=== PATIENT | male | born 1965 | race Caucasian/White ===

== ENCOUNTER 2023-08-07 09:37 | Outpatient (OUT) | payer OTHER, SELFPAY ==
--- NOTE | 2023-08-07 09:59 | MR_ITS ---
The [address] [address] Patient Name: KARI CAMACHO MRN: [facility]:[id number] date: 1965 Sex: M Assigned Patient Location: MRI Current Patient Location: MRI Accession/Order Number: [id number] Exam Date: 08/07/2023 10:10 Report Date: 08/07/2023 18:13 At the request of: JOHN CARRERA Procedure: MR IAC wo/w con EXAM: MR IAC wo/w con HISTORY: H43.19 tinnitus COMPARISON: None. TECHNIQUE: MRI of the internal auditory canals was performed without and with contrast. FINDINGS: The internal auditory canals and cerebellopontine angles are unremarkable, without masses or abnormal enhancement. The bilateral cranial nerves VII and VIII are unremarkable. No abnormality is seen involving the membranous labyrinth. The cortical sulci and ventricular system are within normal limits. There are a few nonspecific scattered foci of T2/FLAIR signal abnormality in the subcortical and periventricular white matter, likely reflect chronic microvascular ischemic changes. No mass or abnormal enhancement is seen elsewhere intracranially.No extraaxial fluid collection, mass effect, or midline shift. Diffusion-weighted images demonstrate no evidence of recent infarct. No evidence for chronic intracranial blood products. The major intracranial flow voids are visualized. The cerebellar tonsils are normal in position. The orbits are unremarkable. The paranasal sinuses show no air-fluid level. The mastoid air cells are clear. MR/MR IAC wo/w con IMPRESSION: Clear internal auditory canals and cerebellopontine angles. Mild chronic microvascular ischemic changes. Electronically authenticated by: HEATHER ZULETA Date: 08/07/2023 18:13
[2023-08-07 10:04] LABS: Basophils Percent Auto 0.3 % (0.2-2.0); Eosinophils Absolute Auto 0.1 10^3/uL (0.0-0.7); Eosinophils Percent Auto 1.2 % (0.9-7.0); Hematocrit 41.3 % (42.0-54.0); Hemoglobin 12.9 g/dL (14.0-18.0); Immature Granulocytes Abs Auto 0.02 10^3/uL (0.00-0.03); Immature Granulocytes Pct Auto 0.2 % (0.0-0.5); Lymphocytes Absolute Auto 3.3 10^3/uL (1.2-3.8); Lymphocytes Percent Auto 31.5 % (20.5-60.0); Mean Corpuscular HGB Conc 31.2 g/dL (29.9-35.2); Mean Corpuscular Volume 89.8 fL (80.0-94.0); Mean Platelet Volume 9.5 fL (9.5-13.5); Monocytes Absolute Auto 0.9 10^3/uL (0.3-0.8); Monocytes Percent Auto 8.5 % (1.7-12.0); Neutrophils Percent Auto 58.3 % (43.0-75.0); Platelet Count 281 10^3/uL (150-450); Red Cell Distribution Width 13.6 % (11.0-15.0); White Blood Count 10.3 10^3/uL (4.0-11.0)
[2023-08-07 10:19] LABS: Alanine Aminotransferase 34 U/L (16-63); Albumin Globulin Ratio 1.1; Albumin Level 3.7 g/dL (3.4-5.0); Alkaline Phosphatase 61 U/L (46-116); Anion Gap 12.1; Aspartate Amino Transferase 14 U/L (15-37); BUN Creatinine Ratio 24.8; Bilirubin Total 0.5 mg/dL (0.2-1.0); Calcium 8.9 mg/dL (8.5-10.1); Carbon Dioxide 30.8 mmol/L (21.0-32.0); Chloride 102 mmol/L (98-107); Estimated GFR (African America >60 (>=60); Estimated GFR (Non-African Ame >60 (>=60); Globulin 3.4 g/dL; Glucose 98 mg/dL (74-106); Potassium 3.9 mmol/L (3.5-5.1); Sodium 141 mmol/L (136-145); Total Protein 7.1 g/dL (6.4-8.2)
== END 2023-08-07 09:38 | disposition home or self-care (01) ==
LOC: MRI 09:37
PROVIDERS: PCP Nurse Practitioner Family; Visit Provider Nurse Practitioner Family
DX: H93.19 Tinnitus, unspecified ear (principal); G70.00 Myasthenia gravis without (acute) exacerbation
CPT/HCPCS: 36415; 70553; 80053; 85025; A9575

== ENCOUNTER 2024-01-30 11:43 | Outpatient (REF) | payer OTHER, SELFPAY ==
[2024-01-30 12:26] LABS: Bilirubin Urine NEGATIVE (NEGATIVE); Blood Urine LARGE (NEGATIVE); Clarity Urine CLEAR (CLEAR); Color Urine LT. YELLOW (YELLOW); Glucose Urine UA NEGATIVE (NEGATIVE); Ketones Urine NEGATIVE (NEGATIVE); Leukocyte Esterase Urine NEGATIVE (NEGATIVE); Nitrite Urine NEGATIVE (NEGATIVE); Protein Urine NEGATIVE (NEG/TRACE); Urobilinogen Urine 0.2 EU/dL (0.2-1.0)
[2024-01-30 12:44] LABS: WBC Urine 0-2 #/HPF (NONE SEEN)
[2024-01-30 12:45] LABS: Bacteria Urine NONE SEEN #/HPF (NONE SEEN); Cast Seen? NONE SEEN #/LPF (NONE SEEN); Crystals Seen? None Seen #/HPF (None Seen); Mucus Urine NONE SEEN (NONE SEEN); Squamous Epithelial Cell Urine RARE #/LPF (NONE/RARE)
== END 2024-01-30 11:44 | disposition home or self-care (01) ==
LOC: LAB 11:43
PROVIDERS: PCP Nurse Practitioner Family; Visit Provider Nurse Practitioner Family
DX: R31.9 Hematuria, unspecified (principal)
CPT/HCPCS: 81001; 87086

== ENCOUNTER 2024-01-31 10:54 | Outpatient (OUT) | payer OTHER, SELFPAY ==
--- OUTSIDE RECORDS SUMMARY | 2024-01-31 11:01 | XMS_ITS | CCD ---
Author Organization [facility] Care Team Providers Care Financial Systems Director Name Role Phone Krystin Loja Unavailable KERRY MONTES Admitting Unavailable SIMON, KERRY Attending Unavailable RANDA, DR EASON Primary Care Unavailable KERRY MONTES Consulting Unavailable OSCARS, DR EASON Admitting Unavailable YUHAS, DR EASON Attending Unavailable YUHAS, DR EASON Primary Care Unavailable YUHAS, DR EASON Consulting Unavailable REQUEST, DR CHESTER LISTED Admitting Unavaila ble REQUEST, DR CHESTER LISTED Attending Unavaila ble REQUEST, DR CHESTER LISTED Consulting Unavaila ble Medications Current Medications Medication Drug Class(es) Dates Sig (Normalized) Sig (Original) atorvastatin (1 source) HMG-CoA Reductase Inhibitor Atorvastatin Calcium Active azithromycin 250 mg oral tablet (1 source) Macrolide Antimicrobial Start: 06-28-20 Azithromycin 250 MG 2 tablet on the first day, then 1 tablet daily for 4 days Orally Once a day for 5 day(s) Jun, Active benzonatate 100 mg oral capsule (1 source) Non-narcotic Antitussive Start: 06-28-20 take 1 capsule by mouth every eight hours Tessalon Perles 100 MG 1 capsule as needed Orally Three times a day for 7 days Jun, Active hydroCHLOROthiazide (1 source) Thiazide Diuretic hydroCHLOROthi azide Active Losartan (1 source) Angiotensin 2 Receptor Rob Losartan Potassium Active methylPREDNISolone 4 mg oral tablet (1 source) Corticosteroid Start: 06-28-20 methylPREDNISolone 4 MG as directed Orally for daily dose take half with breakfast, half with dinner for 6 days Jun, Active Pyridostigmine (2 sources) Pyridostigmine B romide ER Active Pyridostigmine B romide Active Problems Problem Classification Problem Date Documented Da te Episodic/Chronic Other circulatory disease (1 source) Elevated blood-pressure reading, without diagnosis of hypertension Episodic Other lower respiratory disease (1 source) Unspecified acute lower respiratory infection Episodic Other nervous system disorders (4 sources) Myasthenia gravis without (acute) exacerbation; Translations: [MYASTHENIA GRAVIS W/O AC EXACERBAT] Onset: 08-17-2022 Chronic Results Test Name Value Interpretation Reference Range Facility CBC AUTO DIFFon 01-13-2023 BASO # 0.0 103/ul Normal 0.0-0.1 [facility] Comment on above: Performed By: #### C BC #### [facility] [address] [address] [address] Danielle Harden Basophils/100 WBC (Bld) 0.2 % Normal 0.2-2.0 [facility] Comment on above: Performed By: #### C BC #### [facility] [address] [address] [address] Danielle Harden EO # 0.2 103/ul Normal 0.0-0.7 [facility] Comment on above: Performed By: #### C BC #### [facility] [address] [address] [address] Danielle Harden Eosinophils/100 WBC (Bld) 2.7 % Normal 0.9-7.0 [facility] Comment on above: Performed By: #### C BC #### [facility] [address] [place] [address] Dr. Danielle Harden Erythrocyte distribution width (RBC) [Ratio] 14.1 % Normal 11.0-15.0 [facility] Comment on above: Performed By: #### C BC #### [facility] [address] [address] [address] Danielle Harden Hematocrit (Bld) [Volume fraction] 39.1 % Critically low 42.0-54.0 [facility] Comment on above: Performed By: #### C BC #### [facility] [address] [place] [address] Dr. Danielle Harden Hemoglobin (Bld) [Mass/Vol] 13.0 g/dL Critically low 14.0-18.0 [facility] Comment on above: Performed By: #### C BC #### [facility] [address] [place] [address] Dr. Danielle Harden IG # 0.02 10e3/ul Normal 0.00-0.03 [facility] Comment on above: Performed By: #### C BC #### [facility] [address] [place] [address] Dr. Danielle Harden IG % 0.2 % Normal 0.0-0.5 [facility] Comment on above: Performed By: #### C BC #### [facility] [address] [place] [address] Dr. Danielle Harden LYMPH # 2.6 103/ul Normal 1.2-3.8 [facility] Comment on above: Performed By: #### C BC #### [facility] [address] [place] [address] Dr. Danielle Harden Lymphocytes/100 WBC (Bld) 31.3 % Normal 20.5-60.0 [facility] Comment on above: Performed By: #### C BC #### [facility] [address] [place] [address] Dr. Danielle Harden MANUAL DIFF REQ NO Normal [facility] Comment on above: Performed By: #### C BC #### [facility] [address] [place] [address] Dr. Danielle Harden MCH (RBC) [Entitic mass] 28.6 pg Normal 25.9-34.0 [facility] Comment on above: Performed By: #### C BC #### [facility] [address] [place] [address] Dr. Danielle Harden MCHC (RBC) [Mass/Vol] 33.2 g/dL Normal 29.9-35.2 [facility] Comment on above: Performed By: #### C BC #### [facility] [address] [place] [address] Dr. Danielle Harden MCV (RBC) [Entitic vol] 86.1 fL Normal 80.0-94.0 [facility] Comment on above: Performed By: #### C BC #### [facility] [address] [place] [address] Dr. Danielle Harden MONO # 0.8 103/ul Normal 0.3-0.8 [facility] Comment on above: Performed By: #### C BC #### [facility] [address] [place] [address] Dr. Danielle Harden Monocytes/100 WBC (Bld) 9.4 % Normal 1.7-12.0 [facility] Comment on above: Performed By: #### C BC #### [facility] [address] [place] [address] Dr. Danielle Harden NEUT # 4.6 103/ul Normal 1.4-6.5 [facility] Comment on above: Performed By: #### C BC #### [facility] [address] [place] [address] Dr. Danielle aHrden Neutrophils/100 WBC (Bld) 56.2 % Normal 43.0-75.0 [facility] Comment on above: Performed By: #### C BC #### [facility] [address] [place] [address] Dr. Danielle Harden Platelet mean volume (Bld) [Entitic vol] 9.7 fL Normal 9.5-13.5 [facility] Comment on above: Performed By: #### C BC #### [facility] [address] [place] [address] Dr. Danielle Harden PLT 269 103/ul Normal 150-450 [facility] Comment on above: Performed By: #### C BC #### [facility] [address] [place] [address] Dr. Danielle Harden RBC 4.54 106/ul Critically low 4.70-6.10 [facility] Comment on above: Performed By: #### C BC #### [facility] [address] [place] [address] Dr. Danielle Harden WBC 8.2 103/ul Normal 4.0-11.0 [facility] Comment on above: Performed By: #### C BC #### [facility] [address] [place] [address] Dr. Danielle Harden LIPID PROFILEon 01-13-2023 CHOL-HDL RATIO NORM SEE BELOW Normal [facility] Comment on above: Result Comment: 3.3 - 4.4 LOW RISK 4.4 - 7.1 AVERAGE RISK 7.1 - 11.0 MODERATE RISK >11.0 HIGH RISK Performed By: #### C MP, MG #### [facility] [address] [address] [address] Danielle Harden Cholesterol [Mass/Vol] 182 mg/dL Normal <=200 [facility] Comment on above: Performed By: #### C MP, MG #### [facility] [address] [address] [address] Danielle Harden Cholesterol in HDL [Mass/Vol] 76 mg/dL Critically high 40-60 [facility] Comment on above: Performed By: #### C MP, MG #### [facility] [address] [place] [address] Dr. Danielle Harden Cholesterol in LDL [Mass/Vol] 78.2 mg/dL Normal [facility] Comment on above: Performed By: #### C MP, MG #### [facility] [address] [place] [address] Dr. Danielle Harden Cholesterol.total/C holesterol in HDL [Mass ratio] 2.4 {ratio} Normal [facility] Comment on above: Performed By: #### C MP, MG #### [facility] [address] [place] [address] Dr. Danielle Harden HDL NORMAL > or = 60 mg/dl - LOW CARDIOVASCULAR RISK <40 mg/dl - HIGH CARDIOVASCULAR RISK Normal [facility] Comment on above: Performed By: #### C MP, MG #### [facility] [address] [place] [address] Dr. Danielle Harden LDL CALC NORMAL SEE BELOW Normal [facility] Comment on above: Result Comment: <100 mg/dl OPTIMAL 100 - 129 mg/dl NEAR OR ABOVE OPTIMAL 130 - 159 mg/dl BORDERLINE HIGH 160 - 189 mg/dl HIGH >190 mg/dl VERY HIGH Performed By: #### C MP, MG #### [facility] [address] [place] [address] Dr. Danielle Harden Triglyceride [Mass/Vol] 139 mg/dL Normal <=150 [facility] Comment on above: Performed By: #### C MP, MG #### [facility] [address] [address] [address] Danielle Harden VLDL CALC 27.8 mg/dL Normal [facility] Comment on above: Performed By: #### C MP, MG #### [facility] [address] [place] [address] Dr. Danielle Harden PROF 14(COMP METB)on 023 Albumin [Mass/Vol] 4.0 g/dL Normal 3.4-5.0 [facility] Comment on above: Performed By: #### C MP, T4, LIPID, TSH #### [facility] [address] [place] [address] Dr. Danielle Harden Albumin/Globulin [Mass ratio] 1.0 {ratio} Normal [facility] Comment on above: Performed By: #### C MP, T4, LIPID, TSH #### [facility] [address] [place] [address] Dr. Danielle Harden ALP [Catalytic activity/Vol] 58 U/L Normal 46-116 [facility] Comment on above: Performed By: #### C MP, T4, LIPID, TSH #### [facility] [address] [place] [address] Dr. Danielle Harden ALT [Catalytic activity/Vol] 33 U/L Normal 16-63 [facility] Comment on above: Performed By: #### C MP, T4, LIPID, TSH #### [facility] [address] [place] [address] Dr. Danielle Harden Anion gap [Moles/Vol] 11.1 mmol/L Normal [facility] Comment on above: Performed By: #### C MP, T4, LIPID, TSH #### [facility] [address] [place] [address] Dr. Danielle Harden AST [Catalytic activity/Vol] 14 U/L Critically low 15-37 [facility] Comment on above: Performed By: #### C MP, T4, LIPID, TSH #### [facility] [address] [place] [address] Dr. Danielle Harden Bilirubin [Mass/Vol] 0.5 mg/dL Normal 0.2-1.0 [facility] Comment on above: Performed By: #### C MP, T4, LIPID, TSH #### [facility] [address] [address] [address] Danielle Harden Calcium [Mass/Vol] 9.2 mg/dL Normal 8.5-10.1 [facility] Comment on above: Performed By: #### C MP, T4, LIPID, TSH #### [facility] [address] [place] [address] Dr. Danielle Harden Chloride [Moles/Vol] 102 mmol/L Normal 98-107 [facility] Comment on above: Performed By: #### C MP, T4, LIPID, TSH #### [facility] [address] [place] [address] Dr. Danielle Harden CO2 [Moles/Vol] 28.1 mmol/L Normal 21.0-32.0 [facility] Comment on above: Performed By: #### C MP, T4, LIPID, TSH #### [facility] [address] [place] [address] Dr. Danielle Harden Creatinine [Mass/Vol] 0.87 mg/dL Normal 0.70-1.30 [facility] Comment on above: Performed By: #### C MP, T4, LIPID, TSH #### [facility] [address] [place] [address] Dr. Danielle Harden EGFR-AF IRANIAN >60 Normal >=60 [facility] Comment on above: Performed By: #### C MP, T4, LIPID, TSH #### [facility] [address] [place] [address] Dr. Danielle Harden EGFR-NON AF IRANIAN >60 Normal >=60 [facility] Comment on above: Performed By: #### C MP, T4, LIPID, TSH #### [facility] [address] [place] [address] Dr. Danielle Harden Globulin (S) [Mass/Vol] 4.2 g/dL Normal [facility] Comment on above: Performed By: #### C MP, T4, LIPID, TSH #### [facility] [address] [address] [address] Danielle Harden Glucose [Mass/Vol] 95 mg/dL Normal 74-106 [facility] Comment on above: Performed By: #### C MP, T4, LIPID, TSH #### [facility] [address] [address] [address] Danielle Harden Potassium [Moles/Vol] 3.2 mmol/L Critically low 3.5-5.1 [facility] Comment on above: Performed By: #### C MP, T4, LIPID, TSH #### [facility] [address] [address] [address] Danielle Harden Protein [Mass/Vol] 8.2 g/dL Normal 6.4-8.2 [facility] Comment on above: Performed By: #### C MP, T4, LIPID, TSH #### [facility] [address] [place] [address] Dr. Danielle Harden Sodium [Moles/Vol] 138 mmol/L Normal 136-145 [facility] Comment on above: Performed By: #### C MP, T4, LIPID, TSH #### [facility] [address] [address] [address] Danielle Harden Urea nitrogen [Mass/Vol] 21.0 mg/dL Critically high 7.0-18.0 [facility] Comment on above: Performed By: #### C MP, T4, LIPID, TSH #### [facility] [address] [place] [address] Dr. Danielle Harden Urea nitrogen/Creatinine [Mass ratio] 24.1 mg/mg Normal [facility] Comment on above: Performed By: #### C MP, T4, LIPID, TSH #### [facility] [address] [place] [address] Dr. Danielle Harden T4on 01-13-2023 T4 [Mass/Vol] 9.50 ug/dL Normal 4.50-12.10 [facility] Comment on above: Performed By: #### C MP, MG #### [facility] [address] [place] [address] Dr. Danielle Harden TSHon 01-13-2023 TSH 2.226 uIU/mL Normal 0.358-3.740 [facility] Comment on above: Performed By: #### C MP, MG #### [facility] [address] [place] [address] Dr. Danielle Harden MAGNESIUMon 08-17-2022 Magnesium [Mass/Vol] 2.0 mg/dL Normal 1.8-2.4 [facility] Comment on above: Performed By: #### C MP, MG #### [facility] [address] [place] [address] Dr. Danielle Harden PROF 14(COMP METB)on 022 Albumin [Mass/Vol] 3.6 g/dL Normal 3.4-5.0 [facility] Comment on above: Performed By: #### C MP, MG #### [facility] [address] [place] [address] Dr. Danielle Harden Albumin/Globulin [Mass ratio] 1.1 {ratio} Normal [facility] Comment on above: Performed By: #### C MP, MG #### [facility] [address] [place] [address] Dr. Danielle Harden ALP [Catalytic activity/Vol] 61 U/L Normal 46-116 [facility] Comment on above: Performed By: #### C MP, MG #### [facility] [address] [place] [address] Dr. Danielle Harden ALT [Catalytic activity/Vol] 23 U/L Normal 16-63 [facility] Comment on above: Performed By: #### C MP, MG #### [facility] [address] [place] [address] Dr. Danielle Harden Anion gap [Moles/Vol] 10.4 mmol/L Normal [facility] Comment on above: Performed By: #### C MP, MG #### [facility] [address] [place] [address] Dr. Danielle Harden AST [Catalytic activity/Vol] 13 U/L Critically low 15-37 [facility] Comment on above: Performed By: #### C MP, MG #### [facility] [address] [address] [address] Danielle Harden Bilirubin [Mass/Vol] 0.2 mg/dL Normal 0.2-1.0 [facility] Comment on above: Performed By: #### C MP, MG #### [facility] [address] [place] [address] Dr. Danielle Harden Calcium [Mass/Vol] 8.8 mg/dL Normal 8.5-10.1 [facility] Comment on above: Performed By: #### C MP, MG #### [facility] [address] [place] [address] Dr. Danielle Harden Chloride [Moles/Vol] 102 mmol/L Normal 98-107 [facility] Comment on above: Performed By: #### C MP, MG #### [facility] [address] [place] [address] Dr. Danielle Harden CO2 [Moles/Vol] 28.1 mmol/L Normal 21.0-32.0 [facility] Comment on above: Performed By: #### C MP, MG #### [facility] [address] [place] [address] Dr. Danielle Hardne Creatinine [Mass/Vol] 1.06 mg/dL Normal 0.70-1.30 [facility] Comment on above: Performed By: #### C MP, MG #### [facility] [address] [place] [address] Dr. Danielle Harden EGFR-AF IRANIAN >60 Normal >=60 [facility] Comment on above: Performed By: #### C MP, MG #### [facility] [address] [place] [address] Dr. Danielle Harden EGFR-NON AF IRANIAN >60 Normal >=60 [facility] Comment on above: Performed By: #### C MP, MG #### [facility] [address] [place] [address] Dr. Danielle Harden Globulin (S) [Mass/Vol] 3.3 g/dL Normal [facility] Comment on above: Performed By: #### C MP, MG #### [facility] [address] [address] [address] Danielle Harden Glucose [Mass/Vol] 93 mg/dL Normal 74-106 [facility] Comment on above: Performed By: #### C MP, MG #### [facility] [address] [address] [address] Danielle Harden Potassium [Moles/Vol] 3.5 mmol/L Normal 3.5-5.1 [facility] Comment on above: Performed By: #### C MP, MG #### [facility] [address] [address] [address] Danielle Harden Protein [Mass/Vol] 6.9 g/dL Normal 6.4-8.2 [facility] Comment on above: Performed By: #### C MP, MG #### [facility] [address] [place] [address] Dr. Danielle Harden Sodium [Moles/Vol] 137 mmol/L Normal 136-145 [facility] Comment on above: Performed By: #### C MP, MG #### [facility] [address] [address] [address] Danielle Harden Urea nitrogen [Mass/Vol] 23.0 mg/dL Critically high 7.0-18.0 [facility] Comment on above: Performed By: #### C MP, MG #### [facility] [address] [place] [address] Dr. Danielle Harden Urea nitrogen/Creatinine [Mass ratio] 21.7 mg/mg Normal [facility] Comment on above: Performed By: #### C MP, MG #### [facility] [address] [address] [address] Danielle Harden [facility] Kendrick 04-07-2022 Albumin [Mass/Vol] 4.3 g/dL Normal 3.6-5.1 [facility] Comment on above: Performed By: #### 7 600, [id number] #### [facility] [address], [address] [place] [address] Metal Bumper: Darwin Ray MD Albumin/Globulin [Mass ratio] 1.9 {ratio} Normal 1.0-2.5 [facility] Comment on above: Performed By: #### 7 600, [id number] #### [facility] of [address] [place] [address] [employer] Bumper: Darwin Ray MD ALP [Catalytic activity/Vol] 62 U/L Normal 35-144 [facility] Comment on above: Performed By: #### 7 600, [id number] #### [facility] of [address], [address] [place] [address] [employer]: Darwin Ray MD ALT [Catalytic activity/Vol] 18 U/L Normal 9-46 [facility] Comment on above: Performed By: #### 7 600, [id number] #### [facility] of [address] [place] [address] [employer] Bumper: Darwin Ray MD AST [Catalytic activity/Vol] 16 U/L Normal 10-35 [facility] Comment on above: Performed By: #### 7 600, [id number] #### [facility] of [address], [address] [place] [address] [employer]: Darwin Ray MD Bilirubin [Mass/Vol] 0.3 mg/dL Normal 0.2-1.2 [facility] Comment on above: Performed By: #### 7 600, [id number] #### [facility] of [address], [address] [place] [address] [employer]: Darwin Ray MD BUN/CREATININE RATIO NOT APPLICABLE Normal 6-22 [facility] Comment on above: Performed By: #### 7 600, [id number] #### [facility] of [address], [address] [place] [address] [employer]: Darwin Ray MD Calcium [Mass/Vol] 9.3 mg/dL Normal 8.6-10.3 [facility] Comment on above: Performed By: #### 7 600, [id number] #### [facility] of [address] [place] [address] [employer]: Darwin Ray MD Chloride [Moles/Vol] 107 mmol/L Normal 98-110 [facility] Comment on above: Performed By: #### 7 600, [id number] #### [facility] [address] [place] [address] [employer]: Darwin Ray MD CO2 [Moles/Vol] 27 mmol/L Normal 20-32 [facility] Comment on above: Performed By: #### 7 600, [id number] #### [facility] [place] [address] [employer]: Darwin Ray MD Creatinine [Mass/Vol] 0.90 mg/dL Normal 0.70-1.30 [facility] Comment on above: Performed By: #### 7 600, [id number] #### [facility] [place] [address] [employer]: Darwin Ray MD GFR/1.73 sq M.predicted among non-blacks MDRD (S/P/Bld) [Vol rate/Area] 100 mL/min/{1.73_m2} Normal > OR = 60 [facility] Comment on above: Result Comment: The eGFR is based on the CKD-EPI 2020 equation. To calculate the new eGFR from a previous Creatinine or Cystatin C result, go to https://www.kidney.org/professionals/ kdoqi/gfr%5Fcalculator Performed By: #### 7 600, [id number] #### [facility] [place] [address] [employer]: Darwin Ray MD Globulin (S) [Mass/Vol] 2.3 g/dL Normal 1.9-3.7 [facility] Comment on above: Performed By: #### 7 600, [id number] #### [facility] [place] [address] [employer]: Darwin Ray MD Glucose [Mass/Vol] 102 mg/dL High 65-99 [facility] Comment on above: Result Comment: Fasting reference interval For someone without known diabetes, a glucose value between 100 and 125 mg/dL is consistent with prediabetes and should be confirmed with a follow-up test. Performed By: #### 7 600, [id number] #### [facility] of [address], [address] [place] [address] [employer]: Darwin Ray MD Potassium [Moles/Vol] 3.6 mmol/L Normal 3.5-5.3 [facility] Comment on above: Performed By: #### 7 600, [id number] #### [facility] of [address], [address] [place] [address] [employer]umper: Darwin Ray MD Protein [Mass/Vol] 6.6 g/dL Normal 6.1-8.1 [facility] Comment on above: Performed By: #### 7 600, 23249 #### [facility] [place] [address] [employer]umper: Darwin Ray MD Sodium [Moles/Vol] 141 mmol/L Normal 135-146 [facility] Comment on above: Performed By: #### 7 600, 81019 #### [facility] [place] [address] [employer]: Darwin Ray MD Urea nitrogen [Mass/Vol] 23 mg/dL Normal 7-25 [facility] Comment on above: Performed By: #### 7 600, [id number] #### [facility] [place] [address] Metal Bumper: Darwin Ray MD LIPID PANEL, [facility] 03-12 Cholesterol [Mass/Vol] 144 mg/dL Normal <200 [facility] Comment on above: Order Comment: FASTI NG:YES FASTING: YES Performed By: #### 7 600, 02387 #### [facility] of [place] [address] Metal Bumper: Darwin Ray MD Cholesterol in HDL [Mass/Vol] 43 mg/dL Normal > OR = 40 [facility] Comment on above: Order Comment: FASTI NG:YES FASTING: YES Performed By: #### 7 600, 07676 #### [facility] of [address], [address] [place] [address] Metal Bumper: Darwin Ray MD Cholesterol.total/C holesterol in HDL [Mass ratio] 3.3 {ratio} Normal <5.0 [facility] Comment on above: Order Comment: FASTI NG:YES FASTING: YES Performed By: #### 7 600, 97789 #### [facility] [address], [address] [place] [address] Metal Bumper: Darwin Ray MD LDL-CHOLESTEROL Normal [facility] Comment on above: Order Comment: FASTI NG:YES FASTING: YES Result Comment: LDL cholesterol not calculated. Triglyceride levels greater than 400 mg/dL invalidate calculated LDL results. Reference range: <100 Desirable range <100 mg/dL for primary prevention; <70 mg/dL for patients with CHD or diabetic patients with > or = 2 CHD risk factors. LDL-C is now calculated using the Vicente calculation, which is a validated novel method providing better accuracy than the Friedewald equation in the estimation of LDL-C. Jass MELGOZA et al. RNO. 2013;310(19): 8744-8348 (http://education.Devunity/faq/BIN622) Performed By: #### 7 600, 95316 #### [facility] [address], [address] [place] [address] Metal Bumper: Darwin Ray MD NON HDL CHOLESTEROL 101 mg/dL (calc) Normal <130 [facility] Comment on above: Order Comment: FASTI NG:YES FASTING: YES Result Comment: For patients with diabetes plus 1 major ASCVD risk factor, treating to a non-HDL-C goal of <100 mg/dL (LDL-C of <70 mg/dL) is considered a therapeutic option. Performed By: #### 7 600, 91849 #### [facility] [address], [address] [place] [address] Metal Bumper: Darwin Ray MD Triglyceride [Mass/Vol] 428 mg/dL High <150 [facility] Comment on above: Order Comment: FASTI NG:YES FASTING: YES Result Comment: If a non-fasting specimen was collected, consider repeat triglyceride testing on a fasting specimen if clinically indicated. Danica et al. J. of Clin. Lipidol. 2015;9:129-169. Performed By: #### 7 600, 87022 #### [facility] [address] [facility], [address] [place] [address] Metal Bumper: Darwin Ray MD CBC AUTO DIFFon 01-18-2022 BASO # 0.0 103/ul Normal 0.0-0.1 [facility] Comment on above: Performed By: #### C BC #### [facility] [address] [address] [address] Danielle Harden Basophils/100 WBC (Bld) 0.6 % Normal 0.2-2.0 [facility] Comment on above: Performed By: #### C BC #### [facility] [address] [place] [address] [address] Danielle Harden EO # 0.3 103/ul Normal 0.0-0.7 [facility] Comment on above: Performed By: #### C BC #### [facility] [address] [place] [address] [address] Danielle Harden Eosinophils/100 WBC (Bld) 3.8 % Normal 0.9-7.0 [facility] Comment on above: Performed By: #### C BC #### [facility] [address] [address] [address] Danielle Harden Erythrocyte distribution width (RBC) [Ratio] 13.6 % Normal 11.0-15.0 [facility] Comment on above: Performed By: #### C BC #### [facility] [address] [place] [address] [address] Danielle Harden Hematocrit (Bld) [Volume fraction] 39.3 % Critically low 42.0-54.0 [facility] Comment on above: Performed By: #### C BC #### [facility] [address] [place] [address] [address] Danielle Harden Hemoglobin (Bld) [Mass/Vol] 12.5 g/dL Critically low 14.0-18.0 [facility] Comment on above: Performed By: #### C BC #### [facility] [address] [place] [address] Dr. Danielle Harden IG # 0.02 10e3/ul Normal 0.00-0.03 [facility] Comment on above: Performed By: #### C BC #### [facility] [address] [place] [address] Dr. Danielle Harden IG % 0.3 % Normal 0.0-0.5 [facility] Comment on above: Performed By: #### C BC #### [facility] [address] [place] [address] Dr. Danielle Harden LYMPH # 2.1 103/ul Normal 1.2-3.8 [facility] Comment on above: Performed By: #### C BC #### [facility] [address] [place] [address] Dr. Danielle Harden Lymphocytes/100 WBC (Bld) 32.0 % Normal 20.5-60.0 [facility] Comment on above: Performed By: #### C BC #### [facility] [address] [place] [address] Dr. Danielle Harden MANUAL DIFF REQ NO Normal [facility] Comment on above: Performed By: #### C BC #### [facility] [address] [place] [address] Dr. Danielle Harden MCH (RBC) [Entitic mass] 27.8 pg Normal 25.9-34.0 [facility] Comment on above: Performed By: #### C BC #### [facility] [address] [place] [address] Dr. Danielle Harden MCHC (RBC) [Mass/Vol] 31.8 g/dL Normal 29.9-35.2 [facility] Comment on above: Performed By: #### C BC #### [facility] [address] [place] [address] Dr. Danielle Harden MCV (RBC) [Entitic vol] 87.3 fL Normal 80.0-94.0 [facility] Comment on above: Performed By: #### C BC #### [facility] [address] [place] [address] [address] Danielle Harden MONO # 0.5 103/ul Normal 0.3-0.8 [facility] Comment on above: Performed By: #### C BC #### [facility] [address] [place] [address] Dr. Danielle Harden Monocytes/100 WBC (Bld) 7.7 % Normal 1.7-12.0 [facility] Comment on above: Performed By: #### C BC #### [facility] [address] [place] [address] Dr. Danielle Harden NEUT # 3.7 103/ul Normal 1.4-6.5 [facility] Comment on above: Performed By: #### C BC #### [facility] [address] [place] [address] Dr. Danielle Harden Neutrophils/100 WBC (Bld) 55.6 % Normal 43.0-75.0 [facility] Comment on above: Performed By: #### C BC #### [facility] [address] [place] [address] Dr. Danielle Harden Platelet mean volume (Bld) [Entitic vol] 10.3 fL Normal 9.5-13.5 [facility] Comment on above: Performed By: #### C BC #### [facility] [address] [place] [address] Dr. Danielle Harden PLT 274 103/ul Normal 150-450 [facility] Comment on above: Performed By: #### C BC #### [facility] [address] [place] [address] Dr. Danielle Harden RBC 4.50 106/ul Critically low 4.70-6.10 [facility] Comment on above: Performed By: #### C BC #### [facility] [address] [place] [address] Dr. Danielle Harden WBC 6.6 103/ul Normal 4.0-11.0 [facility] Comment on above: Performed By: #### C BC #### [facility] [address] [place] [address] Dr. Danielle Harden LIPID PROFILEon 01-18-2022 CHOL-HDL RATIO NORM SEE BELOW Normal [facility] Comment on above: Result Comment: 3.3 - 4.4 LOW RISK 4.4 - 7.1 AVERAGE RISK 7.1 - 11.0 MODERATE RISK >11.0 HIGH RISK Performed By: #### L IPID, T4, TSH, CMP #### [facility] [address] [place] [address] Dr. Danielle Harden Cholesterol [Mass/Vol] 140 mg/dL Normal <=200 [facility] Comment on above: Performed By: #### L IPID, T4, TSH, CMP #### [facility] [address] [place] [address] Dr. Danielle Harden Cholesterol in HDL [Mass/Vol] 55 mg/dL Normal 40-60 [facility] Comment on above: Performed By: #### L IPID, T4, TSH, CMP #### [facility] [address] [place] [address] Dr. Danielle Harden Cholesterol in LDL [Mass/Vol] 60.2 mg/dL Normal [facility] Comment on above: Performed By: #### L IPID, T4, TSH, CMP #### [facility] [address] [place] [address] [address] Danielle Harden Cholesterol.total/C holesterol in HDL [Mass ratio] 2.5 {ratio} Normal [facility] Comment on above: Performed By: #### L IPID, T4, TSH, CMP #### [facility] [address] [place] [address] Dr. Danielle Harden HDL NORMAL > or = 60 mg/dl - LOW CARDIOVASCULAR RISK <40 mg/dl - HIGH CARDIOVASCULAR RISK Normal [facility] Comment on above: Performed By: #### L IPID, T4, TSH, CMP #### [facility] [address] [place] [address] Dr. Danielle Harden LDL CALC NORMAL SEE BELOW Normal [facility] Comment on above: Result Comment: <100 mg/dl OPTIMAL 100 - 129 mg/dl NEAR OR ABOVE OPTIMAL 130 - 159 mg/dl BORDERLINE HIGH 160 - 189 mg/dl HIGH >190 mg/dl VERY HIGH Performed By: #### L IPID, T4, TSH, CMP #### [facility] [address] [place] [address] Dr. Danielle Harden Triglyceride [Mass/Vol] 124 mg/dL Normal <=150 [facility] Comment on above: Performed By: #### L IPID, T4, TSH, CMP #### [facility] [address] [place] [address] Dr. Danielle Harden VLDL CALC 24.8 mg/dL Normal [facility] Comment on above: Performed By: #### L IPID, T4, TSH, CMP #### [facility] [address] [place] [address] Dr. Danielle Harden PROF 14(COMP METB)on 022 Albumin [Mass/Vol] 4.0 g/dL Normal 3.4-5.0 [facility] Comment on above: Performed By: #### L IPID, T4, TSH, CMP #### [facility] [address] [place] [address] Dr. Danielle Harden Albumin/Globulin [Mass ratio] 1.2 {ratio} Normal [facility] Comment on above: Performed By: #### L IPID, T4, TSH, CMP #### [facility] [address] [place] [address] Dr. Danielle Harden ALP [Catalytic activity/Vol] 58 U/L Normal 46-116 [facility] Comment on above: Performed By: #### L IPID, T4, TSH, CMP #### [facility] [address] [place] [address] Dr. Danielle Harden ALT [Catalytic activity/Vol] 29 U/L Normal 16-63 [facility] Comment on above: Performed By: #### L IPID, T4, TSH, CMP #### [facility] [address] [place] [address] Dr. Danielle Harden Anion gap [Moles/Vol] 11.6 mmol/L Normal [facility] Comment on above: Performed By: #### L IPID, T4, TSH, CMP #### [facility] [address] [place] [address] Dr. Danielle Harden AST [Catalytic activity/Vol] 16 U/L Normal 15-37 [facility] Comment on above: Performed By: #### L IPID, T4, TSH, CMP #### [facility] [address] [address] [address] Danielle Harden Bilirubin [Mass/Vol] 0.6 mg/dL Normal 0.2-1.0 [facility] Comment on above: Performed By: #### L IPID, T4, TSH, CMP #### [facility] [address] [place] [address] Dr. Danielle Harden Calcium [Mass/Vol] 9.1 mg/dL Normal 8.5-10.1 [facility] Comment on above: Performed By: #### L IPID, T4, TSH, CMP #### [facility] [address] [place] [address] Dr. Danielle Harden Chloride [Moles/Vol] 104 mmol/L Normal 98-107 [facility] Comment on above: Performed By: #### L IPID, T4, TSH, CMP #### [facility] [address] [place] [address] Dr. Danielle Harden CO2 [Moles/Vol] 27.3 mmol/L Normal 21.0-32.0 [facility] Comment on above: Performed By: #### L IPID, T4, TSH, CMP #### [facility] [address] [place] [address] Dr. Danielle Harden Creatinine [Mass/Vol] 0.78 mg/dL Normal 0.70-1.30 [facility] Comment on above: Performed By: #### L IPID, T4, TSH, CMP #### [facility] [address] [place] [address] Dr. Danielle Harden EGFR-AF IRANIAN >60 Normal >=60 [facility] Comment on above: Performed By: #### L IPID, T4, TSH, CMP #### [facility] [address] [place] [address] Dr. Danielle Harden EGFR-NON AF IRANIAN >60 Normal >=60 [facility] Comment on above: Performed By: #### L IPID, T4, TSH, CMP #### [facility] [address] [place] [address] [address] Danielle Harden Globulin (S) [Mass/Vol] 3.3 g/dL Normal [facility] Comment on above: Performed By: #### L IPID, T4, TSH, CMP #### [facility] [address] [place] [address] Dr. Danielle Harden Glucose [Mass/Vol] 86 mg/dL Normal 74-106 [facility] Comment on above: Performed By: #### L IPID, T4, TSH, CMP #### [facility] [address] [place] [address] Dr. Danielle Harden Potassium [Moles/Vol] 3.9 mmol/L Normal 3.5-5.1 [facility] Comment on above: Performed By: #### L IPID, T4, TSH, CMP #### [facility] [address] [place] [address] Dr. Danielle Harden Protein [Mass/Vol] 7.3 g/dL Normal 6.4-8.2 [facility] Comment on above: Performed By: #### L IPID, T4, TSH, CMP #### [facility] [address] [place] [address] Dr. Danielle Harden Sodium [Moles/Vol] 139 mmol/L Normal 136-145 [facility] Comment on above: Performed By: #### L IPID, T4, TSH, CMP #### [facility] [address] [place] [address] Dr. Danielle Harden Urea nitrogen [Mass/Vol] 19.0 mg/dL Critically high 7.0-18.0 [facility] Comment on above: Performed By: #### L IPID, T4, TSH, CMP #### [facility] [address] [place] [address] Dr. Danielle Harden Urea nitrogen/Creatinine [Mass ratio] 24.4 mg/mg Normal [facility] Comment on above: Performed By: #### L IPID, T4, TSH, CMP #### [facility] [address] [place], [place] [id number] Dr. Danielle Harden T4on 01-18-2022 T4 [Mass/Vol] 8.50 ug/dL Normal 4.50-12.10 [facility] Comment on above: Performed By: #### L IPID, T4, TSH, CMP #### [facility] [address] [place] [address] Dr. Danielle Harden TSHon 01-18-2022 TSH 1.855 uIU/mL Normal 0.358-3.740 [facility] Comment on above: Performed By: #### L IPID, T4, TSH, CMP #### [facility] [address] [place] [address] Dr. Danielle Harden TSH RANGE SEE BELOW Normal [facility] Comment on above: Result Comment: <0.3 4 UIU/ml HYPERTHYROID 0.34-5.60 UIU/ml EUTHYROID >5.60 UIU/ml HYPOTHYROID Performed By: #### L IPID, T4, TSH, CMP #### [facility] [address] [place] [address] Dr. Danielle Harden BASIC METABOLIC PANELon 09-12 BUN/CREATININE RATIO NOT APPLICABLE Normal 6- [facility] Comment on above: Order Comment: FASTI NG:YES FASTING: YES Performed By: #### 1 0165, 6399 #### [facility] [address] Metal Bumper: Darwin Ray MD Calcium [Mass/Vol] 9.3 mg/dL Normal 8.6-10.3 [facility] Comment on above: Order Comment: FASTI NG:YES FASTING: YES Performed By: #### 1 0165, 6399 #### [facility] [place] [address] Metal Bumper: Darwin Ray MD Chloride [Moles/Vol] 104 mmol/L Normal 98-110 [facility] Comment on above: Order Comment: FASTI NG:YES FASTING: YES Performed By: #### 1 0165, 6399 #### [facility] [address], [address] [place] [address] Metal Bumper: Darwin Ray MD CO2 [Moles/Vol] 29 mmol/L Normal 20-32 [facility] Comment on above: Order Comment: FASTI NG:YES FASTING: YES Performed By: #### 1 0165, 6399 #### [facility] [address], [address] [place] [address] Metal Bumper: Darwin Ray MD Creatinine [Mass/Vol] 0.86 mg/dL Normal 0.70-1.33 [facility] Comment on above: Order Comment: FASTI NG:YES FASTING: YES Result Comment: For patients >49 years of age, the reference limit for Creatinine is approximately 13% higher for people identified as -[place]. Performed By: #### 1 0165, 6399 #### [facility] [address], [address] [place] [address] Metal Bumper: Darwin Ray MD eGFR NON-AFR. IRANIAN 96 mL/min/1.73m2 Normal > OR = 60 [facility] Comment on above: Order Comment: FASTI NG:YES FASTING: YES Performed By: #### 1 0165, 6399 #### [facility] [address], [address] [place] [address] Metal Bumper: Darwin Ray MD GFR/1.73 sq M.predicted among blacks MDRD (S/P/Bld) [Vol rate/Area] 112 mL/min/{1.73_m2} Normal > OR = 60 [facility] Comment on above: Order Comment: FASTI NG:YES FASTING: YES Performed By: #### 1 0165, 6399 #### [facility] [address], [address] [place] [address] Metal Bumper: Darwin Ray MD Glucose [Mass/Vol] 89 mg/dL Normal 65-99 [facility] Comment on above: Order Comment: FASTI NG:YES FASTING: YES Result Comment: Fasting reference interval Performed By: #### 1 0165, 6399 #### [facility] [address], [address] [place] [address] Metal Bumper: Darwin Ray MD Potassium [Moles/Vol] 3.8 mmol/L Normal 3.5-5.3 [facility] Comment on above: Order Comment: FASTI NG:YES FASTING: YES Performed By: #### 1 0165, 6399 #### [facility] of [address], [address] [place] [address] Metal Bumper: Darwin Ray MD Sodium [Moles/Vol] 139 mmol/L Normal 135-146 [facility] Comment on above: Order Comment: FASTI NG:YES FASTING: YES Performed By: #### 1 0165, 6399 #### [facility] [place] [address] Metal Bumper: Darwin Ray MD Urea nitrogen [Mass/Vol] 23 mg/dL Normal 7-25 [facility] Comment on above: Order Comment: FASTI NG:YES FASTING: YES Performed By: #### 1 0165, 6399 #### [facility] of [address], [address] [place] [address] Metal Bumper: Darwin Ray MD CBC (INCLUDES DIFF/PLT)on Basophils (Bld) [#/Vol] 0.029 10*3/uL Normal 0-200 [facility] Comment on above: Performed By: #### 1 0165, 6399 #### [facility] of [address], [address] [place] [address] Metal Bumper: Darwin Ray MD Basophils/100 WBC (Bld) 0.4 % Normal [facility] Comment on above: Performed By: #### 1 0165, 6399 #### [facility] of [address], [address] [place] [address] Metal Bumper: Darwin Ray MD Eosinophils (Bld) [#/Vol] 0.212 10*3/uL Normal 15-500 [facility] Comment on above: Performed By: #### 1 0165, 6399 #### [facility] [place] [address] Metal Bumper: Darwin Ray MD Eosinophils/100 WBC (Bld) 2.9 % Normal [facility] Comment on above: Performed By: #### 1 0165, 6399 #### [facility] [place] [address] Metal Bumper: Darwin Ray MD Erythrocyte distribution width (RBC) [Ratio] 13.6 % Normal 11.0-15.0 [facility] Comment on above: Performed By: #### 1 0165, 6399 #### [facility] [place] [address] Metal Bumper: Darwin Ray MD Hematocrit (Bld) [Volume fraction] 40.4 % Normal 38.5-50.0 [facility] Comment on above: Performed By: #### 1 0165, 6399 #### [facility] [place] [address] Metal Bumper: Darwin Ray MD Hemoglobin (Bld) [Mass/Vol] 13.2 g/dL Normal 13.2-17.1 [facility] Comment on above: Performed By: #### 1 0165, 6399 #### [facility] [place] [address] Metal Bumper: Darwin Ray MD Lymphocytes (Bld) [#/Vol] 2.431 10*3/uL Normal 850-3900 [facility] Comment on above: Performed By: #### 1 0165, 6399 #### [facility] [place] [address] Metal Bumper: Darwin Ray MD Lymphocytes/100 WBC (Bld) 33.3 % Normal [facility] Comment on above: Performed By: #### 1 0165, 6399 #### [facility] [place] [address] Metal Bumper: Darwin Ray MD MCH (RBC) [Entitic mass] 27.4 pg Normal 27.0-33.0 [facility] Comment on above: Performed By: #### 1 0165, 6399 #### [facility] [address], [address] [place] [address] Metal Bumper: Darwin Ray MD MCHC (RBC) [Mass/Vol] 32.7 g/dL Normal 32.0-36.0 [facility] Comment on above: Performed By: #### 1 0165, 6399 #### [facility] of [address], [address] [place] [address] Metal Bumper: Darwin Ray MD MCV (RBC) [Entitic vol] 84.0 fL Normal 80.0-100.0 [facility] Comment on above: Performed By: #### 1 0165, 6399 #### [facility] of [address], [address] [place] [address] Metal Bumper: Darwin Ray MD Monocytes (Bld) [#/Vol] 0.54 10*3/uL Normal 200-950 [facility] Comment on above: Performed By: #### 1 0165, 6399 #### [facility] [address], [address] [place] [address] Metal Bumper: Darwin Ray MD Monocytes/100 WBC (Bld) 7.4 % Normal [facility] Comment on above: Performed By: #### 1 0165, 6399 #### [facility] [address], [address] [place] [address] Metal Bumper: Darwin Ray MD Neutrophils (Bld) [#/Vol] 4.088 10*3/uL Normal 7488-3660 [facility] Comment on above: Performed By: #### 1 0165, 6399 #### [facility] [address], [address] [place] [address] Metal Bumper: Darwin Ray MD Neutrophils/100 WBC (Bld) 56 % Normal [facility] Comment on above: Performed By: #### 1 0165, 6399 #### [facility] [address], [address] [place] [address] Metal Bumper: Darwin Ray MD Platelet mean volume (Bld) [Entitic vol] 10.6 fL Normal 7.5-12.5 [facility] Comment on above: Performed By: #### 1 0165, 6399 #### [facility] [place] [address] Metal Bumper: Darwin Ray MD Platelets (Bld) [#/Vol] 277 10*3/uL Normal 140-400 [facility] Comment on above: Performed By: #### 1 0165, 6399 #### [facility] [address], [address] [place] [address] Metal Bumper: Darwin Ray MD RBC (Bld) [#/Vol] 4.81 10*6/uL Normal 4.20-5.80 [facility] Comment on above: Performed By: #### 1 0165, 6399 #### [facility] [place] [address] Metal Bumper: Darwin Ray MD WBC (Bld) [#/Vol] 7.3 10*3/uL Normal 3.8-10.8 [facility] Comment on above: Performed By: #### 1 0165, 6399 #### [facility] [place] [address] Metal Bumper: Darwin Ray MD Coding Summary.on 04-16-2020 Coding Summary. CODING DATE: 04/16/2020 FINAL [facility] STATUS: Home (Routine DC) PAYOR: [facility] [place] ADMIT DX: REASON FOR VISIT DX: G70.00 Myasthenia gravis without (acute) exacerbation FINAL DX: PRINCIPAL: G70.00 Myasthenia gravis without (acute) exacerbation SECONDARY: H02.402 Unspecified ptosis of left eyelid PYMT PROC APC STAT DESCRIPTION DOCTOR NAME DATE NOTE: The code number assigned matches the documented diagnosis and / or procedure in the patient's chart. However, the narrative phrase printed from the coding software may appear abbreviated, or result in slightly different terminology. Coded By: Michelle Khan CphT Date Saved: 04/16/2020 10:20 am Normal [facility] [facility] 04-14-2020 Physician Order [id number]#[id number]:127 Normal [facility] Bind Abon 02-19-2020 Acetylcholine receptor binding Ab (S) [Moles/Vol] 3.61 nmol/L High 0.00-0.24 [facility] Comment on above: Result Comment: Nega tive: 0.00 - 0.24 Borderline: 0.25 - 0.40 Positive: >0.40 Performed at: [facility] [id number] MD Gabriel Martinez Performed By: #### 1 [id number] #### [facility] [address] [place] [address] Consent for Treatmenton Consent for Treatment [id number] #[id number]:127 Normal [facility] Vital Signs Date Time Vital Sign Value Performing Clinician Facility 06-28-2022 13:25-0400 Body height 177.8 cm Krystin Loja Other [facility] Other 06-28-2022 13:25-0400 Body mass index (BMI) [Ratio] 28.69 kg/m2 Krystin Loja Other [facility] Other 06-28-2022 13:25-0400 Body temperature 98.9 [degF] Krystin Loja Other [facility] Other 06-28-2022 13:25-0400 Body weight 90.72 kg Krystin Loja Other [facility] Other 06-28-2022 13:25-0400 Diastolic blood pressure 97 mm[Hg] Krystin Loja Other [facility] Other 06-28-2022 13:25-0400 Respiratory rate 18 /min Krystin Loja Other [facility] Other 06-28-2022 13:25-0400 SaO2% (BldA) [Mass fraction] 97 % Krystin Loja Other [facility] Other 06-28-2022 13:25-0400 Systolic blood pressure 130 mm[Hg] Krystin Loja Other [facility] Other Encounters Encounter Date Encounter Type Care Provider Facility Start: 01-13-2023 End: 01-14-[address] YUMI TOLENTINO Facility: Start: 08-17-2022 End: 08-18-2022 ambulatory KERRY MONTES Facility: Start: 06-28-2022 End: 06-28-2022 ambulatory Krystin Loja Other [facility] Other Start: 06-28-2022 Office outpatient ne w 30 minutes Krystin Loja [facility] Start: 01-18-2022 End: 01-19-[address] NONE LISTED REQUEST Facility: Procedures Date Procedure Procedure Detail Performing Clinician Start: 01-13-2023 PSA screening KERRY COLON Comment on above: Performed By: #### P SASC #### [facility] [address] [address] [address] Danielle Harden Start: 01-18-2022 PSA screening KERRY COLON Comment on above: Performed By: #### C MP, MG #### [facility] [address], [place] [address] Dr. Danielle Harden Payers Date Payer Category Payer Unknown [id number] 1960 Self-pay [id number] 1960 Unknown [id number] Unknown [id number] Unknown [id number] Social History Date Type Detail Facility Sex Assigned At [facility] Other Evaluation note 06-28-2022 Note Date & Type Note Facility 06-28-2022 Evaluation note Encounter Date Diagnosis Assessment Notes Jun, Lower respiratory infection (ICD-10 - J22) Discussed diagnosis with patient in detail. Advised patient that cough may linger for 3 weeks. Will treat today with antibiotic. Reviewed allergies and recent antibiotic use. Advised to take medications as prescribed, reviewed side effects of steroid, take with food and plenty of water, finish entire course. Encouraged supportive care as directed, push fluids and rest, may use Tylenol as needed for fever/discomfort , cool mist humidifier. May use Tessalon Perles as needed. Patient to follow up with PCP in 2-3 days. Immediate eval if SOB, difficulty breathing, chest pain, dizziness, or other concerning symptoms. Patient verbalizes understanding and is agreeable to treatment plan Jun, Elevated blood pressure reading (ICD-10 - R03.0) Advised patient to monitor BP at home and report to PCP at follow up. Immediate evaluation in ER for signs/symptoms as discussed. Patient verbalizes understanding and is agreeable with treatment plan [facility] Other History general Narrative - Reported Note Date & Type Note Facility History general Narrative - Reported Type Medical History htn [facility] Other Summary Purpose Family History No Family History Records FoundNo Family History Records FoundNo Family History Records Found Advance Directives No Advanced Directives Records FoundNo Advanced Directives Records FoundNo Advanced Directives Records Found Additional Source Comments (unrecognized sect ion and content) No Status Records FoundNo Status Records FoundNo Status Records Found INFORMATION SOURCE (unrecogn ized section and content) DATE CREATED AUTHOR 04/16/2020 [employer] [facility] DATE CREATED AUTHOR AUTHOR'S ORGANIZ ATION 04/10/2022 [facility] DATE CREATED AUTHOR AUTHOR'S ORGANIZ ATION 01/14/2023 [facility] REASON FOR VISIT (unrecogniz ed section and content) TRUCK BLACK, COUGH, RUNNY NO SE FOR RECORDS PERTAINING TO PATIENTS WHO ARE OR HAVE BEEN ENROLLED IN A CHEMICAL DEPENDENCY/SUBSTANCEABUSE PROGRAM, SOME INFORMATION MAY BE OMITTED. This clinical summary was aggregated from multiple sources. Caution should be exercised in using it in the provision of clinical care. This summary normalizes information from multiple sources, and as a consequence, information in this document may materially change the coding, format and clinical context of patient data. In addition, data may be omitted in some cases. CLINICAL DECISIONS SHOULD BE BASED ON THE PRIMARY CLINICAL RECORDS. [facility] [employer] [facility]. provides no warranty or guarantee of the accuracy or completeness of information in this document.
[2024-01-31 11:34] LABS: Basophils Percent Auto 0.4 % (0.2-2.0); Eosinophils Absolute Auto 0.1 10^3/uL (0.0-0.7); Immature Granulocytes Abs Auto 0.02 10^3/uL (0.00-0.03); Immature Granulocytes Pct Auto 0.2 % (0.0-0.5); Lymphocytes Absolute Auto 2.7 10^3/uL (1.2-3.8); Lymphocytes Percent Auto 26.3 % (20.5-60.0); Mean Corpuscular HGB Conc 32.4 g/dL (29.9-35.2); Mean Corpuscular Hemoglobin 28.5 pg (25.9-34.0); Mean Corpuscular Volume 87.9 fL (80.0-94.0); Mean Platelet Volume 9.7 fL (9.5-13.5); Monocytes Percent Auto 10.2 % (1.7-12.0); Neutrophils Absolute Auto 6.3 10^3/uL (1.4-6.5); Neutrophils Percent Auto 61.9 % (43.0-75.0); Platelet Count 257 10^3/uL (150-450); Red Blood Count 4.21 10^6/uL (4.70-6.10); Red Cell Distribution Width 13.2 % (11.0-15.0); White Blood Count 10.1 10^3/uL (4.0-11.0)
== END 2024-01-31 10:55 | disposition home or self-care (01) ==
LOC: LAB 10:55
PROVIDERS: PCP Nurse Practitioner Family; Visit Provider Nurse Practitioner Family
DX: R31.9 Hematuria, unspecified (principal)
CPT/HCPCS: 36415; 85025

== ENCOUNTER 2024-02-03 10:00 | Outpatient (OUT) | payer OTHER, SELFPAY ==
--- OUTSIDE RECORDS SUMMARY | 2024-02-03 10:02 | XMS_ITS | CCD ---
Author Organization [facility] Care Team Providers Care Quality Improvement Specialist Name Role Phone Krystin Loja Unavailable KERRY MONTES Admitting Unavailable SIMON, KERRY Attending Unavailable RANDA, DR EASON Primary Care Unavailable KERRY MONTES Consulting Unavailable RANDA, DR EASON Admitting Unavailable YUHAS, DR EASON Attending Unavailable YUHAS, DR EASON Primary Care Unavailable YUHAS, DR EASON Consulting Unavailable REQUEST, DR CHESTER LISTED Admitting Unavaila ble REQUEST, DR CHESTER LISTED Attending Unavaila ble REQUEST, DR CHESTER LISTED Consulting Unavaila ble Brodie LI Attending Unavailable WHITNEY LEWIS Referring Unavailable Medications Current Medications Medication Drug Class(es) Dates [...] 01-13-2023 BASO # 0.0 103/ul Normal 0.0-0.1 [facility] Comment on above: Performed By: #### C BC #### [facility] [address] [address] [address] Danielle Harden Basophils/100 WBC (Bld) 0.2 % Normal 0.2-2.0 [facility] Comment on above: Performed By: #### C BC #### [facility] [address] [address] [address] Danielle Harden EO # 0.2 103/ul Normal 0.0-0.7 [facility] Comment on above: Performed By: #### C BC #### [facility] [address] [address] [address] Danielle Harden Eosinophils/100 WBC (Bld) 2.7 % Normal 0.9-7.0 [facility] Comment on above: Performed By: #### C BC #### [facility] [address] [address] [address] Danielle Harden Erythrocyte distribution width (RBC) [Ratio] 14.1 % Normal 11.0-15.0 [facility] Comment on above: Performed By: #### C BC #### [facility] [address] [place] [address] Dr. Danielle Harden Hematocrit (Bld) [Volume fraction] 39.1 % Critically low 42.0-54.0 [facility] Comment on above: Performed By: #### C BC #### [facility] [address] [address] [address] Danielle Harden Hemoglobin (Bld) [Mass/Vol] 13.0 g/dL Critically low 14.0-18.0 [facility] Comment on above: Performed By: #### C BC #### [facility] [address] [place] [address] Dr. Danielle Harden IG # 0.02 10e3/ul Normal 0.00-0.03 [facility] Comment on above: Performed By: #### C BC #### [facility] [address] [place] [address] Dr. Danielle Harden IG % 0.2 % Normal 0.0-0.5 [facility] Comment on above: Performed By: #### C BC #### [facility] [address] [place] [address] Dr. Danielle Harden LYMPH # 2.6 103/ul Normal 1.2-3.8 [facility] Comment on above: Performed By: #### C BC #### [facility] [address] [place] [address] Dr. Danielle Harden Lymphocytes/100 WBC (Bld) 31.3 % Normal 20.5-60.0 [facility] Comment on above: Performed By: #### C BC #### [facility] [address] [place] [address] Dr. Danielle Harden MANUAL DIFF REQ NO Normal [facility] Comment on above: Performed By: #### C BC #### [facility] [address] [place] [address] Dr. Danielle Harden MCH (RBC) [Entitic mass] 28.6 pg Normal 25.9-34.0 [facility] Comment on above: Performed By: #### C BC #### [facility] [address] [place] [address] Dr. Danielle Harden MCHC (RBC) [Mass/Vol] 33.2 g/dL Normal 29.9-35.2 [facility] Comment on above: Performed By: #### C BC #### [facility] [address] [place] [address] Dr. Danielle Harden MCV (RBC) [Entitic vol] 86.1 fL Normal 80.0-94.0 [facility] Comment on above: Performed By: #### C BC #### [facility] [address] [place], [place] [id number] Dr. Danielle Harden MONO # 0.8 103/ul Normal 0.3-0.8 [facility] Comment on above: Performed By: #### C BC #### [facility] [address] [place] [address] Dr. Danielle Harden Monocytes/100 WBC (Bld) 9.4 % Normal 1.7-12.0 [facility] Comment on above: Performed By: #### C BC #### [facility] [address] [place] [address] Dr. Danielle Harden NEUT # 4.6 103/ul Normal 1.4-6.5 [facility] Comment on above: Performed By: #### C BC #### [facility] [address] [place] [address] Dr. Danielle Harden Neutrophils/100 WBC (Bld) 56.2 % Normal 43.0-75.0 [facility] Comment on above: Performed By: #### C BC #### [facility] [address] [place] [address] Dr. Danielle Harden Platelet mean volume (Bld) [Entitic vol] 9.7 fL Normal 9.5-13.5 [facility] Comment on above: Performed By: #### C BC #### [facility] [address] [place] [address] Dr. Danielle Harden PLT 269 103/ul Normal 150-450 [facility] Comment on above: Performed By: #### C BC #### [facility] [address] [place] [address] Dr. Danielle Harden RBC 4.54 106/ul Critically low 4.70-6.10 [facility] Comment on above: Performed By: #### C BC #### [facility] [address] [place] [address] Dr. Danielle Harden WBC 8.2 103/ul Normal 4.0-11.0 [facility] Comment on above: Performed By: #### C BC #### [facility] [address] [place] [address] Dr. Danielle Harden LIPID PROFILEon 01-13-2023 CHOL-HDL RATIO NORM SEE BELOW Normal [facility] Comment on above: Result Comment: 3.3 - 4.4 LOW RISK 4.4 - 7.1 AVERAGE RISK 7.1 - 11.0 MODERATE RISK >11.0 HIGH RISK Performed By: #### C MP, MG #### [facility] [address] [address] [address] Danielle Harden Cholesterol [Mass/Vol] 182 mg/dL Normal <=200 [facility] Comment on above: Performed By: #### C MP, MG #### [facility] [address] [address] [address] Danielle Harden Cholesterol in HDL [Mass/Vol] 76 mg/dL Critically high 40-60 [facility] Comment on above: Performed By: #### C MP, MG #### [facility] [address] [address] [address] Danielle Harden Cholesterol in LDL [Mass/Vol] 78.2 mg/dL Normal [facility] Comment on above: Performed By: #### C MP, MG #### [facility] [address] [address] [address] Danielle Hraden Cholesterol.total/C holesterol in HDL [Mass ratio] 2.4 {ratio} Normal [facility] Comment on above: Performed By: #### C MP, MG #### [facility] [address] [address] [address] Danielle Harden HDL NORMAL > or = 60 mg/dl - LOW CARDIOVASCULAR RISK <40 mg/dl - HIGH CARDIOVASCULAR RISK Normal [facility] Comment on above: Performed By: #### C MP, MG #### [facility] [address] [address] [address] Danielle Harden LDL CALC NORMAL SEE BELOW Normal [facility] Comment on above: Result Comment: <100 mg/dl OPTIMAL 100 - 129 mg/dl NEAR OR ABOVE OPTIMAL 130 - 159 mg/dl BORDERLINE HIGH 160 - 189 mg/dl HIGH >190 mg/dl VERY HIGH Performed By: #### C MP, MG #### [facility] [address] [address] [address] Danielle Harden Triglyceride [Mass/Vol] 139 mg/dL Normal <=150 [facility] Comment on above: Performed By: #### C MP, MG #### [facility] [address] [place] [address] Dr. Danielle Harden VLDL CALC 27.8 mg/dL Normal [facility] Comment on above: Performed By: #### C MP, MG #### [facility] [address] [place] [address] Dr. Danielle Harden PROF 14(COMP METB)on 023 Albumin [Mass/Vol] 4.0 g/dL Normal 3.4-5.0 [facility] Comment on above: Performed By: #### C MP, T4, LIPID, TSH #### [facility] [address] [place] [address] Dr. Danielle Harden Albumin/Globulin [Mass ratio] 1.0 {ratio} Normal [facility] Comment on above: Performed By: #### C MP, T4, LIPID, TSH #### [facility] [address] [place] [address] Dr. Danielle Harden ALP [Catalytic activity/Vol] 58 U/L Normal 46-116 [facility] Comment on above: Performed By: #### C MP, T4, LIPID, TSH #### [facility] [address] [place] [address] Dr. Danielle Harden ALT [Catalytic activity/Vol] 33 U/L Normal 16-63 [facility] Comment on above: Performed By: #### C MP, T4, LIPID, TSH #### [facility] [address] [place] [address] Dr. Danielle Harden Anion gap [Moles/Vol] 11.1 mmol/L Normal [facility] Comment on above: Performed By: #### C MP, T4, LIPID, TSH #### [facility] [address] [place] [address] Dr. Danielle Harden AST [Catalytic activity/Vol] 14 U/L Critically low 15-37 [facility] Comment on above: Performed By: #### C MP, T4, LIPID, TSH #### [facility] [address] [address] [address] Danielle Harden Bilirubin [Mass/Vol] 0.5 mg/dL Normal 0.2-1.0 [facility] Comment on above: Performed By: #### C MP, T4, LIPID, TSH #### [facility] [address] [address] [address] Danielle Harden Calcium [Mass/Vol] 9.2 mg/dL Normal 8.5-10.1 [facility] Comment on above: Performed By: #### C MP, T4, LIPID, TSH #### [facility] [address] [address] [address] Danielle Harden Chloride [Moles/Vol] 102 mmol/L Normal 98-107 [facility] Comment on above: Performed By: #### C MP, T4, LIPID, TSH #### [facility] [address] [place] [address] Dr. Danielle Harden CO2 [Moles/Vol] 28.1 mmol/L Normal 21.0-32.0 [facility] Comment on above: Performed By: #### C MP, T4, LIPID, TSH #### [facility] [address] [address] [address] Danielle Harden Creatinine [Mass/Vol] 0.87 mg/dL Normal 0.70-1.30 [facility] Comment on above: Performed By: #### C MP, T4, LIPID, TSH #### [facility] [address] [place] [address] Dr. Danielle Harden EGFR-AF MICRONESIAN >60 Normal >=60 [facility] Comment on above: Performed By: #### C MP, T4, LIPID, TSH #### [facility] [address] [place] [address] Dr. Danielle Harden EGFR-NON AF MICRONESIAN >60 Normal >=60 [facility] Comment on above: Performed By: #### C MP, T4, LIPID, TSH #### [facility] [address] [place] [address] Dr. Danielle Harden Globulin (S) [Mass/Vol] 4.2 g/dL Normal [facility] Comment on above: Performed By: #### C MP, T4, LIPID, TSH #### [facility] [address] [address] [address] Danielle Harden Glucose [Mass/Vol] 95 mg/dL Normal 74-106 [facility] Comment on above: Performed By: #### C MP, T4, LIPID, TSH #### [facility] [address] [address] [address] Danielle Harden Potassium [Moles/Vol] 3.2 mmol/L Critically low 3.5-5.1 [facility] Comment on above: Performed By: #### C MP, T4, LIPID, TSH #### [facility] [address] [address] [address] Danielle Harden Protein [Mass/Vol] 8.2 g/dL Normal 6.4-8.2 [facility] Comment on above: Performed By: #### C MP, T4, LIPID, TSH #### [facility] [address] [address] [address] Danielle Harden Sodium [Moles/Vol] 138 mmol/L Normal 136-145 [facility] Comment on above: Performed By: #### C MP, T4, LIPID, TSH #### [facility] [address] [address] [address] Danielle Harden Urea nitrogen [Mass/Vol] 21.0 mg/dL Critically high 7.0-18.0 [facility] Comment on above: Performed By: #### C MP, T4, LIPID, TSH #### [facility] [address] [place] [address] Dr. Danielle Harden Urea nitrogen/Creatinine [Mass ratio] 24.1 mg/mg Normal [facility] Comment on above: Performed By: #### C MP, T4, LIPID, TSH #### [facility] [address] [address] [address] Danielle Harden T4on 01-13-2023 T4 [Mass/Vol] 9.50 ug/dL Normal 4.50-12.10 [facility] Comment on above: Performed By: #### C MP, MG #### [facility] [address] [place] [address] Dr. Danielle Harden TSHon 01-13-2023 TSH 2.226 uIU/mL Normal 0.358-3.[address] [facility] Comment on above: Performed By: #### C MP, MG #### [facility] [address] [place] [address] Dr. Danielle Harden MAGNESIUMon 08-17-2022 Magnesium [Mass/Vol] 2.0 mg/dL Normal 1.8-2.4 [facility] Comment on above: Performed By: #### C MP, MG #### [facility] [address] [place] [address] Dr. Danielle Harden PROF 14(COMP METB)on 022 Albumin [Mass/Vol] 3.6 g/dL Normal 3.4-5.0 [facility] Comment on above: Performed By: #### C MP, MG #### [facility] [address] [place] [address] Dr. Danielle Harden Albumin/Globulin [Mass ratio] 1.1 {ratio} Normal [facility] Comment on above: Performed By: #### C MP, MG #### [facility] [address] [place] [address] Dr. Danielle Harden ALP [Catalytic activity/Vol] 61 U/L Normal 46-116 [facility] Comment on above: Performed By: #### C MP, MG #### [facility] [address] [place] [address] Dr. Danielle Harden ALT [Catalytic activity/Vol] 23 U/L Normal 16-63 [facility] Comment on above: Performed By: #### C MP, MG #### [facility] [address] [place] [address] Dr. Danielle Harden Anion gap [Moles/Vol] 10.4 mmol/L Normal [facility] Comment on above: Performed By: #### C MP, MG #### [facility] [address] [place] [address] Dr. Danielle Harden AST [Catalytic activity/Vol] 13 U/L Critically low 15-37 [facility] Comment on above: Performed By: #### C MP, MG #### [facility] [address] [address] [address] Danielle Harden Bilirubin [Mass/Vol] 0.2 mg/dL Normal 0.2-1.0 [facility] Comment on above: Performed By: #### C MP, MG #### [facility] [address] [place] [address] Dr. Danielle Harden Calcium [Mass/Vol] 8.8 mg/dL Normal 8.5-10.1 [facility] Comment on above: Performed By: #### C MP, MG #### [facility] [address] [place] [address] Dr. Danielle Harden Chloride [Moles/Vol] 102 mmol/L Normal 98-107 [facility] Comment on above: Performed By: #### C MP, MG #### [facility] [address] [place] [address] Dr. Danielle Harden CO2 [Moles/Vol] 28.1 mmol/L Normal 21.0-32.0 [facility] Comment on above: Performed By: #### C MP, MG #### [facility] [address] [place] [address] Dr. Danielle Harden Creatinine [Mass/Vol] 1.06 mg/dL Normal 0.70-1.30 [facility] Comment on above: Performed By: #### C MP, MG #### [facility] [address] [place] [address] Dr. Danielle Harden EGFR-AF MICRONESIAN >60 Normal >=60 [facility] Comment on above: Performed By: #### C MP, MG #### [facility] [address] [place] [address] Dr. Danielle Harden EGFR-NON AF MICRONESIAN >60 Normal >=60 [facility] Comment on above: Performed By: #### C MP, MG #### [facility] [address] [place] [address] Dr. Danielle Harden Globulin (S) [Mass/Vol] 3.3 g/dL Normal [facility] Comment on above: Performed By: #### C MP, MG #### [facility] [address] [address] [address] Danielle Harden Glucose [Mass/Vol] 93 mg/dL Normal 74-106 [facility] Comment on above: Performed By: #### C MP, MG #### [facility] [address] [address] [address] Danielle Harden Potassium [Moles/Vol] 3.5 mmol/L Normal 3.5-5.1 [facility] Comment on above: Performed By: #### C MP, MG #### [facility] [address] [address] [address] Danielle Harden Protein [Mass/Vol] 6.9 g/dL Normal 6.4-8.2 [facility] Comment on above: Performed By: #### C MP, MG #### [facility] [address] [address] [address] Danielle Harden Sodium [Moles/Vol] 137 mmol/L Normal 136-145 [facility] Comment on above: Performed By: #### C MP, MG #### [facility] [address] [address] [address] Danielle Harden Urea nitrogen [Mass/Vol] 23.0 mg/dL Critically high 7.0-18.0 [facility] Comment on above: Performed By: #### C MP, MG #### [facility] [address] [address] [address] Danielle Harden Urea nitrogen/Creatinine [Mass ratio] 21.7 mg/mg Normal [facility] Comment on above: Performed By: #### C MP, MG #### [facility] [address] [address] [address] Danielle Harden COMPREHENSIVE METABOLIC PANE Kendrick 04-07-2022 Albumin [Mass/Vol] 4.3 g/dL Normal 3.6-5.1 [facility] Comment on above: Performed By: #### 7 600, [id number] #### [facility] [address], [address] [place] [address] [employer]ist: Darwin Ray MD Albumin/Globulin [Mass ratio] 1.9 {ratio} Normal 1.0-2.5 [facility] Comment on above: Performed By: #### 7 600, [id number] #### [facility] of [address], [address] [place] [address] [employer]ist: Darwin Ray MD ALP [Catalytic activity/Vol] 62 U/L Normal 35-144 [facility] Comment on above: Performed By: #### 7 600, [id number] #### [facility] of [address], [address] [place] [address] [employer]ist: Darwin Ray MD ALT [Catalytic activity/Vol] 18 U/L Normal 9-46 [facility] Comment on above: Performed By: #### 7 600, [id number] #### [facility] of [address], [address] [place] [address] [employer]ist: Darwin Ray MD AST [Catalytic activity/Vol] 16 U/L Normal 10-35 [facility] Comment on above: Performed By: #### 7 600, [id number] #### [facility] of [address], [address] [place] [address] [employer]ist: Darwin Ray MD Bilirubin [Mass/Vol] 0.3 mg/dL Normal 0.2-1.2 [facility] Comment on above: Performed By: #### 7 600, [id number] #### [facility] of [address], [address] [place] [address] [employer]ist: Darwin Ray MD BUN/CREATININE RATIO NOT APPLICABLE Normal 6-22 [facility] Comment on above: Performed By: #### 7 600, [id number] #### [facility] of [address], [address] [place] [address] [employer]ist: Darwin Ray MD Calcium [Mass/Vol] 9.3 mg/dL Normal 8.6-10.3 [facility] Comment on above: Performed By: #### 7 600, [id number] #### [facility] of [address], [address] [place] [address] [employer]ist: Darwin Ray MD Chloride [Moles/Vol] 107 mmol/L Normal 98-110 [facility] Comment on above: Performed By: #### 7 600, 09393 #### [facility] [address] [address] [employer]ist: Darwin Ray MD CO2 [Moles/Vol] 27 mmol/L Normal 20-32 [facility] Comment on above: Performed By: #### 7 600, [id number] #### [facility] [address] [place] [address] [employer]ist: Darwin Ray MD Creatinine [Mass/Vol] 0.90 mg/dL Normal 0.70-1.30 [facility] Comment on above: Performed By: #### 7 600, 86429 #### [facility] [address] [place] [address] [employer]ist: Darwin Ray MD GFR/1.73 sq M.predicted among non-blacks MDRD (S/P/Bld) [Vol rate/Area] 100 mL/min/{1.73_m2} Normal > OR = 60 [facility] Comment on above: Result Comment: The eGFR is based on the CKD-EPI 2020 equation. To calculate the new eGFR from a previous Creatinine or Cystatin C result, go to https://www.kidney.org/professionals/ kdoqi/gfr%5Fcalculator Performed By: #### 7 600, [id number] #### [facility] [address] [place] [address] [employer]ist: Darwin Ray MD Globulin (S) [Mass/Vol] 2.3 g/dL Normal 1.9-3.7 [facility] Comment on above: Performed By: #### 7 600, 70569 #### [facility] [address] [place] [address] [employer]ist: Darwin Ray MD Glucose [Mass/Vol] 102 mg/dL High 65-99 [facility] Comment on above: Result Comment: Fasting reference interval For someone without known diabetes, a glucose value between 100 and 125 mg/dL is consistent with prediabetes and should be confirmed with a follow-up test. Performed By: #### 7 600, [id number] #### [facility] [address], [address] [place] [address] [employer]ist: Darwin Ray MD Potassium [Moles/Vol] 3.6 mmol/L Normal 3.5-5.3 [facility] Comment on above: Performed By: #### 7 600, 40586 #### [facility] [address], [address] [place] [address] [employer]ist: Darwin Ray MD Protein [Mass/Vol] 6.6 g/dL Normal 6.1-8.1 [facility] Comment on above: Performed By: #### 7 600, 69963 #### [facility] [address] [place] [address] [employer]ist: Darwin Ray MD Sodium [Moles/Vol] 141 mmol/L Normal 135-146 [facility] Comment on above: Performed By: #### 7 600, 65537 #### [facility] [address] [place] [address] [employer]ist: Darwin Ray MD Urea nitrogen [Mass/Vol] 23 mg/dL Normal 7-25 [facility] Comment on above: Performed By: #### 7 600, 97743 #### [facility] [address] [place] [address] [employer]ist: Darwin Ray MD LIPID PANEL, [facility] 03-12 Cholesterol [Mass/Vol] 144 mg/dL Normal <200 [facility] Comment on above: Order Comment: FASTI NG:YES FASTING: YES Performed By: #### 7 600, [id number] #### [facility] of [address] [place] [address] [employer]ist: Darwin Ray MD Cholesterol in HDL [Mass/Vol] 43 mg/dL Normal > OR = 40 [facility] Comment on above: Order Comment: FASTI NG:YES FASTING: YES Performed By: #### 7 600, 71665 #### [facility] [address], [address] [place] [address] [employer]ist: Darwin Ray MD Cholesterol.total/C holesterol in HDL [Mass ratio] 3.3 {ratio} Normal <5.0 [facility] Comment on above: Order Comment: FASTI NG:YES FASTING: YES Performed By: #### 7 600, [id number] #### [facility] [address], [address] [place] [address] [employer]ist: Darwin Ray MD LDL-CHOLESTEROL Normal [facility] [...] estimation of LDL-C. Jass MELGOZA et al. RON. 2013;310(19): 9404-8888 (http://education.[employer].CarFin/faq/UKP817) Performed By: #### 7 600, 05670 #### [facility] [address], [address] [place] [address] [employer]ist: Darwin Ray MD NON HDL CHOLESTEROL 101 mg/dL (calc) Normal <130 [facility] Comment on above: Order Comment: FASTI NG:YES FASTING: YES Result Comment: For patients with diabetes plus 1 major ASCVD risk factor, treating to a non-HDL-C goal of <100 mg/dL (LDL-C of <70 mg/dL) is considered a therapeutic option. Performed By: #### 7 600, [id number] #### [facility] [address], [address] [place] [address] [employer]ist: Darwin Ray MD Triglyceride [Mass/Vol] 428 mg/dL High <150 [facility] Comment on above: Order Comment: FASTI NG:YES FASTING: YES Result Comment: If a non-fasting specimen was collected, consider repeat triglyceride testing on a fasting specimen if clinically indicated. Danica et al. J. of Clin. Lipidol. 2015;9:129-169. Performed By: #### 7 600, 83248 #### [employer] [facility] [address], [address] [place] [address] [employer] Manufacturing Specialist: Darwin Ray MD CBC AUTO DIFFon 01-18-2022 BASO # 0.0 103/ul Normal 0.0-0.1 [facility] Comment on above: Performed By: #### C BC #### [facility] [address] [address] [address] Danielle Harden Basophils/100 WBC (Bld) 0.6 % Normal 0.2-2.0 [facility] Comment on above: Performed By: #### C BC #### [facility] [address] [address] [address] Danielle Harden EO # 0.3 103/ul Normal 0.0-0.7 [facility] Comment on above: Performed By: #### C BC #### [facility] [address] [address] [address] Danielle Harden Eosinophils/100 WBC (Bld) 3.8 % Normal 0.9-7.0 [facility] Comment on above: Performed By: #### C BC #### [facility] [address] [address] [address] Danielle Harden Erythrocyte distribution width (RBC) [Ratio] 13.6 % Normal 11.0-15.0 [facility] Comment on above: Performed By: #### C BC #### [facility] [address] [address] [address] Danielle Harden Hematocrit (Bld) [Volume fraction] 39.3 % Critically low 42.0-54.0 [facility] Comment on above: Performed By: #### C BC #### [facility] [address] [address] [address] Danielle Harden Hemoglobin (Bld) [Mass/Vol] 12.5 g/dL Critically low 14.0-18.0 [facility] Comment on above: Performed By: #### C BC #### [facility] [address] [place] [address] Dr. Danielle Harden IG # 0.02 10e3/ul Normal 0.00-0.03 [facility] Comment on above: Performed By: #### C BC #### [facility] [address] [place] [address] Dr. Danielle Harden IG % 0.3 % Normal 0.0-0.5 [facility] Comment on above: Performed By: #### C BC #### [facility] [address] [place] [address] Dr. Danielle Harden LYMPH # 2.1 103/ul Normal 1.2-3.8 [facility] Comment on above: Performed By: #### C BC #### [facility] [address] [place] [address] Dr. Danielle Harden Lymphocytes/100 WBC (Bld) 32.0 % Normal 20.5-60.0 [facility] Comment on above: Performed By: #### C BC #### [facility] [address] [place] [address] Dr. Danielle Harden MANUAL DIFF REQ NO Normal [facility] Comment on above: Performed By: #### C BC #### [facility] [address] [place] [address] Dr. Danielle Harden MCH (RBC) [Entitic mass] 27.8 pg Normal 25.9-34.0 [facility] Comment on above: Performed By: #### C BC #### [facility] [address] [place] [address] Dr. Danielle Harden MCHC (RBC) [Mass/Vol] 31.8 g/dL Normal 29.9-35.2 [facility] Comment on above: Performed By: #### C BC #### [facility] [address] [place] [address] Dr. Danielle Harden MCV (RBC) [Entitic vol] 87.3 fL Normal 80.0-94.0 [facility] Comment on above: Performed By: #### C BC #### [facility] [address] [place] [address] Dr. Danielle Harden MONO # 0.5 103/ul Normal 0.3-0.8 [facility] Comment on above: Performed By: #### C BC #### [facility] [address] [address] [address] Danielle Harden Monocytes/100 WBC (Bld) 7.7 % Normal 1.7-12.0 [facility] Comment on above: Performed By: #### C BC #### [facility] [address] [place] [address] Dr. Danielle Harden NEUT # 3.7 103/ul Normal 1.4-6.5 [facility] Comment on above: Performed By: #### C BC #### [facility] [address] [place] [address] Dr. Danielle Harden Neutrophils/100 WBC (Bld) 55.6 % Normal 43.0-75.0 [facility] Comment on above: Performed By: #### C BC #### [facility] [address] [place] [address] Dr. Danielle Harden Platelet mean volume (Bld) [Entitic vol] 10.3 fL Normal 9.5-13.5 [facility] Comment on above: Performed By: #### C BC #### [facility] [address] [place] [address] Dr. Danielle Harden PLT 274 103/ul Normal 150-450 [facility] Comment on above: Performed By: #### C BC #### [facility] [address] [place] [address] Dr. Danielle Harden RBC 4.50 106/ul Critically low 4.70-6.10 [facility] Comment on above: Performed By: #### C BC #### [facility] [address] [place] [address] Dr. Danielle Harden WBC 6.6 103/ul Normal 4.0-11.0 [facility] Comment on above: Performed By: #### C BC #### [facility] [address] [place], [place] [id number] Dr. Danielle Harden LIPID PROFILEon 01-18-2022 CHOL-HDL RATIO NORM SEE BELOW Normal [facility] Comment on above: Result Comment: 3.3 - 4.4 LOW RISK 4.4 - 7.1 AVERAGE RISK 7.1 - 11.0 MODERATE RISK >11.0 HIGH RISK Performed By: #### L IPID, T4, TSH, CMP #### [facility] [address] [place] [address] Dr. Danielle Harden Cholesterol [Mass/Vol] 140 mg/dL Normal <=200 [facility] Comment on above: Performed By: #### L IPID, T4, TSH, CMP #### [facility] [address] [place] [address] Dr. Danielle Harden Cholesterol in HDL [Mass/Vol] 55 mg/dL Normal 40-60 [facility] Comment on above: Performed By: #### L IPID, T4, TSH, CMP #### [facility] [address] [place] [address] Dr. Danielle Harden Cholesterol in LDL [Mass/Vol] 60.2 mg/dL Normal [facility] Comment on above: Performed By: #### L IPID, T4, TSH, CMP #### [facility] [address] [place] [address] Dr. Danielle Harden Cholesterol.total/C holesterol in HDL [Mass ratio] 2.5 {ratio} Normal [facility] Comment on above: Performed By: #### L IPID, T4, TSH, CMP #### [facility] [address] [place] [address] Dr. Danielle Harden HDL NORMAL > or = 60 mg/dl - LOW CARDIOVASCULAR RISK <40 mg/dl - HIGH CARDIOVASCULAR RISK Normal [facility] Comment on above: Performed By: #### L IPID, T4, TSH, CMP #### [facility] [address] [place] [address] Dr. Danielle Harden LDL CALC NORMAL SEE BELOW Normal [facility] Comment on above: Result Comment: <100 mg/dl OPTIMAL 100 - 129 mg/dl NEAR OR ABOVE OPTIMAL 130 - 159 mg/dl BORDERLINE HIGH 160 - 189 mg/dl HIGH >190 mg/dl VERY HIGH Performed By: #### L IPID, T4, TSH, CMP #### [facility] [address] [address] [address] Danielle Harden Triglyceride [Mass/Vol] 124 mg/dL Normal <=150 [facility] Comment on above: Performed By: #### L IPID, T4, TSH, CMP #### [facility] [address] [address] [address] Danielle Harden VLDL CALC 24.8 mg/dL Normal [facility] Comment on above: Performed By: #### L IPID, T4, TSH, CMP #### [facility] [address] [place] [address] Dr. Danielle Harden PROF 14(COMP METB)on 022 Albumin [Mass/Vol] 4.0 g/dL Normal 3.4-5.0 [facility] Comment on above: Performed By: #### L IPID, T4, TSH, CMP #### [facility] [address] [place] [address] Dr. Danielle Harden Albumin/Globulin [Mass ratio] 1.2 {ratio} Normal [facility] Comment on above: Performed By: #### L IPID, T4, TSH, CMP #### [facility] [address] [place] [address] Dr. Danielle Harden ALP [Catalytic activity/Vol] 58 U/L Normal 46-116 [facility] Comment on above: Performed By: #### L IPID, T4, TSH, CMP #### [facility] [address] [place] [address] Dr. Danielle Harden ALT [Catalytic activity/Vol] 29 U/L Normal 16-63 [facility] Comment on above: Performed By: #### L IPID, T4, TSH, CMP #### [facility] [address] [place] [address] Dr. Danielle Harden Anion gap [Moles/Vol] 11.6 mmol/L Normal [facility] Comment on above: Performed By: #### L IPID, T4, TSH, CMP #### [facility] [address] [address] [address] Danielle Harden AST [Catalytic activity/Vol] 16 U/L Normal 15-37 [facility] Comment on above: Performed By: #### L IPID, T4, TSH, CMP #### [facility] [address] [address] [address] Danielle Harden Bilirubin [Mass/Vol] 0.6 mg/dL Normal 0.2-1.0 [facility] Comment on above: Performed By: #### L IPID, T4, TSH, CMP #### [facility] [address] [address] [address] Danielle Harden Calcium [Mass/Vol] 9.1 mg/dL Normal 8.5-10.1 [facility] Comment on above: Performed By: #### L IPID, T4, TSH, CMP #### [facility] [address] [place] [address] Dr. Danielle Harden Chloride [Moles/Vol] 104 mmol/L Normal 98-107 [facility] Comment on above: Performed By: #### L IPID, T4, TSH, CMP #### [facility] [address] [address] [address] Danielle Harden CO2 [Moles/Vol] 27.3 mmol/L Normal 21.0-32.0 [facility] Comment on above: Performed By: #### L IPID, T4, TSH, CMP #### [facility] [address] [place] [address] Dr. Danielle Harden Creatinine [Mass/Vol] 0.78 mg/dL Normal 0.70-1.30 [facility] Comment on above: Performed By: #### L IPID, T4, TSH, CMP #### [facility] [address] [place] [address] Dr. Danielle Harden EGFR-AF MICRONESIAN >60 Normal >=60 [facility] Comment on above: Performed By: #### L IPID, T4, TSH, CMP #### [facility] [address] [place] [address] Dr. Danielle Harden EGFR-NON AF MICRONESIAN >60 Normal >=60 [facility] Comment on above: Performed By: #### L IPID, T4, TSH, CMP #### [facility] [address] [address] [address] Danielle Harden Globulin (S) [Mass/Vol] 3.3 g/dL Normal [facility] Comment on above: Performed By: #### L IPID, T4, TSH, CMP #### [facility] [address] [place] [address] Dr. Danielle Harden Glucose [Mass/Vol] 86 mg/dL Normal 74-106 [facility] Comment on above: Performed By: #### L IPID, T4, TSH, CMP #### [facility] [address] [place] [address] Dr. Danielle Harden Potassium [Moles/Vol] 3.9 mmol/L Normal 3.5-5.1 [facility] Comment on above: Performed By: #### L IPID, T4, TSH, CMP #### [facility] [address] [place] [address] Dr. Danielle Harden Protein [Mass/Vol] 7.3 g/dL Normal 6.4-8.2 [facility] Comment on above: Performed By: #### L IPID, T4, TSH, CMP #### [facility] [address] [place] [address] Dr. Danielle Harden Sodium [Moles/Vol] 139 mmol/L Normal 136-145 [facility] Comment on above: Performed By: #### L IPID, T4, TSH, CMP #### [facility] [address] [place] [address] Dr. Danielle Harden Urea nitrogen [Mass/Vol] 19.0 mg/dL Critically high 7.0-18.0 [facility] Comment on above: Performed By: #### L IPID, T4, TSH, CMP #### [facility] [address] [place] [address] Dr. Danielle Harden Urea nitrogen/Creatinine [Mass ratio] 24.4 mg/mg Normal [facility] Comment on above: Performed By: #### L IPID, T4, TSH, CMP #### [facility] [address] [address] [address] Danielle Harden T4on 01-18-2022 T4 [Mass/Vol] 8.50 ug/dL Normal 4.50-12.[address] [facility] Comment on above: Performed By: #### L IPID, T4, TSH, CMP #### [facility] [address] [address] [address] Danielle Harden TSHon 01-18-2022 TSH 1.855 uIU/mL Normal 0.358-3.740 [facility] Comment on above: Performed By: #### L IPID, T4, TSH, CMP #### [facility] [address] [address] [address] Danielle Harden TSH RANGE SEE BELOW Normal [facility] Comment on above: Result Comment: <0.3 4 UIU/ml HYPERTHYROID 0.34-5.60 UIU/ml EUTHYROID >5.60 UIU/ml HYPOTHYROID Performed By: #### L IPID, T4, TSH, CMP #### [facility] [address] [address] [address] Danielle Harden BASIC METABOLIC PANELon 09-12 BUN/CREATININE RATIO NOT APPLICABLE Normal 6-22 [facility] Comment on above: Order Comment: FASTI NG:YES FASTING: YES Performed By: #### 1 [id number], [id number] #### [facility] [address], [address] [place], [place] [id number] [employer] Specialist: Darwin Ray MD Calcium [Mass/Vol] 9.3 mg/dL Normal 8.6-10.3 [facility] Comment on above: Order Comment: FASTI NG:YES FASTING: YES Performed By: #### 1 [id number], 5229 #### [facility] [address], [address] [place], [place] [id number] [employer] Specialist: Darwin Ray MD Chloride [Moles/Vol] 104 mmol/L Normal 98-110 [facility] Comment on above: Order Comment: FASTI NG:YES FASTING: YES Performed By: #### 1 0165, 6399 #### [facility] [address], [address] [place] [address] [employer] Specialist: Darwin Ray MD CO2 [Moles/Vol] 29 mmol/L Normal 20-32 [facility] Comment on above: Order Comment: FASTI NG:YES FASTING: YES Performed By: #### 1 0165, 6399 #### [facility] [address], [address] [place] [address] [employer] Specialist: Darwin Ray MD Creatinine [Mass/Vol] 0.86 mg/dL Normal 0.70-1.33 [facility] Comment on above: Order Comment: FASTI NG:YES FASTING: YES Result Comment: For patients >49 years of age, the reference limit for Creatinine is approximately 13% higher for people identified as -Ugandan. Performed By: #### 1 0165, 6399 #### [facility] [address], [address] [place] [address] [employer] Specialist: Darwin Ray MD eGFR NON-AFR. MICRONESIAN 96 mL/min/1.73m2 Normal > OR = 60 [facility] Comment on above: Order Comment: FASTI NG:YES FASTING: YES Performed By: #### 1 0165, 6399 #### [facility] [address] [address] [employer] Specialist: Darwin Ray MD GFR/1.73 sq M.predicted among blacks MDRD (S/P/Bld) [Vol rate/Area] 112 mL/min/{1.73_m2} Normal > OR = 60 [facility] Comment on above: Order Comment: FASTI NG:YES FASTING: YES Performed By: #### 1 0165, 6399 #### [facility] [address], [address] [place] [address] [employer] Specialist: Darwin Ray MD Glucose [Mass/Vol] 89 mg/dL Normal 65-99 [facility] Comment on above: Order Comment: FASTI NG:YES FASTING: YES Result Comment: Fasting reference interval Performed By: #### 1 0165, 6399 #### [facility] [address], [address] [place] [address] [employer] Specialist: Darwin Ray MD Potassium [Moles/Vol] 3.8 mmol/L Normal 3.5-5.3 [facility] Comment on above: Order Comment: FASTI NG:YES FASTING: YES Performed By: #### 1 0165, 6399 #### [facility] of [address], [address] [place] [address] [employer] Specialist: Darwin Ray MD Sodium [Moles/Vol] 139 mmol/L Normal 135-146 [facility] Comment on above: Order Comment: FASTI NG:YES FASTING: YES Performed By: #### 1 0165, 6399 #### [facility] [address] [address] [employer] Specialist: Darwin Ray MD Urea nitrogen [Mass/Vol] 23 mg/dL Normal 7-25 [facility] Comment on above: Order Comment: FASTI NG:YES FASTING: YES Performed By: #### 1 0165, 6399 #### [facility] [address] [address] [employer] Specialist: Darwin Ray MD CBC (INCLUDES DIFF/PLT)on Basophils (Bld) [#/Vol] 0.029 10*3/uL Normal 0-200 [facility] Comment on above: Performed By: #### 1 0165, 6399 #### [facility] [address] [address] [employer] Specialist: Darwin Ray MD Basophils/100 WBC (Bld) 0.4 % Normal [facility] Comment on above: Performed By: #### 1 0165, 6399 #### [facility] [address] [address] [employer] Specialist: Darwin Ray MD Eosinophils (Bld) [#/Vol] 0.212 10*3/uL Normal 15-500 [facility] Comment on above: Performed By: #### 1 0165, 6399 #### [facility] [address] [place] [address] [employer]ist: Darwin Ray MD Eosinophils/100 WBC (Bld) 2.9 % Normal [facility] Comment on above: Performed By: #### 1 0165, 6399 #### [facility] of [address] [address] [employer] Specialist: Darwin Ray MD Erythrocyte distribution width (RBC) [Ratio] 13.6 % Normal 11.0-15.0 [facility] Comment on above: Performed By: #### 1 0165, 6399 #### [facility] [address] [address] [employer] Specialist: Darwin Ray MD Hematocrit (Bld) [Volume fraction] 40.4 % Normal 38.5-50.0 [facility] Comment on above: Performed By: #### 1 0165, 6399 #### [facility] [address] [address] [employer] Specialist: Darwin Ray MD Hemoglobin (Bld) [Mass/Vol] 13.2 g/dL Normal 13.2-17.1 [facility] Comment on above: Performed By: #### 1 0165, 6399 #### [facility] [address] [address] [employer] Specialist: Darwin Ray MD Lymphocytes (Bld) [#/Vol] 2.431 10*3/uL Normal 850-3900 [facility] Comment on above: Performed By: #### 1 0165, 6399 #### [facility] [address] [address] [employer] Specialist: Darwin Ray MD Lymphocytes/100 WBC (Bld) 33.3 % Normal [facility] Comment on above: Performed By: #### 1 0165, 6399 #### [facility] [address] [address] [employer] Specialist: Darwin Ray MD MCH (RBC) [Entitic mass] 27.4 pg Normal 27.0-33.0 [facility] Comment on above: Performed By: #### 1 0165, 6399 #### [facility] [address] [address] [employer] Specialist: Darwin Ray MD MCHC (RBC) [Mass/Vol] 32.7 g/dL Normal 32.0-36.0 [facility] Comment on above: Performed By: #### 1 0165, 6399 #### [facility] [address] [address] [employer] Specialist: Darwin Ray MD MCV (RBC) [Entitic vol] 84.0 fL Normal 80.0-100.0 [facility] Comment on above: Performed By: #### 1 0165, 6399 #### [facility] [address] [address] [employer] Specialist: Darwin Ray MD Monocytes (Bld) [#/Vol] 0.54 10*3/uL Normal 200-950 [facility] Comment on above: Performed By: #### 1 0165, 6399 #### [facility] [address] [address] [employer] Specialist: Darwin Ray MD Monocytes/100 WBC (Bld) 7.4 % Normal [facility] Comment on above: Performed By: #### 1 0165, 6399 #### [facility] [address] [address] [employer] Specialist: Darwin Ray MD Neutrophils (Bld) [#/Vol] 4.088 10*3/uL Normal 0990-3363 [facility] Comment on above: Performed By: #### 1 0165, 6399 #### [facility] [address] [address] [employer] Specialist: Darwin Ray MD Neutrophils/100 WBC (Bld) 56 % Normal [facility] Comment on above: Performed By: #### 1 0165, 6399 #### [facility] [address] [address] [employer] Specialist: Darwin Ray MD Platelet mean volume (Bld) [Entitic vol] 10.6 fL Normal 7.5-12.5 [facility] Comment on above: Performed By: #### 1 0165, 6399 #### [facility] of [address], [address] [place] [address] [employer] Specialist: Darwin Ray MD Platelets (Bld) [#/Vol] 277 10*3/uL Normal 140-400 [facility] Comment on above: Performed By: #### 1 0165, 6399 #### [facility] of [address], [address] [place] [address] [employer] Specialist: Darwin Ray MD RBC (Bld) [#/Vol] 4.81 10*6/uL Normal 4.20-5.80 [facility] Comment on above: Performed By: #### 1 0165, 6399 #### [facility] [address], [address] [place] [address] [employer] Specialist: Darwin Ray MD WBC (Bld) [#/Vol] 7.3 10*3/uL Normal 3.8-10.8 [facility] Comment on above: Performed By: #### 1 0165, 6399 #### [facility] [address] [address] [employer]ist: Darwin Ray MD Vital Signs Date Time Vital Sign Value Performing Clinician Facility 06-28-2022 13:25-0400 Body height 177.8 cm Krystin Loja Other [facility] Other 06-28-2022 13:25-0400 Body mass index (BMI) [Ratio] 28.69 kg/m2 Krystin Loja Other [facility] Other 06-28-2022 13:25-0400 Body temperature 98.9 [degF] Krystin Loja Other [facility] Other 06-28-2022 13:25-0400 Body weight 90.72 kg Krystin Loja Other [facility] Other 06-28-2022 13:25-0400 Diastolic blood pressure 97 mm[Hg] Krystin Loja Other [facility] Other 06-28-2022 13:25-0400 Respiratory rate 18 /min Krystin Loja Other [facility] Other 06-28-2022 13:25-0400 SaO2% (BldA) [Mass fraction] 97 % Krystin Loja Other [facility] Other 06-28-2022 13:25-0400 Systolic blood pressure 130 mm[Hg] Krystin Loja Other [facility] Other Encounters Encounter Date Encounter Type Care Provider Facility Start: 03-18-2024 ambulatory [facility]:ARTHUR Cartwright Start: 01-31-2024 ambulatory [facility] Facility :ARTHUR Daly Start: 01-13-2023 End: 01-14-[address] YUMI TOLENTINO Facility: Start: 08-17-2022 End: 08-18-2022 ambulatory KERRY MONTES Facility: Start: 06-28-2022 End: 06-28-2022 ambulatory Krystin Loja Other [facility] Other Start: 06-28-2022 Office outpatient ne w 30 minutes Krystin Loja [facility] Start: 01-18-2022 End: 01-19-[address] CHESTER LISTED REQUEST Facility:[facility] Procedures Date Procedure Procedure Detail Performing Clinician Start: 01-13-2023 PSA screening KERRY COLON Comment on above: Performed By: #### P [facility] #### [facility] [address] [place] [address] Dr. Danielle Harden Start: 01-18-2022 PSA screening KERRY COLON Comment on above: Performed By: #### C MP, MG #### [facility] [address] [address] [address] Danielle Harden Payers Date Payer Category Payer Unknown [id number] 2.16.84 [id number] 1965 Unknown [id number] 2.16.8 [id number] 1964 Unknown [id number] 2.16.8 [id number] 1960 Self-pay [id number] 1960 Unknown [id number] 2. [id number] Unknown [id number] 2.16.84 [id number] Unknown [id number] 2.16.84 [id number] Social History Date Type Detail Facility Sex Assigned At [facility] Other Evaluation note 06-28-2022 Note Date & [...] understanding and is agreeable with treatment plan [facility] Other History general Narrative - Reported Note Date & Type Note Facility History general Narrative - Reported Type Medical History htn [facility] Other Summary Purpose Family History No Family History Records FoundNo Family History Records FoundNo Family History Records Found Advance Directives No Advanced Directives Records FoundNo Advanced Directives Records FoundNo Advanced Directives Records Found Additional Source Comments (unrecognized sect ion and content) No Status Records FoundNo Status Records FoundNo Status Records Found INFORMATION SOURCE (unrecogn ized section and content) DATE CREATED AUTHOR 04/10/2022 [facility] DATE CREATED AUTHOR AUTHOR'S ORGANIZ ATION 01/14/2023 [facility] DATE CREATED AUTHOR AUTHOR'S ORGANIZ ATION 02/02/2024 [facility] REASON FOR VISIT (unrecogniz ed section and [...] BE BASED ON THE PRIMARY CLINICAL RECORDS. [facility] [employer] [facility] provides no warranty or guarantee of the accuracy or completeness of information in this document.
--- NOTE | 2024-02-03 10:03 | US_ITS ---
The [address] [address] Patient Name: KARI CAMACHO MRN: [id number] date: 1965 Sex: M Assigned Patient Location: Current Patient Location: Accession/Order Number: [id number] Exam Date: 02/03/2024 10:05 Report Date: 02/05/2024 19:31 At the request of: WHITNEY LEWIS Procedure: US renal bladder EXAM: US renal bladder HISTORY: Hematuria R31.9 COMPARISON: None. TECHNIQUE: Multiple sonographic images of the kidneys and urinary bladder were obtained. FINDINGS: The right kidney measures 11.8 x 5.1 x 4.5 cm with slight cortical thinning. In the inferior aspect there is a cyst measuring 2.1 x 1.8 x 1.4 cm. No other cystic or solid mass is identified. There is no evidence of hydronephrosis. The left kidney measures 11.2 x 6.1 x 6.0 cm with the cortical thickness of 11 mm. There is no evidence of an intrarenal mass or hydronephrosis. The urinary bladder is moderately well distended with a calculated volume of 138 mL. Bilateral ureteral jets are visualized. There is a slightly lobulated mass measuring 2.6 x 2.4 x 2.3 cm, with increased vascularity. There is no bladder wall thickening. The post void volume is 10 cc. US/US renal bladder IMPRESSION: A small cyst is seen in the right kidney. There is no other cystic or solid masses seen in the kidneys, and there is no evidence of hydronephrosis. There is a lobulated soft tissue mass seen along the wall of the urinary bladder. The appearance is suspicious for a malignancy, and further evaluation with endoscopy and biopsy is recommended. Electronically authenticated by: SHAHRAM STAPLES Date: 02/05/2024 19:31
== END 2024-02-03 10:01 | disposition home or self-care (01) ==
LOC: US 10:00
PROVIDERS: PCP Nurse Practitioner Family; Visit Provider Nurse Practitioner Family
DX: R31.9 Hematuria, unspecified (principal); N28.1 Cyst of kidney, acquired
CPT/HCPCS: 76770

== ENCOUNTER 2024-02-13 08:50 | Outpatient (OUT) | payer OTHER, SELFPAY ==
--- NOTE | 2024-02-13 08:55 | XR_ITS ---
The [address] [address] Patient Name: KARI CAMACHO MRN: [id number] date: 1965 Sex: M Assigned Patient Location: [facility] Current Patient Location: [facility] Accession/Order Number: [id number] Exam Date: 02/13/2024 09:35 Report Date: 02/13/2024 11:56 At the request of: DONATO LI Procedure: XR chest 2V PROCEDURE: XR chest 2V DATE: 02/13/2024 8:35 AM CDT COMPARISONS: None. CLINICAL INDICATION: 58 years Male Preop exam FINDINGS: The cardiomediastinal silhouette and pulmonary vasculature are within normal limits. The lungs are clear. There is no evidence of pleural effusion or pneumothorax. XR/XR chest 2V IMPRESSION: Chest radiograph is within normal limits. Electronically authenticated by: SINAI PERKINS Date: 02/13/2024 11:56
--- NOTE | 2024-02-13 08:55 | ECG_ITS ---
The [facility] Test Date: 2024-02-13 Pat Name: KARI CAMACHO Department: Room: - Gender: Male [employer]: : 1965 Requested By: WHITNEY LEWIS Order Number: [id number] Reading MD: DANNA QUINTEROS Measurements Intervals Horner Rate: 67 P: 47 OK: 194 QRS: 37 QRSD: 89 T: 55 QT: 386 QTc: 409 Interpretive Statements SINUS RHYTHM POSSIBLE LEFT ATRIAL ENLARGEMENT [-0.1mV P WAVE IN V1/V2] No previous ECG available for comparison Electronically Signed On 02-15-2024 21:20:01 EDT by DANNA QUINTEROS
--- OUTSIDE RECORDS SUMMARY | 2024-02-13 09:15 | XMS_ITS | CCD ---
Author Organization [facility] Care Team Providers Care Cardiac Cath Lab Radiology Technologist Name Role Phone Krystin Loja Unavailable SIMON, KERRY Admitting Unavailable SIMON, KERRY Attending Unavailable YUHAS, DR EASON Primary Care Unavailable SIMON, KERRY Consulting Unavailable YUHAS, DR EASON Admitting Unavailable YUHAS, DR EASON Attending Unavailable YUHAS, DR EASON Primary Care Unavailable YUHAS, DR EASON Consulting Unavailable REQUEST, NONE LISTED Admitting Unavaila ble REQUEST, DR CHESTER LISTED Attending Unavaila ble REQUEST, NONE LISTED Consulting Unavaila ble Brodie LI Attending Unavailable LI, Brodie Bar Attending Unavailable DAYAMI LEWIS Referring Unavailable LI, Brodie Bar Attending Unavailable DEBBIE, DAYAMI S Referring Unavailable LIBrodie Attending Unavailable LI, Brodie Bar Attending Unavailable RAJ GÓMEZ Primary Care Physician Allergies Allergy Classification Reported Allergen(s) Allergy Type Date of Onset Reaction(s) Facility (1 source) No Known Medication Allergies; Translations: [No Known Medication Allergies] Propensity to adverse reactions (disorder) [facility] Medications Current Medications Medication Drug Class(es) Dates Sig (Normalized) Sig (Original) azithromycin 250 mg oral tablet (1 source) Macrolide Antimicrobial Start: 06-28-2022 Azithromycin 250 MG 2 tablet on the first day, then 1 tablet daily for 4 days Orally Once a day for 5 day(s) Jun, Active benzonatate 100 mg oral capsule (1 source) Non-narcotic Antitussive Start: 06-28-2022 take 1 capsule by mouth every eight hours Tessalon Perles 100 MG 1 capsule as needed Orally Three times a day for 7 days Jun, Active Losartan (2 sources) Angiotensin 2 Receptor Rob Start: 02-12-2024 losartan 50 mg tablet losartan 50 mg tablet Start Date: 02/12/24 Status: Ordered Losartan Potassi um Active methylPREDNISolone 4 mg oral tablet (1 source) Corticosteroid Start: 06-28-2022 methylPREDNISo lone 4 MG as directed Orally for daily dose take half with breakfast, half with dinner for 6 days Jun, Active predniSONE (1 source) Start: 01-29-2023 pyridostigmine bromide 60 mg oral tablet (3 sources) Start: 01-29-2023 pyridostigmine 60 mg Tab TID, 0 Refill(s), Refills(s) 0 Start Date: 01/29/23 Status: Ordered Pyridostigmine B romide ER Active Pyridostigmine B romide Active Completed/Discontinued Medications Medication Drug Class(es) Dates Sig (Normalized) Sig (Original) atorvastatin 20 mg oral tablet (2 sources) HMG-CoA Reductase Inhibitor Start: 02-12-2024 atorvastatin 20 mg Tab 90 EA, 0 Refill(s), TAKE 1 TABLET BY MOUTH DAILY, Refills(s) 0 Start Date: 02/12/24 Status: Ordered Atorvastatin Bennett cium Active cyclobenzaprine hydrochloride 5 mg oral tablet (1 source) Muscle Relaxant Start: 02-12-2024 cyclobenzaprin e 5 mg Tab 30 EA, 0 Refill(s), TAKE 1 TABLET BY MOUTH ONCE DAILY AT BEDTIME NEEDED, Refills(s) 0 Start Date: 02/12/24 Status: Ordered hydroCHLOROthiazide 25 mg oral tablet (2 sources) Thiazide Diuretic Start: 02-12-2024 hydrochlorothiazide 25 mg Tab 90 EA, 0 Refill(s), TAKE 1 TABLET BY MOUTH DAILY, Refills(s) 0 Start Date: 02/12/24 Status: Ordered hydroCHLOROthiaz komal Active Problems Problem Classification Problem Date Documented Date Episodic/Chronic Disorders of lipid metabolism (1 source) Hyperlipidemia 02-12-2024 Chronic Essential hypertension (1 source) Hypertensive disorder 02-12-2024 Chronic Genitourinary symptoms and ill-defined conditions (2 sources) Blood in urine; Translations: [Gross hematuria] Onset: 02-12-2024 Episodic Hyperplasia of prostate (2 sources) Benign prostatic hypertrophy with outflow obstruction; Translations: [Benign prostatic hyperplasia with lower urinary tract symptoms] Onset: 02-12-2024 Chronic Other circulatory disease (1 source) Elevated blood-pressure reading, without diagnosis of hypertension Episodic Other diseases of bladder and urethra (1 source) Disorder of bladder; Translations: [Other specified disorders of bladder] Onset: 02-12-2024 Chronic Other diseases of bladder and urethra (1 source) 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 Chronic Other diseases of kidney and ureters (1 source) Acquired renal cyst 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; Translations: [Cyst of kidney, acquired] Onset: 02-12-2024 Episodic Other diseases of kidney and ureters (1 source) Cyst of kidney 02-12-2024 Episodic Other lower respiratory disease (1 source) Unspecified acute lower respiratory infection Episodic Other male genital disorders (2 sources) Male erectile dysfunction, unspecified; Translations: [Erectile dysfunction] Onset: 02-12-2024 Chronic Other nervous system disorders (4 sources) Myasthenia gravis without (acute) exacerbation; Translations: [MYASTHENIA GRAVIS W/O AC EXACERBAT] Onset: 08-17-2022 Chronic Other nervous system disorders (1 source) 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 Screening and history of mental health and substance abuse codes (2 sources) H/O: Disorder; Translations: [Personal history of nicotine dependence] Onset: 02-12-2024 Episodic Results Test Name Value Interpretation Reference Range Facility Ambulatory Visit Summaryon 0 02-12-2024 Ambulatory Visit Summary KARI CAMACHO :1965 Visit Date:02/12/2024 Ambulatory Visit Instructions Your Diagnosis Bladder mass Gross hematuria Erectile dysfunction BPH with urinary obstruction Renal cyst Former smoker Your Care Team Attending Physician - Brodie LI MD Primary Care Physician - RAJ GÓMEZ MD Referring Physician - DAYAMI LEWIS CNP This Is Your Medications List Contact prescribing physician if questions or concerns Misc Prescription (losartan 50 mg tablet) atorvastatin (atorvastatin 20 mg Tab) cyclobenzaprine (cyclobenzaprine 5 mg Tab) hydrochlorothiazide (hydrochlorothiazide 25 mg Tab) predniSONE (predniSONE 10 mg Tab) pyridostigmine (pyridostigmine 60 mg Tab) Procedures Performed Sinus node (2003). Discharge Vitals Blood Pressure 134/80 Height 178 cm Height 70 in Weight 93.5 kg Weight 205.7 lb BMI 29.51 What to do next Scheduled Follow-Up Appointments Monday 9:30 AM EDT Where[facility] Ambulatory Visit Summary KARI CAMACHO :1965 Visit Date:02/12/2024 Ambulatory Visit Instructions Your Diagnosis Bladder mass Gross hematuria Erectile dysfunction BPH with urinary obstruction Renal cyst Former smoker Your Care Team Attending Physician - GUILLERMO PATEL, Brodie Bar Primary Care Physician - RICO PATEL, RAJ Jones Referring Physician - DAYAMI LEWIS CNP This Is Your Medications List Contact prescribing physician if questions or concerns Misc Prescription (losartan 50 mg tablet) atorvastatin (atorvastatin 20 mg Tab) cyclobenzaprine (cyclobenzaprine 5 mg Tab) hydrochlorothiazide (hydrochlorothiazide 25 mg Tab) predniSONE (predniSONE 10 mg Tab) pyridostigmine (pyridostigmine 60 mg Tab) Procedures Performed Sinus node (2003). Discharge Vitals Blood Pressure 134/80 Height 178 cm Height 70 in Weight 93.5 kg Weight 205.7 lb BMI 29.51 What to do next You Need to Schedule the Following Appointments Follow Up with GUILLERMO PATEL, Brodie Bar, URL When: Comments: sched cysto/TURBT Where: [facility] [address], [place] [address] [phone] Medications What How Much When Instructions Unchanged atorvastatin (atorvastatin 20 mg Tab) 90 EA, 0 Refill(s), TAKE 1 TABLET BY MOUTH DAILY Contact prescribing physician if questions or concerns Unchanged cyclobenzaprine (cyclobenzaprine 5 mg Tab) 30 EA, 0 Refill(s), TAKE 1 TABLET BY MOUTH ONCE DAILY AT BEDTIME NEEDED Contact prescribing physician if questions or concerns Unchanged hydrochlorothiazide (hydrochlorothiazide 25 mg Tab) 90 EA, 0 Refill(s), TAKE 1 TABLET BY MOUTH DAILY Contact prescribing physician if questions or concerns Unchanged Misc Prescription (losartan 50 mg tablet) 0 Contact prescribing physician if questions or concerns Unchanged predniSONE (predniSONE 10 mg Tab) 1 Unknown, 0 Refill(s) Contact prescribing physician if questions or concerns Unchanged pyridostigmine (pyridostigmine 60 mg Tab) 3 times a day 0 Refill(s) Contact prescribing physician if questions or concerns Allergies No Known Medication Allergies Problems Ongoing - Any problem that you are currently receiving treatment for. Bladder mass BPH with urinary obstruction Erectile dysfunction Former smoker Gross hematuria Hyperlipidemia Hypertensive disorder Ocular myasthenia Renal cyst Patient Survey You may receive a survey via text or e-mail asking about your office visit. Please share your experience with us by completing your survey. We appreciate your feedback and thank you for choosing us for your care. Education Materials Transurethral Resection of Bladder Tumor, Care After The following information offers guidance on how to care for yourself after your procedure. Your health care provider may also give you more specific instructions. If you have problems or questions, contact your health care provider. What can I expect after the procedure? After the procedure, it is common to have: ? A small amount of blood or small blood clots in your urine for up to 2 weeks. ? Soreness or mild pain from your catheter. After your catheter is removed, you may have mild soreness, especially when urinating. ? A need to urinate often. ? Pain in your lower abdomen. Follow these instructions at home: Medicines ? Take ssbw-eqn-oyqjxsn and prescription medicines only as told by your health care provider. ? If you were prescribed an antibiotic medicine, take it as told by your health care provider. Do not stop taking the antibiotic even if you start to feel better. ? Ask your health care provider if the medicine prescribed to you: ? Requires you to avoid driving or using machinery. ? Can cause constipation. You may need to take these actions to prevent or treat constipation: ? Drink enough fluid to keep your urine pale yellow. ? Take iemy-iam-kcvxeie or prescription medicines. ? Eat foods that are high in fiber, such as beans, whole grains, and fresh fruits and vegetables. ? Limit foods that are high in fat and processed sugars, such as fried or sweet foods. Activity ? If you were given a sedative during the procedure, it can affect you for several hours. Do not drive or operate machinery until your health care provider says that it is safe. ? Rest as told by your health care provider. ? Avoid sitting for a long time without moving. Get up to take short walks every 1?2 hours. This is important to improve blood flow and breathing. Ask for help if you feel weak or unsteady. ? Do not lift anything that is heavier than 10 lb (4.5 kg), or the limit that you are told, until your health care provider says that it is safe. ? Avoid intense physical activity for as long as told by your health care provider. ? Do not have sex until your health care provider approves. ? Return to your normal activities as told by your (more content not included)... Normal Yu [facility] Patient Educationon 02-12-20 Patient Education Oncology Transurethral Resection of Bladder Tumor, Care After The following information offers guidance on how to care for yourself after your procedure. Your health care provider may also give you more specific instructions. If you have problems or questions, contact your health care provider. What can I expect after the procedure? After the procedure, it is common to have: ? A small amount of blood or small blood clots in your urine for up to 2 weeks. ? Soreness or mild pain from your catheter. After your catheter is removed, you may have mild soreness, especially when urinating. ? A need to urinate often. ? Pain in your lower abdomen. Follow these instructions at home: Medicines ? Take milg-inn-wcbseoe and prescription medicines only as told by your health care provider. ? If you were prescribed an antibiotic medicine, take it as told by your health care provider. Do not stop taking the antibiotic even if you start to feel better. ? Ask your health care provider if the medicine prescribed to you: ? Requires you to avoid driving or using machinery. ? Can cause constipation. You may need to take these actions to prevent or treat constipation: ? Drink enough fluid to keep your urine pale yellow. ? Take xhru-epl-sszbigd or prescription medicines. ? Eat foods that are high in fiber, such as beans, whole grains, and fresh fruits and vegetables. ? Limit foods that are high in fat and processed sugars, such as fried or sweet foods. Activity ? If you were given a sedative during the procedure, it can affect you for several hours. Do not drive or operate machinery until your health care provider says that it is safe. ? Rest as told by your health care provider. ? Avoid sitting for a long time without moving. Get up to take short walks every 1?2 hours. This is important to improve blood flow and breathing. Ask for help if you feel weak or unsteady. ? Do not lift anything that is heavier than 10 lb (4.5 kg), or the limit that you are told, until your health care provider says that it is safe. ? Avoid intense physical activity for as long as told by your health care provider. ? Do not have sex until your health care provider approves. ? Return to your normal activities as told by your health care provider. Ask your health care provider what activities are safe for you. General instructions ? If you have a catheter, follow instructions from your health care provider about caring for your catheter and your drainage bag. ? Do not drink alcohol for as long as told by your health care provider. This is especially important if you are taking prescription pain medicines. ? Do not use any products that contain nicotine or tobacco. These products include cigarettes, chewing tobacco, and vaping devices, such as e-cigarettes. If you need help quitting, ask your health care provider. ? Wear compression stockings as told by your health care provider. These stockings help to prevent blood clots and reduce swelling in your legs. ? Keep all follow-up visits. This is important. ? You will need to be followed closely with regular checks of your bladder and urethra (cystoscopies) to make sure that the cancer does not come back. Contact a health care provider if: ? You have blood in your urine for more than 2 weeks. ? You become constipated. Signs of constipation may include: ? Having fewer than three bowel movements in a week. ? Difficulty having a bowel movement. ? Stools that are dry, hard, or larger than normal. ? You have a urinary catheter in place, and you have: ? Spasms or pain. ? Problems with your catheter or your catheter is blocked. ? Your catheter has been taken out but you are unable to urinate. ? You have signs of infection, such as: ? Fever or chills. ? Cloudy or bad-smelling urine. Get help right away if: ? You have severe abdominal pain that gets worse or does not improve with medicine. ? You have a lot of large blood clots in your urine. ? You develop swelling or pain in your leg. ? You have difficulty breathing. These symptoms may be an emergency. Get help right away. Call 911. ? Do not wait to see if the symptoms will go away. ? Do not drive yourself to the hospital. Summary ? After your procedure, it is common to have a small amount of blood or small blood clots in your urine, soreness or mild pain from your catheter, and pain in your lower abdomen. ? Take snmc-aio-vwuozqs and prescription medicines only as told by your health care provider. ? Rest as told by your health care provider. Follow your health care provider's instructions about returning to normal activities. Ask what activities are safe for you. ? If you have a catheter, follow instructions from your health care provider about caring for your catheter and your drainage bag. This information is not intended to replace advice given to you by your health care pr (more content not included)... [facility] CBC AUTO DIFFon 01-13-2023 BASO # 0.0 103/ul Normal 0.0-0.1 [facility] Comment on above: Performed By: #### C BC #### [facility] [address] [address] [address] Danielle Harden Basophils/100 WBC (Bld) 0.2 % Normal 0.2-2.0 [facility] Comment on above: Performed By: #### C BC #### [facility] [address] [address] [address] Danielle Harden EO # 0.2 103/ul Normal 0.0-0.7 [facility] Comment on above: Performed By: #### C BC #### [facility] [address] [address] [address] Danielle Harden Eosinophils/100 WBC (Bld) 2.7 % Normal 0.9-7.0 [facility] Comment on above: Performed By: #### C BC #### [facility] [address] [address] [address] Danielle Harden Erythrocyte distribution width (RBC) [Ratio] 14.1 % Normal 11.0-15.0 [facility] Comment on above: Performed By: #### C BC #### [facility] [address] [address] [address] Danielle Harden Hematocrit (Bld) [Volume fraction] 39.1 % Critically low 42.0-54.0 [facility] Comment on above: Performed By: #### C BC #### [facility] [address] [address] [address] Danielle Harden Hemoglobin (Bld) [Mass/Vol] 13.0 g/dL Critically low 14.0-18.0 [facility] Comment on above: Performed By: #### C BC #### [facility] [address] [place] [address] Dr. Danielle Harden IG # 0.02 10e3/ul Normal 0.00-0.03 [facility] Comment on above: Performed By: #### C BC #### [facility] [address] [place] [address] Dr. Danielle Harden IG % 0.2 % Normal 0.0-0.5 [facility] Comment on above: Performed By: #### C BC #### [facility] [address] [place] [address] Dr. Danielle Harden LYMPH # 2.6 103/ul Normal 1.2-3.8 [facility] Comment on above: Performed By: #### C BC #### [facility] [address] [place] [address] Dr. Danielle Harden Lymphocytes/100 WBC (Bld) 31.3 % Normal 20.5-60.0 [facility] Comment on above: Performed By: #### C BC #### [facility] [address] [place] [address] Dr. Danielle Harden MANUAL DIFF REQ NO Normal [facility] Comment on above: Performed By: #### C BC #### [facility] [address] [place] [address] Dr. Danielle Harden MCH (RBC) [Entitic mass] 28.6 pg Normal 25.9-34.0 [facility] Comment on above: Performed By: #### C BC #### [facility] [address] [place] [address] Dr. Danielle Harden MCHC (RBC) [Mass/Vol] 33.2 g/dL Normal 29.9-35.2 [facility] Comment on above: Performed By: #### C BC #### [facility] [address] [place] [address] Dr. Danielle Harden MCV (RBC) [Entitic vol] 86.1 fL Normal 80.0-94.0 [facility] Comment on above: Performed By: #### C BC #### [facility] [address] [address] [address] Danielle Harden MONO # 0.8 103/ul Normal 0.3-0.8 [facility] Comment on above: Performed By: #### C BC #### [facility] [address] [address] [address] Danielle Harden Monocytes/100 WBC (Bld) 9.4 % Normal 1.7-12.0 [facility] Comment on above: Performed By: #### C BC #### [facility] [address] [place] [address] Dr. Danielle Harden NEUT # 4.6 103/ul Normal 1.4-6.5 [facility] Comment on above: Performed By: #### C BC #### [facility] [address] [place] [address] Dr. Danielle Harden Neutrophils/100 WBC (Bld) 56.2 % Normal 43.0-75.0 [facility] Comment on above: Performed By: #### C BC #### [facility] [address] [place] [address] Dr. Danielle Harden Platelet mean volume (Bld) [Entitic vol] 9.7 fL Normal 9.5-13.5 [facility] Comment on above: Performed By: #### C BC #### [facility] [address] [place] [address] Dr. Danielle Harden PLT 269 103/ul Normal 150-450 [facility] Comment on above: Performed By: #### C BC #### [facility] [address] [place] [address] Dr. Danielle Harden RBC 4.54 106/ul Critically low 4.70-6.10 [facility] Comment on above: Performed By: #### C BC #### [facility] [address] [place] [address] Dr. Danielle Harden WBC 8.2 103/ul Normal 4.0-11.0 [facility] Comment on above: Performed By: #### C BC #### [facility] [address] [place] [address] Dr. Danielle Harden LIPID PROFILEon 01-13-2023 CHOL-HDL RATIO NORM SEE BELOW Normal [facility] Comment on above: Result Comment: 3.3 - 4.4 LOW RISK 4.4 - 7.1 AVERAGE RISK 7.1 - 11.0 MODERATE RISK >11.0 HIGH RISK Performed By: #### C MP, MG #### [facility] [address] [address] [address] Danielle Harden Cholesterol [Mass/Vol] 182 mg/dL Normal <=200 [facility] Comment on above: Performed By: #### C MP, MG #### [facility] [address] [address] [address] Danielle Harden Cholesterol in HDL [Mass/Vol] 76 mg/dL Critically high 40-60 [facility] Comment on above: Performed By: #### C MP, MG #### [facility] [address] [address] [address] Danielle Harden Cholesterol in LDL [Mass/Vol] 78.2 mg/dL Normal [facility] Comment on above: Performed By: #### C MP, MG #### [facility] [address] [address] [address] Danielle Harden Cholesterol.total/ Cholesterol in HDL [Mass ratio] 2.4 {ratio} Normal [facility] Comment on above: Performed By: #### C MP, MG #### [facility] [address] [address] [address] Danielle Harden HDL NORMAL > or = 60 mg/dl - LO W CARDIOVASCULAR RISK <40 mg/dl - HIGH CARDIOVASCULAR RISK Normal [facility] Comment on above: Performed By: #### C MP, MG #### [facility] [id number] Danielle Harden LDL CALC NORMAL SEE BELOW Normal [facility] Comment on above: Result Comment: <100 mg/dl OPTIMAL 100 - 129 mg/dl NEAR OR ABOVE OPTIMAL 130 - 159 mg/dl BORDERLINE HIGH 160 - 189 mg/dl HIGH >190 mg/dl VERY HIGH Performed By: #### C MP, MG #### [facility] [address] [address] [address] Danielle Harden Triglyceride [Mass/Vol] 139 mg/dL Normal <=150 [facility] Comment on above: Performed By: #### C MP, MG #### [facility] [address] [place] [address] Dr. Danielle Harden VLDL CALC 27.8 mg/dL Normal [facility] Comment on above: Performed By: #### C MP, MG #### [facility] [address] [place] [address] Dr. Danielle Harden PROF 14(COMP METB)on 023 Albumin [Mass/Vol] 4.0 g/dL Normal 3.4-5.0 [facility] Comment on above: Performed By: #### C MP, T4, LIPID, TSH #### [facility] [address] [place] [address] Dr. Danielle Harden Albumin/Globulin [Mass ratio] 1.0 {ratio} Normal [facility] Comment on above: Performed By: #### C MP, T4, LIPID, TSH #### [facility] [address] [place] [address] Dr. Danielle Harden ALP [Catalytic activity/Vol] 58 U/L Normal 46-116 [facility] Comment on above: Performed By: #### C MP, T4, LIPID, TSH #### [facility] [address] [place] [address] Dr. Danielle Harden ALT [Catalytic activity/Vol] 33 U/L Normal 16-63 [facility] Comment on above: Performed By: #### C MP, T4, LIPID, TSH #### [facility] [address] [place] [address] Dr. Danielle Harden Anion gap [Moles/Vol] 11.1 mmol/L Normal [facility] Comment on above: Performed By: #### C MP, T4, LIPID, TSH #### [facility] [address] [place] [address] Dr. Danielle Harden AST [Catalytic activity/Vol] 14 U/L Critically low 15-37 [facility] Comment on above: Performed By: #### C MP, T4, LIPID, TSH #### [facility] [address] [address] [address] Danielle Harden Bilirubin [Mass/Vol] 0.5 mg/dL Normal 0.2-1.0 [facility] Comment on above: Performed By: #### C MP, T4, LIPID, TSH #### [facility] [address] [place] [address] Dr. Danielle Harden Calcium [Mass/Vol] 9.2 mg/dL Normal 8.5-10.1 [facility] Comment on above: Performed By: #### C MP, T4, LIPID, TSH #### [facility] [address] [address] [address] Danielle Harden Chloride [Moles/Vol] 102 mmol/L Normal 98-107 [facility] Comment on above: Performed By: #### C MP, T4, LIPID, TSH #### [facility] [address] [place] [address] Dr. Danielle Harden CO2 [Moles/Vol] 28.1 mmol/L Normal 21.0-32.0 [facility] Comment on above: Performed By: #### C MP, T4, LIPID, TSH #### [facility] [address] [place] [address] Dr. Danielle Harden Creatinine [Mass/Vol] 0.87 mg/dL Normal 0.70-1.30 [facility] Comment on above: Performed By: #### C MP, T4, LIPID, TSH #### [facility] [address] [place] [address] Dr. Danielle Harden EGFR-AF MOLDOVAN >60 Normal >=60 [facility] Comment on above: Performed By: #### C MP, T4, LIPID, TSH #### [facility] [address] [place] [address] Dr. Danielle Harden EGFR-NON AF MOLDOVAN >60 Normal >=60 [facility] Comment on above: Performed By: #### C MP, T4, LIPID, TSH #### [facility] [address] [place] [address] Dr. Danielle Harden Globulin (S) [Mass/Vol] 4.2 g/dL Normal [facility] Comment on above: Performed By: #### C MP, T4, LIPID, TSH #### [facility] [address] [address] [address] Danielle Harden Glucose [Mass/Vol] 95 mg/dL Normal 74-106 [facility] Comment on above: Performed By: #### C MP, T4, LIPID, TSH #### [facility] [address] [address] [address] Danielle Harden Potassium [Moles/Vol] 3.2 mmol/L Critically low 3.5-5.1 [facility] Comment on above: Performed By: #### C MP, T4, LIPID, TSH #### [facility] [address] [place] [address] Dr. Danielle Harden Protein [Mass/Vol] 8.2 g/dL Normal 6.4-8.2 [facility] Comment on above: Performed By: #### C MP, T4, LIPID, TSH #### [facility] [address] [place] [address] Dr. Danielle Harden Sodium [Moles/Vol] 138 mmol/L Normal 136-145 [facility] Comment on above: Performed By: #### C MP, T4, LIPID, TSH #### [facility] [address] [place] [address] Dr. Danielle Harden Urea nitrogen [Mass/Vol] 21.0 mg/dL Critically high 7.0-18.0 [facility] Comment on above: Performed By: #### C MP, T4, LIPID, TSH #### [facility] [address] [place] [address] Dr. Danielle Harden Urea nitrogen/Creatinin e [Mass ratio] 24.1 mg/mg Normal [facility] Comment on above: Performed By: #### C MP, T4, LIPID, TSH #### [facility] [address] [place] [address] Dr. Danielle Harden T4on 01-13-2023 T4 [Mass/Vol] 9.50 ug/dL Normal 4.50-12.10 [facility] Comment on above: Performed By: #### C MP, MG #### [facility] [address] [place] [address] Dr. Danielle Harden TSHon 01-13-2023 TSH 2.226 uIU/mL Normal 0.358-3.740 [facility] Comment on above: Performed By: #### C MP, MG #### [facility] [address] [place] [address] Dr. Danielle Harden MAGNESIUMon 08-17-2022 Magnesium [Mass/Vol] 2.0 mg/dL Normal 1.8-2.4 [facility] Comment on above: Performed By: #### C MP, MG #### [facility] [address] [place] [address] Dr. Danielle Harden PROF 14(COMP METB)on 022 Albumin [Mass/Vol] 3.6 g/dL Normal 3.4-5.0 [facility] Comment on above: Performed By: #### C MP, MG #### [facility] [address] [place] [address] Dr. Danielle Harden Albumin/Globulin [Mass ratio] 1.1 {ratio} Normal [facility] Comment on above: Performed By: #### C MP, MG #### [facility] [address] [place] [address] Dr. Danielle Harden ALP [Catalytic activity/Vol] 61 U/L Normal 46-116 [facility] Comment on above: Performed By: #### C MP, MG #### [facility] [address] [place] [address] Dr. Danielle Harden ALT [Catalytic activity/Vol] 23 U/L Normal 16-63 [facility] Comment on above: Performed By: #### C MP, MG #### [facility] [address] [place] [address] Dr. Danielle Harden Anion gap [Moles/Vol] 10.4 mmol/L Normal [facility] Comment on above: Performed By: #### C MP, MG #### [facility] [address] [place] [address] Dr. Danielle Harden AST [Catalytic activity/Vol] 13 U/L Critically low 15-37 [facility] Comment on above: Performed By: #### C MP, MG #### [facility] [address] [place] [address] Dr. Danielle Harden Bilirubin [Mass/Vol] 0.2 mg/dL Normal 0.2-1.0 [facility] Comment on above: Performed By: #### C MP, MG #### [facility] [address] [place] [address] Dr. Danielle Harden Calcium [Mass/Vol] 8.8 mg/dL Normal 8.5-10.1 [facility] Comment on above: Performed By: #### C MP, MG #### [facility] [address] [place] [address] Dr. Danielle Harden Chloride [Moles/Vol] 102 mmol/L Normal 98-107 [facility] Comment on above: Performed By: #### C MP, MG #### [facility] [address] [place] [address] Dr. Danielle Harden CO2 [Moles/Vol] 28.1 mmol/L Normal 21.0-32.0 [facility] Comment on above: Performed By: #### C MP, MG #### [facility] [address] [place] [address] Dr. Danielle Harden Creatinine [Mass/Vol] 1.06 mg/dL Normal 0.70-1.30 [facility] Comment on above: Performed By: #### C MP, MG #### [facility] [address] [place] [address] Dr. Danielle Harden EGFR-AF MOLDOVAN >60 Normal >=60 [facility] Comment on above: Performed By: #### C MP, MG #### [facility] [address] [place] [address] Dr. Danielle Harden EGFR-NON AF MOLDOVAN >60 Normal >=60 [facility] Comment on above: Performed By: #### C MP, MG #### [facility] [address] [place] [address] Dr. Danielle Harden Globulin (S) [Mass/Vol] 3.3 g/dL Normal [facility] Comment on above: Performed By: #### C MP, MG #### [facility] [address] [place] [address] Dr. Danielle Harden Glucose [Mass/Vol] 93 mg/dL Normal 74-106 [facility] Comment on above: Performed By: #### C MP, MG #### [facility] [address] [place] [address] Dr. Danielle Harden Potassium [Moles/Vol] 3.5 mmol/L Normal 3.5-5.1 [facility] Comment on above: Performed By: #### C MP, MG #### [facility] [address] [place] [address] Dr. Danielle Harden Protein [Mass/Vol] 6.9 g/dL Normal 6.4-8.2 [facility] Comment on above: Performed By: #### C MP, MG #### [facility] [address] [place] [address] Dr. Danielle Harden Sodium [Moles/Vol] 137 mmol/L Normal 136-145 [facility] Comment on above: Performed By: #### C MP, MG #### [facility] [address] [place] [address] Dr. Danielle Harden Urea nitrogen [Mass/Vol] 23.0 mg/dL Critically high 7.0-18.0 [facility] Comment on above: Performed By: #### C MP, MG #### [facility] [address] [place] [address] Dr. Danielle Harden Urea nitrogen/Creatinin e [Mass ratio] 21.7 mg/mg Normal [facility] Comment on above: Performed By: #### C MP, MG #### [facility] [address] [place] [address] Dr. Danielle Harden COMPREHENSIVE METABOLIC PANE Kendrick 04-07-2022 Albumin [Mass/Vol] 4.3 g/dL Normal 3.6-5.1 [facility] Comment on above: Performed By: #### 7 600, 60131 #### [facility] [address], [address] [place] [address] Video Network Engineer: Darwin Ray MD Albumin/Globulin [Mass ratio] 1.9 {ratio} Normal 1.0-2.5 [facility] Comment on above: Performed By: #### 7 600, [id number] #### [facility] [address] [address] Video Network Engineer: Darwin Ray MD ALP [Catalytic activity/Vol] 62 U/L Normal 35-144 [facility] Comment on above: Performed By: #### 7 600, 30705 #### [facility] of [address], [address] [place] [address] Video Network Engineer: Darwin Ray MD ALT [Catalytic activity/Vol] 18 U/L Normal 9-46 [facility] Comment on above: Performed By: #### 7 600, 94230 #### [facility] [address] [address] Video Network Engineer: Darwin Ray MD AST [Catalytic activity/Vol] 16 U/L Normal 10-35 [facility] Comment on above: Performed By: #### 7 600, 79627 #### [facility] [address] [address] Video Network Engineer: Darwin Ray MD Bilirubin [Mass/Vol] 0.3 mg/dL Normal 0.2-1.2 [facility] Comment on above: Performed By: #### 7 600, 06174 #### [facility] [address] [address] Video Network Engineer: Darwin Ray MD BUN/CREATININE RATIO NOT APPLICABLE Normal 6-22 [facility] Comment on above: Performed By: #### 7 600, 88535 #### [facility] [address] [address] Video Network Engineer: Darwin Ray MD Calcium [Mass/Vol] 9.3 mg/dL Normal 8.6-10.3 [facility] Comment on above: Performed By: #### 7 600, 64064 #### [facility] [address] [address] Video Network Engineer: Darwin Ray MD Chloride [Moles/Vol] 107 mmol/L Normal 98-110 [facility] Comment on above: Performed By: #### 7 600, 74577 #### [facility] [address] [address] Video Network Engineer: Darwin Ray MD CO2 [Moles/Vol] 27 mmol/L Normal 20-32 [facility] Comment on above: Performed By: #### 7 600, 84742 #### [facility] [address] [address] Video Network Engineer: Darwin Ray MD Creatinine [Mass/Vol] 0.90 mg/dL Normal 0.70-1.30 [facility] Comment on above: Performed By: #### 7 600, 57272 #### [facility] [address] [address] Video Network Engineer: Darwin Ray MD GFR/1.73 sq M.predicted among non-blacks MDRD (S/P/Bld) [Vol rate/Area] 100 mL/min/{1.73_m2} Normal > OR = 60 [facility] Comment on above: Result Comment: The eGFR is based on the CKD-EPI 2020 equation. To calculate the new eGFR from a previous Creatinine or Cystatin C result, go to https://www.kidney.org/professionals/ kdoqi/gfr%5Fcalculator Performed By: #### 7 600, 27182 #### [facility] [address] [address] Video Network Engineer: Darwin Ray MD Globulin (S) [Mass/Vol] 2.3 g/dL Normal 1.9-3.7 [facility] Comment on above: Performed By: #### 7 600, 45768 #### [facility] [address] [address] Video Network Engineer: Darwin Ray MD Glucose [Mass/Vol] 102 mg/dL High 65-99 [facility] Comment on above: Result Comment: Fasting reference interval For someone without known diabetes, a glucose value between 100 and 125 mg/dL is consistent with prediabetes and should be confirmed with a follow-up test. Performed By: #### 7 600, 34647 #### [facility] [address], [address] [place] [address] Video Network Engineer: Darwin Ray MD Potassium [Moles/Vol] 3.6 mmol/L Normal 3.5-5.3 [facility] Comment on above: Performed By: #### 7 600, 97475 #### [facility] [address], [address] [place] [address] Video Network Engineer: Darwin Ray MD Protein [Mass/Vol] 6.6 g/dL Normal 6.1-8.1 [facility] Comment on above: Performed By: #### 7 600, 37516 #### [facility] [address] [address] Video Network Engineer: Darwin Ray MD Sodium [Moles/Vol] 141 mmol/L Normal 135-146 [facility] Comment on above: Performed By: #### 7 600, 72279 #### [facility] [address] [address] Video Network Engineer: Darwin Ray MD Urea nitrogen [Mass/Vol] 23 mg/dL Normal 7-25 [facility] Comment on above: Performed By: #### 7 600, 93071 #### [facility] [address] [address] Video Network Engineer: Darwin Ray MD LIPID PANEL, [facility] 03-12 Cholesterol [Mass/Vol] 144 mg/dL Normal <200 [facility] Comment on above: Order Comment: FASTI NG:YES FASTING: YES Performed By: #### 7 600, 68639 #### [facility] [address] [address] Video Network Engineer: Darwin Ray MD Cholesterol in HDL [Mass/Vol] 43 mg/dL Normal > OR = 40 [facility] Comment on above: Order Comment: FASTI NG:YES FASTING: YES Performed By: #### 7 600, 11000 #### [facility] [address], [address] [place] [address] Video Network Engineer: Darwin Ray MD Cholesterol.total/ Cholesterol in HDL [Mass ratio] 3.3 {ratio} Normal <5.0 [facility] Comment on above: Order Comment: FASTI NG:YES FASTING: YES Performed By: #### 7 600, 76712 #### [facility] [address], [address] [place] [address] Video Network Engineer: Darwin Ray MD LDL-CHOLESTEROL Normal [facility] [...] factors. LDL-C is now calculated using the Jass-Corky calculation, which is a validated novel method providing better accuracy than the Friedewald equation in the estimation of LDL-C. Jass SS et al. RON. 2013;310(19): 3582-9360 (http://education.[employer].MailMeNetwork/faq/FXI228) Performed By: #### 7 600, 53347 #### [facility] [address], [address] [place] [address] Video Network Engineer: Darwin Ray MD NON HDL CHOLESTEROL 101 mg/dL (calc) Normal <130 [facility] Comment on above: Order Comment: FASTI NG:YES FASTING: YES Result Comment: For patients with diabetes plus 1 major ASCVD risk factor, treating to a non-HDL-C goal of <100 mg/dL (LDL-C of <70 mg/dL) is considered a therapeutic option. Performed By: #### 7 600, 31891 #### [facility] [address], [address] [place] [address] Video Network Engineer: Darwin Ray MD Triglyceride [Mass/Vol] 428 mg/dL High <150 [facility] Comment on above: Order Comment: FASTI NG:YES FASTING: YES Result Comment: If a non-fasting specimen was collected, consider repeat triglyceride testing on a fasting specimen if clinically indicated. Danica et al. J. of Clin. Lipidol. 2015;9:129-169. Performed By: #### 7 600, 26766 #### [facility] [address] [facility], [address] [place] [address] Video Network Engineer: Darwin Ray MD CBC AUTO DIFFon 01-18-2022 BASO # 0.0 103/ul Normal 0.0-0.1 [facility] Comment on above: Performed By: #### C BC #### [facility] [address] [place] [address] Dr. Danielle Harden Basophils/100 WBC (Bld) 0.6 % Normal 0.2-2.0 [facility] Comment on above: Performed By: #### C BC #### [facility] [address] [place] [address] Dr. Danielle Harden EO # 0.3 103/ul Normal 0.0-0.7 [facility] Comment on above: Performed By: #### C BC #### [facility] [address] [place] [address] Dr. Danielle Harden Eosinophils/100 WBC (Bld) 3.8 % Normal 0.9-7.0 [facility] Comment on above: Performed By: #### C BC #### [facility] [address] [place] [address] Dr. Danielle Harden Erythrocyte distribution width (RBC) [Ratio] 13.6 % Normal 11.0-15.0 [facility] Comment on above: Performed By: #### C BC #### [facility] [address] [place] [address] Dr. Danielle Harden Hematocrit (Bld) [Volume fraction] 39.3 % Critically low 42.0-54.0 [facility] Comment on above: Performed By: #### C BC #### [facility] [address] [place] [address] Dr. Danielle Harden Hemoglobin (Bld) [Mass/Vol] 12.5 g/dL Critically low 14.0-18.0 [facility] Comment on above: Performed By: #### C BC #### [facility] [address] [place] [address] Dr. Danielle Harden IG # 0.02 10e3/ul Normal 0.00-0.03 [facility] Comment on above: Performed By: #### C BC #### [facility] [address] [place] [address] Dr. Danielle Harden IG % 0.3 % Normal 0.0-0.5 [facility] Comment on above: Performed By: #### C BC #### [facility] [address] [place] [address] Dr. Danielle Harden LYMPH # 2.1 103/ul Normal 1.2-3.8 [facility] Comment on above: Performed By: #### C BC #### [facility] [address] [place] [address] Dr. Danielle Harden Lymphocytes/100 WBC (Bld) 32.0 % Normal 20.5-60.0 [facility] Comment on above: Performed By: #### C BC #### [facility] [address] [place] [address] Dr. Danielle Harden MANUAL DIFF REQ NO Normal [facility] Comment on above: Performed By: #### C BC #### [facility] [address] [place] [address] Dr. Danielle Harden MCH (RBC) [Entitic mass] 27.8 pg Normal 25.9-34.0 [facility] Comment on above: Performed By: #### C BC #### [facility] [address] [place] [address] Dr. Danielle Harden MCHC (RBC) [Mass/Vol] 31.8 g/dL Normal 29.9-35.2 [facility] Comment on above: Performed By: #### C BC #### [facility] [address] [place] [address] Dr. Danielle Harden MCV (RBC) [Entitic vol] 87.3 fL Normal 80.0-94.0 [facility] Comment on above: Performed By: #### C BC #### [facility] [address] [address] [address] Danielle Harden MONO # 0.5 103/ul Normal 0.3-0.8 [facility] Comment on above: Performed By: #### C BC #### [facility] [address] [address] [address] Danielle Harden Monocytes/100 WBC (Bld) 7.7 % Normal 1.7-12.0 [facility] Comment on above: Performed By: #### C BC #### [facility] [address] [address] [address] Danielle Harden NEUT # 3.7 103/ul Normal 1.4-6.5 [facility] Comment on above: Performed By: #### C BC #### [facility] [address] [place] [address] Dr. Danielle Harden Neutrophils/100 WBC (Bld) 55.6 % Normal 43.0-75.0 [facility] Comment on above: Performed By: #### C BC #### [facility] [address] [place] [address] Dr. Danielle Harden Platelet mean volume (Bld) [Entitic vol] 10.3 fL Normal 9.5-13.5 [facility] Comment on above: Performed By: #### C BC #### [facility] [address] [place] [address] Dr. Danielle Harden PLT 274 103/ul Normal 150-450 [facility] Comment on above: Performed By: #### C BC #### [facility] [address] [place] [address] Dr. Danielle Harden RBC 4.50 106/ul Critically low 4.70-6.10 [facility] Comment on above: Performed By: #### C BC #### [facility] [address] [address] [address] Danielle Harden WBC 6.6 103/ul Normal 4.0-11.0 [facility] Comment on above: Performed By: #### C BC #### [facility] [address] [address] [address] Dainelle Harden LIPID PROFILEon 01-18-2022 CHOL-HDL RATIO NORM SEE BELOW Normal [facility] Comment on above: Result Comment: 3.3 - 4.4 LOW RISK 4.4 - 7.1 AVERAGE RISK 7.1 - 11.0 MODERATE RISK >11.0 HIGH RISK Performed By: #### L IPID, T4, TSH, CMP #### [facility] [address] [address] [address] Danielle Harden Cholesterol [Mass/Vol] 140 mg/dL Normal <=200 [facility] Comment on above: Performed By: #### L IPID, T4, TSH, CMP #### [facility] [address] [address] [address] Danielle Harden Cholesterol in HDL [Mass/Vol] 55 mg/dL Normal 40-60 [facility] Comment on above: Performed By: #### L IPID, T4, TSH, CMP #### [facility] [address] [place] [address] Dr. Danielle Harden Cholesterol in LDL [Mass/Vol] 60.2 mg/dL Normal [facility] Comment on above: Performed By: #### L IPID, T4, TSH, CMP #### [facility] [address] [place] [address] Dr. Danielle Harden Cholesterol.total/ Cholesterol in HDL [Mass ratio] 2.5 {ratio} Normal [facility] Comment on above: Performed By: #### L IPID, T4, TSH, CMP #### [facility] [address] [place] [address] Dr. Danielle Harden HDL NORMAL > or = 60 mg/dl - LO W CARDIOVASCULAR RISK <40 mg/dl - HIGH CARDIOVASCULAR RISK Normal [facility] Comment on above: Performed By: #### L IPID, T4, TSH, CMP #### [facility] [address] [place] [address] Dr. Danielle Harden LDL CALC NORMAL SEE BELOW Normal [facility] Comment on above: Result Comment: <100 mg/dl OPTIMAL 100 - 129 mg/dl NEAR OR ABOVE OPTIMAL 130 - 159 mg/dl BORDERLINE HIGH 160 - 189 mg/dl HIGH >190 mg/dl VERY HIGH Performed By: #### L IPID, T4, TSH, CMP #### [facility] [address] [address] [address] Danielle Harden Triglyceride [Mass/Vol] 124 mg/dL Normal <=150 [facility] Comment on above: Performed By: #### L IPID, T4, TSH, CMP #### [facility] [address] [address] [address] Danielle Harden VLDL CALC 24.8 mg/dL Normal [facility] Comment on above: Performed By: #### L IPID, T4, TSH, CMP #### [facility] [address] [address] [address] Danielle Harden PROF 14(COMP METB)on 022 Albumin [Mass/Vol] 4.0 g/dL Normal 3.4-5.0 [facility] Comment on above: Performed By: #### L IPID, T4, TSH, CMP #### [facility] [address] [address] [address] Danielle Harden Albumin/Globulin [Mass ratio] 1.2 {ratio} Normal [facility] Comment on above: Performed By: #### L IPID, T4, TSH, CMP #### [facility] [address] [place] [address] Dr. Danielle Harden ALP [Catalytic activity/Vol] 58 U/L Normal 46-116 [facility] Comment on above: Performed By: #### L IPID, T4, TSH, CMP #### [facility] [address] [address] [address] Danielle Harden ALT [Catalytic activity/Vol] 29 U/L Normal 16-63 [facility] Comment on above: Performed By: #### L IPID, T4, TSH, CMP #### [facility] [address] [address] [address] Danielle Harden Anion gap [Moles/Vol] 11.6 mmol/L Normal [facility] Comment on above: Performed By: #### L IPID, T4, TSH, CMP #### [facility] [address] [place] [address] Dr. Danielle Harden AST [Catalytic activity/Vol] 16 U/L Normal 15-37 [facility] Comment on above: Performed By: #### L IPID, T4, TSH, CMP #### [facility] [address] [place] [address] Dr. Danielle Harden Bilirubin [Mass/Vol] 0.6 mg/dL Normal 0.2-1.0 [facility] Comment on above: Performed By: #### L IPID, T4, TSH, CMP #### [facility] [address] [place] [address] Dr. Danielle Harden Calcium [Mass/Vol] 9.1 mg/dL Normal 8.5-10.1 [facility] Comment on above: Performed By: #### L IPID, T4, TSH, CMP #### [facility] [address] [place] [address] Dr. Danielle Harden Chloride [Moles/Vol] 104 mmol/L Normal 98-107 [facility] Comment on above: Performed By: #### L IPID, T4, TSH, CMP #### [facility] [address] [place] [address] Dr. Danielle Harden CO2 [Moles/Vol] 27.3 mmol/L Normal 21.0-32.0 [facility] [place] Comment on above: Performed By: #### L IPID, T4, TSH, CMP #### [facility] [address] [place] [address] Dr. Danielle Harden Creatinine [Mass/Vol] 0.78 mg/dL Normal 0.70-1.30 [facility] Comment on above: Performed By: #### L IPID, T4, TSH, CMP #### [facility] [address] [place] [address] Dr. Danielle Harden EGFR-AF MOLDOVAN >60 Normal >=60 [facility] Comment on above: Performed By: #### L IPID, T4, TSH, CMP #### [facility] [address] [place] [address] Dr. Danielle Harden EGFR-NON AF MOLDOVAN >60 Normal >=60 [facility] Comment on above: Performed By: #### L IPID, T4, TSH, CMP #### [facility] [address] [address] [address] Danielle Harden Globulin (S) [Mass/Vol] 3.3 g/dL Normal [facility] Comment on above: Performed By: #### L IPID, T4, TSH, CMP #### [facility] [address] [address] [address] Danielle Harden Glucose [Mass/Vol] 86 mg/dL Normal 74-106 [facility] Comment on above: Performed By: #### L IPID, T4, TSH, CMP #### [facility] [address] [place] [address] Dr. Danielle Harden Potassium [Moles/Vol] 3.9 mmol/L Normal 3.5-5.1 [facility] Comment on above: Performed By: #### L IPID, T4, TSH, CMP #### [facility] [address] [place] [address] Dr. Danielle Harden Protein [Mass/Vol] 7.3 g/dL Normal 6.4-8.2 [facility] Comment on above: Performed By: #### L IPID, T4, TSH, CMP #### [facility] [address] [place] [address] Dr. Danielle Harden Sodium [Moles/Vol] 139 mmol/L Normal 136-145 [facility] Comment on above: Performed By: #### L IPID, T4, TSH, CMP #### [facility] [address] [place] [address] Dr. Danielle Harden Urea nitrogen [Mass/Vol] 19.0 mg/dL Critically high 7.0-18.0 [facility] Comment on above: Performed By: #### L IPID, T4, TSH, CMP #### [facility] [address] [place] [address] Dr. Danielle Harden Urea nitrogen/Creatinin e [Mass ratio] 24.4 mg/mg Normal [facility] Comment on above: Performed By: #### L IPID, T4, TSH, CMP #### [facility] [address] [address] [address] Danielle Harden T4on 01-18-2022 T4 [Mass/Vol] 8.50 ug/dL Normal 4.50-12.10 [facility] Comment on above: Performed By: #### L IPID, T4, TSH, CMP #### [facility] [address] [address] [address] Danielle Harden TSHon 01-18-2022 TSH 1.855 uIU/mL Normal 0.358-3.740 [facility] Comment on above: Performed By: #### L IPID, T4, TSH, CMP #### [facility] [address] [place] [address] Dr. Danielle Harden TSH RANGE SEE BELOW Normal [facility] Comment on above: Result Comment: <0.3 4 UIU/ml HYPERTHYROID 0.34-5.60 UIU/ml EUTHYROID >5.60 UIU/ml HYPOTHYROID Performed By: #### L IPID, T4, TSH, CMP #### [facility] [address] [place] [address] Dr. Danielle Harden BASIC METABOLIC PANELon 09-12 BUN/CREATININE RATIO NOT APPLICABLE Normal 6-22 [facility] Comment on above: Order Comment: FASTI NG:YES FASTING: YES Performed By: #### 1 [id number], 4126 #### [facility] [address], [address] [place] [address] Video Network Engineer: Darwin Ray MD Calcium [Mass/Vol] 9.3 mg/dL Normal 8.6-10.3 [facility] Comment on above: Order Comment: FASTI NG:YES FASTING: YES Performed By: #### 1 0707, 2980 #### [facility] [address], [address] [place], [place] [id number] Video Network Engineer: Darwin Ray MD Chloride [Moles/Vol] 104 mmol/L Normal 98-110 [facility] Comment on above: Order Comment: FASTI NG:YES FASTING: YES Performed By: #### 1 0165, 6399 #### [facility] [address], [address] [place] [address] Video Network Engineer: Darwin Ray MD CO2 [Moles/Vol] 29 mmol/L Normal 20-32 [facility] Comment on above: Order Comment: FASTI NG:YES FASTING: YES Performed By: #### 1 0165, 6399 #### [facility] [address], [address] [place] [address] Video Network Engineer: Darwin Ray MD Creatinine [Mass/Vol] 0.86 mg/dL Normal 0.70-1.33 [facility] Comment on above: Order Comment: FASTI NG:YES FASTING: YES Result Comment: For patients >49 years of age, the reference limit for Creatinine is approximately 13% higher for people identified as -Maur[place]. Performed By: #### 1 0165, 6399 #### [facility] [address], [address] [place] [address] Video Network Engineer: Darwin Ray MD eGFR NON-AFR. MOLDOVAN 96 mL/min/1.73m2 Normal > OR = 60 [facility] Comment on above: Order Comment: FASTI NG:YES FASTING: YES Performed By: #### 1 0165, 6399 #### [facility] [address], [address] [place] [address] Video Network Engineer: Darwin Ray MD GFR/1.73 sq M.predicted among blacks MDRD (S/P/Bld) [Vol rate/Area] 112 mL/min/{1.73_m2} Normal > OR = 60 [facility] Comment on above: Order Comment: FASTI NG:YES FASTING: YES Performed By: #### 1 0165, 6399 #### [facility] [address], [address] [place] [address] Video Network Engineer: Darwin Ray MD Glucose [Mass/Vol] 89 mg/dL Normal 65-99 [facility] Comment on above: Order Comment: FASTI NG:YES FASTING: YES Result Comment: Fasting reference interval Performed By: #### 1 0165, 6399 #### [facility] [address], [address] [place] [address] Video Network Engineer: Darwin Ray MD Potassium [Moles/Vol] 3.8 mmol/L Normal 3.5-5.3 [facility] Comment on above: Order Comment: FASTI NG:YES FASTING: YES Performed By: #### 1 0165, 6399 #### [facility] [address], [address] [place] [address] Video Network Engineer: Darwin Ray MD Sodium [Moles/Vol] 139 mmol/L Normal 135-146 [facility] Comment on above: Order Comment: FASTI NG:YES FASTING: YES Performed By: #### 1 0165, 6399 #### [facility] [place] [address] Video Network Engineer: Darwin Ray MD Urea nitrogen [Mass/Vol] 23 mg/dL Normal 7-25 [facility] Comment on above: Order Comment: FASTI NG:YES FASTING: YES Performed By: #### 1 0165, 6399 #### [facility] [address] [place] [address] Video Network Engineer: Darwin Ray MD CBC (INCLUDES DIFF/PLT)on Basophils (Bld) [#/Vol] 0.029 10*3/uL Normal 0-200 [facility] Comment on above: Performed By: #### 1 016, 6399 #### [facility] [address] [place] [address] Video Network Engineer: Darwin Ray MD Basophils/100 WBC (Bld) 0.4 % Normal [facility] Comment on above: Performed By: #### 1 0165, 6399 #### [facility] [address] [place] [address] Video Network Engineer: Darwin Ray MD Eosinophils (Bld) [#/Vol] 0.212 10*3/uL Normal 15-500 [facility] Comment on above: Performed By: #### 1 0165, 6399 #### [facility] of [address], [address] [place] [address] Video Network Engineer: Darwin Ray MD Eosinophils/100 WBC (Bld) 2.9 % Normal [facility] Comment on above: Performed By: #### 1 0165, 6399 #### [facility] of [address], [address] [place] [address] Video Network Engineer: Darwin Ray MD Erythrocyte distribution width (RBC) [Ratio] 13.6 % Normal 11.0-15.0 [facility] Comment on above: Performed By: #### 1 0165, 6399 #### [facility] of [address] [place] [address] Video Network Engineer: Darwin Ray MD Hematocrit (Bld) [Volume fraction] 40.4 % Normal 38.5-50.0 [facility] Comment on above: Performed By: #### 1 0165, 6399 #### [facility] of [address] [place] [address] Video Network Engineer: Darwin Ray MD Hemoglobin (Bld) [Mass/Vol] 13.2 g/dL Normal 13.2-17.1 [facility] Comment on above: Performed By: #### 1 0165, 6399 #### [facility] of [address] [place] [address] Video Network Engineer: Darwin Ray MD Lymphocytes (Bld) [#/Vol] 2.431 10*3/uL Normal 850-3900 [facility] Comment on above: Performed By: #### 1 0165, 6399 #### [facility] of [address], [address] [place] [address] Video Network Engineer: Darwin Ray MD Lymphocytes/100 WBC (Bld) 33.3 % Normal [facility] Comment on above: Performed By: #### 1 0165, 6399 #### [facility] of [address] [place] [address] Video Network Engineer: Darwin Ray MD MCH (RBC) [Entitic mass] 27.4 pg Normal 27.0-33.0 [facility] Comment on above: Performed By: #### 1 0165, 6399 #### [facility] of [address] [place] [address] Video Network Engineer: Darwin Ray MD MCHC (RBC) [Mass/Vol] 32.7 g/dL Normal 32.0-36.0 [facility] Comment on above: Performed By: #### 1 0165, 6399 #### [facility] of [address] [place] [address] Video Network Engineer: Darwin Ray MD MCV (RBC) [Entitic vol] 84.0 fL Normal 80.0-100.0 [facility] Comment on above: Performed By: #### 1 0165, 6399 #### [facility] [place] [address] Video Network Engineer: Darwin Ray MD Monocytes (Bld) [#/Vol] 0.54 10*3/uL Normal 200-950 [facility] Comment on above: Performed By: #### 1 0165, 6399 #### [facility] [address] [place] [address] Video Network Engineer: Darwin Ray MD Monocytes/100 WBC (Bld) 7.4 % Normal [facility] Comment on above: Performed By: #### 1 0165, 6399 #### [facility] of [address] [place] [address] Video Network Engineer: Darwin Ray MD Neutrophils (Bld) [#/Vol] 4.088 10*3/uL Normal 2271-6718 [facility] Comment on above: Performed By: #### 1 0165, 6399 #### [facility] [address] [place] [address] Video Network Engineer: Darwin Ray MD Neutrophils/100 WBC (Bld) 56 % Normal [facility] Comment on above: Performed By: #### 1 0165, 6399 #### [facility] of [address], [address] [place] [address] Video Network Engineer: Darwin Ray MD Platelet mean volume (Bld) [Entitic vol] 10.6 fL Normal 7.5-12.5 [facility] Comment on above: Performed By: #### 1 0165, 6399 #### [facility] of [address], [address] [place] [address] Video Network Engineer: Darwin Ray MD Platelets (Bld) [#/Vol] 277 10*3/uL Normal 140-400 [facility] Comment on above: Performed By: #### 1 0165, 6399 #### [facility] of [address], [address] [place] [address] Video Network Engineer: Darwin Ray MD RBC (Bld) [#/Vol] 4.81 10*6/uL Normal 4.20-5.80 [facility] Comment on above: Performed By: #### 1 0165, 6399 #### [facility] of [address], [address] [place] [address] Video Network Engineer: Darwin Ray MD WBC (Bld) [#/Vol] 7.3 10*3/uL Normal 3.8-10.8 [facility] Comment on above: Performed By: #### 1 0165, 6399 #### [facility] of [address], [address] [place] [address] Video Network Engineer: Darwin Ray MD Vital Signs Date Time Vital Sign Value Performing Clinician Facility 02-12-2024 11:08-0400 Blood Pressure Location [facility] 02-12-2024 11:08-0400 Diastolic blood pressure 80 mm[Hg] Brodie [facility] 02-12-2024 11:08-0400 Systolic blood pressure 134 mm[Hg] [facility] 06-28-2022 13:25-0400 Body height 177.8 cm Krystin Ljoa Other [facility] 06-28-2022 13:25-0400 Body mass index (BMI) [Ratio] 28.69 kg/m2 Krystin Loja Other [facility] Other 06-28-2022 13:25-0400 Body temperature 98.9 [degF] Krystin Loja Other [facility] Other 06-28-2022 13:25-0400 Body weight 90.72 kg Krystin Loja Other [facility] Other 06-28-2022 13:25-0400 Diastolic blood pressure 97 mm[Hg] Krystin Loja Other [facility] Other 06-28-2022 13:25-0400 Respiratory rate 18 /min Krystin Loja Other [facility] Other 06-28-2022 13:25-0400 SaO2% (BldA) [Mass fraction] 97 % Krystin Loja Other [facility] Other 06-28-2022 13:25-0400 Systolic blood pressure 130 mm[Hg] Krystin Loja Other [facility] Other Encounters Encounter Date Encounter Type Care Provider Facility Start: 03-18-2024 ambulatory Brodie Moe ty:[facility] Start: 02-26-2024 ambulatory Brodie Moe ty:[facility] Start: 02-21-2024 ambulatory Brodie Dinhi ty:[facility] Start: 02-15-2024 ambulatory Brodie Moe ty:CD:[id number] Start: 02-12-2024 ambulatory DAYAMI Melo y:[facility] Start: 02-12-2024 End: 02-12-2024 Patient encounter procedure [facility] Start: 01-31-2024 ambulatory Brodie LI Facility :[facility] Daly Start: 01-13-2023 End: 01-14-[address] YUMI TOLENTINO Facility:[facility] Start: 08-17-2022 End: 08-18-2022 ambulatory KERRY SIMON Facility:[facility] Start: 06-28-2022 End: 06-28-2022 ambulatory Krystin Loja Other [facility] Other Start: 06-28-2022 Office outpatient ne w 30 minutes Krystin Loja [facility] Start: 01-18-2022 End: 01-19-[address] CHESTER LISTED REQUEST Facility:[facility] Procedures Date Procedure Procedure Detail Performing Clinician Start: 01-13-2023 PSA screening KERRY COLON Comment on above: Performed By: #### P SASC #### [facility] [address] [address] [address] Danielle Harden Start: 01-18-2022 PSA screening KERRY COLON Comment on above: Performed By: #### C MP, MG #### [facility] [address] [address] [address] Danielle Harden Start: 09-11-2003 Structure of sinoatr ial node (body structure) [facility] Immunizations Immunization Date Immunization Notes Care Provider Fa [facility] 07-01-2023 influenza virus vaccine, unspecified formulation Brodie [facility] 07-17-2022 influenza virus vaccine, unspecified formulation [facility] 08-21-2021 SARS-CoV-2 (COVID-19 ) mRNA-1273 vaccine Brodie [facility] 08-01-2021 influenza virus vaccine, unspecified formulation Brodiearaceli LI [facility] 06-11-2021 influenza virus vaccine, unspecified formulation Brodie [facility] 06-11-2021 SARS-CoV-2 (COVID-19 ) mRNA-1273 vaccine Brodie [facility] 12-23-2020 SARS-CoV-2 (COVID-19 ) mRNA-1273 vaccine Brodie [facility] Comment on above: Result Comment: 2023: TPV50 11-25-2020 SARS-CoV-2 (COVID-19 ) mRNA-1273 vaccine Brodie [facility] Comment on above: Result Comment: 2023: TPV50 05-29-2020 influenza virus vaccine, unspecified formulation Brodiearaceli LI [facility] 06-11-2018 tetanus toxoid, redu tara diphtheria toxoid, and acellular pertussis vaccine, adsorbed Brodiearaceli LI [facility] Payers Date Payer Category Payer Unknown [id number] 2.16.84 [id number] 1965 Unknown [id number] 2.16.8 [id number] 1964 Unknown [id number] 2.16.8 [id number] 1964 Unknown [id number] 2.16.8 [id number] 1964 Unknown [id number] 2.16.8 [id number] 1964 Unknown [id number] 2.16.8 [id number] 1959 Self-pay [id number] 1960 Unknown [id number] 2. [id number] Unknown [id number] 2.16.84 [id number] Unknown [id number] 2.16.84 [id number] Social History Date Type Detail Facility Sex Assigned At [facility] Start: 02-12-2024 Tobacco smoking status Ex-smoker (fi nding) [facility] Tobacco smoking status Never [facility] Functional Status Date Assessment Result Facility 02-12-2024 Functional Status N/A [facility] Hospital Discharge instructions 02-12-2024 Note Date & Type Note Facility 02-12-2024 Hospital Discharg e instructions Patient Education 02/12/2024 12:02:54 Transurethral Resection of Bladder Tumor, Care After Transurethral Resection of Bladder Tumor, Care After The following information offers guidance on how to care for yourself after your procedure. Your health care provider may also give you more specific instructions. If you have problems or questions, contact your health care provider. What can I expect after the procedure? After the procedure, it is common to have: A small amount of blood or small blood clots in your urine for up to 2 weeks. Soreness or mild pain from your catheter. After your catheter is removed, you may have mild soreness, especially when urinating. A need to urinate often. Pain in your lower abdomen. Follow these instructions at home: Medicines Take gszj-slj-ecrbihe and prescription medicines only as told by your health care provider. If you were prescribed an antibiotic medicine, take it as told by your health care provider. Do not stop taking the antibiotic even if you start to feel better. Ask your health care provider if the medicine prescribed to you: ?Requires you to avoid driving or using machinery. ?Can cause constipation. You may need to take these actions to prevent or treat constipation: ?Drink enough fluid to keep your urine pale yellow. ?Take kqmb-gyi-hvlsjfe or prescription medicines. ?Eat foods that are high in fiber, such as beans, whole grains, and fresh fruits and vegetables. ?Limit foods that are high in fat and processed sugars, such as fried or sweet foods. Activity If you were given a sedative during the procedure, it can affect you for several hours. Do not drive or operate machinery until your health care provider says that it is safe. Rest as told by your health care provider. Avoid sitting for a long time without moving. Get up to take short walks every 1 2 hours. This is important to improve blood flow and breathing. Ask for help if you feel weak or unsteady. Do not lift anything that is heavier than 10 lb (4.5 kg), or the limit that you are told, until your health care provider says that it is safe. Avoid intense physical activity for as long as told by your health care provider. Do not have sex until your health care provider approves. Return to your normal activities as told by your health care provider. Ask your health care provider what activities are safe for you. General instructions If you have a catheter, follow instructions from your health care provider about caring for your catheter and your drainage bag. Do not drink alcohol for as long as told by your health care provider. This is especially important if you are taking prescription pain medicines. Do not use any products that contain nicotine or tobacco. These products include cigarettes, chewing tobacco, and vaping devices, such as e-cigarettes. If you need help quitting, ask your health care provider. Wear compression stockings as told by your health care provider. These stockings help to prevent blood clots and reduce swelling in your legs. Keep all follow-up visits. This is important. ?You will need to be followed closely with regular checks of your bladder and urethra (cystoscopies) to make sure that the cancer does not come back. Contact a health care provider if: You have blood in your urine for more than 2 weeks. You become constipated. Signs of constipation may include: ?Having fewer than three bowel movements in a week. ?Difficulty having a bowel movement. ?Stools that are dry, hard, or larger than normal. You have a urinary catheter in place, and you have: ?Spasms or pain. ?Problems with your catheter or your catheter is blocked. Your catheter has been taken out but you are unable to urinate. You have signs of infection, such as: ?Fever or chills. ?Cloudy or bad-smelling urine. Get help right away if: You have severe abdominal pain that gets worse or does not improve with medicine. You have a lot of large blood clots in your urine. You develop swelling or pain in your leg. You have difficulty breathing. These symptoms may be an emergency. Get help right away. Call 911. Do not wait to see if the symptoms will go away. Do not drive yourself to the hospital. Summary After your procedure, it is common to have a small amount of blood or small blood clots in your urine, soreness or mild pain from your catheter, and pain in your lower abdomen. Take giby-kep-ojucrwp and prescription medicines only as told by your health care provider. Rest as told by your health care provider. Follow your health care provider's instructions about returning to normal activities. Ask what activities are safe for you. If you have a catheter, follow instructions from your health care provider about caring for your catheter and your drainage bag. This information is not intended to replace advice given to you by your health care provider. Make sure you discuss any questions you have with your health care provider. Document Revised: 09/02/2022 Document Reviewed: 09/02/2022 [employer] Patient Education 2022 [employer]. 02/12/2024 12:02:39 Transurethral Resection of Bladder Tumor Transurethral Resection of Bladder Tumor Transurethral resection of a bladder tumor is the removal (resection) of cancerous tissue (tumor) from the inside wall of the bladder. The bladder is the organ that holds urine. The tumor is removed through the tube that carries urine out of the body (urethra). In a transurethral resection, a thin telescope with a light, a tiny camera, and an electric cutting edge (resectoscope) is passed through the urethra. In men, the opening of the urethra is at the end of the penis. In women, it is just above the opening of the vagina. Tell a health care provider about: Any allergies you have. All medicines you are taking, including vitamins, herbs, eye drops, creams, and cegg-rvg-kqvcquw medicines. Any problems you or family members have had with anesthetic medicines. Any bleeding problems you have. Any surgeries you have had. Any medical conditions you have, including recent urinary tract infections. Whether you are or may be . What are the risks? Generally, this is a safe procedure. However, problems may occur, including: Infection. Bleeding. Allergic reactions to medicines. Damage to nearby structures or organs. Difficulty urinating from blockage of the urethra or not being able to urinate (urinary retention). Deep vein thrombosis. This is a blood clot that can develop in your leg. Recurring cancer. What happens before the procedure? When to stop eating and drinking Follow instructions from your health care provider about what you may eat and drink before your procedure. These may include: 8 hours before your procedure ?Stop eating most foods. Do not eat meat, fried foods, or fatty foods. ?Eat only light foods, such as toast or crackers. ?All liquids are okay except energy drinks and alcohol. 6 hours before your procedure ?Stop eating. ?Drink only clear liquids, such as water, clear fruit juice, black coffee, plain tea, and sports drinks. ?Do not drink energy drinks or alcohol. 2 hours before your procedure ?Stop drinking all liquids. ?You may be allowed to take medicines with small sips of water. Medicines Ask your health care provider about: Changing or stopping your regular medicines. This is especially important if you are taking diabetes medicines or blood thinners. Taking medicines such as aspirin and ibuprofen. These medicines can thin your blood. Do not take these medicines unless your health care provider tells you to take them. Taking uheu-bri-igfbeko medicines, vitamins, herbs, and supplements. General instructions If you will be going home right after the procedure, plan to have a responsible adult: ?Take you home from the hospital or clinic. You will not be allowed to drive. ?Care for you for the time you are told. Ask your health care provider what steps will be taken to help prevent infection. These steps may include: ? Washing skin with a germ-killing soap. ? Taking antibiotic medicine. Do not use any products that contain nicotine or tobacco for at least 4 weeks before the procedure. These products include cigarettes, chewing tobacco, and vaping devices, such as e-cigarettes. If you need help quitting, ask your health care provider. What happens during the procedure? An IV will be inserted into one of your veins. You will be given one or more of the following: ?A medicine to help you relax (sedative). ?A medicine that is injected into your spine to numb the area below and slightly above the injection site (spinal anesthetic). ?A medicine that is injected into an area of your body to numb everything below the injection site (regional anesthetic). ?A medicine to make you fall asleep (general anesthetic). Your legs will be placed in foot rests (stirrups) to open your legs and bend your knees. The resectoscope will be passed through your urethra and into your bladder. The part of your bladder with the tumor will be resected by the cutting edge of the resectoscope. Fluid will be passed to rinse out the cut tissues (irrigation). The resectoscope will then be taken out. A small, thin tube (catheter) will be passed through your urethra and into your bladder. The catheter will drain urine into a bag outside of your body. The procedure may vary among health care providers and hospitals. What happens after the procedure? Your blood pressure, heart rate, breathing rate, and blood oxygen level will be monitored until you leave the hospital or clinic. You may continue to receive fluids and medicines through an IV. You will be given pain medicine to relieve pain. You will have a catheter to drain your urine. ?The amount of urine will be measured. If you have blood in your urine, your bladder may be rinsed out by passing fluid through your catheter. You will be encouraged to walk as soon as you can. You may have to wear compression stockings. These stockings help to prevent blood clots and reduce swelling in your legs. If you were given a sedative during the procedure, it can affect you for several hours. Do not drive or operate machinery until your health care provider says that it is safe. Summary Transurethral resection of a bladder tumor is the removal (resection) of a cancerous growth (tumor) on the inside wall of the bladder. To do this procedure, your health care provider uses a thin telescope with a light, a tiny camera, and an electric cutting edge (resectoscope) that is guided to your bladder through your urethra. The part of your bladder that is affected by the tumor will be resected by the cutting edge of the resectoscope. A catheter will be passed through your urethra and into your bladder. The catheter will drain urine into a bag outside of your body. If you will be going home right after the procedure, plan to have a responsible adult take you home from the hospital or clinic. You will not be allowed to drive. This information is not intended to replace advice given to you by your health care provider. Make sure you discuss any questions you have with your health care provider. Document Revised: 09/02/2022 Document Reviewed: 09/02/2022 [employer]k Patient Education 2022 [employer]. 02/12/2024 12:01:57 Cystoscopy Cystoscopy Cystoscopy is a procedure that is used to help diagnose and sometimes treat conditions that affect the lower urinary tract. The lower urinary tract includes the bladder and the urethra. The urethra is the tube that drains urine from the bladder. Cystoscopy is done using a thin, tube-shaped instrument with a light and camera at the end (cystoscope). The cystoscope may be hard or flexible, depending on the goal of the procedure. The cystoscope is inserted through the urethra, into the bladder. Cystoscopy may be recommended if you have: Urinary tract infections that keep coming back. Blood in the urine (hematuria). An inability to control when you urinate (urinary incontinence) or an overactive bladder. Unusual cells found in a urine sample. A blockage in the urethra, such as a urinary stone. Painful urination. An abnormality in the bladder found during an intravenous pyelogram (IVP) or CT scan. Cystoscopy may also be done to remove a sample of tissue to be examined under a microscope (biopsy). Tell a health care provider about: Any allergies you have. All medicines you are taking, including vitamins, herbs, eye drops, creams, and bxbf-aus-oiwnjqh medicines. Any problems you or family members have had with anesthetic medicines. Any blood disorders you have. Any surgeries you have had. Any medical conditions you have. Whether you are or may be . What are the risks? Generally, this is a safe procedure. However, problems may occur, including: Infection. Bleeding. Allergic reactions to medicines. Damage to other structures or organs. What happens before the procedure? Medicines Ask your health care provider about: Changing or stopping your regular medicines. This is especially important if you are taking diabetes medicines or blood thinners. Taking medicines such as aspirin and ibuprofen. These medicines can thin your blood. Do not take these medicines unless your health care provider tells you to take them. Taking nvyc-gru-kwzkvtz medicines, vitamins, herbs, and supplements. Tests You may have an exam or testing, such as: X-rays of the bladder, urethra, or kidneys. CT scan of the abdomen or pelvis. Urine tests to check for signs of infection. General instructions Follow instructions from your health care provider about eating or drinking restrictions. Ask your health care provider what steps will be taken to help prevent infection. These steps may include: ?Washing skin with a germ-killing soap. ?Taking antibiotic medicine. Plan to have a responsible adult take you home from the hospital or clinic. What happens during the procedure? You will be given one or more of the following: ?A medicine to help you relax (sedative). ?A medicine to numb the area (local anesthetic). The area around the opening of your urethra will be cleaned. The cystoscope will be passed through your urethra into your bladder. Germ-free (sterile) fluid will flow through the cystoscope to fill your bladder. The fluid will stretch your bladder so that your health care provider can clearly examine your bladder to. Your doctor will look at the urethra and bladder. Your doctor may take a biopsy or remove stones. The cystoscope will be removed, and your bladder will be emptied. The procedure may vary among health care providers and hospitals. What can I expect after the procedure? After the procedure, it is common to have: Some soreness or pain in your abdomen and urethra. Urinary symptoms. These include: ?Mild pain or burning when you urinate. Pain should stop within a few minutes after you urinate. This may last for up to 1 week. ?A small amount of blood in your urine for several days. ?Feeling like you need to urinate but producing only a small amount of urine. Follow these instructions at home: Medicines Take dwig-gne-gtbfhzg and prescription medicines only as told by your health care provider. If you were prescribed an antibiotic medicine, take it as told by your health care provider. Do not stop taking the antibiotic even if you start to feel better. General instructions Return to your normal activities as told by your health care provider. Ask your health care provider what activities are safe for you. If you were given a sedative during the procedure, it can affect you for several hours. Do not drive or operate machinery until your health care provider says that it is safe. Watch for any blood in your urine. If the amount of blood in your urine increases, call your health care provider. Follow instructions from your health care provider about eating or drinking restrictions. If a tissue sample was removed for testing (biopsy) during your procedure, it is up to you to get your test results. Ask your health care provider, or the department that is doing the test, when your results will be ready. Drink enough fluid to keep your urine pale yellow. Keep all follow-up visits. This is important. Contact a health care provider if: You have pain that gets worse or does not get better with medicine, especially pain when you urinate. You have trouble urinating. You have more blood in your urine. Get help right away if: You have blood clots in your urine. You have abdominal pain. You have a fever or chills. You are unable to urinate. Summary Cystoscopy is a procedure that is used to help diagnose and sometimes treat conditions that affect the lower urinary tract. Cystoscopy is done using a thin, tube-shaped instrument with a light and camera at the end. After the procedure, it is common to have some soreness or pain in your abdomen and urethra. Watch for any blood in your urine. If the amount of blood in your urine increases, call your health care provider. If you were prescribed an antibiotic medicine, take it as told by your health care provider. Do not stop taking the antibiotic even if you start to feel better. This information is not intended to replace advice given to you by your health care provider. Make sure you discuss any questions you have with your health care provider. Document Revised: 05/11/2022 Document Reviewed: 04/09/2021 IVDesk Patient Education 2022 [employer]. 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 Pt is a new pt. Never before seen in our office. (Verified on DA). CMP 12/13/23 *BUN 17.0 Crea 0.80 eGFR >60 A1C 12/13/23- 5.7 PSA 12/13/23- 1.95 UA 01/30/24 LARGE Blood. NEG Nitrates & Leuks Micro UA 01/30/24 10-20 RBC's NEG C&S 01/30/24 BRIAN 02/03/24 *Small Cyst in Rt Kidney. No evidence of hydro. Lobulated soft tissue mass seen along wall of urinary bladder. Suspicious for malignancy. Visible blood in urine 2m ago. Intermittent since then. Former smoker. (Smoked for 2yrs, quit in 1982.) Neg Family Hx of Bladder Cancer. Father has Prostate Cancer (Tx unknown. Possible Prostatectomy at age 55) Denies pain/burning with urination. Occasional hesitancy. Some pressure at tip of penis (with and without voiding). Does have Hx of ED. Has taken Viagra & Cialis in past. Neither one completely helped. Would like to discuss other options. History of Present Illness Tests reviewed: reviewed UA, referral records, BRIAN, PSAs I have reviewed the previous health record information and history for this patient from external providers. I have reviewed and verified the staff HPI to be accurate for this encounter. Review of Systems PHQ Score Initial Depression Screen Score: 0 SCORE ROS - Provider Constitutional: denies weight loss, denies hot flashes. Eyes: denies eye problems. Gastrointestinal: denies nausea, denies vomiting. Cardiovascular: denies chest pain or angina. Integumentary: no dryness Musculoskeletal: denies musculoskeletal symptoms. ENMT: denies otolaryngeal symptoms. Respiratory: no shortness of breath. Heme/Lymph: denies easy bleeding tendency, denies easy bruising tendency. Psychiatric: no confusion, no anxiety. Genitourinary: See HPI. Physical Exam Vitals & Measurements BP: 134/80 HT: 70 in HT: 178 cm WT: 93.5 kg WT: 205.7 lb BMI: 29.51 General Appearance: alert, no distress, well nourished, well developed male. Assessment/Plan Kari is a 58 yo male new pt referred by Dayami Lewis CNP for bladder mass and hematuria. 1. Bladder mass (N32.89: Other specified disorders of bladder) Micro UA 01/30/24 - 10-20 RBC. UCx neg. Bladder/renal US 02/03/24 [facility] - Slightly lobulated mass measuring 2.6 x 2.4 x 2.3 cm with increased vascularity. No bladder wall thickening. Saw blood in his urine 2 mos. Occurs intermittently. Denies passing clots. UA today shows moderate blood. Discussed next step would be a cysto/TURBT and possible scope into ureters. Pt is agreeable. Recommended pt to get this done this if available. States he was planning to go on a trip to [place] but would be willing to cancel trip and proceed with the procedure. Risks of bleeding and complications discussed. Pt states he will proceed with procedure this week. -Will schedule Cysto with TURBT/possible bilateral ureteroscopy/bx. The procedure risks, benefits, details, and treatment alternatives have been discussed with the patient. These include bleeding -- sometimes to the point of hemorrhaging, infection, risk of bladder perforation, recurrence of bladder tumor in 60-70% of patients, need for indwelling catheter for a variable amount of time, as well as the rare risk of needing an open operation to repair the bladder, among others. Additional therapy as well as follow-up bladder evaluation will most likely be required. Full informed consent has been obtained. Will order General anesthesia. 2. Gross hematuria (R31.0: Gross hematuria) See #1. 3. Erectile dysfunction (N52.9: Male erectile dysfunction, unspecified) Per pt, ongoing for years. Tried Viagra which was effective at first but stopped working after a while. Also tried Cialis which did not work at all. Able to achieve 80% erection but has early softness. Discussed penile ring. States he tried this wo any effect. Educated pt on appropriate sizing. Also discussed ICI as a possible option. Pt states he has a fear of needles but his partner may be willing to do this. -Discuss options with partner and call if wishes to proceed with treatment 4. BPH with urinary obstruction (N40.1: Benign prostatic hyperplasia with lower urinary tract symptoms) PSA 01/26/21 - 1.02 01/18/22 - 0.84 01/13/23 - 1.29 12/13/23 - 1.95 Not currently taking any BPH meds. Mild hesitancy with urination, not bothersome. -Cont PSA checks w/ PCP 5. Renal cyst (N28.1: Cyst of kidney, acquired) Bladder/renal US 02/03/24 [facility] - 2.1 x 1.8 x 1.4 cm R renal cyst in interior aspect. -Simple cysts do not require monitoring 6. Former smoker (Z87.891: Personal history of nicotine dependence) Smoker x2 yrs. Quit 1982. Risk factor for urothelial ca. Follow-up With When Contact Information GUILLERMO PATEL, Brodie Bar, URL [facility] [address], [place] [phone] Additional Instructions: sched cysto/TURBT Patient Education Transurethral Resection of Bladder Tumor, Care (more content not included)... [facility] Comment on above: Result Comment: Elec tronically Signed By: Brodie LI MD\.br\Date and Time Signed: 02/12/24 12:12 EDT\.br\Electronically Co-Signed By: Dannielle Melgar\.br\Date and Time Co-Signed: 02/12/24 12:10 EDT Evaluation note 06-28-2022 Note Date & Type [...] understanding and is agreeable with treatment plan [facility] Other Evaluation + Plan note Note Date & Type Note Facility Evaluation + Plan note Future Appointments Appointment Date:02/21/2024 09:30:00 AM Scheduled Provider: Location:[facility] Appointment Type:URO Nurse Visit Appointment Date:02/26/2024 12:15:00 PM Scheduled Provider:Brodie LI MD Location:[facility] Appointment Type:URO Office Visit [facility] History general Narrative - Reported Note Date & Type Note Facility History general Narrative - Reported Type Medical History htn [facility] Other Hospital course Narrative Note Date & Type Note Facility Hospital course Narrative No data available for this section [facility] Progress note Note Date & Type Note Facility Progress note No data available for this section [facility] Summary Purpose Family History No Family History Records FoundNo Family History Records FoundNo Family History Records Found No data available for this section Advance Directives No Advanced Directives Records FoundNo Advanced Directives Records FoundNo Advanced Directives Records Found Additional Source Comments (unrecognized sect ion and content) No Status Records FoundNo Status Records FoundNo Status Records Found INFORMATION SOURCE (unrecogn ized section and content) DATE CREATED AUTHOR 04/10/2022 [facility] DATE CREATED AUTHOR AUTHOR'S ORGANIZ ATION 01/14/2023 [facility] DATE CREATED AUTHOR AUTHOR'S ORGANIZ ATION 02/12/2024 [facility] REASON FOR VISIT (unrecogniz ed section and content) TRUCK BLACK, COUGH, RUNNY NO SE Patient Care team informatio n (unrecognized section and content) Personnel Name: RICO PATEL, RAJ Jones Address: Address: [address] [place] [address] [place], [place] [address] FOR RECORDS PERTAINING TO PATIENTS WHO ARE [...] BE BASED ON THE PRIMARY CLINICAL RECORDS. [facility] The [address] [facility]. provides no warranty or guarantee of the accuracy or completeness of information in this document.
[2024-02-13 09:40] LABS: Basophils Percent Auto 0.3 % (0.2-2.0); Eosinophils Absolute Auto 0.1 10^3/uL (0.0-0.7); Eosinophils Percent Auto 0.8 % (0.9-7.0); Hematocrit 39.4 % (42.0-54.0); Hemoglobin 12.7 g/dL (14.0-18.0); Immature Granulocytes Abs Auto 0.02 10^3/uL (0.00-0.03); Immature Granulocytes Pct Auto 0.2 % (0.0-0.5); Lymphocytes Absolute Auto 2.7 10^3/uL (1.2-3.8); Lymphocytes Percent Auto 24.5 % (20.5-60.0); Mean Corpuscular HGB Conc 32.2 g/dL (29.9-35.2); Mean Corpuscular Hemoglobin 28.2 pg (25.9-34.0); Mean Corpuscular Volume 87.4 fL (80.0-94.0); Mean Platelet Volume 9.3 fL (9.5-13.5); Monocytes Absolute Auto 1.1 10^3/uL (0.3-0.8); Monocytes Percent Auto 9.9 % (1.7-12.0); Neutrophils Absolute Auto 7.1 10^3/uL (1.4-6.5); Neutrophils Percent Auto 64.3 % (43.0-75.0); Platelet Count 268 10^3/uL (150-450); Red Blood Count 4.51 10^6/uL (4.70-6.10); Red Cell Distribution Width 13.1 % (11.0-15.0); White Blood Count 11.1 10^3/uL (4.0-11.0)
--- NOTE | 2024-02-13 09:52 | PM.PRESUREVA ---
History of Present Illness History of Present Illness Chief complaint: bladder tumor Narrative: Patient presents for preadmission testing. Please see HPI from Dr. Campos dated February 12, 2024. Review of Systems ROS Narrative Please see ROS from Dr. Campos dated February 12, 2024. [facility] Medical History (Updated 02/13/24 @ 09:54 by Darlin Vigil NP) Erectile dysfunction ?N52.9 - Male erectile dysfunction, unspecified (ICD-10) BPH (benign prostatic hyperplasia) ?N40.0 - Benign prostatic hyperplasia without lower urinary tract symptoms (ICD-10) Decreased urine stream ?R39.198 - Other difficulties with micturition (ICD-10) Knee pain ?M25.569 - Pain in unspecified knee (ICD-10) Anemia ?D64.9 - Anemia, unspecified (ICD-10) Snores ?R06.83 - Snoring (ICD-10) Migraine ?G43.909 - Migraine, unspecified, not intractable, without status migrainosus (ICD-10) Hematuria ?R31.9 - Hematuria, unspecified (ICD-10) Bladder mass ?N32.89 - Other specified disorders of bladder (ICD-10) Heartburn ?R12 - Heartburn (ICD-10) Myasthenia gravis ?G70.00 - Myasthenia gravis without (acute) exacerbation (ICD-10) High cholesterol ?E78.00 - Pure hypercholesterolemia, unspecified (ICD-10) Hypertension ?I10 - Essential (primary) hypertension (ICD-10) Postoperative nausea and vomiting ?R11.2 - Nausea with vomiting, unspecified (ICD-10) ?Z98.890 - Other specified postprocedural states (ICD-10) Surgical History (Updated 02/13/24 @ 09:20 by Darlin Vigil NP) H/O foot surgery ?Z98.890 - Other specified postprocedural states (ICD-10) H/O sinus surgery ?Z98.890 - Other specified postprocedural states (ICD-10) H/O sinus surgery ?Z98.890 - Other specified postprocedural states (ICD-10) History of nasal septoplasty ?Z98.890 - Other specified postprocedural states (ICD-10) Family History (Updated 02/13/24 @ 09:20 by Darlin Vigil NP) Other Family history of breast cancer Family history of diabetes mellitus Family history of heart disease Family history of hypertension Family history of prostate cancer Family history of throat cancer Social History (Updated 02/13/24 @ 09:13 by Darlin Vigil NP) Within the past year, how often did you have a drink containing alcohol: never Score interpretation: A score less than 4 is consistent with normal alcohol consumption. 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 Highest level of school completed/degree received: high school graduate Meds Home Medications and Allergies Home Medications ?Medication ?Instructions ?Recorded ?Confirmed ?Type atorvastatin 20 mg tablet 20 mg PO DAILY 02/13/24 02/13/24 History cyclobenzaprine 5 mg tablet 5 mg PO QPM PRN muscle spasm 02/13/24 02/13/24 History hydrochlorothiazide 25 mg tablet 25 mg PO DAILY 02/13/24 02/13/24 History losartan 50 mg tablet 50 mg PO DAILY 02/13/24 02/13/24 History prednisone 10 mg tablet 10 mg PO DAILY 02/13/24 02/13/24 History pyridostigmine bromide 60 mg tablet 90 mg PO TID 02/13/24 02/13/24 History Allergies Allergy/AdvReac Type Severity Reaction Status Date / Time No Known Drug Allergies Allergy Verified 02/13/24 09:08 Exam Narrative Exam Narrative: Constitutional: Awake, alert, comfortable, well-appearing, nontoxic, interactive, vital signs as charted Head: Normocephalic, atraumatic Neck: Supple, normal appearance, normal range of motion, no meningeal signs, no lymphadenopathy Respiratory: No respiratory distress, breath sounds clear Cardiovascular: Regular rate and rhythm, strong and regular heart tones Abdomen: Nontender, normal bowel sounds, soft, no CVA tenderness Musculoskeletal: Normal gait, no swelling or edema Skin: No rashes or induration, no lesions, only visible skin inspected Neuro: No neurological deficits, normal sensation Psychiatric: Oriented ?3, normal affect Assessment and Plan Assessment and Plan (1) Bladder mass: (2) Hematuria: (3) BPH (benign prostatic hyperplasia): Plan Cystoscopy, bilateral ureteroscopy, TURBT scheduled with Dr. Campos February 15, 2024.
[2024-02-13 09:59] LABS: Anion Gap 12.6; BUN Creatinine Ratio 23.2; Carbon Dioxide 27.2 mmol/L (21.0-32.0); Chloride 104 mmol/L (98-107); Estimated GFR (African America >60 (>=60); Estimated GFR (Non-African Ame >60 (>=60); Glucose 90 mg/dL (74-106); Potassium 3.8 mmol/L (3.5-5.1); Sodium 140 mmol/L (136-145)
[2024-02-13 10:01] LABS: INR 0.99; Partial Thromboplastin Time 25.4 sec (22.3-36.2); Prothrombin Time 10.5 sec (9.0-11.6)
== END 2024-02-13 08:51 | disposition home or self-care (01) ==
LOC: PST 08:52
PROVIDERS: PCP Nurse Practitioner Family; Visit Provider Urology
DX: Z01.810 Encounter for preprocedural cardiovascular examination (principal); Z01.812 Encounter for preprocedural laboratory examination; Z01.818 Encounter for other preprocedural examination
CPT/HCPCS: 71046; 80048; 85025; 85610; 85730; 93005; G0463

== ENCOUNTER 2024-02-15 11:30 | Day surgery (SDC) | payer OTHER, SELFPAY ==
[2024-02-13 09:33] VITALS: BP 140/98; PULSE 79; TEMP 36.3; O2SAT 97; BMI 29.0
[2024-02-15] VITALS (8 sets, daily range): BP systolic 128–151; BP diastolic 92–102; PULSE 72–87; TEMP 36.3–36.4; O2SAT 92–98; BMI 28.6
[2024-02-15] MEDS: LACTATED RINGER'S SOLUTION 1,000 ML 50 ML IV ×2 (12:55→16:03)
[2024-02-15] MEDS: CEFAZOLIN SODIUM/DEXTROSE,ISO 2 GM/50 ML PIGGYBACK IV (14:21)
--- NOTE | 2024-02-15 15:46 | PM.URSON ---
Urology Surgery Operative Note Operative Note Procedure Date: 02/15/24 Time Out Performed: yes Pre-op Diagnosis: Gross hematuria and bladder mass by CT scan Post-op Diagnosis: same as pre-op Procedures performed: 1. Cystoscopy. 2. Transurethral resection of bladder tumor approximately 4 cm Anesthesia: CRISTIAN Primary Surgeon: Brodie Campos Complications: None Estimated blood loss (mL): 50 Findings: Indurated irregularPapillary bladder tumor right lateral wall and Right floor Approximately 4 cm Specimens: Bladder tumors Drains: 20 Tristanian Lopez catheter in the bladder Indications for Procedures: This gentleman had painless gross hematuria. CT scan revealedA 3 cm lobulated bladder tumor. He now presents for cystoscopy and transurethral resection of bladder tumors. He has signed an informed consent for these procedures. Detailed description of Procedure: The patient was brought to the operating room and placed on the operating room table in the supine position. SCDs were placed on the lower extremities and turned on and functioning during the entire case. Timeout was done by all parties in the room. We all agreed upon the patient's identification and the planned procedures for this patient. Genn. anesthesia was then administered. The patient was then repositioned into the modified dorsal lithotomy position. All pressure points were satisfactorily padded. Genitalia were sterilely prepped and draped in usual fashion.I started by passing a 26 Tristanian Olympus resectoscope with a standard bipolar loop electrode per urethra and into the bladder. Anterior urethra was normal. Prostatic urethra showed bilobar obstruction. Panendoscopy in the bladder revealed a sizable irregular papillary indurated erythematous and slightly necrotic tumor originating from the right lateral wall near the floor just proximal to the right U.O. There were also sheets of satellite smaller papillary tumors in these areas. There was heightened vascularity throughout the Right half of the bladder wall.I uniformly resected this tumor down to its attachment to the wall. I then deeply resected the fairly sizable attachment to the wall. This area was hypervascular and there were intermittent pulsatile Bleeders during the resection. These were coagulated with the loop electrode. The Ilich evacuator was used to get all the tissue out and this was sent for permanent sections. All of the other satellite lesions were similarly resected and coagulated.I then used a rollerball electrode to coagulate all the resection beds, the concerning vascularity andAny erythematous mucosal areas remaining. Upon completion, there was no bleeding. There were no tumors remaining. Urine freely effluxed from the right UO. The scope was then removed. I then placed a 20 Tristanian Lopez catheter in the bladder. 10 cc of fluid was placed in the balloon. It drained clear. The anesthetic was then reversed. He was then transferred to a [facility] bed and wheeled to PACU in stable condition.
[2024-02-15] MEDS: KETOROLAC TROMETHAMINE 30 MG/ML VIAL IVP (16:15)
--- NOTE | 2024-02-15 16:38 | PC.NURSE ---
Medicated with Toradol as ordered for urinary urgency and discomfort
== END 2024-02-15 17:11 | disposition home or self-care (01) ==
PROVIDERS: PCP Nurse Practitioner Family; Visit Provider Urology
PROC: (CPT 912; principal; 2024-02-15 13:00)
DX: C67.2 Malignant neoplasm of lateral wall of bladder (principal); R31.0 Gross hematuria; Z87.891 Personal history of nicotine dependence; N52.9 Male erectile dysfunction, unspecified; N40.1 Benign prostatic hyperplasia with lower urinary tract symptoms; N28.1 Cyst of kidney, acquired; E78.5 Hyperlipidemia, unspecified; I10 Essential (primary) hypertension; K21.9 Gastro-esophageal reflux disease without esophagitis
CPT/HCPCS: 52235; 36415; 88307; J1094; J2704

== ENCOUNTER 2024-06-03 07:43 | Day surgery (SDC) | payer OTHER, SELFPAY ==
--- OUTSIDE RECORDS SUMMARY | 2024-06-03 07:46 | XMS_ITS | CCD ---
Author Organization [facility] Care Team Providers Care Data Analytics Developer Name Role Phone Krystin Loja Unavailable KERRY MONTES Admitting Unavailable KERRY MONTES Attending Unavailable RANDA, DR EASON Primary Care Unavailable KERRY MONTES Consulting Unavailable YUHAS, DR EASON Admitting Unavailable YUHAS, DR EASON Attending Unavailable YUHAS, DR EASON Primary Care Unavailable YUHAS, DR EASON Consulting Unavailable REQUEST, DR CHESTER LISTED Admitting Unavaila ble REQUEST, DR CHESTER LISTED Attending Unavaila ble REQUEST, NONE LISTED Consulting Unavaila ble RAJ GÓMEZ Primary Care Physician MD Donato Li Attending Provider Donato Li Admitting Unavailable Donato Li Attending Unavailable DEBBIE, DAYAMI S Primary Care Physician [phone] JOHN CARRERA Attending Unavailable Debbie ECKERT, Dayami S Primary Care Provider Donato Li MD Unavailable [phone] DEBBIE, DAYAMI S Primary Care Unavailable LITO THOMSON Referring Unavailable LITO THOMSON Referring Unavailable DEBBIE, DAYAMI S Primary Care Unavailable LITO THOMSON Referring Unavailable DEBBIE, DAYAMI S Primary Care Unavailable DONATO LI Referring Unavailable LITO THOMSON Attending Unavailable DEBBIE, DAYAMI S Primary Care Unavailable LITO THOMSON Referring Unavailable DEBBIE, DAYAMI S Primary Care Unavailable LITO THOMSON Referring Unavailable LITO THOMSON Attending Unavailable DEBBIE, DAYAMI S Primary Care Unavailable DEBBIE, DAYAMI S Primary Care Unavailable LITO THOMSON Referring Unavailable DEBBIE, DAYAMI S Primary Care Unavailable LITO THOMSON Referring Unavailable DEBBIE, DAYAMI S Primary Care Unavailable LITO THOMSON Referring Unavailable Donato LI Attending Unavailable LI, Donato Bar Attending Unavailable LI, Donato Bar Attending Unavailable DEBBIE, DAYAMI S Referring Unavailable LI, Donato Bar Attending Unavailable LI, Donato R Attending Unavailable DEBBIE, DAYAMI S Referring Unavailable LI, Donato R Attending Unavailable LI, Donato R Attending Unavailable LI, Donato R Admitting Unavailable LI, Donato Bra Attending Unavailable Allergies Allergy Classification Reported Allergen(s) Allergy Type Date of Onset Reaction(s) Facility (1 source) No Known Medication Allergies; Translations: [No Known Medication Allergies] Propensity to adverse reactions (disorder) [facility] Repository Medications Current Medications Medication Drug Class(es) [...] day for 7 days Jun, Active Losartan (14 sources) Angiotensin 2 Receptor Rob Start: 02-12-2024 losartan 50 mg tablet losartan 50 mg tablet Start Date: 02/12/24 Status: Ordered take 1 tablet by mouth once kristina y losartan (COZAAR) 50 mg tablet Take 50 mg by mouth once daily. Active Losartan Potassi um Active methylPREDNISolone 4 mg oral tablet (1 source) Corticosteroid Start: 06-28-2022 methylPREDNISo lone 4 MG as directed Orally for daily dose take half with breakfast, half with dinner for 6 days Jun, Active predniSONE (13 sources) Start: 01-29-2023 take 1 tablet by mouth once kristina y predniSONE (DELTASONE) 10 mg tablet Take 10 mg by mouth once daily. Active pyridostigmine bromide 60 mg oral tablet (15 sources) Start: 01-29-2023 pyridostigmine 60 mg Tab TID, 0 Refill(s), Refills(s) 0 Start Date: 01/29/23 Status: Ordered Pyridostigmine B romide ER Active Pyridostigmine B romide Active Completed/Discontinued Medications Medication Drug Class(es) Dates Sig (Normalized) Sig (Original) atorvastatin 20 mg oral tablet (14 sources) HMG-CoA Reductase Inhibitor Start: 02-12-2024 atorvastatin 20 mg Tab 90 EA, 0 Refill(s), TAKE 1 TABLET BY MOUTH DAILY, Refills(s) 0 Start Date: 02/12/24 Status: Ordered Atorvastatin Bennett cium Active bcg 50 mg in NaCl 0.9% 50 mL (12 sources) Start: 05-06-2024 End: 05-06-2024 bcg 50 mg in NaCl 0.9% 50 mL Start: 05-06-2024 End: 05-06-2024 50 mg, INTRAVESICAL, ONCE, 1 dose, On Mon05/06/24 at 1400, Instill into bladder via catheter and retain for 120 minutes, followed by bladder drainage Hazardous Chemotherapy Drug: Use appropriate PPE. Protect from Light., AMB MED ORDERS Start: 04-29-2024 End: 04-29-2024 bcg 50 mg in NaCl 0.9% 50 mL Start: 04-29-2024 End: 04-29-2024 50 mg, INTRAVESICAL, ONCE, 1 dose, On Mon04/29/24 at 1330, Instill into bladder via catheter and retain for 120 minutes, followed by bladder drainage Hazardous Chemotherapy Drug: Use appropriate PPE. Protect from Light., AMB MED ORDERS Start: 04-22-2024 End: 04-22-2024 bcg 50 mg in NaCl 0.9% 50 mL Start: 04-15-2024 End: 04-15-2024 bcg 50 mg in NaCl 0.9% 50 mL Start: 04-08-2024 End: 04-08-2024 bcg 50 mg in NaCl 0.9% 50 mL Start: 04-01-2024 End: 04-01-2024 bcg 50 mg in NaCl 0.9% 50 mL cyclobenzaprine hydrochloride 5 mg oral tablet (13 sources) Muscle Relaxant Start: 02-12-2024 cyclobenzaprin e 5 mg Tab 30 EA, 0 Refill(s), TAKE 1 TABLET BY MOUTH ONCE DAILY AT BEDTIME NEEDED, Refills(s) 0 Start Date: 02/12/24 Status: Ordered hydroCHLOROthiazide 25 mg oral tablet (14 sources) Thiazide Diuretic Start: 02-12-2024 hydrochlorothiazide 25 mg Tab 90 EA, 0 Refill(s), TAKE 1 TABLET BY MOUTH DAILY, Refills(s) 0 Start Date: 02/12/24 Status: Ordered hydroCHLOROthiaz komal Active lidocaine hydrochloride 0.02 mg/mg topical gel (12 sources) Antiarrhythmic, Amide Local Anesthetic Start: 05-06-2024 End: 05-06-2024 lidocaine urojet 2 % 11 mL topical gel (GLYDO) Start: 05-06-2024 End: 05-06-2024 11 mL, OTHER, ONCE, 1 dose, On Mon05/06/24 at 1400, FOR EXTERNAL USE ONLY Intravesical administration, AMB MED ORDERS Start: 04-29-2024 End: 04-29-2024 lidocaine urojet 2 % 11 mL t opical gel (GLYDO) Start: 04-29-2024 End: 04-29-2024 11 mL, OTHER, ONCE, 1 dose, On Mon04/29/24 at 1330, FOR EXTERNAL USE ONLY Intravesical administration, AMB MED ORDERS Start: 04-22-2024 End: 04-22-2024 lidocaine urojet 2 % 11 mL t opical gel (GLYDO) Start: 04-15-2024 End: 04-15-2024 lidocaine urojet 2 % 11 mL t opical gel (GLYDO) Start: 04-15-2024 End: 04-15-2024 lidocaine urojet 2 % 11 mL t opical gel (GLYDO) Start: 04-08-2024 End: 04-08-2024 lidocaine urojet 2 % 11 mL t opical gel (GLYDO) Start: 04-01-2024 End: 04-01-2024 lidocaine urojet 2 % 11 mL t opical gel (GLYDO) Start: 04-01-2024 End: 04-01-2024 lidocaine urojet 2 % 11 mL t opical gel (GLYDO) Problems Problem Classification Problem Date Documented Date Episodic/Chronic Cancer of bladder (11 sources) Malignant tumor of urinary bladder; Translations: [Malignant neoplasm of bladder, unspecified] Onset: 02-26-2024 Chronic Disorders of lipid metabolism (3 sources) Hyperlipidemia 02-12-2024 Chronic Essential hypertension (3 sources) Hypertensive disorder 02-12-2024 Chronic Genitourinary symptoms and ill-defined conditions (4 sources) Blood in urine; Translations: [Gross hematuria] Onset: 02-12-2024 Episodic Hyperplasia of prostate (5 sources) Benign prostatic hypertrophy with outflow obstruction; Translations: [Benign prostatic hyperplasia with lower urinary tract symptoms] Onset: 02-12-2024 Chronic Other circulatory disease (1 source) Elevated blood-pressure reading, without diagnosis of hypertension Episodic Other diseases of bladder and urethra (1 source) Disorder of bladder; Translations: [Other specified disorders of bladder] Onset: 02-12-2024 Chronic Other diseases of bladder and urethra (3 sources) 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 Chronic Other diseases of kidney and ureters (1 source) Acquired renal cyst 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; Translations: [Cyst of kidney, acquired] Onset: 02-12-2024 Episodic Other diseases of kidney and ureters (3 sources) Cyst of kidney 02-12-2024 Episodic Other lower respiratory disease (1 source) Unspecified acute lower respiratory infection Episodic Other male genital disorders (4 sources) Male erectile dysfunction, unspecified; Translations: [Erectile dysfunction] Onset: 02-12-2024 Chronic Other nervous system disorders (4 sources) Myasthenia gravis without (acute) exacerbation; Translations: [MYASTHENIA GRAVIS W/O AC EXACERBAT] Onset: 08-17-2022 Chronic Other nervous system disorders (3 sources) 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 Other nervous system disorders (1 source) Myasthenia gravis 02-26-2024 Chronic Other screening for suspected conditions (not mental disorders or infectious disease) (1 source) Encounter for screening for malignant neoplasm of prostate; Translations: [Screening for malignant neoplasm done] Onset: 02-26-2024 Episodic Screening and history of mental health and substance abuse codes (5 sources) H/O: Disorder; Translations: [Personal history of nicotine dependence] Onset: 02-12-2024 Episodic Unclassified (1 source) Patient encounter status 02-26-2024 Results Test Name Value Interpretation Reference Range Facility Reminderson 05-30-2024 Reminders Reminders From: Adriana Irvin To: EU - Recalls Li; Sent: 05/22/2024 21:08:28 EDT Show up: 06/11/2024 21:08:00 EDT Subject: cysto/fish/cytol Due Date/Time: 07/08/2024 21:08:00 EDT Reminder/Recall Patient needs sched for 3 month cysto/fish/cytol (bt ck) Due in Aug 2024 Jerry [facility] CNOVSPon 05-06-2024 CNOVSP Visit (SP) Office ([place]) ISHAAN HANSON ([id number]) 1965 M Date Time Provider Department 05/06/24 1:00 PM LITO THOMSON During your visit today, we recorded the following information about you: Temperature Pulse Respiration Blood pressure 97.2 degrees 87/minute 18/minute 123/84 Weight 88.8 kg Lito Thomson MD 05/08/2024 5:24 AM Signed PATIENT NAME: Ishaan Hanson DATE: 05/06/2024 PRIMARY CARE PHYSICIAN: Dayami Lewis CNP (Dr. Mott) OTHER PHYSICIANS: Dr. Donato Li, Dr. Олег Burris Portions of this encounter note have been copied from my note from 03/25/2024 and has been updated where appropriate, and reflect my current medical decision making from today. CC: This is a 58 year old male with recently diagnosed nonmuscle invasive bladder cancer, seen for scheduled follow-up. INTERIM HISTORY: Since the patient's initial visit here he has been receiving treatment with intravesical BCG. To date he has received 5 infusions. He has tolerated treatment well with no adverse effects. On follow-up today he feels well with no complaints. MEDICATIONS: Current Outpatient Medications Medication Sig atorvastatin (LIPITOR) 20 mg tablet Take 20 mg by mouth once daily. cyclobenzaprine (FLEXERIL) 5 mg tablet Take 5 mg by mouth as directed. hydroCHLOROthiazide 25 mg tablet Take 25 mg by mouth once daily. losartan (COZAAR) 50 mg tablet Take 50 mg by mouth once daily. predniSONE (DELTASONE) 10 mg tablet Take 10 mg by mouth once daily. pyridostigmine (MESTINON) 60 mg tablet Take 60 mg by mouth three times a day. No current facility-administered medications for this visit. 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) No date: Renal cyst PAST SURGICAL HISTORY: PAST SURGICAL HISTORY 02/15/2024: PAST SURGICAL HISTORY OF Comment: TURBT 2003: PAST SURGICAL HISTORY OF Comment: Sinus node FAMILY HISTORY: FAMILY HISTORY Problem Relation Age of Onset Diabetes Mother Breast Cancer Mother Prostate Cancer Father Hypertension Father Cancer Sister throat Rectal Cancer Brother SOCIAL HISTORY: Social History Tobacco Use Smoking status: Former Current packs/day: 0.00 Average packs/day: 0.5 packs/day for 2.0 years (1.0 ttl pk-yrs) Types: Cigarettes Start date: 1967 Quit date: 1969 Years since quittin.6 Smokeless tobacco: Never Vaping Use Vaping status: Never Used Substance Use Topics Alcohol use: Not Currently Drug use: Never COMPLETE REVIEW OF SYSTEMS: CONSTITUTION: Negative for pain, fatigue, weight loss, or appetite loss. EENT: Negative for mouth soreness, antibiotics use, epistaxis, visual problems, neck or facial swelling, fever/chills, bleeding gums, or hearing loss. CV: Negative for edema, calf swelling, palpitations, or chest pain. RESPIRATORY: Negative for cough, SOB, hemoptysis, or wheezing. GI: Negative for nausea/vomiting, heartburn, vomiting blood, dysphasia, diarrhea, blood in stool, constipation, early satiety, PICA, vegetarian, poor nutrition, abdominal fullness, or abdominal pain. NEUROLOGICAL: Negative for numbness/tingling, dizziness, gait disturbance, headache, speech disturbance, tremor, hemiparesis/sensory loss, or change in mental status. MUSCULOSKELETAL: Negative for joint pain, joint swelling, or proximal muscle weakness. SKIN: Negative for hair loss, bruising, nail changes, rash, itching, pallor, or jaundice. ENDO/URO: Negative for hot flashes, cold or heat intolerance, urinary frequency, urinary hesitancy, menorrhagia, or hematuria. PSYCH: Negative for anxiety, depression, or other. PHYSICAL EXAM: BP 123/84 Pulse 87 Temp 36.2 ?C (97.2 ?F) (Temporal) Resp 18 Wt 88.8 kg (195 lb 12.3 oz) SpO2 96% GENERAL EXAM: Well developed/well nourished; in no acute distress. SKIN: Negative for lesions, rashes, or ulcers on the upper and lower extremities and face. Negative for palpations/nodules, purpura, and ecchymosis. EENT: Negative for conjunctiva, mucosal pallor, JVD, LAP, thyromegaly, and glossitis. Supple AND PERRL. EXTREMITIES: Negative for cyanosis, clubbing, and crepitus. LUNGS: Negative to auscultation, respiratory effort, and percussion. CARDIOVASCULAR: Regular rate. Negative for murmurs/S3S4/abnormal sounds, edema, and carotid bruits. ABDOMEN: Negative for masses, hernia, and spleen/liver abnormalities. RECTAL: Not done PSYCHIATRIC: Negative for mood/affect changes, recent AND remote memory changes, and judgement and insight. NEUROLOGICAL: Alert, oriented x person, place, time (more content not included)... Normal [facility] Reminderson 04-22-2024 Reminders Reminders From: Adriana Irvin To: ARTHUR - Recalls Li; Sent: 04/09/2024 14:23:39 EDT Show up: 04/11/2024 14:23:00 EDT Subject: cysto/fish/cytol Due Date/Time: 04/29/2024 14:23:00 EDT Reminder/Recall Patient needs Cysto 1 month after finishing BCG tx at [facility] cancer center. Last tx 05/06/24 l/m on vm.LG Patient called back, sched for 06/03/24.LG Normal [facility] [place] 04-09-2024 TOMEKAN Telephone (BARNEY) ISHAAN HANSON ([id number]) 1965 M Date Time Provider Department 04/09/24 LITO THOMSON During your visit today, we recorded the following information about you: Vero Christopher MA 04/09/2024 2:44 PM Signed [facility] paperwork completed and placed in folder to be signed. AUSTIN Damico Samantha, MA 04/10/2024 1:06 PM Signed Faxed [facility] paperwork to @ [phone]. Vero Christopher MA Allergies As of Date: 04/09/2024 (No Known Allergies) Date Reviewed: 04/08/2024 Reviewed by: Marie Osborn RN - Fully Assessed Reason for Visit: [facility] Paperwork [[id number]] Prescriptions as of 04/10/2024 - atorvastatin (LIPITOR) 20 mg tablet Take 20 mg by mouth once daily. - cyclobenzaprine (FLEXERIL) 5 mg tablet Take 5 mg by mouth as directed. - hydroCHLOROthiazide 25 mg tablet Take 25 mg by mouth once daily. - losartan (COZAAR) 50 mg tablet Take 50 mg by mouth once daily. - predniSONE (DELTASONE) 10 mg tablet Take 10 mg by mouth once daily. - pyridostigmine (MESTINON) 60 mg tablet Take 60 mg by mouth three times a day. Problem List As Of Date: 04/09/2024 (None) Encounter Status:Closed by V[facility]RISTOPHER [facility]10[facility] Visit (SP) Office ([place]) ISHAAN HANSON ([id number]) 1965 M Date Time Provider Department 03/25/24 11:00 AM LITO THOMSON During your visit today, we recorded the following information about you: Temperature Pulse Respiration Blood pressure 97.1 degrees 71/minute 18/minute 138/96 Weight 90.9 kg Lito Thomson MD 03/27/2024 6:11 AM Signed PATIENT NAME: Ishaan Hanson DATE: 03/25/2024 PRIMARY CARE PHYSICIAN: Dayami Lewis, TOMEKA (Dr. Mott) OTHER PHYSICIANS: Dr. Donato Li, Dr. Олег Burris HPI: This is a 58 year old male with recently diagnosed nonmuscle invasive bladder cancer, referred for further management. The patient presented in January 2024 with gross hematuria. Renal/bladder ultrasound 02/03/2024 revealed a mass along the right lateral aspect of the bladder. He was seen by urology and underwent cystoscopy on 02/15/2024. Biopsy of the bladder mass was consistent with nonmuscle invasive high-grade urothelial carcinoma. At the time of cystoscopy he underwent a maximum TURBT. Hematuria has resolved, and he has had no other urinary symptoms. He currently is referred for adjuvant intravesicular BCG. 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 He also has hyperlipidemia and hypertension. He does not smoke or drink. 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 cyclobenzaprine (FLEXERIL) 5 mg tablet Take 5 mg by mouth as directed. hydroCHLOROthiazide 25 mg tablet Take 25 mg by mouth once daily. losartan (COZAAR) 50 mg tablet Take 50 mg by mouth once daily. predniSONE (DELTASONE) 10 mg tablet Take 10 mg by mouth once daily. pyridostigmine (MESTINON) 60 mg tablet Take 60 mg by mouth three times a day. No current facility-administered medications for this visit. ALLERGIES: ALLERGIES No Known Allergies PAST MEDICAL HISTORY: PAST MEDICAL HISTORY Diagnosis Date Bladder cancer (HCC) Bladder mass BPH with urinary obstruction Erectile dysfunction Former smoker Gross hematuria Hyperlipidemia Hypertensive disorder Ocular myasthenia (HCC) Renal cyst PAST SURGICAL HISTORY: PAST SURGICAL HISTORY Procedure Laterality Date PAST SURGICAL HISTORY OF 02/15/2024 TURBT PAST SURGICAL HISTORY OF 2004 Sinus node FAMILY HISTORY: FAMILY HISTORY Problem Relation Age of Onset Prostate Cancer Father SOCIAL HISTORY: Social History Tobacco Use Smoking status: Former Types: Cigarettes Smokeless tobacco: Never COMPLETE REVIEW OF SYSTEMS: CONSTITUTION: Negative for pain, fatigue, weight loss, or appetite loss. EENT: Negative for mouth soreness, antibiotics use, epistaxis, visual problems, neck or facial swelling, fever/chills, bleeding gums, or hearing loss. CV: Negative for edema, calf swelling, palpitations, or chest pain. RESPIRATORY: Negative for cough, SOB, hemoptysis, or wheezing. GI: Negative for nausea/vomiting, heartburn, vomiting blood, dysphasia, diarrhea, blood in stool, constipation, early satiety, PICA, vegetarian, poor nutrition, abdominal fullness, or abdominal pain. NEUROLOGICAL: Negative for numbness/tingling, dizziness, gait disturbance, headache, speech disturbance, tremor, hemiparesis/sensory loss, or change in mental status. MUSCULOSKELETAL: Negative for joint pain, joint swelling, or proximal muscle weakness. SKIN: Negative for hair loss, bruising, nail changes, rash, itching, pallor, or jaundice. ENDO/URO: Negative for hot flashes, cold or heat intolerance, urinary frequency, urinary hesitancy, menorrhagia, or hematuria. PSYCH: Negative for anxiety, depression, or other. PHYSICAL EXAM: BP 138/96 Pulse 71 Temp 36.2 ?C (97.1 ?F) (Temporal) Resp 18 Wt 90.9 kg (200 lb 6.4 oz) SpO2 100% GENERAL EXAM: Well developed/well nourished; in no acute distress. SKIN: Negative for lesions, rashes, or ulcers on the upper and lower extremities and face. Negative for palpations/nodules, purpura, and ecchymosis. EENT: Negative for conjunctiva, mucosal pallor, JVD, LAP, thyromegaly, and glossitis. Supple AND PERRL. EXTREMITIES: Negative for cyanosis, clubbing, and crepitus. LUNGS: Negative to auscultation, respiratory effort, and percussion. CARDIOVASCULAR: Regular rate. Negative for murmurs/S3S4/abnormal sounds, edema, and carotid bruits. ABDOMEN: Negative for masses, hernia, and spleen/liver abnormalities. RECTAL: Not done PSYCHIATRIC: Negative for mood/affect changes, recent AND remote memory changes, and judgement and insight. NEUROLOGICAL: Alert, oriented x person, place, time. Cranial nerves 2-12 intact. Sensory for pain, light touch, vibration intact on all 4 extremities. Reflex (more content not included)... Normal [facility] Physician Referralon 024 Physician Referral [id number] Normal [facility] Ambulatory Visit Summaryon 0 02-26-2024 Ambulatory Visit Summary ISHAAN HANSON :1965 Visit Date:02/26/2024 Ambulatory Visit Instructions Your Diagnosis Bladder cancer BPH with urinary obstruction Former smoker Screening PSA (prostate specific antigen) Your Care Team Attending Physician - Donato LI MD Primary Care Physician - DAYAMI LEWIS CNP This Is Your Medications List Contact prescribing physician if questions or concerns Misc Prescription (losartan 50 mg tablet) atorvastatin (atorvastatin 20 mg Tab) cyclobenzaprine (cyclobenzaprine 5 mg Tab) hydrochlorothiazide (hydrochlorothiazide 25 mg Tab) predniSONE (predniSONE 10 mg Tab) pyridostigmine (pyridostigmine 60 mg Tab) Procedures Performed TURBT - Transurethral resection of bladder tumor (02/15/2024), Sinus node (2003). Discharge Vitals Temperature (Temporal Artery) 37 ?C Heart Rate (Peripheral) 75 Respiratory Rate 16 Blood Pressure 135/83 Height 178 cm Height 70 in Weight 93.5 kg Weight 205.7 lb BMI 29.51 What to do next You Need to Schedule the Following Appointments Follow Up with GUILLERMO PATEL, Donato Bar, URL When: Where: [facility] [address] , [place] [address]- Medications What How Much When Instructions Unchanged [...] you are currently receiving treatment for. Bladder cancer Bladder mass BPH with urinary obstruction Erectile dysfunction Former smoker Gross hematuria Hyperlipidemia Hypertensive disorder Myasthenia gravis Ocular myasthenia Renal cyst Screening PSA (prostate specific antigen) Patient Survey You may receive a survey via text or e-mail asking about your office visit. Please share your experience with us by completing your survey. We appreciate your feedback and thank you for choosing us for your care. Education Materials Bladder Cancer Bladder cancer is a condition where abnormal tissue (a tumor) grows in the bladder. The bladder is the organ that holds urine. Two tubes (ureters) carry urine from the kidneys to the bladder. The bladder wall is made of layers of tissue. Cancer that spreads through these layers of the bladder wall becomes more difficult to treat. What increases the risk? The following factors may make you more likely to develop this condition: ? Smoking. ? Working where there are risks (occupational exposures), such as working with rubber, leather, clothing fabric, dyes, chemicals, or paint. ? Being 55 years of age or older. ? Being male. ? Having long-term bladder inflammation. ? Having a history of cancer. This includes: ? A family history of bladder cancer. ? Having had bladder cancer before. ? Having had certain treatments for cancer before, such as: ? Medicines to kill cancer cells (chemotherapy). ? Strong X-ray beams or high-energy capsules to kill cancer cells and shrink tumors (radiation therapy). ? Having been exposed to arsenic. This is a poisonous substance. What are the signs or symptoms? Early symptoms of this condition include: ? Blood in your urine. ? Pain when urinating. ? Infections of your urinary system (urinary tract infections or UTIs) that happen often. ? Having to urinate sooner or more often than normal. Late symptoms of this condition include: ? Not being able to urinate. ? Pain on one side of your lower back. ? Loss of appetite. ? Weight loss. ? Tiredness (fatigue). ? Swelling in your feet. ? Bone pain. How is this diagnosed? This condition is diagnosed based on: ? Your medical history. ? A physical exam. ? Lab tests, such as urine tests. ? Imaging tests. ? Your symptoms. You may also have other tests or procedures, such as: ? A cystoscopy. This involves putting a narrow tube into your urethra. The urethra is the organ that carries urine from your bladder to the outside of your body. This procedure is done to view the lining of your bladder for tumors. ? A biopsy. This involve (more content not included)... Normal [facility] Patient Educationon 02-26-20 Patient Education Oncology Bladder Cancer Bladder cancer is a condition where abnormal tissue (a tumor) grows in the bladder. The bladder is the organ that holds urine. Two tubes (ureters) carry urine from the kidneys to the bladder. The bladder wall is made of layers of tissue. Cancer that spreads through these layers of the bladder wall becomes more difficult to treat. What increases the risk? The following factors may make you more likely to develop this condition: ? Smoking. ? Working where there are risks (occupational exposures), such as working with rubber, leather, clothing fabric, dyes, chemicals, or paint. ? Being 55 years of age or older. ? Being male. ? Having long-term bladder inflammation. ? Having a history of cancer. This includes: ? A family history of bladder cancer. ? Having had bladder cancer before. ? Having had certain treatments for cancer before, such as: ? Medicines to kill cancer cells (chemotherapy). ? Strong X-ray beams or high-energy capsules to kill cancer cells and shrink tumors (radiation therapy). ? Having been exposed to arsenic. This is a poisonous substance. What are the signs or symptoms? Early symptoms of this condition include: ? Blood in your urine. ? Pain when urinating. ? Infections of your urinary system (urinary tract infections or UTIs) that happen often. ? Having to urinate sooner or more often than normal. Late symptoms of this condition include: ? Not being able to urinate. ? Pain on one side of your lower back. ? Loss of appetite. ? Weight loss. ? Tiredness (fatigue). ? Swelling in your feet. ? Bone pain. How is this diagnosed? This condition is diagnosed based on: ? Your medical history. ? A physical exam. ? Lab tests, such as urine tests. ? Imaging tests. ? Your symptoms. You may also have other tests or procedures, such as: ? A cystoscopy. This involves putting a narrow tube into your urethra. The urethra is the organ that carries urine from your bladder to the outside of your body. This procedure is done to view the lining of your bladder for tumors. ? A biopsy. This involves removing a tissue sample to look at under a microscope to check for cancer. Blood tests or imaging tests may be needed. These show how far into the bladder wall cancer has grown, and if cancer has spread to any other parts of your body. Tests may include: ? CT scan. ? MRI. ? Bone scan. ? X-ray. How is this treated? Your health care provider may recommend one or more types of treatment based on the stage of your cancer. The most common treatments are: ? Surgery to remove the cancer. Types of surgeries include: ? Removing a tumor on the inside wall of the bladder (transurethral resection). ? Removing the bladder (cystectomy). ? Radiation therapy. This is often combined with chemotherapy. ? Chemotherapy. ? Immunotherapy. This uses medicines to help your body's disease-fighting system (immune system) destroy cancer cells. Follow these instructions at home: ? Take dmmx-emk-vrmdsro and prescription medicines only as told by your health care provider. ? If you were prescribed an antibiotic medicine, take it as told by your health care provider. Do not stop using the antibiotic even if you start to feel better. ? Eat a healthy diet. Some treatments might affect your appetite. ? Do not use any products that contain nicotine or tobacco. These products include cigarettes, chewing tobacco, and vaping devices, such as e-cigarettes. If you need help quitting, ask your health care provider. ? Consider joining a support group. This may help you learn to deal with the stress of having bladder cancer. ? Tell your cancer care team if you develop side effects. Your team may be able to recommend ways to get relief. ? Keep all follow-up visits. This is important. Where to find more information ? [place] [employer] (ACS): cancer.org ? National [employer] [place] (NCI): cancer.gov Contact a health care provider if: ? You have symptoms of a UTI. These include: ? Fever. ? Chills. ? Weakness. ? Muscle aches. ? Pain in your abdomen. ? Urge to urinate that is stronger and happens more often than normal. ? Burning in the bladder or urethra when you urinate. Get help right away if: ? There is blood in your urine. ? You cannot urinate. ? You have severe pain or other symptoms that do not go away. Summary ? Bladder cancer is a condition where tumors grow in the bladder. ? Diagnosis is based on your medical history, a physical exam, lab tests, imaging tests, and your symptoms. ? Your health care provider may recommend one or more types of treatment based on the stage of your cancer. ? Consider joining a support group. This may help you learn to deal with the stress of having bladder cancer. This information is not intended to replace advice given to you by your health care provider. Make sure you discuss any questions you have wi (more content not included)... Normal [facility] Provider Letteron 02-26-2024 Provider Letter (Inserted Image. Cassidy ble to display) February 26, 2024 ISHAAN HUSTONPIN [address] [place] [address] : 1965 To Whom It May Concern, Please excuse above patient from work. Date of Illness: From: 02/26/24 To: 02/26/24 May Return to Work On: 02/26/24 Restrictions: none Comments: Patient had an appointment with Dr. Donato Li 02/26/24. He may return to work 02/26/24 without instructions. Sincerely, [facility] [address], [address] [place] [id number] , option #3 Normal [facility] Urology Office/Clinic Noteon 02-26-2024 Urology Office/Clinic Note Chief Complaint bladder mass HPI Staff F/u to TURBT done 02/15/24 to review pathology Dx: bladder mass, gross hematuria, ED, BPH with urinary obstruction, renal cyst and former smoker PSA 01/26/21 - 1.02 01/18/22 - 0.84 01/13/23 - 1.29 12/13/23 - 1.95 Dysuria: no Incomplete bladder emptying: no Hematuria: no Frequency: no Urgency: no Nocturia: 2x Stream: a little weaker Leaking: no Post void dripping: no Wearing pads/ Depends: no Urge incontinence: no Stress incontinence: no Incontinence without Sensory Awareness: no Abdominal pain: no Flank pain: no Sexual complaints: no History of Present Illness Tests reviewed: reviewed op note, path I have reviewed the previous health record information and history for this patient from Dr. Li. I have reviewed and verified the staff HPI to be accurate for this encounter. There have been no associated fever, chills, flank pain, or blood in the urine. Denies any urinary infections since last encounter. Review of Systems PHQ Score Initial [...] See HPI. Physical Exam Vitals & Measurements T: 37 ?C(Temporal Artery) HR: 75(Peripheral) RR: 16 BP: 135/83 HT: 70 in HT: 178 cm WT: 93.5 kg WT: 205.7 lb BMI: 29.51 General Appearance: alert, no distress, well nourished, well developed male. Genitourinary: normal scrotum, normal testes, normal urethra, normal epididymis, normal vas deferens/spermatic cord. Flank Pain: none. Bladder: nonpalpable. Assessment/Plan Pt accompanied with an adult female today. 1. Bladder cancer (C67.9: Malignant neoplasm of bladder, unspecified) S/p TURBT 02/15/24 - High-grade papillary urothelial carcinoma. Focal superficial lamina propria invasion is id'd. Muscularis propria is noted, neg for invasion. No sample provided for UA today. Stream sometimes not as strong since the procedure. No gross hematuria. The pathology report was reviewed with the patient in detail today. The report confirms evidence of malignancy. Invasion explained. This was discussed with the patient and all questions were answered in terms the patient could understand completely, along with the implications. Discussed conservative management with BCG, including SEs. However, there is still a chance of recurrence. Pt does have myasthenia gravis which occasionally causes eyelid drooping and takes prednisone daily. Does follow with neurologist. Discussed potential sx from BCG/steroid/MG combination. Discussed there are other intravesical txs however they are not as effective as BCG and have less research. Pt understands the possibilities given his comorbidity and agrees to proceed with BCG since it is the best tx option. Also discussed if cancer were to recur and invade the muscle, more invasive tx would be necessary, one of the options being cystectomy. Discussed national BCG shortage, pt may need to go to [facility] if our office does not have enough doses. We will be making plans for further treatment and evaluation as the results demand. The patient understands and agrees with this plan. Follow up schedule 6 BCG txs or sooner if needed. Pt understands and agrees with plan. -Surveillance cysto after BCG. -Pt cleared to mow the lawn. 2. BPH with urinary obstruction (N40.1: Benign prostatic hyperplasia with lower urinary tract symptoms) S/p cysto, TURBT 02/15/24 - Bilobar obstruction. Not taking any BPH meds. 3. Former smoker (Z87.891: Personal history of nicotine dependence) Smoker x2 yrs. Quit 1982. [1] 4. Screening PSA (prostate specific antigen) (Z12.5: Encounter for screening for malignant neoplasm of prostate) PSA: 01/26/21 - 1.02 01/18/22 - 0.84 01/13/23 - 1.29 12/13/23 - 1.95 -Cont PSA checks w/ PCP [1] Follow-up With When Contact Information GUILLERMO PATEL, Donato Bar, URL [facility] [address] [place] [address]- Additional Instructions: schedule 6 BCG txs then surveillance cysto one month after course Patient Education Bladder Cancer I, Gwen Vidal, personally scribed for Dr. Li on 02/26/2024 09:39:00. . Documentation recorded by the scribe, Gwen Vidal, accurately reflects the services(s) I performed and decisions made by me. Authenticated by Dr. Li on 02/26/2024 10:04:31. Problem List/Past Medical History Ongoing Bladder cancer Bladder mass BPH with urinary obstruction Erectile dysfunction Former smoker Gross hematur (more content not included)... Normal [facility] Comment on above: Result Comment: Elec tronically Signed By: Donato LI MD\.br\Date and Time Signed: 02/26/24 10:04 EDT\.br\Electronically Co-Signed By: Gwen Vidal\.br\Date and Time Co-Signed: 02/26/24 09:54 EDT\.br\Electronically Co-Signed By: Gwen Vidal\.br\Date and Time Co-Signed: 02/26/24 09:54 EDT Ambulatory Visit Summaryon 0 02-21-2024 Ambulatory Visit Summary ISHAAN HANSON :1965 Visit Date:01/31/2024 Ambulatory Visit Instructions Your Care Team Primary Care Physician - DAYAMI LEWIS CNP This Is Your Medications List Misc Prescription (losartan 50 mg tablet) atorvastatin (atorvastatin 20 mg Tab) cyclobenzaprine (cyclobenzaprine 5 mg Tab) hydrochlorothiazide (hydrochlorothiazide 25 mg Tab) predniSONE (predniSONE 10 mg Tab) pyridostigmine (pyridostigmine 60 mg Tab) Procedures Performed Sinus node (2003). What to do next Scheduled Follow-Up Appointments Monday 12:15 PM EDT With: Donato LI MD Where: [facility] Normal [facility] Pathology Noteon 02-21-2024 Pathology Note [id number]#1.00T IFF Normal [facility] Patient Letter FTon 2023 Patient Letter [facility] [address] [place] [address] February 21, 2024 ISHAAN HANSON [address] [place] [address] : 1965 ISHAAN HANSON was evaluated at [facility] 02/21/2024 10:32:40 Restrictions: Light duty from 02/21/24-02/26/24. Pt will be reevaluated at that time and further instructions will be forthcoming. Provider Signature: Marie Morgan PA-C Physician Assistant Clinical Director [facility] [address] [place] [address] Normal [facility] Patient Letter [facility] [address] [place] [id number] February 21, 2024 [place] [address] : 1965 ISHAAN HANSON was evaluated at [facility] 02/21/2024 10:32:40 Restrictions: Light duty from 02/21/24-02/26/24. Pt will be reevaluated at that time and further instructions will be forthcoming. Provider Signature: Marie Morgan PA-C Physician Assistant Clinical Director [facility] [address] [place] [address] [facility] Operative Reporton Operative Report [id number]#1.00T IFF Normal [facility] Kendrick 02-15-2024 L Specimen: [id number] Received: 02/16/24 Status: LALIT Byers Num: [id number] Spec Type: Surgical Subm Dr: Donato Li MD Tissues: A Urinary Bladder - TUR (BLADDER TUMOR) Procedures: HE/5, Gross/Micro L5 Age/ Patient Sex Location Account Attending Physician Ishaan Hanson 58/M [place] [id number] Donato Li MD SPEC NUM: [id number] RECD: 02/16/24 STATUS: LALIT BYERS NUM: [id number] GABBI: 02/15/[address]: Donato Li MD ENTERED: 02/16/[address] [facility] [address]: Haylee [place] SPEC TYPE: Surgical DEPT: RODNEY ETIENNE ORDERED: HE/5, Gross/Micro L5 ORDERED: HE/5, Gross/Micro L5 Pathological Diagnosis Tumor, urinary bladder, transurethral resection: High-grade papillary Urothelial carcinoma. Focal superficial lamina propria invasion is identified. Muscularis propria is noted, negative for invasion. Clinical Information Bladder tumors and/or lesions, blood in the urine. Gross Description Received in formalin, labeled with the patient's name, date of and bladder tumors is an aggregate of chester-pink friable tissue collectively measuring 2.6 x 2.5 x 1.7 cm. No areas of discoloration or abnormality are identified. The specimen is entirely submitted in A1?A4. CPT Codes 41041 Specimen: [id number] Received: 02/16/24 Status: LALIT Charli Num: [id number] Spec Type: Surgical Subm Dr: Donato Li MD Tissues: A Urinary Bladder - TUR (BLADDER TUMOR) Procedures: HE/Parveen, Gross/Micro L5 Patient: ValentinIshaan [id number] (Continued) Signed (signature on file) Yandy Medina MD 02/19/24 1810 Normal [facility] Lab Reportson 02-14-2024 Lab Reports [id number]#1.00TI FF Normal [facility] Lab Reports [id number]#1.00T IFF Normal [facility] Lab Reports [id number]#1.00TI FF Normal [facility] RAD - MISCon 02-14-2024 RAD - MISC [id number]#1.00T IFF Normal [facility] Consent for Procedure/Surger yon 02-13-2024 Consent for Procedure/Surgery [id number]#1.00TI FF Normal [facility] Lab Reportson 02-13-2024 Lab Reports [id number]#1.00T IFF Normal [facility] Lab Reports [id number]#1.00T IFF Normal [facility] RAD - Ultrasound Reporton RAD - Ultrasound Report [id number]#1.00TI FF [facility] Ambulatory Visit Summaryon 0 02-12-2024 Ambulatory Visit Summary ISHAAN HANSON :1965 Visit Date:02/12/2024 Ambulatory Visit Instructions Your Diagnosis Bladder mass Gross hematuria Erectile dysfunction BPH with urinary obstruction Renal cyst Former smoker Your Care Team Attending Physician - Donato LI MD Primary Care Physician - RAJ [...] Monday 9:30 AM EDT Where: [facility] Ambulatory Visit Summary ISHAAN HANSON :1965 Visit Date:02/12/2024 Ambulatory Visit Instructions Your Diagnosis Bladder mass Gross hematuria Erectile dysfunction BPH with urinary obstruction Renal cyst Former smoker Your Care Team Attending Physician - Donato LI MD Primary Care Physician - RAJ [...] Schedule the Following Appointments Follow Up with Donato LI MD, URL When: Comments: sched cysto/TURBT Where: [facility] [address] [place] [phone] Medications What How Much When Instructions Unchanged [...] these instructions at home: Medicines ? Take loaq-poo-bonoxfh and prescription medicines only as told by [...] keep your urine pale yellow. ? Take lwjy-sma-stlxrva or prescription medicines. ? Eat foods that [...] by your (more content not included)... Normal [facility] Patient Educationon 02-12-20 Patient Education [...] these instructions at home: Medicines ? Take keuz-ywl-mznmgam and prescription medicines only as told by [...] keep your urine pale yellow. ? Take eirm-pjj-wlkjntq or prescription medicines. ? Eat foods that [...] pain in your lower abdomen. ? Take lokk-jki-mtpssls and prescription medicines only as told by [...] care pr (more content not included)... Normal [facility] CBC AUTO DIFFon 01-13-2023 BASO # 0.0 103/ul Normal 0.0-0.1 [facility] Comment on above: Performed By: #### C BC #### [facility] [address] [place] [address] [address] Danielle Harden Basophils/100 WBC (Bld) 0.2 % Normal 0.2-2.0 [facility] Comment on above: Performed By: #### C BC #### [facility] [address] [address] [address] Danielle Harden EO # 0.2 103/ul Normal 0.0-0.7 [facility] Comment on above: Performed By: #### C BC #### [facility] [address] [address] [address] Danielle Harden Eosinophils/100 WBC (Bld) 2.7 % Normal 0.9-7.0 [facility] Comment on above: Performed By: #### C BC #### [facility] [address] [place] [address] Dr. Danielle Harden Erythrocyte distribution width (RBC) [Ratio] 14.1 % Normal 11.0-15.0 [facility] Comment on above: Performed By: #### C BC #### [facility] [address] [place] [address] Dr. Danielle Harden Hematocrit (Bld) [Volume fraction] 39.1 % Critically low 42.0-54.0 [facility] Comment on above: Performed By: #### C BC #### [facility] [address] [place] [address] Dr. Danielle Harden Hemoglobin (Bld) [Mass/Vol] 13.0 g/dL Critically low 14.0-18.0 [facility] Comment on above: Performed By: #### C BC #### [facility] [address] [place] [address] Dr. Danielle Harden IG # 0.02 10e3/ul Normal 0.00-0.03 [facility] Comment on above: Performed By: #### C BC #### [facility] [address] [place] [address] Dr. Danielle Harden IG % 0.2 % Normal 0.0-0.5 [facility] Comment on above: Performed By: #### C BC #### [facility] [address] [place] [address] Dr. Danielle Harden LYMPH # 2.6 103/ul Normal 1.2-3.8 [facility] Comment on above: Performed By: #### C BC #### [facility] [address] [place] [address] Dr. Danielle Harden Lymphocytes/100 WBC (Bld) 31.3 % Normal 20.5-60.0 [facility] Comment on above: Performed By: #### C BC #### [facility] [address] [place] [address] Dr. Danielle Harden MANUAL DIFF REQ NO Normal [facility] Comment on above: Performed By: #### C BC #### [facility] [address] [place] [address] Dr. Danielle Harden MCH (RBC) [Entitic mass] 28.6 pg Normal 25.9-34.0 [facility] Comment on above: Performed By: #### C BC #### [facility] [address] [address] [address] Danielle Harden MCHC (RBC) [Mass/Vol] 33.2 g/dL Normal 29.9-35.2 [facility] Comment on above: Performed By: #### C BC #### [facility] [address] [address] [address] Danielle Harden MCV (RBC) [Entitic vol] 86.1 fL Normal 80.0-94.0 [facility] Comment on above: Performed By: #### C BC #### [facility] [address] [place] [address] Dr. Danielle Harden MONO # 0.8 103/ul Normal 0.3-0.8 [facility] Comment on above: Performed By: #### C BC #### [facility] [address] [place] [address] Dr. Danielle Harden Monocytes/100 WBC (Bld) 9.4 % Normal 1.7-12.0 [facility] Comment on above: Performed By: #### C BC #### [facility] [address] [place] [address] Dr. Danielle Harden NEUT # 4.6 103/ul Normal 1.4-6.5 [facility] Comment on above: Performed By: #### C BC #### [facility] [address] [place] [address] Dr. Danielle Harden Neutrophils/100 WBC (Bld) 56.2 % Normal 43.0-75.0 [facility] Comment on above: Performed By: #### C BC #### [facility] [address] [address] [address] Danielle Harden Platelet mean volume (Bld) [Entitic vol] 9.7 fL Normal 9.5-13.5 [facility] Comment on above: Performed By: #### C BC #### [facility] [address] [address] [address] Danielle Harden PLT 269 103/ul Normal 150-450 [facility] Comment on above: Performed By: #### C BC #### [facility] [address] [address] [address] Danielle Harden RBC 4.54 106/ul Critically low 4.70-6.10 [facility] Comment on above: Performed By: #### C BC #### [facility] [address] [address] [address] Danielle Harden WBC 8.2 103/ul Normal 4.0-11.0 [facility] Comment on above: Performed By: #### C BC #### [facility] [address] [place] [address] Dr. Danielle Harden LIPID PROFILEon 01-13-2023 CHOL-HDL RATIO NORM SEE BELOW Normal [facility] Comment on above: Result Comment: 3.3 - 4.4 LOW RISK 4.4 - 7.1 AVERAGE RISK 7.1 - 11.0 MODERATE RISK >11.0 HIGH RISK Performed By: #### C MP, MG #### [facility] [address] [place] [address] Dr. Danielle Harden Cholesterol [Mass/Vol] 182 mg/dL Normal <=200 [facility] Comment on above: Performed By: #### C MP, MG #### [facility] [address] [place] [address] Dr. Danielle Harden Cholesterol in HDL [Mass/Vol] 76 mg/dL Critically high 40-60 [facility] Comment on above: Performed By: #### C MP, MG #### [facility] [address] [place] [address] Dr. Danielle Harden Cholesterol in LDL [Mass/Vol] 78.2 mg/dL Normal [facility] Comment on above: Performed By: #### C MP, MG #### [facility] [address] [place] [address] Dr. Danielle Harden Cholesterol.total/ Cholesterol in HDL [Mass ratio] 2.4 {ratio} Normal [facility] Comment on above: Performed By: #### C MP, MG #### [facility] [address] [place] [address] Dr. Danielle Harden HDL NORMAL > or = 60 mg/dl - LO W CARDIOVASCULAR RISK <40 mg/dl - HIGH CARDIOVASCULAR RISK Normal [facility] Comment on above: Performed By: #### C MP, MG #### [facility] [address] [place] [address] Dr. Danielle Harden LDL CALC NORMAL SEE BELOW Normal [facility] Comment on above: Result Comment: <100 mg/dl OPTIMAL 100 - 129 mg/dl NEAR OR ABOVE OPTIMAL 130 - 159 mg/dl BORDERLINE HIGH 160 - 189 mg/dl HIGH >190 mg/dl VERY HIGH Performed By: #### C MP, MG #### [facility] [address] [place] [address] Dr. Danielle Harden Triglyceride [Mass/Vol] 139 mg/dL Normal <=150 [facility] Comment on above: Performed By: #### C MP, MG #### [facility] [address] [place] [address] Dr. Danielle Harden VLDL CALC 27.8 mg/dL Normal [facility] Comment on above: Performed By: #### C MP, MG #### [facility] [address] [place] [address] Dr. Danielle Harden PROF 14(COMP METB)on 023 Albumin [Mass/Vol] 4.0 g/dL Normal 3.4-5.0 [facility] Comment on above: Performed By: #### C MP, T4, LIPID, TSH #### [facility] [address] [place] [address] Dr. Danielle Harden Albumin/Globulin [Mass ratio] 1.0 {ratio} Normal [facility] Comment on above: Performed By: #### C MP, T4, LIPID, TSH #### [facility] [address] [place] [address] Dr. Danielle Harden ALP [Catalytic activity/Vol] 58 U/L Normal 46-116 [facility] Comment on above: Performed By: #### C MP, T4, LIPID, TSH #### [facility] [address] [address] [address] Danielle Harden ALT [Catalytic activity/Vol] 33 U/L Normal 16-63 [facility] Comment on above: Performed By: #### C MP, T4, LIPID, TSH #### [facility] [address] [address] [address] Danielle Harden Anion gap [Moles/Vol] 11.1 mmol/L Normal [facility] Comment on above: Performed By: #### C MP, T4, LIPID, TSH #### [facility] [address] [place] [address] Dr. Danielle Harden AST [Catalytic activity/Vol] 14 U/L Critically low 15-37 [facility] Comment on above: Performed By: #### C MP, T4, LIPID, TSH #### [facility] [address] [address] [address] Danielle Harden Bilirubin [Mass/Vol] 0.5 mg/dL Normal 0.2-1.0 [facility] Comment on above: Performed By: #### C MP, T4, LIPID, TSH #### [facility] [address] [address] [address] Danielle Harden Calcium [Mass/Vol] 9.2 mg/dL Normal 8.5-10.1 [facility] Comment on above: Performed By: #### C MP, T4, LIPID, TSH #### [facility] [address] [place] [address] Dr. Danielle Harden Chloride [Moles/Vol] 102 mmol/L Normal 98-107 [facility] Comment on above: Performed By: #### C MP, T4, LIPID, TSH #### [facility] [address] [place] [address] Dr. Danielle Harden CO2 [Moles/Vol] 28.1 mmol/L Normal 21.0-32.0 [facility] Comment on above: Performed By: #### C MP, T4, LIPID, TSH #### [facility] [address] [address] [address] Danielle Harden Creatinine [Mass/Vol] 0.87 mg/dL Normal 0.70-1.30 [facility] Comment on above: Performed By: #### C MP, T4, LIPID, TSH #### [facility] [address] [address] [address] Danielle Harden EGFR-AF KENYAN >60 Normal >=60 [facility] Comment on above: Performed By: #### C MP, T4, LIPID, TSH #### [facility] [address] [address] [address] Danielle Harden EGFR-NON AF KENYAN >60 Normal >=60 [facility] Comment on above: Performed By: #### C MP, T4, LIPID, TSH #### [facility] [address] [address] [address] Danielle Harden Globulin (S) [Mass/Vol] 4.2 g/dL Normal [facility] Comment on above: Performed By: #### C MP, T4, LIPID, TSH #### [facility] [address] [place] [address] Dr. Danielle Harden Glucose [Mass/Vol] 95 mg/dL Normal 74-106 [facility] Comment on above: Performed By: #### C MP, T4, LIPID, TSH #### [facility] [address] [place] [address] Dr. Danielle Harden Potassium [Moles/Vol] 3.2 mmol/L Critically low 3.5-5.1 [facility] Comment on above: Performed By: #### C MP, T4, LIPID, TSH #### [facility] [address] [place] [address] Dr. Danielle Harden Protein [Mass/Vol] 8.2 g/dL Normal 6.4-8.2 [facility] Comment on above: Performed By: #### C MP, T4, LIPID, TSH #### [facility] [address] [place] [address] Dr. Danielle Harden Sodium [Moles/Vol] 138 mmol/L Normal 136-145 [facility] Comment on above: Performed By: #### C MP, T4, LIPID, TSH #### [facility] [address] [place] [address] Dr. Danielle Harden Urea nitrogen [Mass/Vol] 21.0 mg/dL Critically high 7.0-18.0 [facility] Comment on above: Performed By: #### C MP, T4, LIPID, TSH #### [facility] [address] [place] [address] Dr. Danielle Harden Urea nitrogen/Creatinin e [Mass ratio] 24.1 mg/mg Normal [facility] Comment on above: Performed By: #### C MP, T4, LIPID, TSH #### [facility] [address] [place] [address] Dr. Danielle Harden T4on 01-13-2023 T4 [Mass/Vol] 9.50 ug/dL Normal 4.50-12.10 [facility] Comment on above: Performed By: #### C MP, MG #### [facility] [address] [place] [address] Dr. Danielle Harden TSHon 01-13-2023 TSH 2.226 uIU/mL Normal 0.358-3.740 [facility] Comment on above: Performed By: #### C MP, MG #### [facility] [address] [place] [address] Dr. Danielle Harden MAGNESIUMon 08-17-2022 Magnesium [Mass/Vol] 2.0 mg/dL Normal 1.8-2.4 [facility] Comment on above: Performed By: #### C MP, MG #### [facility] [address] [place] [address] Dr. Danielle Harden PROF 14(COMP METB)on 022 Albumin [Mass/Vol] 3.6 g/dL Normal 3.4-5.0 [facility] Comment on above: Performed By: #### C MP, MG #### [facility] [address] [place] [address] Dr. Danielle Harden Albumin/Globulin [Mass ratio] 1.1 {ratio} Normal [facility] Comment on above: Performed By: #### C MP, MG #### [facility] [address] [place] [address] Dr. Danielle Harden ALP [Catalytic activity/Vol] 61 U/L Normal 46-116 [facility] Comment on above: Performed By: #### C MP, MG #### [facility] [address] [place] [address] Dr. Danielle Harden ALT [Catalytic activity/Vol] 23 U/L Normal 16-63 [facility] Comment on above: Performed By: #### C MP, MG #### [facility] [address] [place] [address] Dr. Danielle Harden Anion gap [Moles/Vol] 10.4 mmol/L Normal [facility] Comment on above: Performed By: #### C MP, MG #### [facility] [address] [place] [address] Dr. Danielle Harden AST [Catalytic activity/Vol] 13 U/L Critically low 15-37 [facility] Comment on above: Performed By: #### C MP, MG #### [facility] [address] [place] [address] Dr. Danielle Harden Bilirubin [Mass/Vol] 0.2 mg/dL Normal 0.2-1.0 [facility] Comment on above: Performed By: #### C MP, MG #### [facility] [address] [place] [address] Dr. Danielle Harden Calcium [Mass/Vol] 8.8 mg/dL Normal 8.5-10.1 [facility] Comment on above: Performed By: #### C MP, MG #### [facility] [address] [place] [address] Dr. Danielle Harden Chloride [Moles/Vol] 102 mmol/L Normal 98-107 [facility] Comment on above: Performed By: #### C MP, MG #### [facility] [address] [place] [address] Dr. Danielle Harden CO2 [Moles/Vol] 28.1 mmol/L Normal 21.0-32.0 [facility] Comment on above: Performed By: #### C MP, MG #### [facility] [address] [place] [address] Dr. Danielle Harden Creatinine [Mass/Vol] 1.06 mg/dL Normal 0.70-1.30 [facility] Comment on above: Performed By: #### C MP, MG #### [facility] [address] [address] [address] Danielle Harden EGFR-AF KENYAN >60 Normal >=60 [facility] Comment on above: Performed By: #### C MP, MG #### [facility] [address] [address] [address] Danielle Harden EGFR-NON AF KENYAN >60 Normal >=60 [facility] Comment on above: Performed By: #### C MP, MG #### [facility] [address] [address] [address] Danielle Harden Globulin (S) [Mass/Vol] 3.3 g/dL Normal [facility] Comment on above: Performed By: #### C MP, MG #### [facility] [address] [place] [address] Dr. Danielle Harden Glucose [Mass/Vol] 93 mg/dL Normal 74-106 [facility] Comment on above: Performed By: #### C MP, MG #### [facility] [address] [place] [address] Dr. Danielle Harden Potassium [Moles/Vol] 3.5 mmol/L Normal 3.5-5.1 [facility] Comment on above: Performed By: #### C MP, MG #### [facility] [address] [place] [address] Dr. Danielle Harden Protein [Mass/Vol] 6.9 g/dL Normal 6.4-8.2 [facility] Comment on above: Performed By: #### C MP, MG #### [facility] [address] [address] [address] Danielle Harden Sodium [Moles/Vol] 137 mmol/L Normal 136-145 [facility] Comment on above: Performed By: #### C MP, MG #### [facility] [address] [address] [address] Danielle Harden Urea nitrogen [Mass/Vol] 23.0 mg/dL Critically high 7.0-18.0 [facility] Comment on above: Performed By: #### C MP, MG #### [facility] [address] [address] [address] Danielle Harden Urea nitrogen/Creatinin e [Mass ratio] 21.7 mg/mg Normal [facility] Comment on above: Performed By: #### C MP, MG #### [facility] [address] [address] [address] Danielle Harden [facility] 04-07-2022 Albumin [Mass/Vol] 4.3 g/dL Normal 3.6-5.1 [facility] Comment on above: Performed By: #### 7 600, 59996 #### [facility] [address] [place] [address] Cleaner Window: Darwin Ray MD Albumin/Globulin [Mass ratio] 1.9 {ratio} Normal 1.0-2.5 [facility] Comment on above: Performed By: #### 7 600, 15238 #### [facility] [address] [place] [address] Cleaner Window: Darwin Ray MD ALP [Catalytic activity/Vol] 62 U/L Normal 35-144 [facility] Comment on above: Performed By: #### 7 600, 37813 #### [facility] [address] [place] [address] Cleaner Window: Darwin Ray MD ALT [Catalytic activity/Vol] 18 U/L Normal 9-46 [facility] Comment on above: Performed By: #### 7 600, 27521 #### [facility] [address] [place] [address] Cleaner Window: Darwin Ray MD AST [Catalytic activity/Vol] 16 U/L Normal 10-35 [facility] Comment on above: Performed By: #### 7 600, 18752 #### [facility] [address] [place] [address] Cleaner Window: Darwin Ray MD Bilirubin [Mass/Vol] 0.3 mg/dL Normal 0.2-1.2 [facility] Comment on above: Performed By: #### 7 600, 81038 #### [facility] [address] [place] [address] Cleaner Window: Darwin Ray MD BUN/CREATININE RATIO NOT APPLICABLE Normal 6-22 [facility] Comment on above: Performed By: #### 7 600, 82308 #### [facility] [address] [place] [address] Cleaner Window: Darwin Ray MD Calcium [Mass/Vol] 9.3 mg/dL Normal 8.6-10.3 [facility] Comment on above: Performed By: #### 7 600, 53583 #### [facility] [address] [place] [address] Cleaner Window: Darwin Ray MD Chloride [Moles/Vol] 107 mmol/L Normal 98-110 [facility] Comment on above: Performed By: #### 7 600, 16203 #### [facility] [address] [place] [address] Cleaner Window: Darwin Ray MD CO2 [Moles/Vol] 27 mmol/L Normal 20-32 [facility] Comment on above: Performed By: #### 7 600, 65262 #### [facility] [address] [place] [address] Cleaner Window: Darwin Ray MD Creatinine [Mass/Vol] 0.90 mg/dL Normal 0.70-1.30 [facility] Comment on above: Performed By: #### 7 600, 32443 #### [facility] [address] [place] [address] Cleaner Window: Darwin Ray MD GFR/1.73 sq M.predicted among non-blacks MDRD (S/P/Bld) [Vol rate/Area] 100 mL/min/{1.73_m2} Normal > OR = 60 [facility] Comment on above: Result Comment: The eGFR is based on the CKD-EPI 2020 equation. To calculate the new eGFR from a previous Creatinine or Cystatin C result, go to https://www.kidney.org/professionals/ kdoqi/gfr%5Fcalculator Performed By: #### 7 600, 10745 #### [facility] [address] [place] [address] Cleaner Window: Darwin Ray MD Globulin (S) [Mass/Vol] 2.3 g/dL Normal 1.9-3.7 [facility] Comment on above: Performed By: #### 7 600, 13501 #### [facility] [address] [place] [address] Cleaner Window: Darwin Ray MD Glucose [Mass/Vol] 102 mg/dL High 65-99 [facility] Comment on above: Result Comment: Fasting reference interval For someone without known diabetes, a glucose value between 100 and 125 mg/dL is consistent with prediabetes and should be confirmed with a follow-up test. Performed By: #### 7 600, 49882 #### [facility] [address] [place] [address] Cleaner Window: Darwin Ray MD Potassium [Moles/Vol] 3.6 mmol/L Normal 3.5-5.3 [facility] Comment on above: Performed By: #### 7 600, 21006 #### [facility] [address] [place] [address] Cleaner Window: Darwin Ray MD Protein [Mass/Vol] 6.6 g/dL Normal 6.1-8.1 [facility] Comment on above: Performed By: #### 7 600, 61232 #### [facility] [address] [place] [address] Cleaner Window: Darwin Ray MD Sodium [Moles/Vol] 141 mmol/L Normal 135-146 [facility] Comment on above: Performed By: #### 7 600, 29298 #### [facility] [address] [place] [address] Cleaner Window: Darwin Ray MD Urea nitrogen [Mass/Vol] 23 mg/dL Normal 7-25 [facility] Comment on above: Performed By: #### 7 600, 74314 #### [facility] [address], [address] [place] [address] Cleaner Window: Darwin Ray MD LIPID PANEL, [facility] 03-12 Cholesterol [Mass/Vol] 144 mg/dL Normal <200 [facility] Comment on above: Order Comment: FASTI NG:YES FASTING: YES Performed By: #### 7 600, 63008 #### [facility] [address], [address] [place] [address] Cleaner Window: Darwin Ray MD Cholesterol in HDL [Mass/Vol] 43 mg/dL Normal > OR = 40 [facility] Comment on above: Order Comment: FASTI NG:YES FASTING: YES Performed By: #### 7 600, 01150 #### [facility] [address], [address] [place] [address] Cleaner Window: Darwin Ray MD Cholesterol.total/ Cholesterol in HDL [Mass ratio] 3.3 {ratio} Normal <5.0 [facility] Comment on above: Order Comment: FASTI NG:YES FASTING: YES Performed By: #### 7 600, 94616 #### [facility] [address], [address] [place] [address] Cleaner Window: Darwin Ray MD LDL-CHOLESTEROL Normal [facility] [...] LDL-C. Jass MELGOZA et al. RON. 2013;310(19): 8241-5320 (http://education.[employer].First [employer]/faq/FNB667) Performed By: #### 7 600, 25584 #### [facility] [place] [address] [facility], [address] [place] [address] Cleaner Window: Darwin Ray MD NON HDL CHOLESTEROL 101 mg/dL (calc) Normal <130 [facility] Comment on above: Order Comment: FASTI NG:YES FASTING: YES Result Comment: For patients with diabetes plus 1 major ASCVD risk factor, treating to a non-HDL-C goal of <100 mg/dL (LDL-C of <70 mg/dL) is considered a therapeutic option. Performed By: #### 7 600, 21092 #### [facility] [address] [facility], [address] [phone] Cleaner Window: Darwin Ray MD Triglyceride [Mass/Vol] 428 mg/dL High <150 [facility] Comment on above: Order Comment: FASTI NG:YES FASTING: YES Result Comment: If a non-fasting specimen was collected, consider repeat triglyceride testing on a fasting specimen if clinically indicated. Danica et al. J. of Clin. Lipidol. 2015;9:129-169. Performed By: #### 7 600, 95258 #### [facility] [address] [facility], [address] [place] [address] Cleaner Window: Darwin Ray MD CBC AUTO DIFFon 01-18-2022 BASO # 0.0 103/ul Normal 0.0-0.1 [facility] Comment on above: Performed By: #### C BC #### [facility] [address] [address] [address] Danielle Harden Basophils/100 WBC (Bld) 0.6 % Normal 0.2-2.0 [facility] Comment on above: Performed By: #### C BC #### [facility] [address] [address] [address] Danielle Harden EO # 0.3 103/ul Normal 0.0-0.7 [facility] Comment on above: Performed By: #### C BC #### [facility] [address] [address] [address] Danielle Harden Eosinophils/100 WBC (Bld) 3.8 % Normal 0.9-7.0 [facility] Comment on above: Performed By: #### C BC #### [facility] [address] [place] [address] Dr. Danielle Harden Erythrocyte distribution width (RBC) [Ratio] 13.6 % Normal 11.0-15.0 [facility] Comment on above: Performed By: #### C BC #### [facility] [address] [place] [address] Dr. Danielle Harden Hematocrit (Bld) [Volume fraction] 39.3 % Critically low 42.0-54.0 [facility] Comment on above: Performed By: #### C BC #### [facility] [address] [place] [address] Dr. Danielle Harden Hemoglobin (Bld) [Mass/Vol] 12.5 g/dL Critically low 14.0-18.0 [facility] Comment on above: Performed By: #### C BC #### [facility] [address] [place] [address] Dr. Danielle Harden IG # 0.02 10e3/ul Normal 0.00-0.03 [facility] Comment on above: Performed By: #### C BC #### [facility] [address] [place] [address] Dr. Danielle Harden IG % 0.3 % Normal 0.0-0.5 [facility] Comment on above: Performed By: #### C BC #### [facility] [address] [place] [address] Dr. Danielle Harden LYMPH # 2.1 103/ul Normal 1.2-3.8 [facility] Comment on above: Performed By: #### C BC #### [facility] [address] [place] [address] Dr. Danielle Harden Lymphocytes/100 WBC (Bld) 32.0 % Normal 20.5-60.0 [facility] Comment on above: Performed By: #### C BC #### [facility] [address] [place] [address] Dr. Danielle Harden MANUAL DIFF REQ NO Normal [facility] Comment on above: Performed By: #### C BC #### [facility] [address] [place] [address] Dr. Danielle Harden MCH (RBC) [Entitic mass] 27.8 pg Normal 25.9-34.0 [facility] Comment on above: Performed By: #### C BC #### [facility] [address] [place] [address] Dr. Danielle Harden MCHC (RBC) [Mass/Vol] 31.8 g/dL Normal 29.9-35.2 [facility] Comment on above: Performed By: #### C BC #### [facility] [address] [place] [address] Dr. Danielle Harden MCV (RBC) [Entitic vol] 87.3 fL Normal 80.0-94.0 [facility] Comment on above: Performed By: #### C BC #### [facility] [address] [place] [address] Dr. Danielle Harden MONO # 0.5 103/ul Normal 0.3-0.8 [facility] Comment on above: Performed By: #### C BC #### [facility] [address] [place] [address] Dr. Danielle Harden Monocytes/100 WBC (Bld) 7.7 % Normal 1.7-12.0 [facility] Comment on above: Performed By: #### C BC #### [facility] [address] [place] [address] Dr. Danielle Harden NEUT # 3.7 103/ul Normal 1.4-6.5 [facility] Comment on above: Performed By: #### C BC #### [facility] [address] [place] [address] Dr. Danielle Harden Neutrophils/100 WBC (Bld) 55.6 % Normal 43.0-75.0 [facility] Comment on above: Performed By: #### C BC #### [facility] [address] [place] [address] Dr. Danielle Harden Platelet mean volume (Bld) [Entitic vol] 10.3 fL Normal 9.5-13.5 [facility] Comment on above: Performed By: #### C BC #### [facility] [address] [address] [address] Danielle Harden PLT 274 103/ul Normal 150-450 [facility] Comment on above: Performed By: #### C BC #### [facility] [address] [address] [address] Danielle Harden RBC 4.50 106/ul Critically low 4.70-6.10 [facility] Comment on above: Performed By: #### C BC #### [facility] [address] [address] [address] Danielle Harden WBC 6.6 103/ul Normal 4.0-11.0 [facility] Comment on above: Performed By: #### C BC #### [facility] [address] [place] [address] Dr. Danielle Harden LIPID PROFILEon 01-18-2022 CHOL-HDL RATIO NORM SEE BELOW Normal [facility] Comment on above: Result Comment: 3.3 - 4.4 LOW RISK 4.4 - 7.1 AVERAGE RISK 7.1 - 11.0 MODERATE RISK >11.0 HIGH RISK Performed By: #### L IPID, T4, TSH, CMP #### [facility] [address] [place] [address] Dr. Danielle Harden Cholesterol [Mass/Vol] 140 mg/dL Normal <=200 [facility] Comment on above: Performed By: #### L IPID, T4, TSH, CMP #### [facility] [address] [place] [address] Dr. Danielle Harden Cholesterol in HDL [Mass/Vol] 55 mg/dL Normal 40-60 [facility] Comment on above: Performed By: #### L IPID, T4, TSH, CMP #### [facility] [address] [place] [address] Dr. Danielle Harden Cholesterol in LDL [Mass/Vol] 60.2 mg/dL Normal [facility] Comment on above: Performed By: #### L IPID, T4, TSH, CMP #### [facility] [address] [place] [address] Dr. Danielle Harden Cholesterol.total/ Cholesterol in HDL [Mass ratio] 2.5 {ratio} Normal [facility] Comment on above: Performed By: #### L IPID, T4, TSH, CMP #### [facility] [address] [address] [address] Danielle Harden HDL NORMAL > or = 60 mg/dl - LO W CARDIOVASCULAR RISK <40 mg/dl - HIGH CARDIOVASCULAR RISK Normal [facility] Comment on above: Performed By: #### L IPID, T4, TSH, CMP #### [facility] [address] [place] [address] Dr. Danielle Harden LDL CALC NORMAL SEE BELOW Normal [facility] Comment on above: Result Comment: <100 mg/dl OPTIMAL 100 - 129 mg/dl NEAR OR ABOVE OPTIMAL 130 - 159 mg/dl BORDERLINE HIGH 160 - 189 mg/dl HIGH >190 mg/dl VERY HIGH Performed By: #### L IPID, T4, TSH, CMP #### [facility] [address] [place] [address] Dr. Danielle Harden Triglyceride [Mass/Vol] 124 mg/dL Normal <=150 [facility] Comment on above: Performed By: #### L IPID, T4, TSH, CMP #### [facility] [address] [place] [address] Dr. Danielle Harden VLDL CALC 24.8 mg/dL Normal [facility] Comment on above: Performed By: #### L IPID, T4, TSH, CMP #### [facility] [address] [place] [address] Dr. Danielle Harden PROF 14(COMP METB)on 022 Albumin [Mass/Vol] 4.0 g/dL Normal 3.4-5.0 [facility] Comment on above: Performed By: #### L IPID, T4, TSH, CMP #### [facility] [address] [place] [address] Dr. Danielle Harden Albumin/Globulin [Mass ratio] 1.2 {ratio} Normal [facility] Comment on above: Performed By: #### L IPID, T4, TSH, CMP #### [facility] [address] [address] [address] Danielle Harden ALP [Catalytic activity/Vol] 58 U/L Normal 46-116 [facility] Comment on above: Performed By: #### L IPID, T4, TSH, CMP #### [facility] [address] [place] [address] Dr. Danielle Harden ALT [Catalytic activity/Vol] 29 U/L Normal 16-63 [facility] Comment on above: Performed By: #### L IPID, T4, TSH, CMP #### [facility] [address] [place] [address] Dr. Danielle Harden Anion gap [Moles/Vol] 11.6 mmol/L Normal [facility] Comment on above: Performed By: #### L IPID, T4, TSH, CMP #### [facility] [address] [place] [address] Dr. Danielle Harden AST [Catalytic activity/Vol] 16 U/L Normal 15-37 [facility] Comment on above: Performed By: #### L IPID, T4, TSH, CMP #### [facility] [address] [place] [address] Dr. Danielle Harden Bilirubin [Mass/Vol] 0.6 mg/dL Normal 0.2-1.0 [facility] Comment on above: Performed By: #### L IPID, T4, TSH, CMP #### [facility] [address] [place] [address] Dr. Danielle Harden Calcium [Mass/Vol] 9.1 mg/dL Normal 8.5-10.1 [facility] Comment on above: Performed By: #### L IPID, T4, TSH, CMP #### [facility] [address] [place] [address] Dr. Danielle Harden Chloride [Moles/Vol] 104 mmol/L Normal 98-107 [facility] Comment on above: Performed By: #### L IPID, T4, TSH, CMP #### [facility] [address] [place] [address] Dr. Danielle Harden CO2 [Moles/Vol] 27.3 mmol/L Normal 21.0-32.0 [facility] Comment on above: Performed By: #### L IPID, T4, TSH, CMP #### [facility] [address] [place] [address] Dr. Danielle Harden Creatinine [Mass/Vol] 0.78 mg/dL Normal 0.70-1.30 [facility] Comment on above: Performed By: #### L IPID, T4, TSH, CMP #### [facility] [address] [place] [address] Dr. Danielle Harden EGFR-AF KENYAN >60 Normal >=60 [facility] Comment on above: Performed By: #### L IPID, T4, TSH, CMP #### [facility] [address] [place] [address] Dr. Danielle Harden EGFR-NON AF KENYAN >60 Normal >=60 [facility] Comment on above: Performed By: #### L IPID, T4, TSH, CMP #### [facility] [address] [place] [address] Dr. Danielle Harden Globulin (S) [Mass/Vol] 3.3 g/dL Normal [facility] Comment on above: Performed By: #### L IPID, T4, TSH, CMP #### [facility] [address] [place] [address] Dr. Danielle Harden Glucose [Mass/Vol] 86 mg/dL Normal 74-106 [facility] Comment on above: Performed By: #### L IPID, T4, TSH, CMP #### [facility] [address] [place] [address] Dr. Danielle Harden Potassium [Moles/Vol] 3.9 mmol/L Normal 3.5-5.1 [facility] Comment on above: Performed By: #### L IPID, T4, TSH, CMP #### [facility] [address] [place] [address] Dr. Danielle Harden Protein [Mass/Vol] 7.3 g/dL Normal 6.4-8.2 [facility] Comment on above: Performed By: #### L IPID, T4, TSH, CMP #### [facility] [address] [address] [address] Danielle Harden Sodium [Moles/Vol] 139 mmol/L Normal 136-145 [facility] Comment on above: Performed By: #### L IPID, T4, TSH, CMP #### [facility] [address] [place] [address] Dr. Danielle Harden Urea nitrogen [Mass/Vol] 19.0 mg/dL Critically high 7.0-18.0 [facility] Comment on above: Performed By: #### L IPID, T4, TSH, CMP #### [facility] [address] [place] [address] Dr. Danielle Harden Urea nitrogen/Creatinin e [Mass ratio] 24.4 mg/mg Normal [facility] Comment on above: Performed By: #### L IPID, T4, TSH, CMP #### [facility] [address] [place] [address] Dr. Danielle Harden T4on 01-18-2022 T4 [Mass/Vol] 8.50 ug/dL Normal 4.50-12.10 [facility] Comment on above: Performed By: #### L IPID, T4, TSH, CMP #### [facility] [address] [place] [address] Dr. Danielle Harden TSHon 01-18-2022 TSH 1.855 uIU/mL Normal 0.358-3.740 [facility] Comment on above: Performed By: #### L IPID, T4, TSH, CMP #### [facility] [address] [place] [address] Dr. Danielle Harden TSH RANGE SEE BELOW Normal [facility] Comment on above: Result Comment: <0.3 4 UIU/ml HYPERTHYROID 0.34-5.60 UIU/ml EUTHYROID >5.60 UIU/ml HYPOTHYROID Performed By: #### L IPID, T4, TSH, CMP #### [facility] [address] [place] [address] Dr. Danielle Harden BASIC METABOLIC PANELon 09-12 BUN/CREATININE RATIO NOT APPLICABLE Normal 6-22 [facility] Comment on above: Order Comment: FASTI NG:YES FASTING: YES Performed By: #### 1 0165, [id number] #### [facility] [address], [address] [place] [address] Cleaner Window: Darwin Ray MD Calcium [Mass/Vol] 9.3 mg/dL Normal 8.6-10.3 [facility] Comment on above: Order Comment: FASTI NG:YES FASTING: YES Performed By: #### 1 0165, 6399 #### [facility] [address], [address] [place] [address] Cleaner Window: Darwin Ray MD Chloride [Moles/Vol] 104 mmol/L Normal 98-110 [facility] Comment on above: Order Comment: FASTI NG:YES FASTING: YES Performed By: #### 1 0165, 6399 #### [facility] [address], [address] [place] [address] Cleaner Window: Darwin Ray MD CO2 [Moles/Vol] 29 mmol/L Normal 20-32 [facility] Comment on above: Order Comment: FASTI NG:YES FASTING: YES Performed By: #### 1 0165, 6399 #### [facility] [address], [address] [place] [address] Cleaner Window: Darwin Ray MD Creatinine [Mass/Vol] 0.86 mg/dL Normal 0.70-1.33 [facility] Comment on above: Order Comment: FASTI NG:YES FASTING: YES Result Comment: For patients >49 years of age, the reference limit for Creatinine is approximately 13% higher for people identified as -Singaporean. Performed By: #### 1 0165, 6399 #### [facility] [address], [address] [place] [address] Cleaner Window: Darwin Ray MD eGFR NON-AFR. KENYAN 96 mL/min/1.73m2 Normal > OR = 60 [facility] Comment on above: Order Comment: FASTI NG:YES FASTING: YES Performed By: #### 1 0165, 6399 #### [facility] [address], [address] [place] [address] Cleaner Window: Darwin Ray MD GFR/1.73 sq M.predicted among blacks MDRD (S/P/Bld) [Vol rate/Area] 112 mL/min/{1.73_m2} Normal > OR = 60 [facility] Comment on above: Order Comment: FASTI NG:YES FASTING: YES Performed By: #### 1 0165, 6399 #### [facility] [address] [address] Cleaner Window: Darwin Ray MD Glucose [Mass/Vol] 89 mg/dL Normal 65-99 [facility] Comment on above: Order Comment: FASTI NG:YES FASTING: YES Result Comment: Fasting reference interval Performed By: #### 1 0165, 6399 #### [facility] [address] [address] Cleaner Window: Darwin Ray MD Potassium [Moles/Vol] 3.8 mmol/L Normal 3.5-5.3 [facility] Comment on above: Order Comment: FASTI NG:YES FASTING: YES Performed By: #### 1 0165, 6399 #### [facility] [address] [address] Cleaner Window: Darwin Ray MD Sodium [Moles/Vol] 139 mmol/L Normal 135-146 [facility] Comment on above: Order Comment: FASTI NG:YES FASTING: YES Performed By: #### 1 0165, 6399 #### [facility] [address] [address] Cleaner Window: Darwin Ray MD Urea nitrogen [Mass/Vol] 23 mg/dL Normal 7-25 [facility] Comment on above: Order Comment: FASTI NG:YES FASTING: YES Performed By: #### 1 0165, 6399 #### [facility] [address] [address] Cleaner Window: Darwin Ray MD CBC (INCLUDES DIFF/PLT)on Basophils (Bld) [#/Vol] 0.029 10*3/uL Normal 0-200 [facility] Comment on above: Performed By: #### 1 0165, 6399 #### [facility] [address] [address] Cleaner Window: Darwin Ray MD Basophils/100 WBC (Bld) 0.4 % Normal [facility] Comment on above: Performed By: #### 1 0165, 6399 #### [facility] [address] [address] Cleaner Window: Darwin Ray MD Eosinophils (Bld) [#/Vol] 0.212 10*3/uL Normal 15-500 [facility] Comment on above: Performed By: #### 1 0165, 6399 #### [facility] [address] [address] Cleaner Window: Darwin Ray MD Eosinophils/100 WBC (Bld) 2.9 % Normal [facility] Comment on above: Performed By: #### 1 0165, 6399 #### [facility] [address] [address] Cleaner Window: Darwin Ray MD Erythrocyte distribution width (RBC) [Ratio] 13.6 % Normal 11.0-15.0 [facility] Comment on above: Performed By: #### 1 0165, 6399 #### [facility] of [address] [address] Cleaner Window: Darwin Ray MD Hematocrit (Bld) [Volume fraction] 40.4 % Normal 38.5-50.0 [facility] Comment on above: Performed By: #### 1 0165, 6399 #### [facility] of [address] [address] Cleaner Window: Darwin Ray MD Hemoglobin (Bld) [Mass/Vol] 13.2 g/dL Normal 13.2-17.1 [facility] Comment on above: Performed By: #### 1 0165, 6399 #### [facility] of [address] [place] [address] Cleaner Window: Darwin Ray MD Lymphocytes (Bld) [#/Vol] 2.431 10*3/uL Normal 850-3900 [facility] Comment on above: Performed By: #### 1 0165, 6399 #### [facility] [address] [address] Cleaner Window: Darwin Ray MD Lymphocytes/100 WBC (Bld) 33.3 % Normal [facility] Comment on above: Performed By: #### 1 0165, 6399 #### [facility] of [address] [address] Cleaner Window: Darwin Ray MD MCH (RBC) [Entitic mass] 27.4 pg Normal 27.0-33.0 [facility] Comment on above: Performed By: #### 1 0165, 6399 #### [facility] [address] [address] Cleaner Window: Darwin Ray MD MCHC (RBC) [Mass/Vol] 32.7 g/dL Normal 32.0-36.0 [facility] Comment on above: Performed By: #### 1 0165, 6399 #### [facility] [address] [address] Cleaner Window: Darwin Ray MD MCV (RBC) [Entitic vol] 84.0 fL Normal 80.0-100.0 [facility] Comment on above: Performed By: #### 1 0165, 6399 #### [facility] [address] [place] [address] Cleaner Window: Darwin Ray MD Monocytes (Bld) [#/Vol] 0.54 10*3/uL Normal 200-950 [facility] Comment on above: Performed By: #### 1 0165, 6399 #### [facility] [address] [address] Cleaner Window: Darwin Ray MD Monocytes/100 WBC (Bld) 7.4 % Normal [facility] Comment on above: Performed By: #### 1 0165, 6399 #### [facility] [address] [place] [address] Cleaner Window: Darwin Ray MD Neutrophils (Bld) [#/Vol] 4.088 10*3/uL Normal 3973-0646 [facility] Comment on above: Performed By: #### 1 0165, 6399 #### [facility] [address] [address] Cleaner Window: Darwin Ray MD Neutrophils/100 WBC (Bld) 56 % Normal [facility] Comment on above: Performed By: #### 1 0165, 6399 #### [facility] [address] [address] Cleaner Window: Darwin Ray MD Platelet mean volume (Bld) [Entitic vol] 10.6 fL Normal 7.5-12.5 [facility] Comment on above: Performed By: #### 1 0165, 6399 #### [facility] [address] [address] Cleaner Window: Darwin Ray MD Platelets (Bld) [#/Vol] 277 10*3/uL Normal 140-400 [facility] Comment on above: Performed By: #### 1 0165, 6399 #### [facility] [address] [address] Cleaner Window: Darwin Ray MD RBC (Bld) [#/Vol] 4.81 10*6/uL Normal 4.20-5.80 [facility] Comment on above: Performed By: #### 1 0165, 6399 #### [facility] [address] [address] Cleaner Window: Darwin Ray MD WBC (Bld) [#/Vol] 7.3 10*3/uL Normal 3.8-10.8 [facility] Comment on above: Performed By: #### 1 0165, 6399 #### [facility] of [address] [address] [facility], [address] [place] [address] Cleaner Window: Darwin Ray MD Vital Signs Date Time Vital Sign Value Performing Clinician Facility 05-06-2024 12:40-0400 Body temperature 97.2 [degF] Lito Thomson MD Work Phone: [facility] 05-06-2024 12:40-0400 Body weight 88.8 kg Lito Thomson MD Work Phone: [facility] 05-06-2024 12:40-0400 Diastolic blood pressure 84 mm[Hg] Lito Thomson MD Work Phone: [facility] 05-06-2024 12:40-0400 Heart rate 87 /min Lito Thomson MD Work Phone: [facility] 05-06-2024 12:40-0400 Respiratory rate 18 /min Lito Thomson MD Work Phone: [facility] 05-06-2024 12:40-0400 SaO2% (BldA) [Mass fraction] 96 % Lito Thomson MD Work Phone: [facility] 05-06-2024 12:40-0400 Systolic blood pressure 123 mm[Hg] Lito Thomson MD Work Phone: [facility] 04-29-2024 13:12-0400 Body temperature 97.9 [degF] Chair Meriwether Work Phone: [facility] 04-29-2024 13:12-0400 Diastolic blood pressure 91 mm[Hg] Chair Meriwether Work Phone: [facility] 04-29-2024 13:12-0400 Heart rate 89 /min Chair Joe Work Phone: [facility] 04-29-2024 13:12-0400 Respiratory rate 18 /min Chair Meriwether Work Phone: [facility] 04-29-2024 13:12-0400 SaO2% (BldA) [Mass fraction] 97 % Chair Joe Work Phone: [facility] 04-29-2024 13:12-0400 Systolic blood pressure 135 mm[Hg] Chair Joe Work Phone: [facility] 04-22-2024 13:15-0400 Body temperature 98.01 [degF] Chair Joe Work Phone: [facility] 04-22-2024 13:15-0400 Diastolic blood pressure 92 mm[Hg] Chair Joe Work Phone: [facility] 04-22-2024 13:15-0400 Heart rate 75 /min Chair Meriwether Work Phone: [facility] 04-22-2024 13:15-0400 Respiratory rate 16 /min Chair Meriwether Work Phone: [facility] 04-22-2024 13:15-0400 SaO2% (BldA) [Mass fraction] 99 % Chair Meriwether Work Phone: [facility] 04-22-2024 13:15-0400 Systolic blood pressure 138 mm[Hg] Chair Joe Work Phone: [facility] 04-15-2024 13:05-0400 Body temperature 97.7 [degF] Chair Meriwether Work Phone: [facility] 04-15-2024 13:05-0400 Diastolic blood pressure 96 mm[Hg] Chair Meriwether Work Phone: [facility] 04-15-2024 13:05-0400 Heart rate 91 /min Chair Meriwether Work Phone: [facility] 04-15-2024 13:05-0400 Respiratory rate 18 /min Chair Meriwether Work Phone: [facility] 04-15-2024 13:05-0400 SaO2% (BldA) [Mass fraction] 98 % Chair Joe Work Phone: [facility] 04-15-2024 13:05-0400 Systolic blood pressure 143 mm[Hg] Chair Joe Work Phone: [facility] 04-08-2024 08:53-0400 Body temperature 97.9 [degF] Chair Joe Work Phone: [facility] 04-08-2024 08:53-0400 Diastolic blood pressure 88 mm[Hg] Chair Meriwether Work Phone: [facility] 04-08-2024 08:53-0400 Heart rate 73 /min Chair Meriwether Work Phone: [facility] 04-08-2024 08:53-0400 Respiratory rate 18 /min Chair Meriwether Work Phone: [facility] 04-08-2024 08:53-0400 SaO2% (BldA) [Mass fraction] 98 % Chair Meriwether Work Phone: [facility] 04-08-2024 08:53-0400 Systolic blood pressure 124 mm[Hg] Chair Meriwether Work Phone: [facility] 04-01-2024 08:40-0400 Body temperature 97.39 [degF] Chair Meriwether Work Phone: [facility] 04-01-2024 08:40-0400 Diastolic blood pressure 97 mm[Hg] Chair Meriwether Work Phone: [facility] 04-01-2024 08:40-0400 Heart rate 75 /min Chair Meriwether Work Phone: [facility] 04-01-2024 08:40-0400 Respiratory rate 16 /min Chair Joe Work Phone: [facility] 04-01-2024 08:40-0400 SaO2% (BldA) [Mass fraction] 97 % Chair Meriwether Work Phone: [facility] 04-01-2024 08:40-0400 Systolic blood pressure 142 mm[Hg] Chair Meriwether Work Phone: [facility] 03-25-2024 10:43-0400 Body temperature 97.11 [degF] Lito Thomson MD Work Phone: [facility] 03-25-2024 10:43-0400 Body weight 90.9 kg Lito Thomson MD Work Phone: [facility] 03-25-2024 10:43-0400 Diastolic blood pressure 96 mm[Hg] Lito Thomson MD Work Phone: [facility] 03-25-2024 10:43-0400 Heart rate 71 /min Lito Thomson MD Work Phone: [facility] 03-25-2024 10:43-0400 Respiratory rate 18 /min Lito Thomson MD Work Phone: [facility] 03-25-2024 10:43-0400 SaO2% (BldA) [Mass fraction] 100 % Lito Thomson MD Work Phone: [facility] 03-25-2024 10:43-0400 Systolic blood pressure 138 mm[Hg] Lito Thomson MD Work Phone: [facility] 02-26-2024 09:10-0400 Blood Pressure Location Donatoaraceli LI [facility] 02-26-2024 09:10-0400 Body temperature 98.6 [degF] Donato LI [facility] 02-26-2024 09:10-0400 Diastolic blood pressure 83 mm[Hg] Donato LI [facility] 02-26-2024 09:10-0400 Heart rate 75 /min Donato LI [facility] 02-26-2024 09:10-0400 Respiratory rate 16 /min Donato LI [facility] 02-26-2024 09:10-0400 Systolic blood pressure 135 mm[Hg] Donato LI [facility] 02-12-2024 11:08-0400 Blood Pressure Location Donato LI [facility] 02-12-2024 11:08-0400 Diastolic blood pressure 80 mm[Hg] Donato LI [facility] 02-12-2024 11:08-0400 Systolic blood pressure 134 mm[Hg] Donato LI [facility] 06-28-2022 13:25-0400 Body height 177.8 cm Krystin Loja Other [facility] Other 06-28-2022 13:25-0400 Body mass index (BMI) [Ratio] 28.69 kg/m2 Krystin Loja Other [facility] Other 06-28-2022 13:25-0400 Body temperature 98.9 [degF] Krystin Loja Other [facility] Other 06-28-2022 13:25-0400 Body weight 90.72 kg Krystin Loja Other [facility] Other 06-28-2022 13:25-0400 Diastolic blood pressure 97 mm[Hg] Krystin Loja Other [facility] Other 06-28-2022 13:25-0400 Respiratory rate 18 /min Krystin Loja Other [facility] Other 06-28-2022 13:25-0400 SaO2% (BldA) [Mass fraction] 97 % Krystin Loja Other [facility] Other 06-28-2022 13:250400 Systolic blood pressure 130 mm[Hg] Krystin Loja Other [facility] Other Encounters Encounter Date Encounter Type Care Provider Facility Start: 06-03-2024 ambulatory Donato Dinhi ty:[id number] Start: 05-28-2024 End: 05-28-2024 ambulatory Donato LI [place] [place] Start: 05-28-2024 End: 05-28-2024 ambulatory Donato LI Facility:[facility] Start: 05-06-2024 End: 05-06-2024 Patient encounter procedure Lito Thomson MD Work Phone: Hematology/Oncology Start: 05-06-2024 End: 05-07-2024 ambulatory Chair 23 BUILD Work Phone: Hematology/Oncology Comment on above: Malignant neoplasm o f lateral wall of urinary bladder (HCC) Malignant neoplasm o f lateral wall of urinary bladder (HCC) (Primary Dx) Start: 04-29-2024 End: 04-30-2024 ambulatory Chair 23 BUILD Work Phone: Hematology/Oncology Comment on above: Malignant neoplasm o f lateral wall of urinary bladder (HCC) Start: 04-22-2024 End: 04-22-2024 ambulatory Chair 23 BUILD Work Phone: Hematology/Oncology Comment on above: Malignant neoplasm o f lateral wall of urinary bladder (HCC) Start: 04-15-2024 End: 04-16-2024 ambulatory Chair 23 BUILD Work Phone: Hematology/Oncology Comment on above: Malignant neoplasm o f lateral wall of urinary bladder (HCC) Start: 04-12-2024 Social Work [facility] Hematolo gy/Oncology Start: 04-09-2024 Telephone encounter Lito engel MD Work Phone: Hematology/Oncology Comment on above: FMLA Paperwork Start: 04-08-2024 End: 04-08-2024 ambulatory Chair 23 BUILD Work Phone: Hematology/Oncology Comment on above: Malignant neoplasm o f lateral wall of urinary bladder (HCC) Start: 04-01-2024 End: 04-01-2024 ambulatory Chair Bacilio Cheng Work Phone: Hematology/Oncology Comment on above: Malignant neoplasm o f lateral wall of urinary bladder (HCC) Start: 03-25-2024 End: 03-25-2024 ambulatory Lito Thomson MD Work Phone: Hematology/Oncology Comment on above: Malignant neoplasm o f lateral wall of urinary bladder (HCC) (Primary Dx) Start: 03-25-2024 End: 03-25-2024 Patient encounter procedure Lito Thomson MD Work Phone: Hematology/Oncology Start: 03-18-2024 ambulatory Donato Moe ty:[facility] Start: 03-05-2024 End: 03-05-2024 ambulatory JOHN DEBI Not Available Start: 02-26-2024 End: 02-26-2024 ambulatory Donato LI Facility:[facility] Start: 02-26-2024 End: 02-26-2024 Patient encounter procedure Donato LI [facility] Start: 02-21-2024 End: 02-21-2024 ambulatory Donato LI Facility:[facility] Start: 02-21-2024 End: 02-21-2024 Patient encounter procedure Donato LI [facility] Start: 02-15-2024 End: 02-15-2024 ambulatory Donato Li [facility] Work Phone: Start: 02-15-2024 End: 02-15-2024 Departed Referred MD Donato Li Work Phone: [facility] Start: 02-15-2024 ambulatory Donato Moe ty:CD:[id number] Start: 02-12-2024 End: 02-12-2024 ambulatory Donato LI Facility:[facility] Start: 02-12-2024 End: 02-12-2024 Patient encounter procedure Donato Dipika LI [facility] Start: 01-31-2024 ambulatory Donato LI Facility :[facility] Start: 01-13-2023 End: 01-14-[address] YUMI TOLENTINO Facility:[facility] Start: 08-17-2022 End: 08-18-2022 ambulatory KERRY MONTES Facility:[facility] Start: 06-28-2022 End: 06-28-2022 ambulatory Krystin Loja Other [facility] Other Start: 06-28-2022 Office outpatient ne w 30 minutes Krystin Loja [facility] Start: 01-18-2022 End: 01-19-[address] CHESTER LISTED REQUEST Facility:[facility] Procedures Date Procedure Procedure Detail Performing Clinician Start: 02-15-2024 Transurethral resect ion of bladder neoplasm Donato LI Start: 01-13-2023 PSA screening KERRY COLON Comment on above: Performed By: #### P SASC #### [facility] [address] [place] [address] Dr. Danielle Harden Start: 01-18-2022 PSA screening KERRY COLON Comment on above: Performed By: #### C MP, MG #### [facility] [address] [place] [address] Dr. Danielle Harden Start: 09-11-2003 Structure of sinoatr ial node (body structure) Donato LI Plan of Treatment Date Care Activity Detail Author Start: 06-11-2028 Urine microalbumin profile DTaP,Tdap,Td Vaccine (2 - Td or Tdap) [facility] Start: 06-20-2024 End: 06-20-2024 Follow-up encounter 06/20/2024 1:30 PM EDT Visit (SP) Office Hematology/Oncology [address] [place] [address] Lito Thomson MD [address] [place] [address] 6 Week follow up with lab Hematology/Oncology Comment on above: 6 Week follow up wit h lab Start: 06-20-2024 End: 06-20-2024 Patient encounter procedure 06/20/2024 1:15 PM EDT Office Visit [facility] [address] [place] [address] 6 Week follow up with lab [facility] Comment on above: 6 Week follow up wit h lab Start: 05-12-2024 Influenza vaccination Influenza Vacc ine (#1) [facility] Start: 05-06-2024 End: 05-06-2024 Follow-up encounter Hematology/Oncology Comment on above: follow up with lab a nd chemotx BCG Start: 05-06-2024 End: 05-06-2024 Patient encounter procedure 05/06/2024 12:45 PM EDT Office Visit [facility] [address] [place] [address] follow up with lab and chemotx BCG [facility] Comment on above: follow up with lab a nd chemotx BCG Start: 04-29-2024 End: 04-29-2024 ambulatory 04/29/2024 1:00 PM EDT Infusion Center Hematology/Oncology [address] [place] [address] chemotx BCG Hematology/Oncology Comment on above: chemotx BCG Start: 04-22-2024 End: 04-22-2024 ambulatory 04/22/2024 1:00 PM EDT Infusion Center Hematology/Oncology [address] [place] [address] [facility] Infusion Hematology/Oncology Comment on above: [facility] Infusion Start: 04-15-2024 End: 04-15-2024 ambulatory 04/15/2024 1:00 PM EDT Infusion Center Hematology/Oncology [address] [place] [address] [facility] Infusion Hematology/Oncology Comment on above: BCG Infusion Start: 04-14-2024 Screening for malign ant neoplasm of colon [facility] Start: 04-08-2024 End: 04-08-2024 ambulatory 04/08/2024 8:30 AM [facility] Hematology/Oncology [address] [place] [address] [facility] Infusion Hematology/Oncology Comment on above: BCG Infusion Start: 04-01-2024 End: 04-01-2024 ambulatory 04/01/2024 8:30 AM [facility] Hematology/Oncology [address] [place] [address] [place] [address] [facility] Infusion Hematology/Oncology Comment on above: [facility] Infusion Start: 09-11-2023 Behavioral Health Screening Behavioral Health Screening [facility] Start: 05-12-2023 Covid-19 Vaccine ( season) Covid-19 Vaccine () [facility] Start: 2019 Prostate specific antigen measurement Prostate Cancer Screening Discussion [facility] Start: 2014 Shingrix Vaccine (1 of 2) Shingrix Vaccine (1 of 2) [facility] Start: 2009 Diabetes Screening Diabetes Screenin g [facility] Start: 2009 Screening for malign ant neoplasm of colon [facility] Start: 1999 Lipid panel Lipid Screening [facility] Start: 1982 Anxiety Screening Anxiety Screening [facility] Start: 1982 Depression Screening Depression Scre ening [facility] Start: 1982 Hepatitis C screening Hepatitis C Sc reening [facility] Start: 1982 HIV screening HIV Screening [facility] Immunizations Immunization Date Immunization Notes Care Provider Cordell siegel 07-01-2023 influenza virus vaccine, unspecified formulation Donato LI [facility] 07-01-2023 influenza, injectabl e, quadrivalent, preservative free Chair Cheng Work Phone: [facility] 07-17-2022 influenza virus vaccine, unspecified formulation Donato LI [facility] 07-17-2022 Influenza, injectabl e, Madin Clinton Canine Kidney, preservative free, quadrivalent Chair Cheng Work Phone: [facility] 08-21-2021 SARS-CoV-2 (COVID-19 ) mRNA-1273 vaccine Donato LI [facility] 08-01-2021 influenza virus vaccine, unspecified formulation Donato LI [facility] 08-01-2021 influenza, injectabl e, quadrivalent, preservative free Chair Cheng Work Phone: [facility] 06-11-2021 influenza virus vaccine, unspecified formulation Donato LI [facility] 06-11-2021 SARS-CoV-2 (COVID-19 ) mRNA-1273 vaccine Donato LI [facility] 12-23-2020 SARS-CoV-2 (COVID-19 ) mRNA-1273 vaccine Donato LI [facility] Comment on above: Result Comment: 2023: [id number] 11-25-2020 SARS-CoV-2 (COVID-19 ) mRNA-1273 vaccine Donato LI [facility] Comment on above: Result Comment: 2023: [id number] 05-29-2020 influenza virus vaccine, unspecified formulation Donato LI [facility] 06-11-2018 tetanus toxoid, redu tara diphtheria toxoid, and acellular pertussis vaccine, adsorbed Donato LI [facility] Payers Date Payer Category Payer Self-pay 2023 Unknown MMO MMO [employer] [id number] 2023-Present [phone] [address] [place] [address] Indemnity [id number] 1964 Unknown [id number] 1964 Unknown [id number] 1964 Unknown [id number] 1964 Unknown [id number] 1964 Unknown [id number] 1964 Unknown [id number] 1964 Unknown [id number] 1964 Unknown [id number] 1964 Unknown [id number] 1959 Self-pay [id number] 1959 Unknown [id number] Unknown [id number] Unknown [id number] Social History Date Type Detail Facility Start: 03-25-2024 End: 04-29-2024 Sex Assigned At [facility] Start: 02-12-2024 End: 03-25-2024 Tobacco smoking status Ex-smoker (finding) [facility] Tobacco smoking status Never [facility] Start: 1965 Sex Assigned At Male Trin[facility] Start: 09-11-1967 End: 09-11-1969 History of tobacco use Current smoker [facility] Start: 09-11-1967 End: 09-11-1969 History of tobacco use Cigarette Smoker [facility] Start: 03-25-2024 End: 04-29-2024 Cigarettes smoked current (pack per day) - Reported 0.5 [facility] Start: 03-25-2024 Tobacco use and exposure Smokeless tobacco non-user [facility] Start: 03-25-2024 End: 05-06-2024 Alcohol intake Ex-drinker (finding) [facility] Start: 1965 Sex Assigned At Not on file C [facility] Functional Status Date Assessment Result Facility 02-26-2024 Functional Status N/A [facility] 02-12-2024 Functional Status N/A [facility] Clinical Notes 06-28-2022 to 05-06-2024 Jeff Reveles, [place] - 05/06/2024 1:16 PM Lito Odell MD - 05/05/2024 8:11 PM Gio Devlin RN - 04/29/2024 4:02 PM Leif Aragon RN - 04/29/2024 1:11 PM EDT Note Date & Type Note Facility 05-06-2024 Note HNO ID: [id number] Author: JEFF REVELES, RN Service: ? Author Type: Registered Nurse Type: Progress Notes Filed: 05/06/2024 16:43 Note Text: 1330 -- 16 fr coude lopez inserted via sterile technique without issue. Immediate return of clear, yellow urine into collection bag, 10 mL NS instilled into balloon, allowing for complete bladder drainage prior to BCG instillation. Pt in position of comfort, visitor at cartside, call guthrie in reach. 1414 -- Bladder drainage complete with ~80 mL clear, yellow urine in collection bag. Lopez tubing clamped and BCG instilled per orders. Pt aware to rotate self every 15 mins, able to do so independently, lopez tubing secured to right thigh with coban. Visitor at cart side, call guthrie in reach, will monitor. 1450 -- Pt tolerating and rotating self without issue; no leakage/spasms, aware of remaining time. No needs, call guthrie in reach, visitor cart side, will continue to monitor. 1523 -- Pt tolerating without leaking or spasms, rotating self independently. No needs, call guthrie in reach, visitor cart side, will continue to monitor. 1549 -- Pt without issues or complaints, turning self independently without issue. Aware of remaining dwell time, call guthrie in reach, visitor cart side, will continue to monitor. 1614 -- BCG dwell complete, pt without leakage or spasms. Lopez tubing unclamped allowing for bladder drainage. 1628 -- Bladder drainage remains, stagnant in tubing and needing manual drained down tubing line by RN. 1634 -- Bladder drainage complete at this time with ~700 mL clear, yellow urine into collection bag. 10 mL NS removed from catheter balloon, followed by lopez being d/c'ed without issue. Pt dressing self and ambulatory to exit when finished. Jeff Reveles RN [facility] 05-06-2024 History of Presen t illness Narrative 1330 -- 16 fr coude lopez inserted via sterile technique without issue. Immediate return of clear, yellow urine into collection bag, 10 mL NS instilled into balloon, allowing for complete bladder drainage prior to BCG instillation. Pt in position of comfort, visitor at cartside, call guthrie in reach. 1414 -- Bladder drainage complete with ~80 mL clear, yellow urine in collection bag. Lopez tubing clamped and BCG instilled per orders. Pt aware to rotate self every 15 mins, able to do so independently, lopez tubing secured to right thigh with coban. Visitor at cart side, call guthrie in reach, will monitor. 1450 -- Pt tolerating and rotating self without issue; no leakage/spasms, aware of remaining time. No needs, call guthrie in reach, visitor cart side, will continue to monitor. 1523 -- Pt tolerating without leaking or spasms, rotating self independently. No needs, call guthrie in reach, visitor cart side, will continue to monitor. 1549 -- Pt without issues or complaints, turning self independently without issue. Aware of remaining dwell time, call guthrie in reach, visitor cart side, will continue to monitor. 1614 -- BCG dwell complete, pt without leakage or spasms. Lopez tubing unclamped allowing for bladder drainage. 1628 -- Bladder drainage remains, stagnant in tubing and needing manual drained down tubing line by RN. 1634 -- Bladder drainage complete at this time with ~700 mL clear, yellow urine into collection bag. 10 mL NS removed from catheter balloon, followed by lopez being d/c'ed without issue. Pt dressing self and ambulatory to exit when finished. Jeff Reveles RN documented in this encounter [facility] 05-05-2024 Note HNO ID: [id number] Author: LITO THOMSON MD Service: ? Author Type: Physician Type: Progress Notes Filed: 05/08/2024 05:24 Note Text: PATIENT NAME: Ishaan Hanson DATE: 05/06/2024 PRIMARY CARE PHYSICIAN: Dayami Lewis, [facility] (Dr. Mott) OTHER PHYSICIANS: Dr. Donato Li, Dr. Олег Burris Portions of this encounter note have been copied from my note from 03/25/2024 and has been updated where appropriate, and reflect my current medical decision making from today. CC: This is a 58 year old male with recently diagnosed nonmuscle invasive bladder cancer, seen for scheduled follow-up. INTERIM HISTORY: Since the patient's initial visit here he has been receiving treatment with intravesical BCG. To date he has received 5 infusions. He has tolerated treatment well with no adverse effects. On follow-up today he feels well with no complaints. MEDICATIONS: Current Outpatient Medications Medication Sig atorvastatin (LIPITOR) 20 mg tablet Take 20 mg by mouth once daily. cyclobenzaprine (FLEXERIL) 5 mg tablet Take 5 mg by mouth as directed. hydroCHLOROthiazide 25 mg tablet Take 25 mg by mouth once daily. losartan (COZAAR) 50 mg tablet Take 50 mg by mouth once daily. predniSONE (DELTASONE) 10 mg tablet Take 10 mg by mouth once daily. pyridostigmine (MESTINON) 60 mg tablet Take 60 mg by mouth three times a day. No current facility-administered medications for this visit. 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) No date: Renal cyst PAST SURGICAL HISTORY: PAST SURGICAL HISTORY 02/15/2024: PAST SURGICAL HISTORY OF Comment: TURBT 2003: PAST SURGICAL HISTORY OF Comment: Sinus node FAMILY HISTORY: FAMILY HISTORY Problem Relation Age of Onset Diabetes Mother Breast Cancer Mother Prostate Cancer Father Hypertension Father Cancer Sister throat Rectal Cancer Brother SOCIAL HISTORY: Social History Tobacco Use Smoking status: Former Current packs/day: 0.00 Average packs/day: 0.5 packs/day for 2.0 years (1.0 ttl pk-yrs) Types: Cigarettes Start date: 1967 Quit date: 1969 Years since quittin.6 Smokeless tobacco: Never Vaping Use Vaping status: Never Used Substance Use Topics Alcohol use: Not Currently Drug use: Never COMPLETE REVIEW OF SYSTEMS: CONSTITUTION: Negative for pain, fatigue, weight loss, or appetite loss. EENT: Negative for mouth soreness, antibiotics use, epistaxis, visual problems, neck or facial swelling, fever/chills, bleeding gums, or hearing loss. CV: Negative for edema, calf swelling, palpitations, or chest pain. RESPIRATORY: Negative for cough, SOB, hemoptysis, or wheezing. GI: Negative for nausea/vomiting, heartburn, vomiting blood, dysphasia, diarrhea, blood in stool, constipation, early satiety, PICA, vegetarian, poor nutrition, abdominal fullness, or abdominal pain. NEUROLOGICAL: Negative for numbness/tingling, dizziness, gait disturbance, headache, speech disturbance, tremor, hemiparesis/sensory loss, or change in mental status. MUSCULOSKELETAL: Negative for joint pain, joint swelling, or proximal muscle weakness. SKIN: Negative for hair loss, bruising, nail changes, rash, itching, pallor, or jaundice. ENDO/URO: Negative for hot flashes, cold or heat intolerance, urinary frequency, urinary hesitancy, menorrhagia, or hematuria. PSYCH: Negative for anxiety, depression, or other. PHYSICAL EXAM: BP 123/84 Pulse 87 Temp 36.2 ?C (97.2 ?F) (Temporal) Resp 18 Wt 88.8 kg (195 lb 12.3 oz) SpO2 96% GENERAL EXAM: Well developed/well nourished; in no acute distress. SKIN: Negative for lesions, rashes, or ulcers on the upper and lower extremities and face. Negative for palpations/nodules, purpura, and ecchymosis. EENT: Negative for conjunctiva, mucosal pallor, JVD, LAP, thyromegaly, and glossitis. Supple AND PERRL. EXTREMITIES: Negative for cyanosis, clubbing, and crepitus. LUNGS: Negative to auscultation, respiratory effort, and percussion. CARDIOVASCULAR: Regular rate. Negative for murmurs/S3S4/abnormal sounds, edema, and carotid bruits. ABDOMEN: Negative for masses, hernia, and spleen/liver abnormalities. RECTAL: Not done PSYCHIATRIC: Negative for mood/affect changes, recent AND remote memory changes, and judgement and insight. NEUROLOGICAL: Alert, oriented x person, place, time. Cranial nerves 2-12 intact. Sensory for pain, light touch, vibration intact on all 4 extremities. Reflexes symmetric for biceps/brachioradial/patella/ac hilles. MUSCULOSKELETAL: Negative examination of joints, bones, muscles/tendons of all four extremities for inspection, percussion, and palpation. (more content not included)... [facility] 05-05-2024 History of Presen t illness Narrative PATIENT NAME: Ishaan Hanson DATE: 05/06/2024 PRIMARY CARE PHYSICIAN: Dayami Lewis CNP (Dr. Mott) OTHER PHYSICIANS: Dr. Donato Li, Dr. Олег Burris Portions of this encounter note have been copied from my note from 03/25/2024 and has been updated where appropriate, and reflect my current medical decision making from today. CC: This is a 58 year old male with recently diagnosed nonmuscle invasive bladder cancer, seen for scheduled follow-up. INTERIM HISTORY: Since the patient's initial visit here he has been receiving treatment with intravesical BCG. To date he has received 5 infusions. He has tolerated treatment well with no adverse effects. On follow-up today he feels well with no complaints. MEDICATIONS: Current Outpatient Medications Medication Sig atorvastatin (LIPITOR) 20 mg tablet Take 20 mg by mouth once daily. cyclobenzaprine (FLEXERIL) 5 mg tablet Take 5 mg by mouth as directed. hydroCHLOROthiazide 25 mg tablet Take 25 mg by mouth once daily. losartan (COZAAR) 50 mg tablet Take 50 mg by mouth once daily. predniSONE (DELTASONE) 10 mg tablet Take 10 mg by mouth once daily. pyridostigmine (MESTINON) 60 mg tablet Take 60 mg by mouth three times a day. No current facility-administered medications for this visit. 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) No date: Renal cyst PAST SURGICAL HISTORY: PAST SURGICAL HISTORY 02/15/2024: PAST SURGICAL HISTORY OF Comment: TURBT 2003: PAST SURGICAL HISTORY OF Comment: Sinus node FAMILY HISTORY: FAMILY HISTORY Problem Relation Age of Onset Diabetes Mother Breast Cancer Mother Prostate Cancer Father Hypertension Father Cancer Sister throat Rectal Cancer Brother SOCIAL HISTORY: Social History Tobacco Use Smoking status: Former Current packs/day: 0.00 Average packs/day: 0.5 packs/day for 2.0 years (1.0 ttl pk-yrs) Types: Cigarettes Start date: 1967 Quit date: 1970 Years since quittin.6 Smokeless tobacco: Never Vaping Use Vaping status: Never Used Substance Use Topics Alcohol use: Not Currently Drug use: Never COMPLETE REVIEW OF SYSTEMS: CONSTITUTION: Negative for pain, fatigue, weight loss, or appetite loss. EENT: Negative for mouth soreness, antibiotics use, epistaxis, visual problems, neck or facial swelling, fever/chills, bleeding gums, or hearing loss. CV: Negative for edema, calf swelling, palpitations, or chest pain. RESPIRATORY: Negative for cough, SOB, hemoptysis, or wheezing. GI: Negative for nausea/vomiting, heartburn, vomiting blood, dysphasia, diarrhea, blood in stool, constipation, early satiety, PICA, vegetarian, poor nutrition, abdominal fullness, or abdominal pain. NEUROLOGICAL: Negative for numbness/tingling, dizziness, gait disturbance, headache, speech disturbance, tremor, hemiparesis/sensory loss, or change in mental status. MUSCULOSKELETAL: Negative for joint pain, joint swelling, or proximal muscle weakness. SKIN: Negative for hair loss, bruising, nail changes, rash, itching, pallor, or jaundice. ENDO/URO: Negative for hot flashes, cold or heat intolerance, urinary frequency, urinary hesitancy, menorrhagia, or hematuria. PSYCH: Negative for anxiety, depression, or other. PHYSICAL EXAM: BP 123/84 Pulse 87 Temp 36.2 C (97.2 F) (Temporal) Resp 18 Wt 88.8 kg (195 lb 12.3 oz) SpO2 96% GENERAL EXAM: Well developed/well nourished; in no acute distress. SKIN: Negative for lesions, rashes, or ulcers on the upper and lower extremities and face. Negative for palpations/nodules, purpura, and ecchymosis. EENT: Negative for conjunctiva, mucosal pallor, JVD, LAP, thyromegaly, and glossitis. Supple & PERRL. EXTREMITIES: Negative for cyanosis, clubbing, and crepitus. LUNGS: Negative to auscultation, respiratory effort, and percussion. CARDIOVASCULAR: Regular rate. Negative for murmurs/S3S4/abnormal sounds, edema, and carotid bruits. ABDOMEN: Negative for masses, hernia, and spleen/liver abnormalities. RECTAL: Not done PSYCHIATRIC: Negative for mood/affect changes, recent & remote memory changes, and judgement and insight. NEUROLOGICAL: Alert, oriented x person, place, time. Cranial nerves 2-12 intact. Sensory for pain, light touch, vibration intact on all 4 extremities. Reflexes symmetric for biceps/brachioradial/patella/ac hilles. MUSCULOSKELETAL: Negative examination of joints, bones, muscles/tendons of all four extremities for inspection, percussion, and palpation. Negative for misallignment, asymmetry, crepitation, tenderness, mass, effusions. Range of motion normal. Negative for joint instability, laxity, dislocation. Gait steady. Negative for swelling, erythema, tenderness, soft tissue swelling, and atrophy. PATHOLOGY: 02/16/2024 Prostate biopsy/TURBT ([facility]) High-grade papillary urothelial carcinoma. Focal superficial lamina propria invasion is identified. Muscularis propria is noted, negative for invasion. RADIOLOGY/OTHER STUDIES: 02/03/2024 Ultrasound renal bladder ([facility]) A small cyst is seen in the right kidney. There are no other cystic or solid masses seen in the kidneys. There is a lobulated soft tissue mass along the wall of the urinary bladder. This appears suspicious for malignancy. ASSESSMENT/PLAN: 1. Nonmuscle invasive neoplasm of lateral wall of urinary bladder (HCC) - ICD9: 188.2, ICD10: C67.2 The patient presented January 2024 with gross hematuria. Renal/bladder ultrasound 02/03/2024 revealed a mass along the right lateral aspect of the bladder. Status post cystoscopy/TURBT 02/15/2024. Biopsy of the bladder mass consistent with nonmuscle invasive high-grade urothelial carcinoma. The patient was diagnosed with intermediate risk disease. After recovering from surgery the patient received adjuvant therapy with intravesicular BCG weekly x 6 cycles 04/01/2024 through 05/06/2024. Currently stable. The patient will follow-up with urology for repeat cystoscopy (currently scheduled for 06/03/2024). Based on results maintenance therapy will be discussed. I will see the patient back in 6 weeks for follow-up. 2. Hyperlipidemia Stable on current medications. Continue management per PCP. 3. Essential hypertension Stable on current medications. Continue management per PCP. 4. History of ocular myasthenia gravis Stable on current medications. Continue management per PCP/neurology. Lito Thomson MD CC: [place] Donato Li, [facility] documented in this encounter [facility] 04-29-2024 Note HNO ID: [id number] Author: GIO CLAUDIO RN Service: ? Author Type: Registered Nurse Type: Progress Notes Filed: 04/29/2024 16:05 Note Text: 1600- catheter unclamped and bladder allowed to drain. 1603- 450 mls clear yellow urine noted to drainage bag. Lopez catheter dc'd per protocol without incident. Pt allowed to dress and was discharged from infusion area. [facility] 04-29-2024 History of Presen t illness Narrative 1600- catheter unclamped and bladder allowed to drain. 1603- 450 mls clear yellow urine noted to drainage bag. Lopez catheter dc'd per protocol without incident. Pt allowed to dress and was discharged from infusion area. 16 fr lopez cath inserted per protocol as ordered to facilitate BCG instillation, approx 30 ml received in collection bag, patient voided prior and has tolerated well, no further questions or concerns noted. Leif Kovacs RN documented in this encounter [facility] 04-29-2024 Note HNO ID: [id number] Author: LEIF KOVACS RN Service: ? Author Type: Registered Nurse Type: Progress Notes Filed: 04/29/2024 16:05 Note Text: 16 fr lopez cath inserted per protocol as ordered to facilitate BCG instillation, approx 30 ml received in collection bag, patient voided prior and has tolerated well, no further questions or concerns noted. Leif Kovacs RN [facility] 04-22-2024 Note HNO ID: [id number] Author: OSVALDO CUENCA RN Service: ? Author Type: Registered Nurse Type: Progress Notes Filed: 04/22/2024 16:21 Note Text: 1335: 16FR lopez catheter inserted using sterile technique without complications. Lidocaine jelly used prior to insertion. Bed rail in the up position with emergency [place] within reach. Pt/spouse with no concerns at this time. Approximately 50 ml clear, yellow urine noted in bag. 1405: BCG instilled through lopez catheter and catheter clamped. Pt instructed to turn every 15 minutes, spouse plans to keep time. No concerns or needs at this time. 1453: Pt laying on right side and turning as instructed. Pt denies needs at this time. 1605: Lopez unclamped. Pt tolerated procedure well with no spasms, leaking or other issues. 1610: Approx. 250 ml of additional clear, yellow urine noted in bag. 10 ml balloon deflated, catheter removed and appears intact. Pt with no complaints. Osvaldo Cuenca RN [facility] 04-22-2024 History of Presen t illness Narrative 1335: 16FR lopez catheter inserted using sterile technique without complications. Lidocaine jelly used prior to insertion. Bed rail in the up position with emergency g[place] within reach. Pt/spouse with no concerns at this time. Approximately 50 ml clear, yellow urine noted in bag. 1405: BCG instilled through lopez catheter and catheter clamped. Pt instructed to turn every 15 minutes, spouse plans to keep time. No concerns or needs at this time. 1453: Pt laying on right side and turning as instructed. Pt denies needs at this time. 1605: Lopez unclamped. Pt tolerated procedure well with no spasms, leaking or other issues. 1610: Approx. 250 ml of additional clear, yellow urine noted in bag. 10 ml balloon deflated, catheter removed and appears intact. Pt with no complaints. Osvaldo Cuenca RN documented in this encounter [facility] 04-15-2024 Note HNO ID: [id number] Author: MARIE OSBORN RN Service: ? Author Type: Registered Nurse Type: Progress Notes Filed: 04/15/2024 16:21 Note Text: 1320 16 Fr lopez cath inserted following lidojet. Clear yellow urine in drainage bag. 1335 lopez clamped.less than 50cc urine in bag. BCG instilled. Pt to turn every 15 min on own. at bedside. 1430 tolerating treatment well. Continues to turn on own. 1435 Lopez unclamped and bladder allowed to drain. 1442 Lopez dc'd. 600cc clear yellow urine in bag. [facility] 04-15-2024 History of Presen t illness Narrative 1320 16 Fr lopez cath inserted following lidojet. Clear yellow urine in drainage bag. 1335 lopez clamped.less than 50cc urine in bag. BCG instilled. Pt to turn every 15 min on own. at bedside. 1430 tolerating treatment well. Continues to turn on own. 1435 Lopez unclamped and bladder allowed to drain. 1442 Lopez dc'd. 600cc clear yellow urine in bag. documented in this encounter [facility] 04-12-2024 Note HNO ID: [id number] Author: CITLALY MORRIS LSW Service: ? Author Type: Granite Worker Type: Progress Notes Filed: 04/12/2024 10:00 Note Text: Patient appears on the [facility] Time Treatment List. SW will plan to meet with this Patient at a future appointment to complete a psychosocial assessment. ADRIEL Warren Goals of Care Advance Directives are not on file. SIGNATURE: RIKY Warren PATIENT NAME: Ishaan Hanson DATE: April 12, 2024 TIME: 9:59 AM PAGER/CONTACT #: [facility] 04-12-2024 History of Presen t illness Narrative Patient appears on the [facility] Time Treatment List. SW will plan to meet with this Patient at a future appointment to complete a psychosocial assessment. ADRIEL Warren Goals of Care Advance Directives are not on file. SIGNATURE: RIKY Warren PATIENT NAME: Ishaan Hustonpin DATE: April 12, 2024 TIME: 9:59 AM PAGER/CONTACT #: documented in this encounter [facility] 04-10-2024 Telephone encounter Note Faxed [facility] paperwork to HR @ [phone]. Vero Christopher MA [facility] 04-10-2024 Miscellaneous Notes Faxed [facility] paperwork to HR @ [phone]. Vero Christopher MA [facility] paperwork completed and placed in folder to be signed. Vero Christopher MA documented in this encounter [facility] 04-09-2024 Telephone encounter Note [place] paperwork completed and placed in folder to be signed. Vero Christopher MA [facility] 04-08-2024 Note HNO ID: [id number] Author: MARIE OSBORN RN Service: ? Author Type: Registered Nurse Type: Progress Notes Filed: 04/08/2024 11:46 Note Text: 0900 16Fr lopez cath inserted without difficulty following lidojet. Clear yellow urine returned. 0921 lopez clamped. Less than 50cc in drainage bag. Bcg instilled. Pt will set timer and turn self every 15 min. at bedside. 1000 tolerating procedure well. 1119 lopez unclamped and allowed to drain. 1130 lopez dc'd. 250cc in drainage bag. [facility] 04-08-2024 History of Presen t illness Narrative 0900 16Fr lopez cath inserted without difficulty following lidojet. Clear yellow urine returned. 0921 lopez clamped. Less than 50cc in drainage bag. Bcg instilled. Pt will set timer and turn self every 15 min. at bedside. 1000 tolerating procedure well. 1119 lopez unclamped and allowed to drain. 1130 lopez dc'd. 250cc in drainage bag. documented in this encounter [facility] 04-01-2024 Note HNO ID: [id number] Author: MARIE OSBORN RN Service: ? Author Type: Registered Nurse Type: Progress Notes Filed: 04/01/2024 12:44 Note Text: 0840 pt oriented to room and treatment process explained. and pt voice understanding. 0855 16 Fr cath inserted after urojet. Clear yellow urine returned. Pt tolerated well. Lopez to drainage. BCG order released. 0940 lopez clamped. Bcg instilled. Pt instructed to turn every 15 min from side,back, side. Voices understanding. at bedside. 1030 tolerating treatment well. Continues to turn every 15 min. 1135 Lopez unclamped and bladder allowed to drain. 1145 300cc clear yellow urine in bag. Lopez dc'd. [facility] 04-01-2024 History of Presen t illness Narrative 0840 pt oriented to room and treatment process explained. and pt voice understanding. 0855 16 Fr cath inserted after urojet. Clear yellow urine returned. Pt tolerated well. Lopez to drainage. BCG order released. 0940 lopez clamped. Bcg instilled. Pt instructed to turn every 15 min from side,back, side. Voices understanding. at bedside. 1030 tolerating treatment well. Continues to turn every 15 min. 1135 Lopez unclamped and bladder allowed to drain. 1145 300cc clear yellow urine in bag. Lopez dc'd. documented in this encounter [facility] 03-24-2024 Note HNO ID: [id number] Author: LITO THOMSON MD Service: ? Author Type: Physician Type: Progress Notes Filed: 03/27/2024 06:11 Note Text: PATIENT NAME: Ishaan Hanson DATE: 03/25/2024 PRIMARY CARE PHYSICIAN: Dayami Lewis CNP (Dr. Mott) OTHER PHYSICIANS: Dr. Donato Li, Dr. Олег Burris HPI: This is a 58 year old male with recently diagnosed nonmuscle invasive bladder cancer, referred for further management. The patient presented in January 2024 with gross hematuria. Renal/bladder ultrasound 02/03/2024 revealed a mass along the right lateral aspect of the bladder. He was seen by urology and underwent cystoscopy on 02/15/2024. Biopsy of the bladder mass was consistent with nonmuscle invasive high-grade urothelial carcinoma. At the time of cystoscopy he underwent a maximum TURBT. Hematuria has resolved, and he has had no other urinary symptoms. He currently is referred for adjuvant intravesicular BCG. 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 He also has hyperlipidemia and hypertension. He does not smoke or drink. 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 cyclobenzaprine (FLEXERIL) 5 mg tablet Take 5 mg by mouth as directed. hydroCHLOROthiazide 25 mg tablet Take 25 mg by mouth once daily. losartan (COZAAR) 50 mg tablet Take 50 mg by mouth once daily. predniSONE (DELTASONE) 10 mg tablet Take 10 mg by mouth once daily. pyridostigmine (MESTINON) 60 mg tablet Take 60 mg by mouth three times a day. No current facility-administered medications for this visit. ALLERGIES: ALLERGIES No Known Allergies PAST MEDICAL HISTORY: PAST MEDICAL HISTORY Diagnosis Date Bladder cancer (HCC) Bladder mass BPH with urinary obstruction Erectile dysfunction Former smoker Gross hematuria Hyperlipidemia Hypertensive disorder Ocular myasthenia (HCC) Renal cyst PAST SURGICAL HISTORY: PAST SURGICAL HISTORY Procedure Laterality Date PAST SURGICAL HISTORY OF 02/15/2024 TURBT PAST SURGICAL HISTORY OF 2004 Sinus node FAMILY HISTORY: FAMILY HISTORY Problem Relation Age of Onset Prostate Cancer Father SOCIAL HISTORY: Social History Tobacco Use Smoking status: Former Types: Cigarettes Smokeless tobacco: Never COMPLETE REVIEW OF SYSTEMS: CONSTITUTION: Negative for pain, fatigue, weight loss, or appetite loss. EENT: Negative for mouth soreness, antibiotics use, epistaxis, visual problems, neck or facial swelling, fever/chills, bleeding gums, or hearing loss. CV: Negative for edema, calf swelling, palpitations, or chest pain. RESPIRATORY: Negative for cough, SOB, hemoptysis, or wheezing. GI: Negative for nausea/vomiting, heartburn, vomiting blood, dysphasia, diarrhea, blood in stool, constipation, early satiety, PICA, vegetarian, poor nutrition, abdominal fullness, or abdominal pain. NEUROLOGICAL: Negative for numbness/tingling, dizziness, gait disturbance, headache, speech disturbance, tremor, hemiparesis/sensory loss, or change in mental status. MUSCULOSKELETAL: Negative for joint pain, joint swelling, or proximal muscle weakness. SKIN: Negative for hair loss, bruising, nail changes, rash, itching, pallor, or jaundice. ENDO/URO: Negative for hot flashes, cold or heat intolerance, urinary frequency, urinary hesitancy, menorrhagia, or hematuria. PSYCH: Negative for anxiety, depression, or other. PHYSICAL EXAM: BP 138/96 Pulse 71 Temp 36.2 ?C (97.1 ?F) (Temporal) Resp 18 Wt 90.9 kg (200 lb 6.4 oz) SpO2 100% GENERAL EXAM: Well developed/well nourished; in no acute distress. SKIN: Negative for lesions, rashes, or ulcers on the upper and lower extremities and face. Negative for palpations/nodules, purpura, and ecchymosis. EENT: Negative for conjunctiva, mucosal pallor, JVD, LAP, thyromegaly, and glossitis. Supple AND PERRL. EXTREMITIES: Negative for cyanosis, clubbing, and crepitus. LUNGS: Negative to auscultation, respiratory effort, and percussion. CARDIOVASCULAR: Regular rate. Negative for murmurs/S3S4/abnormal sounds, edema, and carotid bruits. ABDOMEN: Negative for masses, hernia, and spleen/liver abnormalities. RECTAL: Not done PSYCHIATRIC: Negative for mood/affect changes, recent AND remote memory changes, and judgement and insight. NEUROLOGICAL: Alert, oriented x person, place, time. Cranial nerves 2-12 intact. Sensory for pain, light touch, vibration intact on all 4 extremities. Reflexes symmetric for biceps/brachioradial/patella/ac hilles. MUSCULOSKELETAL: Negative examination of joints, bones, muscles/tendons of all four extremities for inspection, percussion, and palpation. Negative for misallignment, asymmetry, crepitation, tenderness, mass, effusions. Range of motion normal. Ne (more content not included)... [facility] 03-24-2024 History of Presen t illness Narrative PATIENT NAME: Ishaan Hanson DATE: 03/25/2024 PRIMARY CARE PHYSICIAN: Dayami Lewis CNP (Dr. Mott) OTHER PHYSICIANS: Dr. Donato Li, Dr. Олег Burris HPI: This is a 58 year old male with recently diagnosed nonmuscle invasive bladder cancer, referred for further management. The patient presented in January 2024 with gross hematuria. Renal/bladder ultrasound 02/03/2024 revealed a mass along the right lateral aspect of the bladder. He was seen by urology and underwent cystoscopy on 02/15/2024. Biopsy of the bladder mass was consistent with nonmuscle invasive high-grade urothelial carcinoma. At the time of cystoscopy he underwent a maximum TURBT. Hematuria has resolved, and he has had no other urinary symptoms. He currently is referred for adjuvant intravesicular BCG. 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 He also has hyperlipidemia and hypertension. He does not smoke or drink. 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 cyclobenzaprine (FLEXERIL) 5 mg tablet Take 5 mg by mouth as directed. hydroCHLOROthiazide 25 mg tablet Take 25 mg by mouth once daily. losartan (COZAAR) 50 mg tablet Take 50 mg by mouth once daily. predniSONE (DELTASONE) 10 mg tablet Take 10 mg by mouth once daily. pyridostigmine (MESTINON) 60 mg tablet Take 60 mg by mouth three times a day. No current facility-administered medications for this visit. ALLERGIES: ALLERGIES No Known Allergies PAST MEDICAL HISTORY: PAST MEDICAL HISTORY Diagnosis Date Bladder cancer (HCC) Bladder mass BPH with urinary obstruction Erectile dysfunction Former smoker Gross hematuria Hyperlipidemia Hypertensive disorder Ocular myasthenia (HCC) Renal cyst PAST SURGICAL HISTORY: PAST SURGICAL HISTORY Procedure Laterality Date PAST SURGICAL HISTORY OF 02/15/2024 TURBT PAST SURGICAL HISTORY OF 2004 Sinus node FAMILY HISTORY: FAMILY HISTORY Problem Relation Age of Onset Prostate Cancer Father SOCIAL HISTORY: Social History Tobacco Use Smoking status: Former Types: Cigarettes Smokeless tobacco: Never COMPLETE REVIEW OF SYSTEMS: CONSTITUTION: Negative for pain, fatigue, weight loss, or appetite loss. EENT: Negative for mouth soreness, antibiotics use, epistaxis, visual problems, neck or facial swelling, fever/chills, bleeding gums, or hearing loss. CV: Negative for edema, calf swelling, palpitations, or chest pain. RESPIRATORY: Negative for cough, SOB, hemoptysis, or wheezing. GI: Negative for nausea/vomiting, heartburn, vomiting blood, dysphasia, diarrhea, blood in stool, constipation, early satiety, PICA, vegetarian, poor nutrition, abdominal fullness, or abdominal pain. NEUROLOGICAL: Negative for numbness/tingling, dizziness, gait disturbance, headache, speech disturbance, tremor, hemiparesis/sensory loss, or change in mental status. MUSCULOSKELETAL: Negative for joint pain, joint swelling, or proximal muscle weakness. SKIN: Negative for hair loss, bruising, nail changes, rash, itching, pallor, or jaundice. ENDO/URO: Negative for hot flashes, cold or heat intolerance, urinary frequency, urinary hesitancy, menorrhagia, or hematuria. PSYCH: Negative for anxiety, depression, or other. PHYSICAL EXAM: BP 138/96 Pulse 71 Temp 36.2 C (97.1 F) (Temporal) Resp 18 Wt 90.9 kg (200 lb 6.4 oz) SpO2 100% GENERAL EXAM: Well developed/well nourished; in no acute distress. SKIN: Negative for lesions, rashes, or ulcers on the upper and lower extremities and face. Negative for palpations/nodules, purpura, and ecchymosis. EENT: Negative for conjunctiva, mucosal pallor, JVD, LAP, thyromegaly, and glossitis. Supple & PERRL. EXTREMITIES: Negative for cyanosis, clubbing, and crepitus. LUNGS: Negative to auscultation, respiratory effort, and percussion. CARDIOVASCULAR: Regular rate. Negative for murmurs/S3S4/abnormal sounds, edema, and carotid bruits. ABDOMEN: Negative for masses, hernia, and spleen/liver abnormalities. RECTAL: Not done PSYCHIATRIC: Negative for mood/affect changes, recent & remote memory changes, and judgement and insight. NEUROLOGICAL: Alert, oriented x person, place, time. Cranial nerves 2-12 intact. Sensory for pain, light touch, vibration intact on all 4 extremities. Reflexes symmetric for biceps/brachioradial/patella/ac hilles. MUSCULOSKELETAL: Negative examination of joints, bones, muscles/tendons of all four extremities for inspection, percussion, and palpation. Negative for misallignment, asymmetry, crepitation, tenderness, mass, effusions. Range of motion normal. Negative for joint instability, laxity, dislocation. Gait steady. Negative for swelling, erythema, tenderness, soft tissue swelling, and atrophy. PATHOLOGY: 02/16/2024 Prostate biopsy/TURBT ([facility]) High-grade papillary urothelial carcinoma. Focal superficial lamina propria invasion is identified. Muscularis propria is noted, negative for invasion. RADIOLOGY/OTHER STUDIES: 02/03/2024 Ultrasound renal bladder ([facility]) A small cyst is seen in the right kidney. There are no other cystic or solid masses seen in the kidneys. There is a lobulated soft tissue mass along the wall of the urinary bladder. This appears suspicious for malignancy. ASSESSMENT/PLAN: 1. 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 Renal/bladder ultrasound 02/03/2024 revealed a mass along the right lateral aspect of the bladder. Status post cystoscopy/TURBT 02/15/2024. Biopsy of the bladder mass consistent with nonmuscle invasive high-grade urothelial carcinoma. Options for management were discussed at length with the patient and his . He has at least intermediate risk disease, and adjuvant intravesicular treatment is recommended. We have elected to proceed with standard therapy consisting of weekly BCG x 6 cycles. He will return in 1 to 2 weeks to start. I will see him back in 5 weeks for follow-up. After completing 6 cycles he will then undergo repeat cystoscopy. Based on response and tolerance maintenance therapy will be discussed. 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 It is unlikely that this will complicate his treatment plans for BCG. However, if complications develop would consider changing to intravesicular gemcitabine. 2. Hyperlipidemia Stable on current medications. Continue management per PCP. 3. Essential hypertension Stable on current medications. Continue management per PCP. 4. History of ocular myasthenia gravis Stable on current medications. Continue management per PCP/neurology. Lito Thomson MD CC: [place] Donato Li, [facility] [place] documented in this encounter [facility] 02-26-2024 Hospital Discharg e instructions Patient Education 02/26/2024 09:20:40 Bladder Cancer Bladder Cancer Bladder cancer is a condition where abnormal tissue (a tumor) grows in the bladder. The bladder is the organ that holds urine. Two tubes (ureters) carry urine from the kidneys to the bladder. The bladder wall is made of layers of tissue. Cancer that spreads through these layers of the bladder wall becomes more difficult to treat. What increases the risk? The following factors may make you more likely to develop this condition: Smoking. Working where there are risks (occupational exposures), such as working with rubber, leather, clothing fabric, dyes, chemicals, or paint. Being 55 years of age or older. Being male. Having long-term bladder inflammation. Having a history of cancer. This includes: ?A family history of bladder cancer. ?Having had bladder cancer before. ?Having had certain treatments for cancer before, such as: ?Medicines to kill cancer cells (chemotherapy). ?Strong X-ray beams or high-energy capsules to kill cancer cells and shrink tumors (radiation therapy). Having been exposed to arsenic. This is a poisonous substance. What are the signs or symptoms? Early symptoms of this condition include: Blood in your urine. Pain when urinating. Infections of your urinary system (urinary tract infections or UTIs) that happen often. Having to urinate sooner or more often than normal. Late symptoms of this condition include: Not being able to urinate. Pain on one side of your lower back. Loss of appetite. Weight loss. Tiredness (fatigue). Swelling in your feet. Bone pain. How is this diagnosed? This condition is diagnosed based on: Your medical history. A physical exam. Lab tests, such as urine tests. Imaging tests. Your symptoms. You may also have other tests or procedures, such as: A cystoscopy. This involves putting a narrow tube into your urethra. The urethra is the organ that carries urine from your bladder to the outside of your body. This procedure is done to view the lining of your bladder for tumors. A biopsy. This involves removing a tissue sample to look at under a microscope to check for cancer. Blood tests or imaging tests may be needed. These show how far into the bladder wall cancer has grown, and if cancer has spread to any other parts of your body. Tests may include: CT scan. MRI. Bone scan. X-ray. How is this treated? Your health care provider may recommend one or more types of treatment based on the stage of your cancer. The most common treatments are: Surgery to remove the cancer. Types of surgeries include: ?Removing a tumor on the inside wall of the bladder (transurethral resection). ?Removing the bladder (cystectomy). Radiation therapy. This is often combined with chemotherapy. Chemotherapy. Immunotherapy. This uses medicines to help your body's disease-fighting system (immune system) destroy cancer cells. Follow these instructions at home: Take ctfn-bzq-whmpdud and prescription medicines only as told by your health care provider. If you were prescribed an antibiotic medicine, take it as told by your health care provider. Do not stop using the antibiotic even if you start to feel better. Eat a healthy diet. Some treatments might affect your appetite. Do not use any products that contain nicotine or tobacco. These products include cigarettes, chewing tobacco, and vaping devices, such as e-cigarettes. If you need help quitting, ask your health care provider. Consider joining a support group. This may help you learn to deal with the stress of having bladder cancer. Tell your cancer care team if you develop side effects. Your team may be able to recommend ways to get relief. Keep all follow-up visits. This is important. Where to find more information [employer] (ACS): cancer.org National Cancer [place] (NCI): cancer.gov Contact a health care provider if: You have symptoms of a UTI. These include: ?Fever. ?Chills. ?Weakness. ?Muscle aches. ?Pain in your abdomen. ?Urge to urinate that is stronger and happens more often than normal. ?Burning in the bladder or urethra when you urinate. Get help right away if: There is blood in your urine. You cannot urinate. You have severe pain or other symptoms that do not go away. Summary Bladder cancer is a condition where tumors grow in the bladder. Diagnosis is based on your medical history, a physical exam, lab tests, imaging tests, and your symptoms. Your health care provider may recommend one or more types of treatment based on the stage of your cancer. Consider joining a support group. This may help you learn to deal with the stress of having bladder cancer. This information is not intended to replace advice given to you by your health care provider. Make sure you discuss any questions you have with your health care provider. Document Revised: 08/08/2022 Document Reviewed: 08/08/2022 [employer] Patient Education 2022 [employer]. Follow Up Care 02/12/2024 12:19:37 With:GUILLERMO PATEL, Donato Bar, URL Address: [facility] [address] , [place] [address]- When: Unknown [facility] 02-12-2024 Hospital Discharg e instructions Patient Education [...] Follow these instructions at home: Medicines Take tdqu-rzw-srleocf and prescription medicines only as told by [...] to keep your urine pale yellow. ?Take waue-rkz-uannawe or prescription medicines. ?Eat foods that are [...] and pain in your lower abdomen. Take txzd-dni-mygvdro and prescription medicines only as told by [...] provider. Document Revised: 09/02/2022 Document Reviewed: 09/02/2022 [employer] Patient Education 2022 [employer]. 02/12/2024 12:02:39 Transurethral Resection of Bladder Tumor [...] including vitamins, herbs, eye drops, creams, and mdic-zjv-dmpqdls medicines. Any problems you or family members [...] provider tells you to take them. Taking ieof-qvu-zinrbwp medicines, vitamins, herbs, and supplements. General instructions [...] provider. Document Revised: 09/02/2022 Document Reviewed: 09/02/2022 [employer] Patient Education 2022 [employer]. 02/12/2024 12:01:57 Cystoscopy Cystoscopy Cystoscopy is a [...] including vitamins, herbs, eye drops, creams, and qvxm-mcg-fzptdux medicines. Any problems you or family members [...] provider tells you to take them. Taking ytjf-kma-bwtqlfn medicines, vitamins, herbs, and supplements. Tests You [...] Follow these instructions at home: Medicines Take gxdg-twb-gththzz and prescription medicines only as told by [...] provider. Document Revised: 05/11/2022 Document Reviewed: 04/09/2021 [employer] Patient Education 2022 [employer]. Follow Up Care 02/09/2024 08:47:02 With:GUILLERMO PATEL, Donato Bar, URL Address: [facility] [address], [place] [address]- [phone] When: Unknown Comments:sched cysto/TURBT [facility] 02-12-2024 Note Chief Complaint Referral *Bladder Mass HPI Staff Evaluation requested by Dayami PLUMMER due to Bladder Mass. Pt is a [...] distress, well nourished, well developed male. Assessment/Plan Ishaan is a 58 yo male new pt [...] planning to go on a trip to [place] but would be willing to cancel trip [...] urothelial ca. Follow-up With When Contact Information Donato LI MD, URL [facility] [address], [place] [address]- [phone] Additional Instructions: sched cysto/TURBT Patient Education Transurethral Resection of Bladder Tumor, Care (more content not included)... [facility] Comment on above: Result Comment: Elec tronically Signed By: Donato LI MD\.br\Date and Time Signed: 02/12/24 12:12 EDT\.br\Electronically Co-Signed By: Dannielle Melgar\.br\Date and Time Co-Signed: 02/12/24 12:10 EDT 06-28-2022 Evaluation note Encounter Date Diagnosis Assessment [...] understanding and is agreeable with treatment plan [facility] Other Evaluation + Plan note Future Appointments Appointment Date:02/21/2024 09:30:00 AM Scheduled Provider: Location:[facility] Appointment Type:URO Nurse Visit Appointment Date:02/26/2024 12:15:00 PM Scheduled Provider:Donato LI MD Location:[facility] Appointment Type:URO Office Visit [facility] evaluation + Plan note Future Appointments Appointment Date:02/26/2024 12:15:00 PM Scheduled Provider:Donato LI MD Location:[facility] Appointment Type:URO Office Visit [facility] evaluation noteNo assessment information available [facility] Work Phone: Evaluation note* Diagnosis Malignant neoplasm of lateral wall of urinary bladder (HCC)- Primary Malignant neoplasm of lateral wall of [facility] bladder [facility] Malignant neoplasm of lateral wall of urinary bladder (HCC) Malignant neoplasm of lateral wall of urinary bladder [facility] Diagnosis Malignant neoplasm of lateral wall of urinary bladder (HCC) Malignant neoplasm of lateral wall of urinary bladder [facility] Diagnosis Malignant neoplasm of lateral wall of urinary bladder (HCC) Malignant neoplasm of lateral wall of urinary bladder [facility] Diagnosis Malignant neoplasm of lateral wall of urinary bladder (HCC) Malignant neoplasm of lateral wall of urinary bladder [facility] Diagnosis Malignant neoplasm of lateral wall of urinary bladder (HCC)- Primary Malignant neoplasm of lateral wall of urinary bladder documented [facility] N[facility]ative - Reported* Type Description Date Medical History htn [facility] Other Hospital course Narrative No data available for this section [facility] Discharge instructions No data available for this section [facility] progress note No data available for this section [facility] Summary Purpose Family History No Family History Records Found Relationship Condition Age at Onset Recorded Date/T samantha father Malignant neoplasm Unknown Not Specified Diabetes mellitus Unknown Malignant neoplasm Unknown Unknown Advance Directives No Advanced Directives Records FoundNo Advanced Directives Records FoundNo Advanced Directives Records FoundNo Advanced Directives Records FoundNo Advanced Directives Records FoundNo Advanced Directives Records Found Additional Source Comments (unrecognized sect ion and content) No Status Records FoundNo Status Records FoundNo Status Records FoundNo Status Records FoundNo Status Records FoundNo Status Records Found INFORMATION SOURCE (unrecogn ized section and content) DATE CREATED AUTHOR 04/10/2022 [facility] DATE CREATED AUTHOR AUTHOR'S ORGANIZ ATION 01/14/2023 [facility] DATE CREATED AUTHOR AUTHOR'S ORGANIZ ATION 02/21/2024 [facility] DATE CREATED AUTHOR AUTHOR'S ORGANIZ ATION 03/06/2024 [facility] EPIC DATE CREATED AUTHOR AUTHOR'S ORGANIZ ATION 05/10/2024 [facility] DATE CREATED AUTHOR AUTHOR'S ORGANIZ ATION 06/01/2024 [facility] REASON FOR VISIT (unrecogniz ed section and content) Reason Comments Consult Specialty Diagnoses / Procedures Referred By Contac t Referred To Contact Hematology/Oncology / HEMONC INFUSION Diagnoses BCG Infusion Procedures TREATMENT 2 HRS Lito Flood MD [address] [place] [address] [place] [address] [facility] [address] [place] [address] Referral ID Status Reason Start Date Expiration Date V isits Requested Visits Authorized [id number] New Request 04/01/2024 06/30/2024 99 99 Reason Comments FMLA Paperwork Specialty Diagnoses / Procedures Referred By Contac t Referred To Contact Hematology/Oncology / HEMONC INFUSION Diagnoses Malignant neoplasm of lateral wall of bladder BCG Infusion Procedures BCG LIVE INTRAVESICAL INSTILLATION, 1 MG TREATMENT 2 HRS Lito Flood MD [address] [place] [address] [facility] [address] [place] [address] Referral ID Status Reason Start Date Expiration Date V isits Requested Visits Authorized [id number] Authorized 04/01/2024 09/10/2024 99 99 Reason Comments Bladder Cancer Treatment visit Patient Care team informatio n (unrecognized section and content) Team Status: Inactive Member Role Status Dates Donato Li MD Attending Provider Active St art: February 15, 2024 End: February 15, 2024 Data Analytics Developer Relationship Specialty Start Date End Date Dayami Lewis CNP [address] [id number] PCP - General Internal Medicine 02/27/24 Donato Li MD [address] [place] [address] Urology 03/20/24 Data Analytics Developer Relationship Specialty Start Date End Date Dayami Lewis CNP [address] [place] [address] PCP - General Internal Medicine 02/27/24 Donato Li MD [address] [place] [address] Urology 03/20/24 Data Analytics Developer Relationship Specialty Start Date End Date Dayami Lewis CNP [address] [place] [address] PCP - General Internal Medicine 02/27/24 Donato Li MD [address] [place] [address] Urology 03/20/24 Data Analytics Developer Relationship Specialty Start Date End Date Dayami Lewis CNP [address] [place] [address] PCP - General Internal Medicine 02/27/24 Donato Li MD [address] [place] [address] Urology 03/20/24 Data Analytics Developer Relationship Specialty Start Date End Date Dayami Lewis CNP [address] [place] [address] PCP - General Internal Medicine 02/27/24 Donato Li MD [address] [place] [address] Urology 03/20/24 Data Analytics Developer Relationship Specialty Start Date End Date Dayami Lewis CNP [address] [place] [facility] [place] [address] PCP - General Internal Medicine 02/27/24 Donato Li MD [address] [place] [address] Urology 03/20/24 Data Analytics Developer Relationship Specialty Start Date End Date Dayami Lewis CNP [address] [place] [address] PCP - General Internal Medicine 02/27/24 Donato Li MD [address] [place] [address] Urology 03/20/24 Data Analytics Developer Relationship Specialty Start Date End Date Dayami Lewis CNP [address] [place] [address] PCP - General Internal Medicine 02/27/24 Donato Li MD [address] [place] [address] Urology 03/20/24 Goals (unrecognized section and content) Goals may be documented in a n alternate section Source Comments (unrecognize d section and content) In the event this informatio n is protected by the Federal Confidentiality of Alcohol and Drug Abuse Patient Records regulations: The Federal rules restrict any use of the information to criminally investigate or prosecute any alcohol or drug abuse patient.[facility] the event this information is protected by the Federal Confidentiality of Alcohol and Drug Abuse Patient Records regulations: The Federal rules restrict any use of the information to criminally investigate or prosecute any alcohol or drug abuse patient.[facility] the event this information is protected by the Federal Confidentiality of Alcohol and Drug Abuse Patient Records regulations: The Federal rules restrict any use of the information to criminally investigate or prosecute any alcohol or drug abuse patient.[facility] the event this information is protected by the Federal Confidentiality of Alcohol and Drug Abuse Patient Records regulations: The Federal rules restrict any use of the information to criminally investigate or prosecute any alcohol or drug abuse patient.[facility] the event this information is protected by the Federal Confidentiality of Alcohol and Drug Abuse Patient Records regulations: The Federal rules restrict any use of the information to criminally investigate or prosecute any alcohol or drug abuse patient.[facility] the event this information is protected by the Federal Confidentiality of Alcohol and Drug Abuse Patient Records regulations: The Federal rules restrict any use of the information to criminally investigate or prosecute any alcohol or drug abuse patient.[facility] the event this information is protected by the Federal Confidentiality of Alcohol and Drug Abuse Patient Records regulations: The Federal rules restrict any use of the information to criminally investigate or prosecute any alcohol or drug abuse patient.[facility] the event this information is protected by the Federal Confidentiality of Alcohol and Drug Abuse Patient Records regulations: The Federal rules restrict any use of the information to criminally investigate or prosecute any alcohol or drug abuse patient.[facility] the event this information is protected by the Federal Confidentiality of Alcohol and Drug Abuse Patient Records regulations: The Federal rules restrict any use of the information to criminally investigate or prosecute any alcohol or drug abuse patient.[facility] the event this information is protected by the Federal Confidentiality of Alcohol and Drug Abuse Patient Records regulations: The Federal rules restrict any use of the information to criminally investigate or prosecute any alcohol or drug abuse patient.[facility] FOR RECORDS PERTAINING TO PATIENTS WHO ARE [...] BE BASED ON THE PRIMARY CLINICAL RECORDS. [facility] [email or web address] [facility]. provides no warranty or guarantee of the accuracy or completeness of information in this document.
[2024-06-03 07:50] VITALS: BP 148/98; PULSE 78; O2SAT 98; BMI 28.2
[2024-06-03] MEDS: LIDOCAINE 2% JELLY 10 ML UR (08:35)
[2024-06-03 08:40] VITALS: BP 143/90; PULSE 77; O2SAT 97
[2024-06-03 08:44] VITALS: BP 147/87; PULSE 76; O2SAT 97
--- NOTE | 2024-06-03 08:46 | PM.URSON ---
Urology Surgery Operative Note Operative Note Procedure Date: 06/03/24 Time Out Performed: yes Pre-op Diagnosis: History of high-grade invasive TCC of the bladder Post-op Diagnosis: other (Recurrent tumors) Procedures performed: 1. Cystoscopy. Anesthesia: local Primary Surgeon: Brodie Campos Complications: None Estimated blood loss (mL): 0 Findings: 5, 1 cm or smaller papillary bladder tumors Specimens: None Drains: None Indications for Procedures: This gentleman has a history of high-grade invasive TCC of the bladder for which he underwent TURBT. He has completed his first course of BCG. He now presents for surveillance cystoscopy. He has signed an informed consent after risks were explained. Detailed description of Procedure: The patient was kept on the gurney bed and brought into the endoscopy suite. He was in the supine position. Timeout was done by all parties in the room. We all agreed upon the patient's identification and the planned procedure for this patient. Genitalia were sterilely prepped and draped in the usual fashion. 2% lidocaine gel was passed per urethra. I started by passing a flexible cystoscope per urethra and into the bladder. The anterior urethra was normal. The prostatic urethra showed bilobar obstruction. Careful panendoscopy in the bladder revealed that he had multiple small recurrences. Specifically most of the recurrences were near the dome and the back wall of the bladder. Each 1 was 1 cm or less in size. There were 3 in this location. When the scope was retroverted upon itself to more similar bladder tumors were noted adjacent to the bladder neck. The scope was then removed. He was then discharged to home. The plan will be that we will repeat a TURBT under anesthesia. He will then do a second course of BCG thereafter. Please send a copy of this dictation to Dr. Lito Thomson at the [facility] facility in [place] thank you
== END 2024-06-03 09:03 | disposition home or self-care (01) ==
PROVIDERS: PCP Nurse Practitioner Family; Visit Provider Urology
PROC: (CPT 52000; principal; 2024-06-03 08:15)
DX: Z08 Encounter for follow-up examination after completed treatment for malignant neoplasm (principal); Z85.51 Personal history of malignant neoplasm of bladder; D49.4 Neoplasm of unspecified behavior of bladder; N40.0 Benign prostatic hyperplasia without lower urinary tract symptoms; N52.9 Male erectile dysfunction, unspecified; I10 Essential (primary) hypertension; E78.5 Hyperlipidemia, unspecified; Z87.891 Personal history of nicotine dependence
CPT/HCPCS: 52000

== ENCOUNTER 2024-06-07 08:59 | Outpatient (OUT) | payer OTHER, SELFPAY ==
--- OUTSIDE RECORDS SUMMARY | 2024-06-07 09:07 | XMS_ITS | CCD ---
Author Organization [facility] Care Team Providers Care Bible Worker Name Role Phone Krystin Loja Unavailable KERRY [...] Unavailable DEBBIE, DAYAMI S Primary Care Physician JOHN CARRERA Attending Unavailable Debbie ECKERT, Dayami S Primary Care Provider Donato Li MD Unavailable [phone] DEBBIE, DAYAMI S Primary Care Unavailable LITO [...] Primary Care Unavailable LITO THOMSON Referring Unavailable LI, Donato R Attending Unavailable LI, Donato R Attending Unavailable LI, Donato R Attending Unavailable DEBBIE, DAYAMI S Referring Unavailable LI, Donato R Attending Unavailable LI, Donato R Attending Unavailable DEBBIE, DAYAMI S Referring Unavailable LI, Donato R Attending Unavailable LI, Donato R Attending Unavailable LI, Donato R Admitting Unavailable LI, Donato R Attending Unavailable LI, Donato R Attending Unavailable LI, Donato R Attending Unavailable Allergies Allergy Classification Reported Allergen(s) Allergy Type Date of Onset Reaction(s) Facility (2 sources) No Known Medication Allergies; Translations: [No Known Medication Allergies] Propensity to adverse reactions (disorder) [facility] Repository Medications Current Medications Medication Drug [...] Test Name Value Interpretation Reference Range Facility [facility] Urine Cyt [facility] ([facility])on 06-03-2024 [facility] Diagnosis Info Invalid Interpretation Code [facility] Comment on above: Result Comment: A:Ur ine,Urine:Voided Interpretation - Adequate but limited cellularity for evaluation. Interpretation - The [facility] FISH study detected normal copy numbers for chromosomes 3, 7, 17, and 9p21. 60 cells were analyzed in this evaluation. No evidence of aneuploidy for chromosomes 3, 7, or 17 or deletion of the 9p21 locus was found in cells present in this specimen. This test does not rule out the possibility of a low grade non-invasive papillary urothelial carcinoma. These findings should be correlated with cytology and cystoscopy results.* MicroScopic Description - Scant cellularity. MicroScopic Description - Electronically signed by : on: 06/03/2024 16:14:27 Performed By: #### 1 [id number] #### [facility] [address] [place] [id number] Reminderson 05-30-2024 Reminders Reminders From: Adriana Irvin To: EU - Recalls Li; Sent: 05/22/2024 21:08:28 EDT Show up: 06/11/2024 21:08:00 EDT Subject: cysto/fish/cytol Due Date/Time: 07/08/2024 21:08:00 EDT Reminder/Recall Patient needs sched for 3 month cysto/fish/cytol (bt ck) Due in Aug 2024 Normal [facility] Fish and Urine Cyt o ( Labs)on 05-28-2024 [facility] Method of Extraction Voided Normal [facility] Comment on above: Performed By: #### 1 [id number] #### [facility] [address] [place] [address] [facility] Number of Jars 1 Invalid Interpretation Code [facility] Comment on above: Performed By: #### 1 [id number] #### [facility] [address] [place] [address] [facility] Specimen Urine Normal [facility] Comment on above: Performed By: #### 1 [id number] #### [facility] [address] [place] [address] [facility] Type of Service Technical Only Normal [facility] Comment on above: Performed By: #### 1 [id number] #### [facility] [address] [place] [address] CNOVSPon 05-06-2024 CNOVSP Visit (SP) Office ([place]) ISHAAN HANSON ([id number]) 1965 M Date Time Provider Department 05/06/24 [...] place, time (more content not included)... Normal [facility] Reminderson 04-22-2024 Reminders Reminders From: Adriana Irvin To: EU - Recalls Li; Sent: 04/09/2024 14:23:39 EDT Show up: 04/11/2024 14:23:00 EDT Subject: cysto/fish/cytol Due Date/Time: 04/29/2024 14:23:00 EDT Reminder/Recall Patient needs Cysto 1 month after finishing BCG tx at [facility] cancer center. Last tx 05/06/24 l/m on .LG Patient called back, sched for 06/03/24.LG Normal [facility] Arnol 04-09-2024 CNPN Telephone (BARNEY) ISHAAN HANSON ([id number]) 1965 M Date Time Provider Department 04/09/24 LITO THOMSON During your visit today, we recorded the following information about you: Vero Christopher MA 04/09/2024 2:44 PM Signed [facility] paperwork completed and placed in folder to be signed. AUSTIN Damico Samantha, MA 04/10/2024 1:06 PM Signed Faxed [facility] paperwork to @ [phone]. Vero Christopher MA Allergies As of Date: 04/09/2024 (No Known Allergies) Date Reviewed: 04/08/2024 Reviewed by: Marie Osborn, [place] - Fully Assessed Reason for Visit: [facility] Paperwork [[id number]] Prescriptions as of 04/10/2024 - atorvastatin (LIPITOR) [...] Status:Closed by VERO CHRISTOPHER on 04/10/24 [facility] CNOVSPon 03-25-2024 OVS Visit (SP) Office ([place]) ISHAAN HANSON ([id number]) 1965 M Date Time Provider Department 03/25/24 11:00 AM LITO THOMSON During your visit today, we recorded the following information about you: Temperature Pulse Respiration Blood pressure 97.1 degrees 71/minute 18/minute 138/96 Weight 90.9 kg Lito Thomsno MD 03/27/2024 6:11 AM Signed PATIENT NAME: [...] or drink. 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 Reflex (more content not included)... Normal [facility] Physician Referralon 024 Physician Referral [id number]#1.00TI FF Jerry Yu [facility] Ambulatory Visit Summaryon 0 02-26-2024 Ambulatory [...] Follow Up with GUILLERMO PATEL, Donato Bar, URRaghu When: Where: [facility] [address] [place] [address]- Medications What How Much When Instructions Unchanged [...] involve (more content not included)... Normal Yu [facility] Patient Educationon 02-26-20 Patient Education Oncology [...] Follow these instructions at home: ? Take wxvv-qvv-hocqbzk and prescription medicines only as told by [...] important. Where to find more information ? [employer] (ACS): cancer.org ? National Cancer [place] (NCI): cancer.gov Contact a health care provider [...] have wi (more content not included)... Normal [facility] Provider Letteron 02-26-2024 Provider Letter (Inserted Image. Cassidy ble to display) February 26, 2024 ISHAAN HANSON [address] [place] [address] : 1965 To Whom It May Concern, Please excuse above patient from work. Date of Illness: From: 02/26/24 To: 02/26/24 May Return to Work On: 02/26/24 Restrictions: none Comments: Patient had an appointment with Dr. Donato Li 02/26/24. He may return to work 02/26/24 without instructions. Sincerely, [facility] [address], [place] [address] , option #3 Normal [facility] Urology Office/Clinic Noteon 02-26-2024 Urology Office/Clinic Note [...] shortage, pt may need to go to dc center if our office does not have [...] Donato Bar, URL [facility] [address], [place] [address]- Additional Instructions: schedule 6 BCG txs then surveillance cysto one month after course Patient Education Bladder Cancer IGwen, personally scribed for Dr. Li on 02/26/2024 09:39:00. . Documentation recorded by the scribe, Gwen Vidal, accurately reflects the services(s) I performed and decisions made by me. Authenticated by Dr. Li on 02/26/2024 10:04:31. Problem List/Past Medical History Ongoing Bladder cancer Bladder mass BPH with urinary obstruction Erectile dysfunction Former smoker Gross hematur (more content not included)... Normal [facility] Comment on above: Result Comment: Elec tronically Signed By: Donato LI MD\.br\Date and Time Signed: 02/26/24 10:04 EDT\.br\Electronically Co-Signed By: Gwen Vidal\.br\Date and Time Co-Signed: 02/26/24 09:54 EDT\.br\Electronically Co-Signed By: Gwen Vidal\.br\Date and Time Co-Signed: 02/26/24 09:54 EDT Ambulatory Visit Summaryon 0 02-21-2024 Ambulatory Visit Summary VALENTINMARIVELISHAAN E :1965 Visit Date:01/31/2024 Ambulatory Visit Instructions Your Care Team Primary Care Physician - DAYAMI LEWIS CNP This Is Your Medications List [facility] Prescription (losartan 50 mg tablet) atorvastatin (atorvastatin 20 mg Tab) cyclobenzaprine (cyclobenzaprine 5 mg Tab) hydrochlorothiazide (hydrochlorothiazide 25 mg Tab) predniSONE (predniSONE 10 mg Tab) pyridostigmine (pyridostigmine 60 mg Tab) Procedures Performed Sinus node (2003). What to do next Scheduled Follow-Up Appointments Monday 12:15 PM EDT With: GUILLERMO PATEL, Donato Bar Where: [facility] Pathology Noteon 02-21-2024 Pathology Note [id number]#1.00T IFF [facility] Patient Letter FTon 2023 Patient Letter [facility] [address] [place] [id number] February 21, 2024 ISHAAN HANSON [address] [place], [place] [address] [address] : 1965 VALENTINMARIVELISHAAN Margoth was evaluated at [facility] 02/21/2024 10:32:40 Restrictions: Light duty from 02/21/24-02/26/24. Pt will be reevaluated at that time and further instructions will be forthcoming. Provider Signature: Marie Morgan PA-C Physician Final Assembler [facility] [address] [place] [address] Normal [facility] Patient Letter [facility] [address] [place] [address] February 21, 2024 [place] [address] : 1965 ISHAAN HANSON was evaluated at [facility] 02/21/2024 10:32:40 Restrictions: Light duty from 02/21/24-02/26/24. Pt will be reevaluated at that time and further instructions will be forthcoming. Provider Signature: Marie Morgan PA-C Physician Final Assembler [facility] [address] [place] [address] Normal [facility] Operative Reporton Operative Report [id number]#1.00T IFF Normal [facility] Kendrick 02-15-2024 L Specimen: [id number] Received: 02/16/24 Status: LALIT Augustin Num: [id number] Spec Type: Surgical Subm Dr: Donato Li MD Tissues: A Urinary Bladder - TUR (BLADDER TUMOR) Procedures: HE/5, Gross/Micro L5 Age/ Patient Sex Location Account Attending Physician Ishaan Hanson 58/M LABELL [id number] Donato Li MD SPEC NUM: [id number] RECD: 02/16/24 STATUS: [facility] RE NUM: [id number] GABBI: 02/15/24-[address]: Donato Li MD ENTERED: 02/16/[address] [facility] [address]: Haylee Burks SPEC TYPE: Surgical [...] is entirely submitted in A1?A4. CPT Codes 13893 Specimen: [id number] Received: 02/16/24 Status: LALIT Augustin Num: [id number] Spec Type: Surgical Subm Dr: Donato Li MD Tissues: A Urinary Bladder - TUR (BLADDER TUMOR) Procedures: /Parveen, Gross/Micro L5 Patient: ValentinTerryh [id number] (Continued) Signed (signature on file) Yandy Medina MD 02/19/24 1810 Normal [facility] Lab Reportson 02-14-2024 Lab Reports [id number]#1.00TI FF Normal [facility] Lab Reports [id number] IFF Normal [facility] Lab Reports [id number]#1.00TI FF Normal [facility] RAD - MISCon 02-14-2024 RAD - MISC [id number]#1.00T IFF Normal [facility] Consent for Procedure/Surger yon 02-13-2024 Consent for Procedure/Surgery [id number]#1.00TI FF Normal [facility] Lab Reportson 02-13-2024 Lab Reports [id number]#1.00T IFF Normal [facility] Lab Reports [id number]#1.00T IFF Normal [facility] RAD - Ultrasound Reporton RAD - Ultrasound Report [id number]#1.00TI FF Normal [facility] Ambulatory Visit Summaryon 0 02-12-2024 Ambulatory Visit Summary ISHAAN HANSON :1965 Visit Date:02/12/2024 Ambulatory Visit Instructions Your Diagnosis Bladder mass Gross hematuria Erectile dysfunction BPH with urinary obstruction Renal cyst Former smoker Your Care Team Attending Physician - GUILLERMO PATEL, Donato Bar Primary Care Physician - RICO PATEL, [...] 9:30 AM EDT Where: [facility] Ambulatory Visit Summary ISHAAN HANSON :1965 Visit Date:02/12/2024 Ambulatory Visit Instructions Your Diagnosis Bladder mass Gross hematuria Erectile dysfunction BPH with urinary obstruction Renal cyst Former smoker Your Care Team Attending Physician - GUILLERMO PATEL, Donato Bar Primary Care Physician - RICO PATEL, [...] with GUILLERMO PATEL, Donato Bar, URL When: Comments: sched cysto/TURBT Where: [facility] [address], [place] [phone] Medications What How Much When Instructions Unchanged [...] these instructions at home: Medicines ? Take cnii-uzw-iqmqjvn and prescription medicines only as told by [...] keep your urine pale yellow. ? Take kjzq-frl-kpwijym or prescription medicines. ? Eat foods that [...] by your (more content not included)... Normal [facility] Patient Educationon 02-12-20 Patient Education Oncology Transurethral [...] these instructions at home: Medicines ? Take rnty-lkm-fmazbgr and prescription medicines only as told by [...] keep your urine pale yellow. ? Take ngyf-jqe-utspjlp or prescription medicines. ? Eat foods that [...] pain in your lower abdomen. ? Take jcxu-zzr-kmvoqdj and prescription medicines only as told by [...] care pr (more content not included)... Normal [facility] CBC AUTO DIFFon 01-13-2023 BASO # 0.0 103/ul Normal 0.0-0.1 [facility] Comment on above: Performed By: #### C BC #### [facility] [address] [place] [address] Dr. Danielle Harden Basophils/100 WBC (Bld) 0.2 % Normal 0.2-2.0 [facility] Comment on above: Performed By: #### C BC #### [facility] [address] [place] [address] Dr. Danielle Harden EO # 0.2 103/ul Normal 0.0-0.7 [facility] Comment on above: Performed By: #### C BC #### [facility] [address] [address] [address] Danielle Harden Eosinophils/100 WBC (Bld) 2.7 % Normal 0.9-7.0 [facility] Comment on above: Performed By: #### C BC #### [facility] [address] [place] [address] Dr. Danielle Harden Erythrocyte distribution width (RBC) [Ratio] 14.1 % Normal 11.0-15.0 [facility] Comment on above: Performed By: #### C BC #### [facility] [address] [place] [address] Dr. Danielle Harden Hematocrit (Bld) [Volume fraction] 39.1 % Critically low 42.0-54.0 [facility] Comment on above: Performed By: #### C BC #### [facility] [address] [place] [address] Dr. Danielle Harden Hemoglobin (Bld) [Mass/Vol] 13.0 g/dL Critically low 14.0-18.0 [facility] Comment on above: Performed By: #### C BC #### [facility] [address] [place] [address] Dr. Danielle Harden IG # 0.02 10e3/ul Normal 0.00-0.03 [facility] Comment on above: Performed By: #### C BC #### [facility] [address] [place] [address] Dr. Danielle Harden IG % 0.2 % Normal 0.0-0.5 [facility] Comment on above: Performed By: #### C BC #### [facility] [address] [place] [address] Dr. Danielle Harden LYMPH # 2.6 103/ul Normal 1.2-3.8 [facility] Comment on above: Performed By: #### C BC #### [facility] [address] [place] [address] Dr. Danielle Harden Lymphocytes/100 WBC (Bld) 31.3 % Normal 20.5-60.0 [facility] Comment on above: Performed By: #### C BC #### [facility] [address] [place] [address] Dr. Danielle Harden MANUAL DIFF REQ NO Normal [facility] Comment on above: Performed By: #### C BC #### [facility] [address] [place] [address] Dr. Danielle Harden MCH (RBC) [Entitic mass] 28.6 pg Normal 25.9-34.0 [facility] Comment on above: Performed By: #### C BC #### [facility] [address] [address] [address] Danielle Harden MCHC (RBC) [Mass/Vol] 33.2 g/dL Normal 29.9-35.2 [facility] Comment on above: Performed By: #### C BC #### [facility] [address] [address] [address] Danielle Harden MCV (RBC) [Entitic vol] 86.1 fL Normal 80.0-94.0 [facility] Comment on above: Performed By: #### C BC #### [facility] [address] [address] [address] Danielle Harden MONO # 0.8 103/ul Normal 0.3-0.8 [facility] Comment on above: Performed By: #### C BC #### [facility] [address] [place] [address] Dr. Danielle Harden Monocytes/100 WBC (Bld) 9.4 % Normal 1.7-12.0 [facility] Comment on above: Performed By: #### C BC #### [facility] [address] [place] [address] Dr. Danielle Harden NEUT # 4.6 103/ul Normal 1.4-6.5 [facility] Comment on above: Performed By: #### C BC #### [facility] [address] [place] [address] Dr. Danielle Harden Neutrophils/100 WBC (Bld) 56.2 % Normal 43.0-75.0 [facility] Comment on above: Performed By: #### C BC #### [facility] [address] [place] [address] Dr. Danielle Harden Platelet mean volume (Bld) [Entitic vol] 9.7 fL Normal 9.5-13.5 [facility] Comment on above: Performed By: #### C BC #### [facility] [address] [place] [address] Dr. Danielle Harden PLT 269 103/ul Normal 150-450 [facility] Comment on above: Performed By: #### C BC #### [facility] [address] [address] [address] Danielle Harden RBC 4.54 106/ul Critically low 4.70-6.10 [facility] Comment on above: Performed By: #### C BC #### [facility] [address] [address] [address] Danielle Harden WBC 8.2 103/ul Normal 4.0-11.0 [facility] Comment on above: Performed By: #### C BC #### [facility] [address] [address] [address] Danielle Harden LIPID PROFILEon 01-13-2023 CHOL-HDL RATIO NORM SEE BELOW Normal [facility] Comment on above: Result Comment: 3.3 - 4.4 LOW RISK 4.4 - 7.1 AVERAGE RISK 7.1 - 11.0 MODERATE RISK >11.0 HIGH RISK Performed By: #### C MP, MG #### [facility] [address] [place] [address] Dr. Danielle Harden Cholesterol [Mass/Vol] 182 mg/dL Normal <=200 [facility] Comment on above: Performed By: #### C MP, MG #### [facility] [address] [place] [address] Dr. Danielle Harden Cholesterol in HDL [Mass/Vol] 76 mg/dL Critically high 40-60 [facility] Comment on above: Performed By: #### C MP, MG #### [facility] [address] [place] [address] Dr. Danielle Harden Cholesterol in LDL [Mass/Vol] 78.2 mg/dL Normal [facility] Comment on above: Performed By: #### C MP, MG #### [facility] [address] [place] [address] Dr. Danielle Harden Cholesterol.total /Cholesterol in HDL [Mass ratio] 2.4 {ratio} Normal [facility] Comment on above: Performed By: #### C MP, MG #### [facility] [address] [place] [address] Dr. Danielle Harden HDL NORMAL > or = 60 mg/dl - LO W CARDIOVASCULAR RISK <40 mg/dl - HIGH CARDIOVASCULAR RISK Normal [facility] Comment on above: Performed By: #### C MP, MG #### [facility] [address] [place] [address] Dr. Danielle Harden LDL CALC NORMAL SEE BELOW Normal [facility] Comment on above: Result Comment: <100 mg/dl OPTIMAL 100 - 129 mg/dl NEAR OR ABOVE OPTIMAL 130 - 159 mg/dl BORDERLINE HIGH 160 - 189 mg/dl HIGH >190 mg/dl VERY HIGH Performed By: #### C MP, MG #### [facility] [address] [address] [address] Danielle Harden Triglyceride [Mass/Vol] 139 mg/dL Normal <=150 [facility] Comment on above: Performed By: #### C MP, MG #### [facility] [address] [place] [address] Dr. Danielle Harden VLDL CALC 27.8 mg/dL Normal [facility] Comment on above: Performed By: #### C MP, MG #### [facility] [address] [place] [address] Dr. Danielle Harden PROF 14(COMP METB)on 023 Albumin [Mass/Vol] 4.0 g/dL Normal 3.4-5.0 [facility] Comment on above: Performed By: #### C MP, T4, LIPID, TSH #### [facility] [address] [place] [address] Dr. Danielle Harden Albumin/Globulin [Mass ratio] 1.0 {ratio} Normal [facility] Comment on above: Performed By: #### C MP, T4, LIPID, TSH #### [facility] [address] [place] [address] Dr. Danielle Harden ALP [Catalytic activity/Vol] 58 U/L Normal 46-116 [facility] Comment on above: Performed By: #### C MP, T4, LIPID, TSH #### [facility] [address] [place] [address] Dr. Danielle Harden ALT [Catalytic activity/Vol] 33 U/L Normal 16-63 [facility] Comment on above: Performed By: #### C MP, T4, LIPID, TSH #### [facility] [address] [address] [address] Danielle Harden Anion gap [Moles/Vol] 11.1 mmol/L Normal [facility] Comment on above: Performed By: #### C MP, T4, LIPID, TSH #### [facility] [address] [address] [address] Danielle Harden AST [Catalytic activity/Vol] 14 U/L Critically low 15-37 [facility] Comment on above: Performed By: #### C MP, T4, LIPID, TSH #### [facility] [address] [address] [address] Danielle Harden Bilirubin [Mass/Vol] 0.5 mg/dL Normal 0.2-1.0 [facility] Comment on above: Performed By: #### C MP, T4, LIPID, TSH #### [facility] [address] [place] [address] Dr. Danielle Harden Calcium [Mass/Vol] 9.2 mg/dL Normal 8.5-10.1 [facility] Comment on above: Performed By: #### C MP, T4, LIPID, TSH #### [facility] [address] [place] [address] Dr. Danielle Harden Chloride [Moles/Vol] 102 mmol/L Normal 98-107 [facility] Comment on above: Performed By: #### C MP, T4, LIPID, TSH #### [facility] [address] [address] [address] Danielle Harden CO2 [Moles/Vol] 28.1 mmol/L Normal 21.0-32.0 [facility] Comment on above: Performed By: #### C MP, T4, LIPID, TSH #### [facility] [address] [place] [address] Dr. Danielle Harden Creatinine [Mass/Vol] 0.87 mg/dL Normal 0.70-1.30 [facility] Comment on above: Performed By: #### C MP, T4, LIPID, TSH #### [facility] [address] [place] [address] Dr. Danielle Harden EGFR-AF OMANI >60 Normal >=60 [facility] Comment on above: Performed By: #### C MP, T4, LIPID, TSH #### [facility] [address] [address] [address] Danielle Harden EGFR-NON AF OMANI >60 Normal >=60 [facility] Comment on above: Performed By: #### C MP, T4, LIPID, TSH #### [facility] [address] [address] [address] Danielle Harden Globulin (S) [Mass/Vol] 4.2 g/dL Normal [facility] Comment on above: Performed By: #### C MP, T4, LIPID, TSH #### [facility] [address] [address] [address] Danielle Harden Glucose [Mass/Vol] 95 mg/dL Normal 74-106 [facility] Comment on above: Performed By: #### C MP, T4, LIPID, TSH #### [facility] [address] [address] [address] Danielle Harden Potassium [Moles/Vol] 3.2 mmol/L Critically low 3.5-5.1 [facility] Comment on above: Performed By: #### C MP, T4, LIPID, TSH #### [facility] [address] [place] [address] Dr. Danielle Harden Protein [Mass/Vol] 8.2 g/dL Normal 6.4-8.2 [facility] Comment on above: Performed By: #### C MP, T4, LIPID, TSH #### [facility] [address] [address] [address] Danielle Harden Sodium [Moles/Vol] 138 mmol/L Normal 136-145 [facility] Comment on above: Performed By: #### C MP, T4, LIPID, TSH #### [facility] [address] [address] [address] Danielle Harden Urea nitrogen [Mass/Vol] 21.0 mg/dL Critically high 7.0-18.0 [facility] Comment on above: Performed By: #### C MP, T4, LIPID, TSH #### [facility] [address] [place] [address] Dr. Danielle Harden Urea nitrogen/Creatini ne [Mass ratio] 24.1 mg/mg Normal [facility] Comment on above: Performed By: #### C MP, T4, LIPID, TSH #### [facility] [address] [place] [address] Dr. Danielle Harden T4on 01-13-2023 T4 [Mass/Vol] 9.50 ug/dL Normal 4.50-12.10 [facility] Comment on above: Performed By: #### C MP, MG #### [facility] [address] [place] [address] Dr. Danielle Harden TSHon 01-13-2023 TSH 2.226 uIU/mL Normal 0.358-3.740 [facility] Comment on above: Performed By: #### C MP, MG #### [facility] [address] [place] [address] Dr. Danielle Harden MAGNESIUMon 08-17-2022 Magnesium [Mass/Vol] 2.0 mg/dL Normal 1.8-2.4 [facility] Comment on above: Performed By: #### C MP, MG #### [facility] [address] [place] [address] Dr. Danielle Harden PROF 14(COMP METB)on 022 Albumin [Mass/Vol] 3.6 g/dL Normal 3.4-5.0 [facility] Comment on above: Performed By: #### C MP, MG #### [facility] [address] [place] [address] Dr. Danielle Harden Albumin/Globulin [Mass ratio] 1.1 {ratio} Normal [facility] Comment on above: Performed By: #### C MP, MG #### [facility] [address] [place] [address] Dr. Danielle Harden ALP [Catalytic activity/Vol] 61 U/L Normal 46-116 [facility] Comment on above: Performed By: #### C MP, MG #### [facility] [address] [address] [address] Danielle Harden ALT [Catalytic activity/Vol] 23 U/L Normal 16-63 [facility] Comment on above: Performed By: #### C MP, MG #### [facility] [address] [place] [address] Dr. Danielle Harden Anion gap [Moles/Vol] 10.4 mmol/L Normal [facility] Comment on above: Performed By: #### C MP, MG #### [facility] [address] [address] [address] Danielle Harden AST [Catalytic activity/Vol] 13 U/L Critically low 15-37 [facility] Comment on above: Performed By: #### C MP, MG #### [facility] [address] [place] [address] Dr. Danielle Harden Bilirubin [Mass/Vol] 0.2 mg/dL Normal 0.2-1.0 [facility] Comment on above: Performed By: #### C MP, MG #### [facility] [address] [place] [address] Dr. Danielle Harden Calcium [Mass/Vol] 8.8 mg/dL Normal 8.5-10.1 [facility] Comment on above: Performed By: #### C MP, MG #### [facility] [address] [place] [address] Dr. Danielle Harden Chloride [Moles/Vol] 102 mmol/L Normal 98-107 [facility] Comment on above: Performed By: #### C MP, MG #### [facility] [address] [place] [address] Dr. Danielle Harden CO2 [Moles/Vol] 28.1 mmol/L Normal 21.0-32.0 [facility] Comment on above: Performed By: #### C MP, MG #### [facility] [address] [place] [address] Dr. Danielle Harden Creatinine [Mass/Vol] 1.06 mg/dL Normal 0.70-1.30 [facility] Comment on above: Performed By: #### C MP, MG #### [facility] [address] [place] [address] Dr. Danielle Harden EGFR-AF OMANI >60 Normal >=60 [facility] Comment on above: Performed By: #### C MP, MG #### [facility] [address] [place] [address] Dr. Danielle Harden EGFR-NON AF OMANI >60 Normal >=60 [facility] Comment on above: Performed By: #### C MP, MG #### [facility] [address] [address] [address] Danielle Harden Globulin (S) [Mass/Vol] 3.3 g/dL Normal [facility] Comment on above: Performed By: #### C MP, MG #### [facility] [address] [place] [address] Dr. Danielle Harden Glucose [Mass/Vol] 93 mg/dL Normal 74-106 [facility] Comment on above: Performed By: #### C MP, MG #### [facility] [address] [place] [address] Dr. Danielle Harden Potassium [Moles/Vol] 3.5 mmol/L Normal 3.5-5.1 [facility] Comment on above: Performed By: #### C MP, MG #### [facility] [address] [place] [address] Dr. Danielle Harden Protein [Mass/Vol] 6.9 g/dL Normal 6.4-8.2 [facility] Comment on above: Performed By: #### C MP, MG #### [facility] [address] [place] [address] Dr. Danielle Harden Sodium [Moles/Vol] 137 mmol/L Normal 136-145 [facility] Comment on above: Performed By: #### C MP, MG #### [facility] [address] [place] [address] Dr. Danielle Harden Urea nitrogen [Mass/Vol] 23.0 mg/dL Critically high 7.0-18.0 [facility] Comment on above: Performed By: #### C MP, MG #### [facility] [address] [place] [address] Dr. Danielle Harden Urea nitrogen/Creatini ne [Mass ratio] 21.7 mg/mg Normal [facility] Comment on above: Performed By: #### C MP, MG #### [facility] [address] [address] [address] Danielle Harden COMPREHENSIVE METABOLIC PANE [facility] 04-07-2022 Albumin [Mass/Vol] 4.3 g/dL Normal 3.6-5.1 [facility] Comment on above: Performed By: #### 7 600, [id number] #### [facility] of [address], [address] [place] [address] [employer] Worker: Darwin Ray MD Albumin/Globulin [Mass ratio] 1.9 {ratio} Normal 1.0-2.5 [facility] Comment on above: Performed By: #### 7 600, 15877 #### [facility] [address] [place] [address] [employer] Worker: Darwin Ray MD ALP [Catalytic activity/Vol] 62 U/L Normal 35-144 [facility] Comment on above: Performed By: #### 7 600, 21785 #### [facility] [address] [place] [address] [employer] Worker: Darwin Ray MD ALT [Catalytic activity/Vol] 18 U/L Normal 9-46 [facility] Comment on above: Performed By: #### 7 600, 94004 #### [facility] [address] [place] [address] [employer] Worker: Darwin Ray MD AST [Catalytic activity/Vol] 16 U/L Normal 10-35 [facility] Comment on above: Performed By: #### 7 600, 63020 #### [facility] [address] [place] [address] [employer] Worker: Darwin Ray MD Bilirubin [Mass/Vol] 0.3 mg/dL Normal 0.2-1.2 [facility] Comment on above: Performed By: #### 7 600, 52255 #### [facility] [address] [place] [address] [employer] Worker: Darwin Ray MD BUN/CREATININE RATIO NOT APPLICABLE Normal 6-22 [facility] Comment on above: Performed By: #### 7 600, 07005 #### [facility] [address] [place] [address] [employer] Worker: Darwin Ray MD Calcium [Mass/Vol] 9.3 mg/dL Normal 8.6-10.3 [facility] Comment on above: Performed By: #### 7 600, 98672 #### [facility] [place] [address] [employer] Worker: Darwin Ray MD Chloride [Moles/Vol] 107 mmol/L Normal 98-110 [facility] Comment on above: Performed By: #### 7 600, 82172 #### [facility] [place] [place] [address] [employer] Worker: Darwin Ray MD CO2 [Moles/Vol] 27 mmol/L Normal 20-32 [facility] Comment on above: Performed By: #### 7 600, 55980 #### [facility] [address] [place] [address] [employer] Worker: Darwin Ray MD Creatinine [Mass/Vol] 0.90 mg/dL Normal 0.70-1.30 [facility] Comment on above: Performed By: #### 7 600, 06997 #### [facility] [address] [address] [employer] Worker: Darwin Ray MD GFR/1.73 sq M.predicted among non-blacks MDRD (S/P/Bld) [Vol rate/Area] 100 mL/min/{1.73_m2} Normal > OR = 60 [facility] Comment on above: Result Comment: The eGFR is based on the CKD-EPI 2020 equation. To calculate the new eGFR from a previous Creatinine or Cystatin C result, go to [email or web address].kidney.org/professionals/ kdoqi/gfr%5Fcalculator Performed By: #### 7 600, 37744 #### [facility] of [place] [address] [employer] Worker: Darwin Ray MD Globulin (S) [Mass/Vol] 2.3 g/dL Normal 1.9-3.7 [facility] Comment on above: Performed By: #### 7 600, 73558 #### [facility] [address] [place] [address] [employer] Worker: Darwin Ray MD Glucose [Mass/Vol] 102 mg/dL High 65-99 [facility] Comment on above: Result Comment: Fasting reference interval For someone without known diabetes, a glucose value between 100 and 125 mg/dL is consistent with prediabetes and should be confirmed with a follow-up test. Performed By: #### 7 600, 95421 #### [facility] [address] [address] [employer] Worker: Darwin Ray MD Potassium [Moles/Vol] 3.6 mmol/L Normal 3.5-5.3 [facility] Comment on above: Performed By: #### 7 600, 48069 #### [facility] [place] [address] [employer] Worker: Darwin Ray MD Protein [Mass/Vol] 6.6 g/dL Normal 6.1-8.1 [facility] Comment on above: Performed By: #### 7 600, 19678 #### [facility] [place] [address] [employer] Worker: Darwin Ray MD Sodium [Moles/Vol] 141 mmol/L Normal 135-146 [facility] Comment on above: Performed By: #### 7 600, 97367 #### [facility] of [place] [address] [employer] Worker: Darwin Ray MD Urea nitrogen [Mass/Vol] 23 mg/dL Normal 7-25 [facility] Comment on above: Performed By: #### 7 600, 61116 #### [facility] [place] [id number] [employer] Worker: Darwin Ray MD LIPID PANEL, [address] [place] [address] Cholesterol [Mass/Vol] 144 mg/dL Normal <200 [facility] Comment on above: Order Comment: FASTI NG:YES FASTING: YES Performed By: #### 7 600, 90868 #### [facility] [address], [address] [place] [address] [employer] Worker: Darwin Ray MD Cholesterol in HDL [Mass/Vol] 43 mg/dL Normal > OR = 40 [facility] Comment on above: Order Comment: FASTI NG:YES FASTING: YES Performed By: #### 7 600, 25911 #### [facility] [address], [address] [place] [address] [employer] Worker: Darwin Ray MD Cholesterol.total /Cholesterol in HDL [Mass ratio] 3.3 {ratio} Normal <5.0 [facility] Comment on above: Order Comment: FASTI NG:YES FASTING: YES Performed By: #### 7 600, 98239 #### [facility] [address], [address] [place] [address] [employer] Worker: Darwin Ray MD LDL-CHOLESTEROL Normal [facility] [...] LDL-C. Jass MELGOZA et al. RON. 2013;310(19): 1367-1724 ([email or web address]) Performed By: #### 7 600, 00404 #### [facility] [address], [address] [place] [address] [employer] Worker: Darwin Ray MD NON HDL CHOLESTEROL 101 mg/dL (calc) Normal <130 [facility] Comment on above: Order Comment: FASTI NG:YES FASTING: YES Result Comment: For patients with diabetes plus 1 major ASCVD risk factor, treating to a non-HDL-C goal of <100 mg/dL (LDL-C of <70 mg/dL) is considered a therapeutic option. Performed By: #### 7 600, 39884 #### [facility] [address] [place] [id number] [facility], [address] [place] [address] [employer] Worker: Darwin Ray MD Triglyceride [Mass/Vol] 428 mg/dL High <150 [facility] Comment on above: Order Comment: FASTI NG:YES FASTING: YES Result Comment: If a non-fasting specimen was collected, consider repeat triglyceride testing on a fasting specimen if clinically indicated. Danica et al. J. of Clin. Lipidol. 2015;9:129-169. Performed By: #### 7 600, 25747 #### [facility] [address], [address] [place], [place] [id number] [employer] Worker: Darwin Ray MD CBC AUTO DIFFon 01-18-2022 BASO # 0.0 103/ul Normal 0.0-0.1 [facility] Comment on above: Performed By: #### C BC #### [facility] [address] [place] [address] Dr. Danielle Harden Basophils/100 WBC (Bld) 0.6 % Normal 0.2-2.0 [facility] Comment on above: Performed By: #### C BC #### [facility] [address] [place] [address] Dr. Danielle Harden EO # 0.3 103/ul Normal 0.0-0.7 [facility] Comment on above: Performed By: #### C BC #### [facility] [address] [address] [address] Danielle Harden Eosinophils/100 WBC (Bld) 3.8 % Normal 0.9-7.0 [facility] Comment on above: Performed By: #### C BC #### [facility] [address] [address] [address] Danielle Harden Erythrocyte distribution width (RBC) [Ratio] 13.6 % Normal 11.0-15.0 [facility] Comment on above: Performed By: #### C BC #### [facility] [address] [place] [address] Dr. Danielle Harden Hematocrit (Bld) [Volume fraction] 39.3 % Critically low 42.0-54.0 [facility] Comment on above: Performed By: #### C BC #### [facility] [address] [place] [address] Dr. Danielle Harden Hemoglobin (Bld) [Mass/Vol] 12.5 g/dL Critically low 14.0-18.0 [facility] Comment on above: Performed By: #### C BC #### [facility] [address] [place] [address] Dr. Danielle Harden IG # 0.02 10e3/ul Normal 0.00-0.03 [facility] Comment on above: Performed By: #### C BC #### [facility] [address] [place] [address] Dr. Danielle Harden IG % 0.3 % Normal 0.0-0.5 [facility] Comment on above: Performed By: #### C BC #### [facility] [address] [place] [address] Dr. Danielle Harden LYMPH # 2.1 103/ul Normal 1.2-3.8 [facility] Comment on above: Performed By: #### C BC #### [facility] [address] [place] [address] Dr. Danielle Harden Lymphocytes/100 WBC (Bld) 32.0 % Normal 20.5-60.0 [facility] Comment on above: Performed By: #### C BC #### [facility] [address] [place] [address] Dr. Danielle Harden MANUAL DIFF REQ NO Normal [facility] Comment on above: Performed By: #### C BC #### [facility] [address] [place] [address] Dr. Danielle Harden MCH (RBC) [Entitic mass] 27.8 pg Normal 25.9-34.0 [facility] Comment on above: Performed By: #### C BC #### [facility] [address] [place] [address] Dr. Danielle Harden MCHC (RBC) [Mass/Vol] 31.8 g/dL Normal 29.9-35.2 [facility] Comment on above: Performed By: #### C BC #### [facility] [address] [place] [address] Dr. Danielle Harden MCV (RBC) [Entitic vol] 87.3 fL Normal 80.0-94.0 [facility] Comment on above: Performed By: #### C BC #### [facility] [address] [place] [address] Dr. Danielle Harden MONO # 0.5 103/ul Normal 0.3-0.8 [facility] Comment on above: Performed By: #### C BC #### [facility] [address] [place] [address] Dr. Danielle Harden Monocytes/100 WBC (Bld) 7.7 % Normal 1.7-12.0 [facility] Comment on above: Performed By: #### C BC #### [facility] [address] [place] [address] Dr. Danielle Harden NEUT # 3.7 103/ul Normal 1.4-6.5 [facility] Comment on above: Performed By: #### C BC #### [facility] [address] [place] [address] Dr. Danielle Harden Neutrophils/100 WBC (Bld) 55.6 % Normal 43.0-75.0 [facility] Comment on above: Performed By: #### C BC #### [facility] [address] [place] [address] Dr. Danielle Harden Platelet mean volume (Bld) [Entitic vol] 10.3 fL Normal 9.5-13.5 [facility] Comment on above: Performed By: #### C BC #### [facility] [address] [place] [address] Dr. Danielle Harden PLT 274 103/ul Normal 150-450 [facility] Comment on above: Performed By: #### C BC #### [facility] [address] [address] [address] Danielle Harden RBC 4.50 106/ul Critically low 4.70-6.10 [facility] Comment on above: Performed By: #### C BC #### [facility] [address] [address] [address] Danielle Harden WBC 6.6 103/ul Normal 4.0-11.0 [facility] Comment on above: Performed By: #### C BC #### [facility] [address] [address] [address] Danielle Harden LIPID PROFILEon 01-18-2022 CHOL-HDL RATIO NORM SEE BELOW Normal [facility] Comment on above: Result Comment: 3.3 - 4.4 LOW RISK 4.4 - 7.1 AVERAGE RISK 7.1 - 11.0 MODERATE RISK >11.0 HIGH RISK Performed By: #### L IPID, T4, TSH, CMP #### [facility] [address] [address] [address] Danielle Harden Cholesterol [Mass/Vol] 140 mg/dL Normal <=200 [facility] Comment on above: Performed By: #### L IPID, T4, TSH, CMP #### [facility] [address] [address] [address] Danielle Harden Cholesterol in HDL [Mass/Vol] 55 mg/dL Normal 40-60 [facility] Comment on above: Performed By: #### L IPID, T4, TSH, CMP #### [facility] [address] [address] [address] Danielle Harden Cholesterol in LDL [Mass/Vol] 60.2 mg/dL Normal [facility] Comment on above: Performed By: #### L IPID, T4, TSH, CMP #### [facility] [address] [address] [address] Danielle Harden Cholesterol.total /Cholesterol in HDL [Mass ratio] 2.5 {ratio} Normal [facility] Comment on above: Performed By: #### L IPID, T4, TSH, CMP #### [facility] [address] [address] [address] Danielle Harden HDL NORMAL > or = 60 mg/dl - LO W CARDIOVASCULAR RISK <40 mg/dl - HIGH CARDIOVASCULAR RISK Normal [facility] Comment on above: Performed By: #### L IPID, T4, TSH, CMP #### [facility] [address] [address] [address] Danielle Harden LDL CALC NORMAL SEE BELOW Normal [facility] Comment on above: Result Comment: <100 mg/dl OPTIMAL 100 - 129 mg/dl NEAR OR ABOVE OPTIMAL 130 - 159 mg/dl BORDERLINE HIGH 160 - 189 mg/dl HIGH >190 mg/dl VERY HIGH Performed By: #### L IPID, T4, TSH, CMP #### [facility] [address] [address] [address] Danielle Harden Triglyceride [Mass/Vol] 124 mg/dL Normal <=150 [facility] Comment on above: Performed By: #### L IPID, T4, TSH, CMP #### [facility] [address] [address] [address] Danielle Harden VLDL CALC 24.8 mg/dL Normal [facility] Comment on above: Performed By: #### L IPID, T4, TSH, CMP #### [facility] [address] [place] [address] Dr. Danielle Harden PROF 14(COMP METB)on 022 Albumin [Mass/Vol] 4.0 g/dL Normal 3.4-5.0 [facility] Comment on above: Performed By: #### L IPID, T4, TSH, CMP #### [facility] [address] [place] [address] Dr. Danielle Harden Albumin/Globulin [Mass ratio] 1.2 {ratio} Normal [facility] Comment on above: Performed By: #### L IPID, T4, TSH, CMP #### [facility] [address] [address] [address] Danielle Harden ALP [Catalytic activity/Vol] 58 U/L Normal 46-116 [facility] Comment on above: Performed By: #### L IPID, T4, TSH, CMP #### [facility] [address] [place] [address] Dr. Danielle Harden ALT [Catalytic activity/Vol] 29 U/L Normal 16-63 [facility] Comment on above: Performed By: #### L IPID, T4, TSH, CMP #### [facility] [address] [place] [address] Dr. Danielle Harden Anion gap [Moles/Vol] 11.6 mmol/L Normal [facility] Comment on above: Performed By: #### L IPID, T4, TSH, CMP #### [facility] [address] [place] [address] Dr. Danielle Harden AST [Catalytic activity/Vol] 16 U/L Normal 15-37 [facility] Comment on above: Performed By: #### L IPID, T4, TSH, CMP #### [facility] [address] [place] [address] Dr. Danielle Harden Bilirubin [Mass/Vol] 0.6 mg/dL Normal 0.2-1.0 [facility] Comment on above: Performed By: #### L IPID, T4, TSH, CMP #### [facility] [address] [place] [address] Dr. Danielle Harden Calcium [Mass/Vol] 9.1 mg/dL Normal 8.5-10.1 [facility] Comment on above: Performed By: #### L IPID, T4, TSH, CMP #### [facility] [address] [place] [address] Dr. Danielle Harden Chloride [Moles/Vol] 104 mmol/L Normal 98-107 [facility] Comment on above: Performed By: #### L IPID, T4, TSH, CMP #### [facility] [address] [place] [address] Dr. Danielle Harden CO2 [Moles/Vol] 27.3 mmol/L Normal 21.0-32.0 [facility] Comment on above: Performed By: #### L IPID, T4, TSH, CMP #### [facility] [address] [place] [address] Dr. Danielle Harden Creatinine [Mass/Vol] 0.78 mg/dL Normal 0.70-1.30 [facility] Comment on above: Performed By: #### L IPID, T4, TSH, CMP #### [facility] [address] [address] [address] Danielle Harden EGFR-AF OMANI >60 Normal >=60 [facility] Comment on above: Performed By: #### L IPID, T4, TSH, CMP #### [facility] [address] [address] [address] Danielle Harden EGFR-NON AF OMANI >60 Normal >=60 [facility] Comment on above: Performed By: #### L IPID, T4, TSH, CMP #### [facility] [address] [place] [address] Dr. Danielle Harden Globulin (S) [Mass/Vol] 3.3 g/dL Normal [facility] Comment on above: Performed By: #### L IPID, T4, TSH, CMP #### [facility] [address] [place] [address] Dr. Danielle Harden Glucose [Mass/Vol] 86 mg/dL Normal 74-106 [facility] Comment on above: Performed By: #### L IPID, T4, TSH, CMP #### [facility] [address] [place] [address] Dr. Danielle Harden Potassium [Moles/Vol] 3.9 mmol/L Normal 3.5-5.1 [facility] Comment on above: Performed By: #### L IPID, T4, TSH, CMP #### [facility] [address] [place] [address] Dr. Danielle Harden Protein [Mass/Vol] 7.3 g/dL Normal 6.4-8.2 [facility] Comment on above: Performed By: #### L IPID, T4, TSH, CMP #### [facility] [address] [place] [address] Dr. Danielle Harden Sodium [Moles/Vol] 139 mmol/L Normal 136-145 [facility] Comment on above: Performed By: #### L IPID, T4, TSH, CMP #### [facility] [address] [address] [address] Danielle Harden Urea nitrogen [Mass/Vol] 19.0 mg/dL Critically high 7.0-18.0 [facility] Comment on above: Performed By: #### L IPID, T4, TSH, CMP #### [facility] [address] [place] [address] Dr. Danielle Harden Urea nitrogen/Creatini ne [Mass ratio] 24.4 mg/mg Normal [facility] Comment on above: Performed By: #### L IPID, T4, TSH, CMP #### [facility] [address] [address] [address] Danielle Harden T4on 01-18-2022 T4 [Mass/Vol] 8.50 ug/dL Normal 4.50-12.10 [facility] Comment on above: Performed By: #### L IPID, T4, TSH, CMP #### [facility] [address] [address] [address] Danielle Harden TSHon 01-18-2022 TSH 1.855 uIU/mL Normal 0.358-3.740 [facility] Comment on above: Performed By: #### L IPID, T4, TSH, CMP #### [facility] [address] [place] [address] Dr. Danielle Harden TSH RANGE SEE BELOW Normal [facility] Comment on above: Result Comment: <0.3 4 UIU/ml HYPERTHYROID 0.34-5.60 UIU/ml EUTHYROID >5.60 UIU/ml HYPOTHYROID Performed By: #### L IPID, T4, TSH, CMP #### [facility] [address] [place] [address] Dr. Danielle Harden BASIC METABOLIC PANELon 09-12 BUN/CREATININE RATIO NOT APPLICABLE Normal 03-02 [facility] Comment on above: Order Comment: FASTI NG:YES FASTING: YES Performed By: #### 1 1735, 0530 #### [facility] [address], [address] [place] [address] [employer] Worker: Darwin Ray MD Calcium [Mass/Vol] 9.3 mg/dL Normal 8.6-10.3 [facility] Comment on above: Order Comment: FASTI NG:YES FASTING: YES Performed By: #### 1 0165, [id number] #### [facility] [address], [address] [place] [address] [employer] Worker: Darwin Ray MD Chloride [Moles/Vol] 104 mmol/L Normal 98-110 [facility] Comment on above: Order Comment: FASTI NG:YES FASTING: YES Performed By: #### 1 0165, 6399 #### [facility] [address] [address] [employer] Worker: Darwin Ray MD CO2 [Moles/Vol] 29 mmol/L Normal 20-32 [facility] Comment on above: Order Comment: FASTI NG:YES FASTING: YES Performed By: #### 1 0165, [id number] #### [facility] [address], [address] [place] [address] [employer] Worker: Darwin Ray MD Creatinine [Mass/Vol] 0.86 mg/dL Normal 0.70-1.33 [facility] Comment on above: Order Comment: FASTI NG:YES FASTING: YES Result Comment: For patients >49 years of age, the reference limit for Creatinine is approximately 13% higher for people identified as -South African. Performed By: #### 1 0165, 6399 #### [facility] [address] [address] [employer] Worker: Darwin Ray MD eGFR NON-AFR. OMANI 96 mL/min/1.73m2 Normal > OR = 60 [facility] Comment on above: Order Comment: FASTI NG:YES FASTING: YES Performed By: #### 1 0165, 6399 #### [facility] [address] [address] [employer] Worker: Darwin Ray MD GFR/1.73 sq M.predicted among blacks MDRD (S/P/Bld) [Vol rate/Area] 112 mL/min/{1.73_m2} Normal > OR = 60 [facility] Comment on above: Order Comment: FASTI NG:YES FASTING: YES Performed By: #### 1 0165, [id number] #### [facility] [address], [address] [place] [address] [employer] Worker: Darwin Ray MD Glucose [Mass/Vol] 89 mg/dL Normal 65-99 [facility] Comment on above: Order Comment: FASTI NG:YES FASTING: YES Result Comment: Fasting reference interval Performed By: #### 1 0165, 6399 #### [facility] [address], [address] [place] [address] [employer] Worker: Darwin Ray MD Potassium [Moles/Vol] 3.8 mmol/L Normal 3.5-5.3 [facility] Comment on above: Order Comment: FASTI NG:YES FASTING: YES Performed By: #### 1 0165, 6399 #### [facility] [address], [address] [place] [address] [employer] Worker: Darwin Ray MD Sodium [Moles/Vol] 139 mmol/L Normal 135-146 [facility] Comment on above: Order Comment: FASTI NG:YES FASTING: YES Performed By: #### 1 0165, 6399 #### [facility] [address], [address] [place] [address] [employer] Worker: Darwin Ray MD Urea nitrogen [Mass/Vol] 23 mg/dL Normal 7-25 [facility] Comment on above: Order Comment: FASTI NG:YES FASTING: YES Performed By: #### 1 0165, 6399 #### [facility] [address], [address] [place] [address] [employer] Worker: Darwin Ray MD CBC (INCLUDES DIFF/PLT)on Basophils (Bld) [#/Vol] 0.029 10*3/uL Normal 0-200 [facility] Comment on above: Performed By: #### 1 0165, 6399 #### [facility] [address], [address] [place] [address] [employer] Worker: Darwin Ray MD Basophils/100 WBC (Bld) 0.4 % Normal [facility] Comment on above: Performed By: #### 1 0165, 6399 #### [facility] [address] [address] [employer] Worker: Darwin Ray MD Eosinophils (Bld) [#/Vol] 0.212 10*3/uL Normal 15-500 [facility] Comment on above: Performed By: #### 1 0165, 6399 #### [facility] [address] [address] [employer] Worker: Darwin Ray MD Eosinophils/100 WBC (Bld) 2.9 % Normal [facility] Comment on above: Performed By: #### 1 0165, 6399 #### [facility] [address] [address] [employer] Worker: Darwin Ray MD Erythrocyte distribution width (RBC) [Ratio] 13.6 % Normal 11.0-15.0 [facility] Comment on above: Performed By: #### 1 0165, 6399 #### [facility] [address] [address] [employer] Worker: Darwin Ray MD Hematocrit (Bld) [Volume fraction] 40.4 % Normal 38.5-50.0 [facility] Comment on above: Performed By: #### 1 0165, 6399 #### [facility] [address] [address] [employer] Worker: Darwin Ray MD Hemoglobin (Bld) [Mass/Vol] 13.2 g/dL Normal 13.2-17.1 [facility] Comment on above: Performed By: #### 1 0165, 6399 #### [facility] [address] [address] [employer] Worker: Darwin Ray MD Lymphocytes (Bld) [#/Vol] 2.431 10*3/uL Normal 850-3900 [facility] Comment on above: Performed By: #### 1 0165, 6399 #### [facility] [address] [address] [employer] Worker: Darwin Ray MD Lymphocytes/100 WBC (Bld) 33.3 % Normal [facility] Comment on above: Performed By: #### 1 0165, 6399 #### [facility] [address] [address] [employer] Worker: Darwin Ray MD MCH (RBC) [Entitic mass] 27.4 pg Normal 27.0-33.0 [facility] Comment on above: Performed By: #### 1 0165, 6399 #### [facility] [address] [address] [employer] Worker: Darwin Ray MD MCHC (RBC) [Mass/Vol] 32.7 g/dL Normal 32.0-36.0 [facility] Comment on above: Performed By: #### 1 0165, 6399 #### [facility] [address] [address] [employer] Worker: Darwin Ray MD MCV (RBC) [Entitic vol] 84.0 fL Normal 80.0-100.0 [facility] Comment on above: Performed By: #### 1 0165, 6399 #### [facility] [address] [address] [employer] Worker: Darwin Ray MD Monocytes (Bld) [#/Vol] 0.54 10*3/uL Normal 200-950 [facility] Comment on above: Performed By: #### 1 0165, 6399 #### [facility] [address] [address] [employer] Worker: Darwin Ray MD Monocytes/100 WBC (Bld) 7.4 % Normal [facility] Comment on above: Performed By: #### 1 0165, 6399 #### [facility] [address] [address] [employer] Worker: Darwin Ray MD Neutrophils (Bld) [#/Vol] 4.088 10*3/uL Normal 2762-3418 [facility] Comment on above: Performed By: #### 1 0165, 6399 #### [facility] [address] [address] [employer] Worker: Darwin Ray MD Neutrophils/100 WBC (Bld) 56 % Normal [facility] Comment on above: Performed By: #### 1 0165, 6399 #### [facility] [address] [address] [employer] Worker: Darwin Ray MD Platelet mean volume (Bld) [Entitic vol] 10.6 fL Normal 7.5-12.5 [facility] Comment on above: Performed By: #### 1 0165, 6399 #### [facility] [address] [address] [employer] Worker: Darwin Ray MD Platelets (Bld) [#/Vol] 277 10*3/uL Normal 140-400 [facility] Comment on above: Performed By: #### 1 0165, 6399 #### [facility] [address] [address] [employer] Worker: Darwin Ray MD RBC (Bld) [#/Vol] 4.81 10*6/uL Normal 4.20-5.80 [facility] Comment on above: Performed By: #### 1 0165, 6399 #### [facility] [address] [address] [employer] Worker: Darwin Ray MD WBC (Bld) [#/Vol] 7.3 10*3/uL Normal 3.8-10.8 [facility] Comment on above: Performed By: #### 1 0165, 6399 #### [facility] [address] [address] [employer] Worker: Darwin Ray MD Vital Signs Date Time Vital Sign Value Performing Clinician Facility 05-06-2024 12:40-0400 Body temperature 97.2 [degF] Lito Thomson MD Work Phone: [facility] 05-06-2024 12:40-0400 Body weight 88.8 kg Lito Thomson MD Work Phone: [facility] 05-06-2024 12:40-0400 Diastolic blood pressure 84 mm[Hg] Lito Thomson MD Work Phone: [facility] 05-06-2024 12:40-0400 Heart rate 87 /min Lito Thomson MD Work Phone: [facility] 05-06-2024 12:40-0400 Respiratory rate 18 /min Lito Thomson MD Work Phone: [facility] 05-06-2024 12:40-0400 SaO2% (BldA) [Mass fraction] 96 % Lito Thomson MD Work Phone: [facility] 05-06-2024 12:40-0400 Systolic blood pressure 123 mm[Hg] Lito Thomson MD Work Phone: [facility] 04-29-2024 13:12-0400 Body temperature 97.9 [degF] Chair Montcalm Work Phone: [facility] 04-29-2024 13:12-0400 Diastolic blood pressure 91 mm[Hg] Chair Montcalm Work Phone: [facility] 04-29-2024 13:12-0400 Heart rate 89 /min Chair Montcalm Work Phone: [facility] 04-29-2024 13:12-0400 Respiratory rate 18 /min Chair Joe Work Phone: [facility] 04-29-2024 13:12-0400 SaO2% (BldA) [Mass fraction] 97 % Chair Joe Work Phone: [facility] 04-29-2024 13:12-0400 Systolic blood pressure 135 mm[Hg] Chair Montcalm Work Phone: [facility] 04-22-2024 13:15-0400 Body temperature 98.01 [degF] Chair Montcalm Work Phone: [facility] 04-22-2024 13:15-0400 Diastolic blood pressure 92 mm[Hg] Chair Montcalm Work Phone: [facility] 04-22-2024 13:15-0400 Heart rate 75 /min Chair Montcalm Work Phone: [facility] 04-22-2024 13:15-0400 Respiratory rate 16 /min Chair Montcalm Work Phone: [facility] 04-22-2024 13:15-0400 SaO2% (BldA) [Mass fraction] 99 % Chair Joe Work Phone: [facility] 04-22-2024 13:15-0400 Systolic blood pressure 138 mm[Hg] Chair Joe Work Phone: [facility] 04-15-2024 13:05-0400 Body temperature 97.7 [degF] Chair Joe Work Phone: [facility] 04-15-2024 13:05-0400 Diastolic blood pressure 96 mm[Hg] Chair Montcalm Work Phone: [facility] 04-15-2024 13:05-0400 Heart rate 91 /min Chair Joe Work Phone: [facility] 04-15-2024 13:05-0400 Respiratory rate 18 /min Chair Montcalm Work Phone: [facility] 04-15-2024 13:05-0400 SaO2% (BldA) [Mass fraction] 98 % Chair Montcalm Work Phone: [facility] 04-15-2024 13:05-0400 Systolic blood pressure 143 mm[Hg] Chair Joe Work Phone: [facility] 04-08-2024 08:53-0400 Body temperature 97.9 [degF] Chair Montcalm Work Phone: [facility] 04-08-2024 08:53-0400 Diastolic blood pressure 88 mm[Hg] Chair Montcalm Work Phone: [facility] 04-08-2024 08:53-0400 Heart rate 73 /min Chair Montcalm Work Phone: [facility] 04-08-2024 08:53-0400 Respiratory rate 18 /min Chair Joe Work Phone: [facility] 04-08-2024 08:53-0400 SaO2% (BldA) [Mass fraction] 98 % Chair Montcalm Work Phone: [facility] 04-08-2024 08:53-0400 Systolic blood pressure 124 mm[Hg] Chair Montcalm Work Phone: [facility] 04-01-2024 08:40-0400 Body temperature 97.39 [degF] Chair Montcalm Work Phone: [facility] 04-01-2024 08:40-0400 Diastolic blood pressure 97 mm[Hg] Chair Montcalm Work Phone: [facility] 04-01-2024 08:40-0400 Heart rate 75 /min Chair Montcalm Work Phone: [facility] 04-01-2024 08:40-0400 Respiratory rate 16 /min Chair Joe Work Phone: [facility] 04-01-2024 08:40-0400 SaO2% (BldA) [Mass fraction] 97 % Chair Montcalm Work Phone: [facility] 04-01-2024 08:40-0400 Systolic blood pressure 142 mm[Hg] Chair Montcalm Work Phone: [facility] 03-25-2024 10:43-0400 Body temperature 97.11 [degF] Lito Thomson MD Work Phone: [facility] 03-25-2024 10:43-0400 Body weight 90.9 kg Lito Thomson MD Work Phone: [facility] 03-25-2024 10:43-0400 Diastolic blood pressure 96 mm[Hg] Lito Thomson MD Work Phone: [facility] 03-25-2024 10:43-0400 Heart rate 71 /min Lito Thomson MD Work Phone: [facility] 03-25-2024 10:43-0400 Respiratory rate 18 /min Lito Thomson MD Work Phone: [facility] 03-25-2024 10:43-0400 SaO2% (BldA) [Mass fraction] 100 % Lito Thomson MD Work Phone: [facility] 03-25-2024 10:43-0400 Systolic blood pressure 138 mm[Hg] Lito Thomson MD Work Phone: [facility] 02-26-2024 09:10-0400 Blood Pressure Location Donato LI [facility] 02-26-2024 09:10-0400 Body temperature 98.6 [degF] Donato LI [facility] 02-26-2024 09:10-0400 Diastolic blood pressure 83 mm[Hg] Donato LI [facility] 02-26-2024 09:10-0400 Heart rate 75 /min Donato LI [facility] 02-26-2024 09:10-0400 Respiratory rate 16 /min Donato LI [facility] 02-26-2024 09:10-0400 Systolic blood pressure 135 mm[Hg] Donato LI [facility] 02-12-2024 11:08-0400 Blood Pressure Location Donato LI [facility] 02-12-2024 11:08-0400 Diastolic blood pressure 80 mm[Hg] Donato LI [facility] 02-12-2024 11:08-0400 Systolic blood pressure 134 mm[Hg] Donato LI [facility] 06-28-2022 13:25-0400 Body height 177.8 cm Krystin Loja Other [facility] Other 06-28-2022 13:25-0400 Body mass index (BMI) [Ratio] 28.69 kg/m2 Krystin Loja Other [facility] Other 06-28-2022 13:25-0400 Body temperature 98.9 [degF] Krystin Loja Other [facility] Other 06-28-2022 13:25-0400 Body weight 90.72 kg Krystin Loja Other [facility] Other 06-28-2022 13:25-0400 Diastolic blood pressure 97 mm[Hg] Krystin Loja Other [facility] Other 06-28-2022 13:25-0400 Respiratory rate 18 /min Krystin Loja Other [facility] Other 06-28-2022 13:25-0400 SaO2% (BldA) [Mass fraction] 97 % Krystin Loja Other [facility] Other 06-28-2022 13:25-0400 Systolic blood pressure 130 mm[Hg] Krystin Loja Other [facility] Other Encounters Encounter Date Encounter Type Care Provider Facility Start: 06-21-2024 ambulatory Donato Dinhi ty:[facility] [place] Start: 06-13-2024 ambulatory Donato Dinhi ty:CD:[id number] Start: 06-03-2024 ambulatory Donato Dinhi ty:CD:[id number] Start: 05-28-2024 End: 05-28-2024 ambulatory Donato LI Facility[facility] Start: 05-28-2024 End: 05-28-2024 ambulatory Donato LI Facility:[facility] Start: 05-06-2024 End: 05-06-2024 Patient encounter procedure Lito Thomson MD Work Phone: Hematology/Oncology Start: 05-06-2024 End: 05-07-2024 ambulatory Chair 23 Wander (f. [employer]) Work Phone: Hematology/Oncology Comment on above: Malignant neoplasm o f lateral wall of urinary bladder (HCC) Malignant neoplasm o f lateral wall of urinary bladder (HCC) (Primary Dx) Start: 04-29-2024 End: 04-30-2024 ambulatory Chair 23 Wander (f. [employer]) Work Phone: Hematology/Oncology Comment on above: Malignant neoplasm o f lateral wall of urinary bladder (HCC) Start: 04-22-2024 End: 04-22-2024 ambulatory Chair 23 Wander (f. [employer]) Work Phone: Hematology/Oncology Comment on above: Malignant neoplasm o f lateral wall of urinary bladder (HCC) Start: 04-15-2024 End: 04-16-2024 ambulatory Chair 23 Wander (f. [employer]) Work Phone: Hematology/Oncology Comment on above: Malignant neoplasm o f lateral wall of urinary bladder (HCC) Start: 04-12-2024 Social Work [employer] Hematolo gy/Oncology Start: 04-09-2024 Telephone encounter Lito engel MD Work Phone: Hematology/Oncology Comment on above: FMLA Paperwork Start: 04-08-2024 End: 04-08-2024 ambulatory Chair 23 Wander (f. [employer]) Work Phone: Hematology/Oncology Comment on above: Malignant [...] 02-26-2024 End: 02-26-2024 ambulatory Donato LI Facility:[facility] [place] Start: 02-26-2024 End: 02-26-2024 Patient encounter procedure Donato LI [facility] Start: 02-21-2024 End: 02-21-2024 ambulatory Donato LI Facility:[facility] [place] Start: 02-21-2024 End: 02-21-2024 Patient encounter procedure Donato LI [facility] Start: 02-15-2024 End: 02-15-2024 ambulatory Donato Li [facility] Work Phone: Start: 02-15-2024 End: 02-15-2024 Departed Referred MD Donato Li Work Phone: [facility] Start: 02-15-2024 ambulatory Donato Moe ty:CD:[id number] Start: 02-12-2024 End: 02-12-2024 ambulatory Donato LI Facility:[facility] Start: 02-12-2024 End: 02-12-2024 Patient encounter procedure [facility] Start: 01-31-2024 ambulatory Donato LI Facility :[facility] Start: 01-13-2023 End: 01-14-[address] YUMI TOLENTINO Facility:[facility] Start: 08-17-2022 End: 08-18-2022 ambulatory KERRY MONTES Facility:[facility] Start: 06-28-2022 End: 06-28-2022 ambulatory Krystin Loja Other [employer] Other Start: 06-28-2022 Office outpatient ne w 30 minutes Krystin Loja [facility] Start: 01-18-2022 End: 01-19-[address] CHESTER LISTED REQUEST Facility:[facility] Procedures Date Procedure Procedure Detail Performing Clinician Start: 02-15-2024 Transurethral resect ion of bladder neoplasm Donato LI Start: 01-13-2023 PSA screening KERRY COLON Comment on above: Performed By: #### P SASC #### [facility] [address] [place] [address] Dr. Danielle Harden Start: 01-18-2022 PSA screening KERRY COLON Comment on above: Performed By: #### C MP, MG #### [facility] [address] [address] [address] Danielle Harden Start: 09-11-2003 Structure of sinoatr ial node (body structure) Donato LI Plan of Treatment Date Care Activity Detail Author Start: 06-11-2028 Urine microalbumin profile DTaP,Tdap,Td Vaccine (2 - Td or Tdap) [facility] Start: 06-20-2024 End: 06-20-2024 Follow-up encounter 06/20/2024 1:30 PM EDT Visit (SP) Office Hematology/Oncology [address] [place] [address] [place] [address] Lito Thomson MD [address] [place] [address] 6 Week follow up with lab Hematology/Oncology Comment on above: 6 Week follow up wit h lab Start: 06-20-2024 End: 06-20-2024 Patient encounter procedure 06/20/2024 1:15 PM EDT Office Visit [facility] [address] [facility] [place] [address] 6 Week follow up with lab [facility] Comment on above: 6 Week follow up wit h lab Start: 05-12-2024 Influenza vaccination Influenza Vacc ine (#1) [facility] Start: 05-06-2024 End: 05-06-2024 Follow-up encounter Hematology/Oncology Comment on above: follow up with lab a nd chemotx BCG Start: 05-06-2024 End: 05-06-2024 Patient encounter procedure 05/06/2024 12:45 PM EDT Office Visit [facility] [address] [place] [address] follow up with lab and chemotx BCG [facility] Comment on above: follow up with lab a nd chemotx BCG Start: 04-29-2024 End: 04-29-2024 ambulatory 04/29/2024 1:00 PM EDT Infusion Center Hematology/Oncology [address] [facility] [place] [address] chemotx [facility]On[facility] Comment on above: chemotx [facility] Start: 04-22-2024 End: 04-22-2024 ambulatory 04/22/2024 1:00 PM EDT Infusion Center Hematology/Oncology [address] [facility] [place] [address] [facility] Comment on above: [facility] Start: 04-15-2024 End: 04-15-2024 ambulatory 04/15/2024 1:00 PM EDT Infusion Center Hematology/Oncology [address] [place] [address] [facility] Comment on above: [facility] Start: 04-14-2024 Screening for malign ant neoplasm of colon [facility] Start: 04-08-2024 End: 04-08-2024 ambulatory 04/08/2024 8:30 AM [facility] Hematology/Oncology [address] [place] [address] [facility]cology Comment on above: [facility] Start: 04-01-2024 End: 04-01-2024 ambulatory 04/01/2024 8:30 AM [facility] Hematology/Oncology [address] [place] [address] [facility] Comment on above: [facility] Start: 09-11-2023 Behavioral Health Screening Behavioral Health Screening [facility] Start: 05-12-2023 Covid-19 Vaccine ( season) Covid-19 Vaccine () [facility] Start: 2019 Prostate specific antigen measurement Prostate Cancer Screening Discussion [facility] Start: 2014 Shingrix Vaccine (1 of 2) Shingrix Vaccine (1 of 2) [facility] [facility] Start: 2009 Diabetes Screening Diabetes Screenin g [facility] Start: 2009 Screening for malign ant neoplasm of colon [facility] Start: 1999 Lipid panel Lipid Screening [facility] Start: 1982 Anxiety Screening Anxiety Screening [facility] Start: 1982 Depression Screening Depression Scre ening [facility] Start: 1982 Hepatitis C screening Hepatitis C Sc luis [facility] Start: 1982 HIV screening HIV Screening [facility] Immunizations Immunization Date Immunization Notes Care Provider Cordell siegel 07-01-2023 influenza virus vaccine, unspecified formulation Donato LI [facility] 07-01-2023 influenza, injectabl e, quadrivalent, preservative free Chair Cheng Work Phone: [facility] 07-17-2022 influenza virus vaccine, unspecified formulation Donato LI [facility] 07-17-2022 Influenza, injectabl e, Madin [place] Canine Kidney, preservative free, quadrivalent Chair Joe Work Phone: [facility] 08-21-2021 SARS-CoV-2 (COVID-19 ) mRNA-1273 vaccine Donato LI [facility] 08-01-2021 influenza virus vaccine, unspecified formulation Donato LI [facility] 08-01-2021 influenza, injectabl e, quadrivalent, preservative free Chair Montcalm Work Phone: [facility] 06-11-2021 influenza virus vaccine, unspecified formulation Donato LI [facility] 06-11-2021 SARS-CoV-2 (COVID-19 ) mRNA-1273 vaccine Donato LI [facility] 12-23-2020 SARS-CoV-2 (COVID-19 ) mRNA-1273 vaccine Donato LI [facility] Comment on above: Result Comment: 2023: TPV50 11-25-2020 SARS-CoV-2 (COVID-19 ) mRNA-1273 vaccine Donato LI [facility] Comment on above: Result Comment: 2023: [id number] 05-29-2020 influenza virus vaccine, unspecified formulation Donato LI [facility] 06-11-2018 tetanus toxoid, redu tara diphtheria toxoid, and acellular pertussis vaccine, adsorbed Donato LI [facility] Payers Date Payer Category Payer Self-pay 2023 Unknown MMO MMO [employer] [id number] 2023-Present [phone] [address] [place] [address] Indemnity [id number] 1964 Unknown [id number] 1964 Unknown [id number] 1964 Unknown [id number] [id number] 1964 Unknown [id number] [id number] 1964 Unknown [id number] [id number] 1964 Unknown [id number] [id number] 1964 Unknown [id number] [id number] 1964 Unknown [id number] [id number] 1964 Unknown [id number] [id number] 1964 Unknown [id number] [id number] 1959 Self-pay [id number] 1959 Unknown [id number] [id number] Unknown [id number] [id number] Unknown [id number] Social History Date Type Detail Facility Start: 03-25-2024 End: 04-29-2024 Sex Assigned At [facility] Start: 02-12-2024 End: 03-25-2024 Tobacco smoking status Ex-smoker (finding) [facility] Tobacco smoking status Never [facility] Start: 1965 Sex Assigned At Male [facility] Start: 09-11-1967 End: 09-11-1969 History of tobacco use Current smoker [facility] Start: 09-11-1967 End: 09-11-1969 History of tobacco use Cigarette Smoker [facility] Start: 03-25-2024 End: 04-29-2024 Cigarettes smoked current (pack per day) - Reported 0.5 [facility] Start: 03-25-2024 Tobacco use and exposure Smokeless tobacco non-user [facility] Start: 03-25-2024 End: 05-06-2024 Alcohol intake Ex-drinker (finding) [facility] Start: 1965 Sex Assigned At Not on file [facility] Functional Status Date Assessment Result Facility 02-26-2024 Functional Status N/A [facility] 02-12-2024 Functional Status N/A [facility] Clinical Notes 06-28-2022 to 05-06-2024 Jeff Reveles, [place] - 05/06/2024 1:16 PM Lito Odell MD - 05/05/2024 8:11 PM Gio Devlin RN - 04/29/2024 4:02 PM Leif Aragon RN - 04/29/2024 1:11 PM EDT Note Date & Type Note Facility 05-06-2024 Note HNO ID: [id number] Author: JEFF REVELES RN Service: ? Author Type: Registered Nurse [...] to exit when finished. Jeff Reveles RN [facility] 05-06-2024 History of Presen t illness Narrative [...] Jeff Reveles RN documented in this encounter [facility] 05-05-2024 Note HNO ID: [id number] Author: LITO THOMSON MD Service: ? Author [...] percussion, and palpation. (more content not included)... [facility] 05-05-2024 History of Presen t illness Narrative [...] swelling, and atrophy. PATHOLOGY: 02/16/2024 Prostate biopsy/TURBT ([facility] High-grade papillary urothelial carcinoma. Focal superficial lamina propria invasion is identified. Muscularis propria is noted, negative for invasion. RADIOLOGY/OTHER STUDIES: 02/03/2024 Ultrasound renal bladder ([facility]) A small cyst is seen in the [...] Lito Thomson MD CC: Dr. Donato Li, [facility] u[facility] documented in this encounter [facility] 04-29-2024 Note HNO ID: [id number] Author: GIO CLAUDIO RN Service: ? Author Type: Registered Nurse Type: Progress Notes Filed: 04/29/2024 16:05 Note Text: 1600- catheter unclamped and bladder allowed to drain. 1603- 450 mls clear yellow urine noted to drainage bag. Lopez catheter dc'd per protocol without incident. Pt allowed to dress and was discharged from infusion area. [facility] 08-19-2024 History of Presen t illness Narrative 1600- [...] Leif Kovacs RN documented in this encounter [facility] 04-29-2024 Note HNO ID: [id number] Author: LEIF KOVACS RN Service: ? Author Type: Registered Nurse Type: Progress Notes Filed: 04/29/2024 16:05 Note Text: 16 fr lopez cath inserted per protocol as ordered to facilitate BCG instillation, approx 30 ml received in collection bag, patient voided prior and has tolerated well, no further questions or concerns noted. Leif Kovacs RN [facility] 04-22-2024 Note HNO ID: [id number] Author: OSVALDO CUENCA RN Service: ? Author [...] Pt with no complaints. Osvaldo Cuenca RN [facility] 04-22-2024 History of Presen t illness Narrative [...] Osvaldo Cuenca RN documented in this encounter [facility] 04-15-2024 Note HNO ID: [id number] Author: MARIE OSBORN RN Service: ? Author [...] dc'd. 600cc clear yellow urine in bag. [facility] 04-15-2024 History of Presen t illness Narrative [...] urine in bag. documented in this encounter [facility] 04-12-2024 Note HNO ID: [id number] Author: CITLALY MORRIS LSW Service: ? Author Type: Tetryl Boiling Tub Operator Type: Progress Notes Filed: 04/12/2024 10:00 Note Text: Patient appears on the [facility] Time Treatment List. SW will plan to meet with this Patient at a future appointment to complete a psychosocial assessment. ADRIEL Warren Goals of Care Advance Directives are not on file. SIGNATURE: RIKY Warren PATIENT NAME: Ishaan Hanson DATE: April 12, 2024 TIME: 9:59 AM PAGER/CONTACT #: [facility] 04-12-2024 History of Presen t illness Narrative Patient appears on the [facility] Time Treatment List. SW will plan to meet with this Patient at a future appointment to complete a psychosocial assessment. ADRIEL Warren Goals of Care Advance Directives are not on file. SIGNATURE: RIKY Warren PATIENT NAME: Ishaan Hustonpin DATE: April 12, 2024 TIME: 9:59 AM PAGER/CONTACT #: documented in this encounter [facility] 04-10-2024 Telephone encounter Note Faxed [facility] paperwork to HR @ [phone]. Vero Christopher MA [facility] 04-10-2024 Miscellaneous Notes Faxed [facility] paperwork to HR @ [phone]. Vero Christopher MA [employer] paperwork completed and placed in folder to be signed. Vero Christopher MA documented in this encounter [facility] 04-09-2024 Telephone encounter Note [facility] paperwork completed and placed in folder to be signed. Vero Christopher MA [facility] 04-08-2024 Note HNO ID: [id number] Author: MARIE OSBORN RN Service: ? Author [...] 1130 lopez dc'd. 250cc in drainage bag. [facility] 04-08-2024 History of Presen t illness Narrative [...] in drainage bag. documented in this encounter [facility] 04-01-2024 Note HNO ID: [id number] Author: MARIE OSBORN RN Service: ? Author [...] clear yellow urine in bag. Lopez dc'd. [facility] 04-01-2024 History of Presen t illness Narrative [...] 1145 300cc clear yellow urine in bag. Jessica olivas'd. documented in this encounter [facility] 03-24-2024 Note HNO ID: [id number] Author: LITO THOMSON MD Service: ? Author [...] or drink. 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 Ne (more content not included)... [facility] 03-24-2024 History of Presen t illness Narrative PATIENT NAME: Ishaan aHnson DATE: 03/25/2024 PRIMARY CARE PHYSICIAN: Dayami Lewis [...] or drink. 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 PATHOLOGY: 02/16/2024 Prostate biopsy/TURBT ([facility]) High-grade papillary urothelial carcinoma. Focal superficial lamina propria invasion is identified. Muscularis propria is noted, negative for invasion. RADIOLOGY/OTHER STUDIES: 02/03/2024 Ultrasound renal bladder ([facility]) A small cyst is seen in the [...] Lito Thomson MD CC: Dr. Donato Li, [facility] urology documented in this encounter [facility] 02-26-2024 Hospital Discharg e instructions Patient Education [...] cells. Follow these instructions at home: Take lkmf-clf-oxesxwf and prescription medicines only as told by [...] is important. Where to find more information [employer] (ACS): cancer.org National Cancer Lawrence (NCI): cancer.gov Contact a health care provider [...] provider. Document Revised: 08/08/2022 Document Reviewed: 08/08/[address] Patient Education 2022 [employer] Follow Up Care 02/12/2024 12:19:37 With:GUILLERMO PATEL, Donato Bar, URL Address: [facility] [address] , [place] [address]- When: Unknown [facility] [place] 02-12-2024 Hospital Discharg e instructions Patient Education [...] Follow these instructions at home: Medicines Take tuil-wjv-hkwlrad and prescription medicines only as told by [...] to keep your urine pale yellow. ?Take ycyu-ddw-jtcfwda or prescription medicines. ?Eat foods that are [...] and pain in your lower abdomen. Take vcjf-owo-jjjpnzw and prescription medicines only as told by [...] provider. Document Revised: 09/02/2022 Document Reviewed: 09/02/[address] Patient Education 2022 [employer] 02/12/2024 12:02:39 Transurethral Resection of Bladder Tumor [...] including vitamins, herbs, eye drops, creams, and jazw-jze-nyryynn medicines. Any problems you or family members [...] provider tells you to take them. Taking nlnc-khr-ujebytz medicines, vitamins, herbs, and supplements. General instructions [...] provider. Document Revised: 09/02/2022 Document Reviewed: 09/02/[address] Patient Education [address] [employer] 02/12/2024 12:01:57 Cystoscopy Cystoscopy Cystoscopy is a [...] including vitamins, herbs, eye drops, creams, and jtjb-ujh-ejiyccb medicines. Any problems you or family members [...] provider tells you to take them. Taking zovg-jqz-vfjrlto medicines, vitamins, herbs, and supplements. Tests You [...] Follow these instructions at home: Medicines Take bwko-gvq-uwckdnd and prescription medicines only as told by [...] provider. Document Revised: 05/11/2022 Document Reviewed: 04/09/[address] Patient Education 2022 [employer] Follow Up Care 02/09/2024 08:47:02 With:GUILLERMO PATEL, Donato Bar, URL Address: [facility] [address], [place] [address]- [phone] When: Unknown Comments:sched cysto/TURBT [facility] [place] 02-12-2024 Note Chief Complaint Referral *Bladder Mass [...] planning to go on a trip to [place] but would be willing to cancel trip [...] [facility] [address], [place] [address]- [phone] Additional Instructions: sched cysto/TURBT Patient Education Transurethral Resection of Bladder Tumor, Care (more content not included)... [facility] Comment on above: Result Comment: Elec [...] understanding and is agreeable with treatment plan [employer] Other Evaluation + Plan note Future Appointments Appointment Date:02/21/2024 09:30:00 AM Scheduled Provider: Location:[facility] Appointment Type:URO Nurse Visit Appointment Date:02/26/2024 12:15:00 PM Scheduled Provider:Donato LI MD Location:[facility] Appointment Type:URO Office Visit [facility] evaluation + Plan note Future Appointments Appointment Date:02/26/2024 12:15:00 PM Scheduled Provider:Donato LI MD Location:[facility] Appointment Type:URO Office Visit [facility] evalxrppwf noteNo assessment information available [facility] Work Phone: evaluqejaq note* Diagnosis Malignant neoplasm of lateral wall of urinary bladder (HCC)- Primary Malignant neoplasm of lateral wall of urinary bladder [facility] Malignant neoplasm of lateral wall of urinary bladder (HCC) Malignant neoplasm of lateral wall of urinary bladder [facility] Diagnosis Malignant neoplasm of lateral wall of urinary bladder (HCC) Malignant neoplasm of lateral wall of urinary bladder [facility] Diagnosis Malignant neoplasm of lateral wall of urinary bladder (HCC) Malignant neoplasm of lateral wall of urinary bladder [facility] Diagnosis Malignant neoplasm of lateral wall of urinary bladder (HCC) Malignant neoplasm of lateral wall of urinary bladder [facility] Diagnosis Malignant neoplasm of lateral wall of urinary bladder (HCC)- Primary Malignant neoplasm of lateral wall of urinary bladder [facility] Narrative - Reported* Type Description Date Medical History htn [employer] Other Hospital course Narrative No data available for this section [facility] Discharge instructions No data available for this section [facility] [employer] progress note No data available for this section [facility] [employer] Summary Purpose Family History No Family History [...] CREATED AUTHOR AUTHOR'S ORGANIZ ATION 01/14/[address] [facility] p[facility] DATE CREATED AUTHOR AUTHOR'S ORGANIZ ATION 02/21/2024 [facility] DATE CREATED AUTHOR AUTHOR'S ORGANIZ ATION 03/06/2024 [facility] EPIC DATE CREATED AUTHOR AUTHOR'S ORGANIZ ATION 05/10/2024 [facility] DATE CREATED AUTHOR AUTHOR'S ORGANIZ ATION 06/01/2024 [facility] DATE CREATED AUTHOR AUTHOR'S ORGANIZ ATION 06/05/2024 [facility] REASON FOR VISIT (unrecogniz ed section and content) Reason Comments Consult Specialty Diagnoses / Procedures Referred By Contac t Referred To Contact Hematology/Oncology / HEMONC INFUSION Diagnoses BCG Infusion Procedures TREATMENT 2 HRS Lito Flood MD [address] [place] [address] [facility] [place] [place] [address] Referral ID Status Reason Start Date Expiration Date V isits Requested Visits Authorized [id number] New Request 04/01/2024 06/30/2024 99 99 Reason Comments FMLA Paperwork Specialty Diagnoses / Procedures Referred By Contac t Referred To Contact Hematology/Oncology / HEMONC INFUSION Diagnoses Malignant neoplasm of lateral wall of bladder BCG Infusion Procedures BCG LIVE INTRAVESICAL INSTILLATION, 1 MG TREATMENT 2 HRS Lito Flood MD [address] [place] [address] [facility] [place] [place] [address] Referral ID Status Reason Start Date Expiration Date V isits Requested Visits Authorized [id number] Authorized 04/01/2024 09/10/2024 99 99 Reason Comments Bladder Cancer Treatment visit Patient Care team informatio n (unrecognized section and content) Team Status: Inactive Member Role Status Dates Donato Li MD Attending Provider Active St art: February 15, 2024 End: February 15, 2024 Bible Worker Relationship Specialty Start Date End Date Dayami Lewis CNP [address] [id number] PCP - General Internal Medicine 02/27/24 Donato Li MD [address] [place] [address] Urology 03/20/24 Bible Worker Relationship Specialty Start Date End Date Dayami Lewis CNP [address] [place] [address] PCP - General Internal Medicine 02/27/24 Donato Li MD [address] [place] [address] Urology 03/20/24 Bible Worker Relationship Specialty Start Date End Date Dayami Lewis CNP [address] [place] [address] PCP - General Internal Medicine 02/27/24 Donaot Li MD [address] [place] [address] Urology 03/20/24 Bible Worker Relationship Specialty Start Date End Date Dayami Lewis CNP [address] [place] [address] PCP - General Internal Medicine 02/27/24 Donato Li MD [address] [place] [address] Urology 03/20/24 Bible Worker Relationship Specialty Start Date End Date Dayami Lewis CNP [address] [place] [address] PCP - General Internal Medicine 02/27/24 Donato Li MD [address] [place] [address] Urology 03/20/24 Bible Worker Relationship Specialty Start Date End Date Dayami Lewis CNP [address] [place] [address] PCP - General Internal Medicine 02/27/24 Donato Li MD [address] [place] [address] Urology 03/20/24 Bible Worker Relationship Specialty Start Date End Date Dayami Lewis CNP [address] [id number] PCP - General Internal Medicine 02/27/24 Donato Li MD [address] [place] [address] Urology 03/20/24 Bible Worker Relationship Specialty Start Date End Date Dayami Lewis CNP [address] [place] [address] PCP - General Internal Medicine 02/27/24 Donato Li MD [address] [place] [address] Urology 03/20/24 Goals (unrecognized section and content) Goals may be documented in a n alternate section Source Comments (unrecognize d section and content) In the event this informatio n is protected by the Federal Confidentiality of Alcohol and Drug Abuse Patient Records regulations: The Federal rules restrict any use of the information to criminally investigate or prosecute any alcohol or drug abuse patient.[facility] the event this information is protected by the Federal Confidentiality of Alcohol and Drug Abuse Patient Records regulations: The Federal rules restrict any use of the information to criminally investigate or prosecute any alcohol or drug abuse patient.[facility] the event this information is protected by the Federal Confidentiality of Alcohol and Drug Abuse Patient Records regulations: The Federal rules restrict any use of the information to criminally investigate or prosecute any alcohol or drug abuse patient.[facility] the event this information is protected by the Federal Confidentiality of Alcohol and Drug Abuse Patient Records regulations: The Federal rules restrict any use of the information to criminally investigate or prosecute any alcohol or drug abuse patient.[facility] the event this information is protected by the Federal Confidentiality of Alcohol and Drug Abuse Patient Records regulations: The Federal rules restrict any use of the information to criminally investigate or prosecute any alcohol or drug abuse patient.[facility] the event this information is protected by the Federal Confidentiality of Alcohol and Drug Abuse Patient Records regulations: The Federal rules restrict any use of the information to criminally investigate or prosecute any alcohol or drug abuse patient.[facility] the event this information is protected by the Federal Confidentiality of Alcohol and Drug Abuse Patient Records regulations: The Federal rules restrict any use of the information to criminally investigate or prosecute any alcohol or drug abuse patient.[facility] the event this information is protected by the Federal Confidentiality of Alcohol and Drug Abuse Patient Records regulations: The Federal rules restrict any use of the information to criminally investigate or prosecute any alcohol or drug abuse patient.[facility] the event this information is protected by the Federal Confidentiality of Alcohol and Drug Abuse Patient Records regulations: The Federal rules restrict any use of the information to criminally investigate or prosecute any alcohol or drug abuse patient.[facility] the event this information is protected by the Federal Confidentiality of Alcohol and Drug Abuse Patient Records regulations: The Federal rules restrict any use of the information to criminally investigate or prosecute any alcohol or drug abuse patient.[facility] FOR RECORDS PERTAINING TO PATIENTS WHO ARE [...] BE BASED ON THE PRIMARY CLINICAL RECORDS. [facility] [employer] [facility]. provides no warranty or guarantee of the accuracy or completeness of information in this document.
[2024-06-07 09:37] LABS: Basophils Percent Auto 0.2 % (0.2-2.0); Eosinophils Absolute Auto 0.1 10^3/uL (0.0-0.7); Eosinophils Percent Auto 0.8 % (0.9-7.0); Hematocrit 38.7 % (42.0-54.0); Hemoglobin 12.5 g/dL (14.0-18.0); Immature Granulocytes Abs Auto 0.01 10^3/uL (0.00-0.03); Immature Granulocytes Pct Auto 0.1 % (0.0-0.5); Lymphocytes Absolute Auto 2.5 10^3/uL (1.2-3.8); Lymphocytes Percent Auto 29.8 % (20.5-60.0); Mean Corpuscular HGB Conc 32.3 g/dL (29.9-35.2); Mean Corpuscular Hemoglobin 28.4 pg (25.9-34.0); Mean Platelet Volume 9.2 fL (9.5-13.5); Monocytes Absolute Auto 0.8 10^3/uL (0.3-0.8); Monocytes Percent Auto 9.8 % (1.7-12.0); Neutrophils Percent Auto 59.3 % (43.0-75.0); Platelet Count 254 10^3/uL (150-450); Red Cell Distribution Width 13.3 % (11.0-15.0); White Blood Count 8.4 10^3/uL (4.0-11.0)
--- NOTE | 2024-06-07 09:40 | P.GSHP_ITS ---
History of Present Illness History of Present Illness Chief complaint: bladder tumor Narrative: Patient presents for preadmission testing. The patient had a TURBT with Dr. Campos on February 15, 2024 followed by a local cystoscopy with Dr. Campos on June 03. The patient states he is doing well. He denies hematuria, dysuria, incomplete bladder emptying, weak urine stream, or any other complaints. Review of Systems ROS Narrative REVIEW OF SYSTEMS: Negative except as stated in HPI, ten or more systems reviewed. Constitutional: No fever, chills, weakness ENT: No sore throat or epistaxis Cardiovascular: No edema, chest pain, palpitations, or activity intolerance Respiratory: No shortness of breath, cough, or wheezing Musculoskeletal: No joint pain or swelling Gastrointestinal: No abdominal pain, constipation, diarrhea, or vomiting Genitourinary: No dysuria or hematuria Neurological: No numbness, tingling, weakness, or headache Psychiatric: No mood changes PFSH [facility] Medical History (Updated 05/31/24 @ 10:20 by Margoth Seth) Bladder cancer ?C67.9 - Malignant neoplasm of bladder, unspecified (ICD-10) Erectile dysfunction ?N52.9 - Male erectile dysfunction, unspecified (ICD-10) BPH (benign prostatic hyperplasia) ?N40.0 - Benign prostatic hyperplasia without lower urinary tract symptoms (ICD-10) Decreased urine stream ?R39.198 - Other difficulties with micturition (ICD-10) Knee pain ?M25.569 - Pain in unspecified knee (ICD-10) Anemia ?D64.9 - Anemia, unspecified (ICD-10) Snores ?R06.83 - Snoring (ICD-10) Migraine ?G43.909 - Migraine, unspecified, not intractable, without status migrainosus (ICD-10) Hematuria ?R31.9 - Hematuria, unspecified (ICD-10) Bladder mass ?N32.89 - Other specified disorders of bladder (ICD-10) Heartburn ?R12 - Heartburn (ICD-10) Myasthenia gravis ?G70.00 - Myasthenia gravis without (acute) exacerbation (ICD-10) High cholesterol ?E78.00 - Pure hypercholesterolemia, unspecified (ICD-10) Hypertension ?I10 - Essential (primary) hypertension (ICD-10) Postoperative nausea and vomiting ?R11.2 - Nausea with vomiting, unspecified (ICD-10) ?Z98.890 - Other specified postprocedural states (ICD-10) Surgical History (Updated 06/05/24 @ 11:27 by Darlin Vigil NP) H/O cystoscopy (06/03/24) ?Z98.890 - Other specified postprocedural states (ICD-10) H/O transurethral resection of bladder tumor (TURBT) (02/15/24) ?Z98.890 - Other specified postprocedural states (ICD-10) ?Z86.03 - Personal history of neoplasm of uncertain behavior (ICD-10) H/O foot surgery ?Z98.890 - Other specified postprocedural states (ICD-10) H/O sinus surgery ?Z98.890 - Other specified postprocedural states (ICD-10) H/O sinus surgery ?Z98.890 - Other specified postprocedural states (ICD-10) History of nasal septoplasty ?Z98.890 - Other specified postprocedural states (ICD-10) Family History (Updated 02/13/24 @ 09:20 by Darlin Vigil NP) Other Family history of breast cancer Family history of diabetes mellitus Family history of heart disease Family history of hypertension Family history of prostate cancer Family history of throat cancer Social History (Updated 02/13/24 @ 09:13 by Darlin Vigil NP) Within the past year, how often did you have a drink containing alcohol: never Score interpretation: A score less than 4 is consistent with normal alcohol consumption. 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 Highest level of school completed/degree received: high school graduate Meds Home Medications and Allergies Home Medications ?Medication ?Instructions ?Recorded ?Confirmed ?Type atorvastatin 20 mg tablet 20 mg PO DAILY 02/13/24 06/07/24 History cyclobenzaprine 5 mg tablet 5 mg PO QPM PRN muscle spasm 02/13/24 06/07/24 History hydrochlorothiazide 25 mg tablet 25 mg PO DAILY 02/13/24 06/07/24 History losartan 50 mg tablet 50 mg PO DAILY 02/13/24 06/07/24 History prednisone 10 mg tablet 10 mg PO DAILY 02/13/24 06/07/24 History pyridostigmine bromide 60 mg tablet 90 mg PO TID 02/13/24 06/07/24 History Allergies Allergy/AdvReac Type Severity Reaction Status Date / Time No Known Drug Allergies Allergy Verified 06/07/24 09:17 Exam Narrative Exam Narrative: Constitutional: Awake, alert, comfortable, well-appearing, nontoxic, interactive, vital signs as charted Head: Normocephalic, atraumatic Neck: Supple, normal appearance, normal range of motion, no meningeal signs, no lymphadenopathy Respiratory: No respiratory distress, breath sounds clear Cardiovascular: Regular rate and rhythm, strong and regular heart tones Abdomen: Nontender, normal bowel sounds, soft, no CVA tenderness Musculoskeletal: Normal gait, no swelling or edema Skin: No rashes or induration, no lesions, only visible skin inspected Neuro: No neurological deficits, normal sensation Psychiatric: Oriented ?3, normal affect Assessment and Plan Assessment and Plan (1) Bladder cancer: (2) BPH (benign prostatic hyperplasia): (3) Bladder mass: Plan Cystoscopy, TURBT scheduled with Dr. Campos June 13, 2024.
[2024-06-07 09:57] LABS: Anion Gap 11.2; BUN Creatinine Ratio 14.6; Carbon Dioxide 27.9 mmol/L (21.0-32.0); Chloride 103 mmol/L (98-107); Estimated GFR (African America >60 (>=60); Estimated GFR (Non-African Ame >60 (>=60); Glucose 95 mg/dL (74-106); Potassium 3.1 mmol/L (3.5-5.1); Sodium 139 mmol/L (136-145)
[2024-06-07 10:27] LABS: Partial Thromboplastin Time 26.8 sec (22.3-36.2); Prothrombin Time 10.6 sec (9.0-11.6)
== END 2024-06-07 09:00 | disposition home or self-care (01) ==
LOC: PST 08:59
PROVIDERS: PCP Nurse Practitioner Family; Visit Provider Urology
DX: Z01.812 Encounter for preprocedural laboratory examination (principal); Z01.818 Encounter for other preprocedural examination; Z85.51 Personal history of malignant neoplasm of bladder; N40.1 Benign prostatic hyperplasia with lower urinary tract symptoms; E78.5 Hyperlipidemia, unspecified; G70.9 Myoneural disorder, unspecified
CPT/HCPCS: 80048; 85025; 85610; 85730; G0463

== ENCOUNTER 2024-06-13 11:51 | Day surgery (SDC) | payer OTHER, SELFPAY ==
[2024-06-07 09:34] VITALS: BP 145/93; PULSE 73; TEMP 36.3; O2SAT 98; BMI 28.4
[2024-06-13] VITALS (11 sets, daily range): BP systolic 124–144; BP diastolic 93–102; PULSE 71–85; TEMP 35.9–36.6; O2SAT 94–97; BMI 28.0
[2024-06-13] MEDS: LACTATED RINGER'S SOLUTION 1,000 ML 50 ML IV (12:32)
[2024-06-13] MEDS: CEFAZOLIN SODIUM 2 GM/50 ML D5W PREMIX IV (14:05)
--- NOTE | 2024-06-13 14:48 | P.URON_ITS ---
Urology Surgery Operative Note Operative Note Procedure Date: 06/13/24 Time Out Performed: yes Pre-op Diagnosis: Recurrent bladder tumors Post-op Diagnosis: same as pre-op Procedures performed: 1. Cystoscopy. 2. Transurethral resection of bladder tumors approximately 5 cm Anesthesia: CRISTIAN Primary Surgeon: Brodie Campos Complications: None Estimated blood loss (mL): 5 Findings: 5 separate 1 cm bladder tumors Specimens: Bladder tumors Drains: 20 Chadian Lopez catheter in the bladder Indications for Procedures: This gentleman has a recent history of high-grade invasive TCC of the bladder. He underwent a first course of BCG. Surveillance cystoscopy revealed that he had a few small recurrences. He now presents for TURBT. He has signed an informed consent after risks were explained. Detailed description of Procedure: The patient was brought to the operating room and placed on the operating room table in the supine position. SCDs were placed on the lower extremities and turned on and functioning during the entire case. Timeout was done by all parties in the room. We all agreed upon the patient's identification and the planned procedures for this patient. Genn. anesthesia was then administered. The patient was then repositioned into the modified dorsal lithotomy position. All pressure points were satisfactorily padded. Genitalia were sterilely prepped and draped in usual fashion. I started by passing a 26 Chadian Olympus resectoscope with a standard bipolar loop electrode per urethra and into the bladder. Panendoscopy revealed the previously noted tumors on office cystoscopy. I started at the back wall and uniformly and deeply resected each of the tumors in that location. I then resected the left lateral wall and right lateral wall tumors. I found an additional 1 exactly adjacent to the left ureteral orifice. This also was resected deeply. I was able to spare the ureter. I then went back and I coagulated all of the resection beds. All of the tumors were removed with the Ilich and these were sent for permanent sections. Upon completion, there was no bleeding. There were no tumors remaining. The scope was then removed. I then placed a 20 Chadian Lopez catheter in the bladder. 10 cc of fluid was placed in the balloon. The anesthetic was then reversed. He was then transferred to a [facility] bed and wheeled to PACU in stable condition. Urinary Catheter Management Urinary Catheter Management Urethral: Cath placed during this visit: no
--- NOTE | 2024-06-13 16:19 | PC.NURSE ---
EDUCATED PATIENT AND ON HOW TO SWITCH FROM THE LEG BAG TO THE LARGE CATHETER BAG.
== END 2024-06-13 15:50 | disposition home or self-care (01) ==
PROVIDERS: PCP Nurse Practitioner Family; Visit Provider Urology
PROC: (CPT 52234; principal; 2024-06-13 13:05)
DX: C67.9 Malignant neoplasm of bladder, unspecified (principal); Z85.51 Personal history of malignant neoplasm of bladder; E78.5 Hyperlipidemia, unspecified; I10 Essential (primary) hypertension; K21.9 Gastro-esophageal reflux disease without esophagitis; N40.0 Benign prostatic hyperplasia without lower urinary tract symptoms; Z87.891 Personal history of nicotine dependence
CPT/HCPCS: 52234; 36415; 88307; J0690; J1100; J2001; J2405; J2704; J3010

== ENCOUNTER 2024-09-12 13:44 | Outpatient (OUT) | payer OTHER, SELFPAY | END 2024-09-12 13:45 | disposition home or self-care (01) | LOC: PST 13:44 | PROVIDERS: PCP Nurse Practitioner Family; Visit Provider Urology | DX: N40.0 Benign prostatic hyperplasia without lower urinary tract symptoms (principal) ==

== ENCOUNTER 2024-09-16 07:23 | Day surgery (SDC) | payer OTHER, SELFPAY ==
[2024-09-16] MEDS: LIDOCAINE 2% JELLY 10 ML UR (08:24)
--- NOTE | 2024-09-16 08:33 | PM.URSON ---
Urology Surgery Operative Note Operative Note Procedure Date: 09/16/24 Time Out Performed: yes Pre-op Diagnosis: History of recurrent TCC of the bladder Post-op Diagnosis: same as pre-op Procedures performed: 1. Cystoscopy. Anesthesia: local Primary Surgeon: Brodie Campos Complications: None Estimated blood loss (mL): 0 Findings: 1, 1 cm papillary TCC appearing lesion on the anterior bladder wall Specimens: None Drains: None Indications for Procedures: This gentleman has a history of TCC of the bladder. His original tumor in February 2024 was high-grade invasive to the lamina propria. He had 6 BCG treatments thereafter. He then had a recurrence and the path after the recurrence in June 2024 was low-grade noninvasive. He then had 3 subsequent BCG treatments. He now presents for surveillance cystoscopy. He has signed an informed consent after risks were explained. Detailed description of Procedure: The patient was kept on the [place] bed and brought into the endoscopy suite. He was in the supine position. Timeout was done by all parties in the room. Genitalia were sterilely prepped and draped in the usual fashion. 2% lidocaine gel was passed per urethra. I then passed a flexible cystoscope per urethra and into the bladder. The anterior urethra was normal. Prostatic urethra revealed bilobar obstruction. Panendoscopy in the bladder revealed multiple well-healed scars throughout. On the anterior bladder wall there was a 1 cm papillary lesion presumedly representing a recurrence. No other tumors were noted throughout the bladder. The scope was retroflexed and no new findings were appreciated. The scope was then removed. He was then discharged to home. Plan we will remove his tumor under a local using the holmium laser.
[2024-09-16 09:11] VITALS: BP 137/92; BP 141/94; PULSE 67; PULSE 73; O2SAT 97; O2SAT 98
== END 2024-09-16 08:39 | disposition home or self-care (01) ==
PROVIDERS: PCP Nurse Practitioner Family; Visit Provider Urology
PROC: (CPT 52000; principal; 2024-09-16 08:00)
DX: Z85.51 Personal history of malignant neoplasm of bladder (principal); I10 Essential (primary) hypertension; E78.5 Hyperlipidemia, unspecified; G70.00 Myasthenia gravis without (acute) exacerbation; Z87.891 Personal history of nicotine dependence; N40.0 Benign prostatic hyperplasia without lower urinary tract symptoms
CPT/HCPCS: 52000